=== PATIENT | female | born 1935 | race Caucasian/White ===

== ENCOUNTER → 2021-11-19 09:40 | Outpatient (BNVA) | payer MEDICARE, OTHER, SELFPAY | PROVIDERS: Family Provider Family Medicine; PCP Family Medicine; Visit Provider Internal Medicine Cardiovascular Disease | DX: Z79.01 Long term (current) use of anticoagulants (principal) ==

== ENCOUNTER → 2021-11-23 16:23 | Outpatient (BNVA) | payer MEDICARE, OTHER, SELFPAY | PROVIDERS: Family Provider Family Medicine; PCP Family Medicine; Visit Provider Internal Medicine Cardiovascular Disease | DX: Z79.01 Long term (current) use of anticoagulants (principal) ==

== ENCOUNTER → 2021-12-01 15:00 | Outpatient (BNVA) | payer MEDICARE, OTHER, SELFPAY | PROVIDERS: Family Provider Family Medicine; PCP Family Medicine; Visit Provider Internal Medicine Cardiovascular Disease | DX: Z79.01 Long term (current) use of anticoagulants (principal) ==

== ENCOUNTER → 2021-12-07 09:25 | Outpatient (BNVA) | payer MEDICARE, OTHER, SELFPAY | PROVIDERS: Family Provider Family Medicine; PCP Family Medicine; Visit Provider Internal Medicine Cardiovascular Disease | DX: I48.19 Other persistent atrial fibrillation (principal); Z79.01 Long term (current) use of anticoagulants ==

== ENCOUNTER → 2021-12-17 08:31 | Outpatient (BNVA) | payer MEDICARE, OTHER, SELFPAY | PROVIDERS: Family Provider Family Medicine; PCP Family Medicine; Visit Provider Internal Medicine Cardiovascular Disease | DX: Z79.01 Long term (current) use of anticoagulants (principal) ==

== ENCOUNTER → 2021-12-24 10:51 | Outpatient (BNVA) | payer MEDICARE, OTHER, SELFPAY | PROVIDERS: Family Provider Family Medicine; PCP Family Medicine; Visit Provider Internal Medicine Cardiovascular Disease | DX: Z79.01 Long term (current) use of anticoagulants (principal) ==

== ENCOUNTER → 2021-12-27 16:04 | Outpatient (BNVA) | payer MEDICARE, OTHER, SELFPAY | PROVIDERS: Family Provider Family Medicine; PCP Family Medicine; Visit Provider Internal Medicine Cardiovascular Disease | DX: Z79.01 Long term (current) use of anticoagulants (principal) ==

== ENCOUNTER → 2022-01-05 09:57 | Outpatient (BNVA) | payer MEDICARE, OTHER, SELFPAY | PROVIDERS: Family Provider Family Medicine; PCP Family Medicine; Visit Provider Internal Medicine Cardiovascular Disease | DX: Z79.01 Long term (current) use of anticoagulants (principal) ==

== ENCOUNTER → 2022-01-14 09:38 | Outpatient (BNVA) | payer MEDICARE, OTHER, SELFPAY | PROVIDERS: Family Provider Family Medicine; PCP Family Medicine; Visit Provider Internal Medicine Cardiovascular Disease | DX: Z79.01 Long term (current) use of anticoagulants (principal) ==

== ENCOUNTER → 2022-01-21 10:59 | Outpatient (BNVA) | payer MEDICARE, OTHER, SELFPAY | PROVIDERS: Family Provider Family Medicine; PCP Family Medicine; Visit Provider Internal Medicine Cardiovascular Disease | DX: Z79.01 Long term (current) use of anticoagulants (principal) ==

== ENCOUNTER → 2022-01-27 08:20 | Outpatient (BNVA) | payer MEDICARE, OTHER, SELFPAY | PROVIDERS: Family Provider Family Medicine; PCP Family Medicine; Visit Provider Internal Medicine Cardiovascular Disease | DX: Z79.01 Long term (current) use of anticoagulants (principal) ==

== ENCOUNTER → 2022-02-03 08:20 | Outpatient (BNVA) | payer MEDICARE, OTHER, SELFPAY | PROVIDERS: Family Provider Family Medicine; PCP Family Medicine; Visit Provider Internal Medicine Cardiovascular Disease | DX: Z79.01 Long term (current) use of anticoagulants (principal) ==

== ENCOUNTER → 2022-02-11 09:54 | Outpatient (BNVA) | payer MEDICARE, OTHER, SELFPAY | PROVIDERS: Family Provider Family Medicine; PCP Family Medicine; Visit Provider Internal Medicine Cardiovascular Disease | DX: Z79.01 Long term (current) use of anticoagulants (principal) ==

== ENCOUNTER → 2022-02-16 09:17 | Outpatient (BNVA) | payer MEDICARE, OTHER, SELFPAY | PROVIDERS: Family Provider Family Medicine; PCP Family Medicine; Visit Provider Internal Medicine Cardiovascular Disease | DX: Z79.01 Long term (current) use of anticoagulants (principal) ==

== ENCOUNTER → 2022-02-25 09:07 | Outpatient (BNVA) | payer MEDICARE, OTHER, SELFPAY | PROVIDERS: Family Provider Family Medicine; PCP Family Medicine; Visit Provider Internal Medicine Cardiovascular Disease | DX: Z79.01 Long term (current) use of anticoagulants (principal) ==

== ENCOUNTER → 2022-03-02 17:11 | Outpatient (BNVA) | payer MEDICARE, OTHER, SELFPAY | PROVIDERS: Family Provider Family Medicine; PCP Family Medicine; Visit Provider Internal Medicine Cardiovascular Disease | DX: Z79.01 Long term (current) use of anticoagulants (principal) ==

== ENCOUNTER → 2022-03-10 12:34 | Outpatient (BNVA) | payer MEDICARE, OTHER, SELFPAY | PROVIDERS: Family Provider Family Medicine; PCP Family Medicine; Visit Provider Internal Medicine Cardiovascular Disease | DX: Z79.01 Long term (current) use of anticoagulants (principal) ==

== ENCOUNTER → 2022-03-18 10:34 | Outpatient (BNVA) | payer MEDICARE, OTHER, SELFPAY | PROVIDERS: Family Provider Family Medicine; PCP Family Medicine; Visit Provider Internal Medicine Cardiovascular Disease | DX: Z79.01 Long term (current) use of anticoagulants (principal) ==

== ENCOUNTER → 2022-03-25 13:29 | Outpatient (BNVA) | payer MEDICARE, OTHER, SELFPAY | PROVIDERS: Family Provider Family Medicine; PCP Family Medicine; Visit Provider Internal Medicine Cardiovascular Disease | DX: Z79.01 Long term (current) use of anticoagulants (principal) ==

== ENCOUNTER → 2022-03-30 09:52 | Outpatient (BNVA) | payer MEDICARE, OTHER, SELFPAY | PROVIDERS: Family Provider Family Medicine; PCP Family Medicine; Visit Provider Internal Medicine Cardiovascular Disease | DX: Z79.01 Long term (current) use of anticoagulants (principal) ==

== ENCOUNTER → 2022-04-05 10:45 | Outpatient (BNVA) | payer MEDICARE, OTHER, SELFPAY | PROVIDERS: Family Provider Family Medicine; PCP Family Medicine; Visit Provider Internal Medicine Cardiovascular Disease | DX: Z79.01 Long term (current) use of anticoagulants (principal) ==

== ENCOUNTER → 2022-09-23 11:15 | Outpatient (BNVA) | payer MEDICARE, OTHER, SELFPAY | PROVIDERS: Family Provider Family Medicine; PCP Family Medicine; Visit Provider Internal Medicine Cardiovascular Disease | DX: I48.19 Other persistent atrial fibrillation (principal); I11.0 Hypertensive heart disease with heart failure; I50.32 Chronic diastolic (congestive) heart failure; E78.5 Hyperlipidemia, unspecified | CPT/HCPCS: 93005; 99214; Q3014 ==

== ENCOUNTER 2022-12-22 17:44 | Emergency (ER) | payer MEDICARE, OTHER, SELFPAY ==
[2022-12-22 18:06] VITALS: BP 154/86; PULSE 86; RESP 16; TEMP 36.8; O2SAT 94
--- NOTE | 2022-12-22 18:57 | ED_ITS ---
Documented by User: LELIA Flanagan 12/23/22 02:01 HPI - Back Pain/Injury General: Chief Complaint: Back Pain/Injury Stated Complaint: fall Time Seen by Provider: 12/22/22 18:16 History of Present Illness: Patient reports that she has right-sided low back pain. She reports that she has been recovering from a terrible virus that she had for 3 weeks. She states that she was still feeling weak and rundown so she went to her primary care on Monday. She states that as she was leaving she tripped over the mat and the door and fell. She reports that she hurt her right leg and her right hand. She states that she thinks her leg and hand are okay; however, today she started having stabbing pain in her right low back. She denies hitting her head or having loss of consciousness. She is on blood thinners and states that she has significant bruising to her right leg. She denies any urinary symptoms. Associated symptoms: Deny abdominal pain, chills, dysuria, fever(s), nausea, urinary urgency or vomiting Review of Systems Const: Denies: fever(s) or chills Card: Denies: chest pain, palpitations or irregular heart rhythm Resp: Denies: dyspnea, productive cough or non-productive cough GI: Denies: abdominal pain, nausea or vomiting : Denies: flank pain, difficulty voiding, dysuria, urinary frequency, urinary urgency or urinary hesitancy Musc: Reports: back pain Skin/Breast: Reports: other (Bruising to the right leg and right hand. Dupuytren's contracture right jordan) Neuro: Denies: headache(s), numbness in extremities, weakness in extremities or behavioral changes PFSH ED PFSH: Medical History Atrial fibrillation Diastolic heart failure GERD (gastroesophageal reflux disease) HTN (hypertension) Hyperlipidemia Surgical History S/P cataract extraction S/P cholecystectomy S/P knee surgery S/P subtotal thyroidectomy Social History Alcohol intake: never Physical Exam Const: COMMON NORMALS: no acute distress, patient oriented x3 and alert HENMT: OTHER: Bruising noted under her left eye which patient states is from her eyes being previously swollen shut from the virus that she had. She states that is not from the fall Neck/C-Spine: COMMON NORMALS: no JVD Resp: COMMON NORMALS: normal respiratory effort and No use of accessory muscles Cardio: COMMON NORMALS: no JVD, regular rate, regular rhythm, S1 normal heart sound present and S2 normal heart sound present RATE: regular rate RHYTHM: regular rhythm HEART SOUNDS: S1 normal heart sound present and S2 normal heart sound present Back/Pelvis: OTHER: There is tenderness to palpation right lumbar musculature. No lumbar vertebral point tenderness appreciated. Palpation of the lumbar musculature reproduces pain complaint. Extremity: OTHER: Significant bruising appreciated to the right knee and anterior thigh. Patient is able to bear weight on the leg but her back hurts. Bruising also appreciated to the dorsal and palmar surface of the right hand with Dupuytren contracture noted. Neuro: COMMON NORMALS: patient oriented x3 SENSORIUM/ORIENTATION: Yes alert Course Vital Signs: Vital signs: Vital Signs Temperature 98.3 F 12/22/22 18:06 Pulse Rate 79 12/22/22 21:17 Respiratory Rate 15 12/22/22 21:26 Blood Pressure 166/93 12/22/22 21:17 Pulse Oximetry 95 12/22/22 21:17 Oxygen Delivery Me thod Room Air 12/22/22 21:17 MDM - Back Pain/Injury Medical Decision Making Patient is in for back pain after a fall 4 days ago. Patient has significant b ruising to the right leg but she is bearing weight on the leg and the knee. She states that the complaint she has today is just the back. She declines x-rays of the hand or the leg. She states even if there were a fracture in the hand there is nothing she could do about it with the contracture. X-ray of lumbar spine and right hip do not show any acute osseous deformities. Patient's physical exam is consistent with muscle spasming/strain. Patient has had a bad reaction to a muscle relaxant medication in the past which she states caused her heart to stop. She has numerous medication allergies. She is on blood thinning medications. She has tramadol for home use. Encourage patient to continue using tramadol as needed for pain. Recommend warm moist compresses to the area and gentle stretches. Continue follow-up with primary care provider. Return to the ER for new or worsening symptoms Labs Radiology Impressions Hip/Pelvis X-Ray 12/22/22 18:57 IMPRESSION: No acute findings. Lumbar Spine X-Ray 12/22/22 18:57 IMPRESSION: 1. No acute findings. 2. Multilevel degenerative changes. Discharge Plan Discharge Patient Disposition: Home Clinical Impression: Strain of lumbar region Condition: Stable Prescriptions: No Action tramadol 50 mg tablet 50 mg PO DAILY PRN zolpidem 10 mg tablet 10 mg PO .HS omeprazole 20 mg capsule,delayed release(DR/EC) 20 mg PO BID aspirin 325 mg tablet 325 mg PO DAILY PRN acetaminophen 325 mg tablet 325 mg PO QID PRN mirtazapine 7.5 mg tablet 7.5 mg PO DAILY PRN lorazepam 0.5 mg tablet 0.5 mg PO DAILY PRN lovastatin 20 mg tablet 20 mg PO DAILY Qty: 90 3RF sotalol 80 mg tablet 120 mg PO BID Qty: 270 3RF warfarin 4 mg tablet 4 mg PO DAILY Protocol: Dose Management Condition: Monday Dose/Route: 7 mg Instruction: 1 x 1 mg tablet, 1 x 6 mg tablet Condition: Monday Dose/Route: 7 mg Instruction: 1 x 1 mg tablet, 1 x 6 mg tablet Condition: Monday Dose/Route: 6 mg Instruction: 1 x 6 mg tablet Condition: Monday Dose/Route: 6 mg Instruction: 1 x 6 mg tablet Condition: Dose/Route: 6 mg Instruction: 1 x 6 mg tablet Condition: Monday Dose/Route: 7 mg Instruction: 1 x 1 mg tablet, 1 x 6 mg tablet Condition: Monday Dose/Route: 6 mg Instruction: 1 x 6 mg tablet Protocol Text: Adjustment Start Date: 12/15/22 INR Value: 1.8 INR Date: 12/12/22 Recheck Date: 12/22/22 warfarin 5 mg tablet 5 mg PO DAILY Qty: 30 6RF Protocol: Dose Management Condition: Monday Dose/Route: 7 mg Instruction: 1 x 1 mg tablet, 1 x 6 mg tablet Condition: Monday Dose/Route: 7 mg Instruction: 1 x 1 mg tablet, 1 x 6 mg tablet Condition: Monday Dose/Route: 6 mg Instruction: 1 x 6 mg tablet Condition: Monday Dose/Route: 6 mg Instruction: 1 x 6 mg tablet Condition: Dose/Route: 6 mg Instruction: 1 x 6 mg tablet Condition: Monday Dose/Route: 7 mg Instruction: 1 x 1 mg tablet, 1 x 6 mg tablet Condition: Monday Dose/Route: 6 mg Instruction: 1 x 6 mg tablet Protocol Text: Adjustment Start Date: 12/15/22 INR Value: 1.8 INR Date: 12/12/22 Recheck Date: 12/22/22 warfarin 6 mg tablet 6 mg PO DAILY Qty: 30 6RF Protocol: Dose Management Condition: Monday Dose/Route: 7 mg Instruction: 1 x 1 mg tablet, 1 x 6 mg tablet Condition: Monday Dose/Route: 7 mg Instruction: 1 x 1 mg tablet, 1 x 6 mg tablet Condition: Monday Dose/Route: 6 mg Instruction: 1 x 6 mg tablet Condition: Monday Dose/Route: 6 mg Instruction: 1 x 6 mg tablet Condition: Dose/Route: 6 mg Instruction: 1 x 6 mg tablet Condition: Monday Dose/Route: 7 mg Instruction: 1 x 1 mg tablet, 1 x 6 mg tablet Condition: Monday Dose/Route: 6 mg Instruction: 1 x 6 mg tablet Protocol Text: Adjustment Start Date: 12/15/22 INR Value: 1.8 INR Date: 12/12/22 Recheck Date: 12/22/22 warfarin 1 mg tablet See Rx Instructions .ROUTE .COMPLEX Qty: 90 0RF Protocol: Dose Management Condition: Monday Dose/Route: 7 mg Instruction: 1 x 1 mg tablet, 1 x 6 mg tablet Condition: Monday Dose/Route: 7 mg Instruction: 1 x 1 mg tablet, 1 x 6 mg tablet Condition: Monday Dose/Route: 6 mg Instruction: 1 x 6 mg tablet Condition: Monday Dose/Route: 6 mg Instruction: 1 x 6 mg tablet Condition: Dose/Route: 6 mg Instruction: 1 x 6 mg tablet Condition: Monday Dose/Route: 7 mg Instruction: 1 x 1 mg tablet, 1 x 6 mg tablet Condition: Monday Dose/Route: 6 mg Instruction: 1 x 6 mg tablet Protocol Text: Adjustment Start Date: 12/15/22 INR Value: 1.8 INR Date: 12/12/22 Recheck Date: 12/22/22 Dose Instruction: TAKE 1 TABLET EVERY DAY DIRECTED BASED ON INR RESULTS Rx Instructions: TAKE 1 TABLET EVERY DAY DIRECTED BASED ON INR RESULTS valsartan 160 mg tablet 160 mg PO BID Qty: 180 3RF diltiazem HCl 360 mg capsule,extended release 24hr 360 mg PO DAILY Qty: 90 3RF Discharge Orders: Discharge ED (Routine); Ordered 12/22/22 Ordered By: Nyla Mcdonald Referrals: Liliana Ko DO [Primary Care Provider] - Discharge Diet: Usual diet Discharge Activity: Increase activity as tolerated Patient Instructions: Low Back Strain (ED) Activity Restrictions/Additional Instructions: Use tramadol you have at home as needed for pain. I recommend gentle stretching, gentle massage, warm moist compresses to low back. Follow-up with primary care as needed. 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 [employer] Documented by User: Lucho Cardoso DO 12/23/22 07:52 HPI - Back Pain/Injury General: Chief Complaint: Back Pain/Injury Stated Complaint: fall Time Seen by Provider: 12/22/22 18:16 [facility] ED PFSH: Medical History Atrial fibrillation Diastolic heart failure GERD (gastroesophageal reflux disease) HTN (hypertension) Hyperlipidemia Surgical History S/P cataract extraction S/P cholecystectomy S/P knee surgery S/P subtotal thyroidectomy Social History Alcohol intake: never Course Vital Signs: Vital signs: Vital Signs Temperature 98.3 F 12/22/22 18:06 Pulse Rate 79 12/22/22 21:17 Respiratory Rate 15 12/22/22 21:26 Blood Pressure 166/93 12/22/22 21:17 Pulse Oximetry 95 12/22/22 21:17 Oxygen Delivery Me thod Room Air 12/22/22 21:17 MDM - Back Pain/Injury Medical Decision Making Patient is in for back pain after a fall 4 days ago. Patient has significant bruising to the right leg but she is bearing weight on the leg and the knee. She states that the complaint she has today is just the back. She declines x- rays of the hand or the leg. She states even if there were a fracture in the hand there is nothing she could do about it with the contracture. X-ray of lumbar spine and right hip do not show any acute osseous deformities. Patient's physical exam is consistent with muscle spasming/strain. Patient has had a bad reaction to a muscle relaxant medication in the past which she states caused her heart to stop. She has numerous medication allergies. She is on blood thinning medications. She has tramadol for home use. Encourage patient to continue using tramadol as needed for pain. Recommend warm moist compresses to the area and gentle stretches. Continue follow-up with primary care provider. Return to the ER for new or worsening symptoms Chart reviewed and patient discussed with midlevel. Agree with assessment and plan. Labs Radiology Impressions Hip/Pelvis X-Ray 12/22/22 18:57 IMPRESSION: No acute findings. Lumbar Spine X-Ray 12/22/22 18:57 IMPRESSION: 1. No acute findings. 2. Multilevel degenerative changes. Discharge Plan Discharge Patient Disposition: Home Clinical Impression: Strain of lumbar region Condition: Stable Prescriptions: No Action tramadol 50 mg tablet 50 mg PO DAILY PRN zolpidem 10 mg tablet 10 mg PO .HS omeprazole 20 mg capsule,delayed release(DR/EC) 20 mg PO BID aspirin 325 mg tablet 325 mg PO DAILY PRN acetaminophen 325 mg tablet 325 mg PO QID PRN mirtazapine 7.5 mg tablet 7.5 mg PO DAILY PRN lorazepam 0.5 mg tablet 0.5 mg PO DAILY PRN lovastatin 20 mg tablet 20 mg PO DAILY Qty: 90 3RF sotalol 80 mg tablet 120 mg PO BID Qty: 270 3RF warfarin 4 mg tablet 4 mg PO DAILY Protocol: Dose Management Condition: Monday Dose/Route: 7 mg Instruction: 1 x 1 mg tablet, 1 x 6 mg tablet Condition: Monday Dose/Route: 7 mg Instruction: 1 x 1 mg tablet, 1 x 6 mg tablet Condition: Monday Dose/Route: 6 mg Instruction: 1 x 6 mg tablet Condition: Monday Dose/Route: 6 mg Instruction: 1 x 6 mg tablet Condition: Dose/Route: 6 mg Instruction: 1 x 6 mg tablet Condition: Monday Dose/Route: 7 mg Instruction: 1 x 1 mg tablet, 1 x 6 mg tablet Condition: Monday Dose/Route: 6 mg Instruction: 1 x 6 mg tablet Protocol Text: Adjustment Start Date: 12/15/22 INR Value: 1.8 INR Date: 12/12/22 Recheck Date: 12/22/22 warfarin 5 mg tablet 5 mg PO DAILY Qty: 30 6RF Protocol: Dose Management Condition: Monday Dose/Route: 7 mg Instruction: 1 x 1 mg tablet, 1 x 6 mg tablet Condition: Monday Dose/Route: 7 mg Instruction: 1 x 1 mg tablet, 1 x 6 mg tablet Condition: Monday Dose/Route: 6 mg Instruction: 1 x 6 mg tablet Condition: Monday Dose/Route: 6 mg Instruction: 1 x 6 mg tablet Condition: Dose/Route: 6 mg Instruction: 1 x 6 mg tablet Condition: Monday Dose/Route: 7 mg Instruction: 1 x 1 mg tablet, 1 x 6 mg tablet Condition: Monday Dose/Route: 6 mg Instruction: 1 x 6 mg tablet Protocol Text: Adjustment Start Date: 12/15/22 INR Value: 1.8 INR Date: 12/12/22 Recheck Date: 12/22/22 warfarin 6 mg tablet 6 mg PO DAILY Qty: 30 6RF Protocol: Dose Management Condition: Monday Dose/Route: 7 mg Instruction: 1 x 1 mg tablet, 1 x 6 mg tablet Condition: Monday Dose/Route: 7 mg Instruction: 1 x 1 mg tablet, 1 x 6 mg tablet Condition: Monday Dose/Route: 6 mg Instruction: 1 x 6 mg tablet Condition: Monday Dose/Route: 6 mg Instruction: 1 x 6 mg tablet Condition: Dose/Route: 6 mg Instruction: 1 x 6 mg tablet Condition: Monday Dose/Route: 7 mg Instruction: 1 x 1 mg tablet, 1 x 6 mg tablet Condition: Monday Dose/Route: 6 mg Instruction: 1 x 6 mg tablet Protocol Text: Adjustment Start Date: 12/15/22 INR Value: 1.8 INR Date: 12/12/22 Recheck Date: 12/22/22 warfarin 1 mg tablet See Rx Instructions .ROUTE .COMPLEX Qty: 90 0RF Protocol: Dose Management Condition: Monday Dose/Route: 7 mg Instruction: 1 x 1 mg tablet, 1 x 6 mg tablet Condition: Monday Dose/Route: 7 mg Instruction: 1 x 1 mg tablet, 1 x 6 mg tablet Condition: Monday Dose/Route: 6 mg Instruction: 1 x 6 mg tablet Condition: Monday Dose/Route: 6 mg Instruction: 1 x 6 mg tablet Condition: Dose/Route: 6 mg Instruction: 1 x 6 mg tablet Condition: Monday Dose/Route: 7 mg Instruction: 1 x 1 mg tablet, 1 x 6 mg tablet Condition: Monday Dose/Route: 6 mg Instruction: 1 x 6 mg tablet Protocol Text: Adjustment Start Date: 12/15/22 INR Value: 1.8 INR Date: 12/12/22 Recheck Date: 12/22/22 Dose Instruction: TAKE 1 TABLET EVERY DAY DIRECTED BASED ON INR RESULTS Rx Instructions: TAKE 1 TABLET EVERY DAY DIRECTED BASED ON INR RESULTS valsartan 160 mg tablet 160 mg PO BID Qty: 180 3RF diltiazem HCl 360 mg capsule,extended release 24hr 360 mg PO DAILY Qty: 90 3RF Discharge Orders: Discharge ED (Routine); Ordered 12/22/22 Ordered By: Nyla Mcdonald Referrals: Liliana Ko DO [Primary Care Provider] - Discharge Diet: Usual diet Discharge Activity: Increase activity as tolerated Patient Instructions: Low Back Strain (ED) Activity Restrictions/Additional Instructions: Use tramadol you have at home as needed for pain. I recommend gentle stretching, gentle massage, warm moist compresses to low back. Follow-up with primary care as needed. 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
--- NOTE | 2022-12-22 18:57 | XRR_ITS ---
PROCEDURE INFORMATION: Exam: XR Right Hip Exam date and time: 12/22/2022 7:10 PM Age: 87 years old Clinical indication: Injury or trauma; Fall; Additional info: Fall with hip pain TECHNIQUE: Imaging protocol: Radiologic exam of the right hip. Views: 1 view hip with pelvis when performed. COMPARISON: CR (PELVIS, ) 12/22/2022 7:07 PM FINDINGS: Bones/joints: Unremarkable. No acute fracture. Soft tissues: Unremarkable. XR/XR hip RT 2-3V wo/w pel* [id number] IMPRESSION: No acute findings.
--- NOTE | 2022-12-22 18:57 | XRR_ITS ---
PROCEDURE INFORMATION: Exam: XR Lumbosacral Spine Exam date and time: 12/22/2022 7:07 PM Age: 87 years old Clinical indication: Injury or trauma; Fall; Blunt trauma (contusions or hematomas); Patient HX: PT fell 12/19/22. C/O pain low back and RT hip pain. Also RT knee; Additional info: Fall with low back pain TECHNIQUE: Imaging protocol: Radiologic exam of the lumbosacral spine. Views: 2 or 3 views. COMPARISON: No relevant prior studies available. FINDINGS: Bones/joints: Leftward lumbar curvature. The vertebral body stature is maintained. No fracture. Disc space narrowing at L1-L2 and L4-L5. The facets are intact with degenerative changes, greatest at L4-L5. Mild retrograde subluxation of L1 on L2. Mild anterior subluxation of L5 on S1. Soft tissues: Calcified granulomas in the spleen. Calcified uterine fibroid. XR/XR lumbar spine 2-3V* [id number] IMPRESSION: 1. No acute findings. 2. Multilevel degenerative changes.
[2022-12-22 19:17] VITALS: RESP 16
[2022-12-22] MEDS: ondansetron 4 MG Tablet PO (19:17)
[2022-12-22] MEDS: morphine 4 mg/mL SDV 1 mL IM ×2 (19:17→21:26)
[2022-12-22 21:17] VITALS: BP 166/93; PULSE 79; RESP 15; O2SAT 95
[2022-12-22 21:26] VITALS: RESP 15
== END 2022-12-22 21:22 | disposition home or self-care (01) ==
PROVIDERS: Emergency Provider Nurse Practitioner Family; PCP Family Medicine
DX: S39.012A Strain of muscle, fascia and tendon of lower back, initial encounter (principal); Z79.01 Long term (current) use of anticoagulants; Z79.82 Long term (current) use of aspirin; I11.0 Hypertensive heart disease with heart failure; I50.9 Heart failure, unspecified; E78.5 Hyperlipidemia, unspecified; W18.09XA Striking against other object with subsequent fall, initial encounter; Y92.531 Health care provider office as the place of occurrence of the external cause
CPT/HCPCS: 72100; 73502; 96372; 99284; J2270; Q0162

== ENCOUNTER 2023-04-26 10:35 | Emergency (ER) | payer MEDICARE, OTHER, SELFPAY ==
[2023-04-26 10:43] VITALS: BP 177/124; PULSE 93; RESP 16; O2SAT 96; BMI 33.3
[2023-04-26 10:46] VITALS: PULSE 62; RESP 18; TEMP 36.6
--- NOTE | 2023-04-26 11:30 | W.ED.BACK ---
HPI - Back Pain/Injury General: Chief Complaint: Back Pain/Injury Stated Complaint: abd pain Time Seen by Provider: 04/26/23 10:54 History of Present Illness: Presents to the ER with complaints of low back pain on the right side. Patient also states she has numbness from her right back radiating down the backside of her leg all the way to the her toes and then wraps around to the big toe. Patient fell approximately 4 months ago was seen in this ER for x-rays a few days later and then a few weeks later was seen at [facility] had more x-rays done all x-rays been negative. Patient has failed outpatient steroids, anti-inflammatories, and tramadol for pain, patient also noticed some bruising to her right lower back area but she does not remember falling recently. Patient has had no new injury that she knows of. Review of Systems General: Reports: 10 or more systems reviewed and unremarkable except in HPI and below [facility] ED PFSH: Medical History Atrial fibrillation Diastolic heart failure GERD (gastroesophageal reflux disease) HTN (hypertension) Hyperlipidemia Surgical History S/P cataract extraction S/P cholecystectomy S/P knee surgery S/P subtotal thyroidectomy Social History Alcohol intake: never Substance/Drug Use: never Physical Exam Const: COMMON NORMALS: no acute distress, average body habitus, patient oriented x3, no limitations, healthy appearing, alert and well nourished HENMT: COMMON NORMALS: normocephalic, atraumatic, hearing grossly normal bilaterally, external ears normal, Normal external nose present and moist oral mucous membranes HEAD & SCALP: normocephalic and atraumatic NOSE: Normal external nose present EXTERNAL EAR: Yes external ears normal Neck/C-Spine: COMMON NORMALS: full ROM, no lymphadenopathy, no meningeal signs, no JVD and Thyroid normal THYROID: Thyroid normal Chest: COMMONS NORMALS: normal inspection of the chest and normal palpation of entire chest wall Resp: COMMON NORMALS: normal respiratory effort, No retractions, No use of accessory muscles and clear to auscultation bilaterally AUSCULTATION: clear to auscultation bilaterally Cardio: COMMON NORMALS: no JVD, regular rate, regular rhythm, S1 normal heart sound present, S2 normal heart sound present, No gallops present (Cardio), No clicks present (Cardio) and No murmurs present (Cardio) RATE: regular rate RHYTHM: regular rhythm HEART SOUNDS: S1 normal heart sound present and S2 normal heart sound present GI: COMMON NORMALS: Normal to inspection, nondistended, normoactive bowel sounds present, Soft to palpation, non-tender, No hepatosplenomegaly present and no masses PALPATION: Yes Soft to palpation and Yes No hepatosplenomegaly present Back/Pelvis: LUMBAR SPINE/LOWER BACK: Yes paraspinal muscle tenderness and Yes paraspinal muscle spasm Neuro: COMMON NORMALS: patient oriented x3 SENSORIUM/ORIENTATION: Yes alert MENINGEAL SIGNS: Yes no meningeal signs Course Vital Signs: Vital signs: Vital Signs Temperature 97.9 F 04/26/23 10:46 Pulse Rate 62 04/26/23 10:46 Respiratory Rate 18 04/26/23 10:46 Blood Pressure 177/124 04/26/23 10:43 Pulse Oximetry 96 04/26/23 10:43 MDM - Back Pain/Injury Medical Decision Making Patient fall over 4 months ago and has multiple x-rays done as well as multiple outpatient trials of medicines. Patient has not had an MRI. We will refer patient back to her PCP for an MRI for lumbar back pain with right L5 radiculopathy. We will place patient on a small short course of Stevenson for pain. Differential Diagnosis Likely lumbar radiculopathy and sciatica; Unlikely strain of lumbar region, renal colic, pyelonephritis, thoracic back pain, AAA or discitis Medical Records I reviewed the patient's medical records. Labs I reviewed the patient's lab results. Discharge Plan Discharge Patient Disposition: Home Clinical Impression: Lumbar radiculopathy Condition: Stable Prescriptions: New hydrocodone-acetaminophen 5-325 mg tablet 1 tab PO Q8H PRN (Reason: pain) Qty: 20 0RF No Action tramadol 50 mg tablet 50 mg PO DAILY PRN (Reason: Pain) zolpidem 10 mg tablet 10 mg PO .HS omeprazole 20 mg capsule,delayed release(DR/EC) 20 mg PO BID acetaminophen 325 mg tablet 325 mg PO QID PRN (Reason: Pain) mirtazapine 7.5 mg tablet 7.5 mg PO DAILY PRN (Reason: Sleep) lorazepam 0.5 mg tablet 0.5 mg PO DAILY PRN (Reason: Anxiety) lovastatin 20 mg tablet 20 mg PO DAILY Qty: 90 3RF sotalol 80 mg tablet 120 mg PO BID Qty: 270 3RF warfarin 1 mg tablet See Rx Instructions .ROUTE .COMPLEX Qty: 90 0RF Protocol: Dose Management Condition: Monday Dose/Route: 6 mg Instruction: 1 x 6 mg tablet Condition: Monday Dose/Route: 7 mg Instruction: 1 x 1 mg tablet, 1 x 6 mg tablet Condition: Monday Dose/Route: 7 mg Instruction: 1 x 1 mg tablet, 1 x 6 mg tablet Condition: Monday Dose/Route: 7 mg Instruction: 1 x 1 mg tablet, 1 x 6 mg tablet Condition: Dose/Route: 7 mg Instruction: 1 x 1 mg tablet, 1 x 6 mg tablet Condition: Monday Dose/Route: 7 mg Instruction: 1 x 1 mg tablet, 1 x 6 mg tablet Condition: Monday Dose/Route: 6 mg Instruction: 1 x 6 mg tablet Protocol Text: Adjustment Start Date: 04/20/23 INR Value: 2.9 INR Date: 04/17/23 Recheck Date: 04/27/23 Dose Instruction: TAKE 1 TABLET EVERY DAY DIRECTED BASED ON INR RESULTS Rx Instructions: TAKE 1 TABLET BY MOUTH WITH 6 MG TABLET ON MONDAY, MONDAY, MONDAY, MONDAY, MONDAY. valsartan 160 mg tablet 160 mg PO BID Qty: 180 3RF diltiazem HCl 360 mg capsule,extended release 24hr 360 mg PO DAILY Qty: 90 3RF warfarin 6 mg tablet See Rx Instructions .ROUTE .COMPLEX Protocol: Dose Management Condition: Monday Dose/Route: 6 mg Instruction: 1 x 6 mg tablet Condition: Monday Dose/Route: 7 mg Instruction: 1 x 1 mg tablet, 1 x 6 mg tablet Condition: Monday Dose/Route: 7 mg Instruction: 1 x 1 mg tablet, 1 x 6 mg tablet Condition: Monday Dose/Route: 7 mg Instruction: 1 x 1 mg tablet, 1 x 6 mg tablet Condition: Dose/Route: 7 mg Instruction: 1 x 1 mg tablet, 1 x 6 mg tablet Condition: Monday Dose/Route: 7 mg Instruction: 1 x 1 mg tablet, 1 x 6 mg tablet Condition: Monday Dose/Route: 6 mg Instruction: 1 x 6 mg tablet Protocol Text: Adjustment Start Date: 04/20/23 INR Value: 2.9 INR Date: 04/17/23 Recheck Date: 04/27/23 Rx Instructions: TAKE 1 TABLET BY MOUTH EVERY DAY Discharge Orders: Discharge ED (Routine); Ordered 04/26/23 Ordered By: Angel Ya Referrals: Liliana Ko DO [Primary Care Provider] - 7-10 days Patient Instructions: Lumbar Radiculopathy (ED), Lower Back Exercises (ED), Opioid Safety, Pain Management Activity Restrictions/Additional Instructions: Please take pain medicine as directed only as needed. Please follow-up with your primary care physician as you may benefit from further evaluation and treatment which has an MRI. 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
== END 2023-04-26 12:02 | disposition home or self-care (01) ==
PROVIDERS: Emergency Provider Emergency Medicine; PCP Family Medicine
DX: M54.16 Radiculopathy, lumbar region (principal)
CPT/HCPCS: 99283

== ENCOUNTER 2023-11-02 06:11 | Inpatient (IN) | payer MEDICARE, OTHER, SELFPAY ==
[2023-11-02] VITALS (12 sets, daily range): BP systolic 111–156; BP diastolic 62–96; PULSE 72–102; RESP 18–23; TEMP 36.6–37.1; O2SAT 89–96; BMI 32.1
--- NOTE | 2023-11-02 06:14 | XRR_ITS ---
PROCEDURE INFORMATION: Exam: XR Chest Exam date and time: 11/02/2023 6:33 AM Age: 88 years old Clinical indication: Shortness of breath; Additional info: Dyspnea/cough TECHNIQUE: Imaging protocol: Radiologic exam of the chest. Views: 1 view. COMPARISON: CR XR chest 1V [id number] 03/18/2019 6:43 PM FINDINGS: Lungs: Atelectasis or infiltrate at the left lung base. Mild interstitial prominence. Pleural spaces: Unremarkable. No pleural effusion. No pneumothorax. Heart/Mediastinum: See Vasculature finding. Vasculature: Mild cardiomegaly and uncoiling of the thoracic aorta accentuated by the AP positioning. Bones/joints: Unremarkable. XR/XR chest 1V portable [id number] IMPRESSION: Left lower lobe atelectasis or infiltrate.
--- NOTE | 2023-11-02 06:17 | ECG_ITS ---
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 Measurements Intervals [place] Rate: 93 P: 110 W[place]: 151 QRS: 78 QRSD: 93 T: 66 QT: 390 QTc: 487 Interpretive Statements SINUS RHYTHM WITH FREQUENT SUPRAVENTRICULAR PREMATURE COMPLEXES NONSPECIFIC ST & T-WAVE ABNORMALITY ABNORMAL RHYTHM ECG Compared to ECG 03/18/2019 18:24:32 T-wave abnormality now present Electronically Signed On 11-02-2023 10:53:29 MATERIAL HANDLER FLOORPERSON by Lennox Gillette M.D. [email or web address] general [email or web address] health [facility].BA Insight/store/NU/[id number]/[id number] f
--- NOTE | 2023-11-02 06:20 | W.ED.SOB ---
HPI - SOB/Dyspnea General: Chief Complaint: Chest Pain Stated Complaint: sob, chest pain, weakness Time Seen by Provider: 11/02/23 06:13 Source: patient Mode of arrival: ambulatory History of Present Illness: HPI Narrative: 88-year-old female presents emergency room complaining of cough fever chest discomfort shortness of breath that began last night. She been taking cephalexin last couple days from previous prescription she stopped then and then restarted it. Cough has been minimally productive. She is not normally on oxygen but does use CPAP. No radiation of chest pain. MD elicited complaint: shortness of breath and cough Pertinent past history: congestive heart failure and other (Atrial fibrillation) Onset (ago): hour(s) Timing: constant and progressively worsening Exacerbating factors: nothing Relieving factors: nothing Associated symptoms: Reports chest pain; Deny abdominal pain, chest congestion, cough, diaphoresis, dizziness, extremity pain, fever(s), hemoptysis, lightheadedness, myalgias, nausea, orthopnea, palpitations, paresthesias, polydipsia, polyuria, rash, sense of impending doom, syncope or vomiting Treatment prior to arrival: other (Acetaminophen) Related Data: Home oxygen amount: none Review of Systems Const: Denies: fever(s), chills or diaphoresis Card: Reports: chest pain and irregular heart rhythm; Denies: palpitations, edema, swelling of feet/ankles, lightheadedness, syncope or orthopnea Resp: Reports: dyspnea and non-productive cough; Denies: hemoptysis or chest congestion GI: Denies: abdominal pain, nausea or vomiting : Denies: dysuria, urinary frequency or urinary urgency Musc: Denies: neck pain, back pain or extremity pain Skin/Breast: Denies: rash Neuro: Denies: dizziness Endo: Denies: polyuria or polydipsia PFSH ED PFSH: Medical History GERD (gastroesophageal reflux disease) Hyperlipidemia HTN (hypertension) Diastolic heart failure Atrial fibrillation Surgical History S/P subtotal thyroidectomy S/P cataract extraction S/P cholecystectomy S/P knee surgery Social History Alcohol intake: never Substance/Drug Use: never Physical Exam Const: COMMON NORMALS: no acute distress GENERAL APPEARANCE: cooperative and comfortable ORIENTATION/CONSCIOUSNESS: Yes awake, Yes oriented to person, Yes oriented to place and Yes oriented to time HENMT: COMMON NORMALS: normocephalic, atraumatic and hearing grossly normal bilaterally HEAD & SCALP: normocephalic and atraumatic Resp: COMMON NORMALS: normal respiratory effort, No retractions, No use of accessory muscles and clear to auscultation bilaterally AUSCULTATION: clear to auscultation bilaterally Cardio: COMMON NORMALS: regular rate, regular rhythm and No murmurs present (Cardio) RATE: regular rate RHYTHM: regular rhythm GI: COMMON NORMALS: Soft to palpation and No hepatosplenomegaly present AUSCULTATION: Yes normoactive bowel sounds PALPATION: Yes Soft to palpation, No Tenderness to palpation present (GI), No Guarding due to palpation present (GI) and Yes No hepatosplenomegaly present Extremity: COMMON NORMALS: normal to inspection, capillary refill normal, no clubbing, cyanosis or edema, no calf tenderness and no pedal edema Neuro: SENSORIUM/ORIENTATION: Yes oriented to person, Yes oriented to place and Yes oriented to time Skin: COMMON NORMALS: no rashes or lesions noted GENERAL SKIN EXAM: no rashes or lesions noted Course Vital Signs: Vital signs: Vital Signs Temperature 98.7 F 11/02/23 06:15 Pulse Rate 85 11/02/23 07:16 Respiratory Rate 23 H 11/02/23 07:16 Blood Pressure 143/95 11/02/23 07:16 Pulse Oximetry 95 11/02/23 07:16 Oxygen Delivery Me thod Nasal Cannula 11/02/23 06:33 Oxygen Flow Rate 1.5 11/02/23 06:33 MDM - SOB/Dyspnea Medical Decision Making Left lower lobe pneumonia on chest x-ray respiratory panel pending patient does have leukocytosis. 5-10 red blood cells in the urine without symptoms she still is having some chest discomfort this is new associated with the onset of the symptoms her initial troponin is 16 her EKG shows atrial fibrillation with no ST changes. Rate is well-controlled. Second Trope pending. Blood cultures started patient cough has been nonproductive we will try to get a sputum culture if at all able. Started on ceftriaxone and Zithromax Lab Data 11/02/23 06:20 11/02/23 06:20 Labs/Radiology: Radiology Impressions Chest X-Ray 11/02/23 06:14 IMPRESSION: Left lower lobe atelectasis or infiltrate. Laboratory Results WBC 14.67 10^3/uL (3.29-11.43) H 11/02/23 06:20 RBC 4.14 10^6/uL (3.85-5.65) 11/02/23 06:20 Hgb 11.00 g/dL (11.27-16.99) L 11/02/23 06:20 Hct 33.9 % (36-47) L 11/02/23 06:20 MCV 81.9 fl (85-98) L 11/02/23 06:20 MCH 26.6 pg (27-33) L 11/02/23 06:20 MCHC 32.4 g/dL (30-55) 11/02/23 06:20 RDW 16.9 % (12.1-15.1) H 11/02/23 06:20 Plt Count 227 10^3/cmm (157-399) 11/02/23 06:20 MPV 9.3 fL (7.4-10.4) 11/02/23 06:20 Neut % (Auto) 78.1 % 11/02/23 06:20 Lymph % (Auto) 14.7 % 11/02/23 06:20 [place] % (Auto) 6.3 % 11/02/23 06:20 Eos % (Auto) 0.1 % 11/02/23 06:20 Baso % (Auto) 0.2 % 11/02/23 06:20 Neut # (Auto) 11.46 10^3/uL (1.8-7.7) H 11/02/23 06:20 Lymph # (Auto) 2.2 10^3/uL (0.8-4.8) 11/02/23 06:20 [place] # (Auto) 0.9 10^3/uL (0.2-0.9) 11/02/23 06:20 Eos # (Auto) 0.0 10^3/uL (0.0-0.8) 11/02/23 06:20 Baso # (Auto) 0.0 10^3/uL (0.0-0.1) 11/02/23 06:20 Nucleated RBC % (auto) 0 % 11/02/23 06:20 Nucleated RBCs # 0.0 /100WBC 11/02/23 06:20 PT 19.50 SECONDS (12.1-14.9) H 11/02/23 06:20 INR 1.59 (0.8-1.2) H 11/02/23 06:20 Sodium 136 mmol/L (136-145) 11/02/23 06:20 Potassium 3.1 mmol/L (3.5-5.1) L 11/02/23 06:20 Chloride 98 mmol/L (98-107) 11/02/23 06:20 Carbon Dioxide 24 mmol/L (22-29) 11/02/23 06:20 Anion Gap 17.1 (5-19) 11/02/23 06:20 BUN 8 mg/dL (8-23) 11/02/23 06:20 Creatinine 0.7 mg/dL (0.5-0.9) 11/02/23 06:20 GFR Calculation Not Reportable 11/02/23 06:20 Glucose 124 mg/dL (65-115) H 11/02/23 06:20 Calculated Osmolality 282 mOsm/kg (285-295) L 11/02/23 06:20 Lactic Acid 0.9 mmol/L (0.5-2.2) 11/02/23 06:20 Calcium 7.6 mg/dL (8.5-10.5) L 11/02/23 06:20 Total Bilirubin 1.2 mg/dL (0.15-1.2) 11/02/23 06:20 AST 21 U/L (0-32) 11/02/23 06:20 ALT 16 U/L (0-33) 11/02/23 06:20 Alkaline Phosphatase 164 U/L (35-105) H 11/02/23 06:20 Troponin T Baseline 16 ng/L (0-10) H 11/02/23 06:20 Troponin T 120 Minute 14.54 ng/L (0-10) H 11/02/23 08:07 Delta Troponin T -1.46 ABS# (0-10) L 11/02/23 08:07 NT-Pro-B Natriuret Pep 1064 pg/mL (0-450) H 11/02/23 06:20 Total Protein 6.8 g/dL (6.6-8.7) 11/02/23 06:20 Albumin 3.7 g/dL (3.5-5.2) 11/02/23 06:20 Globulin 3.1 g/dL (1.3-4.6) 11/02/23 06:20 Procalcitonin 0.08 ng/mL (0-0.5) 11/02/23 06:20 Urine Color Yellow (Yellow) 11/02/23 06:28 Urine Appearance Clear (CLEAR) 11/02/23 06:28 Urine pH 7 (5-7) 11/02/23 06:28 Ur Specific [place] 1.005 (1.005-1.030) 11/02/23 06:28 Urine Protein Neg (Negative) 11/02/23 06:28 Urine Glucose (UA) Norm (Normal) 11/02/23 06:28 Urine Ketones 1+ (Negative) H 11/02/23 06:28 Urine Blood 2+ (Negative) H 11/02/23 06:28 Urine Nitrate Negative (Negative) 11/02/23 06:28 Urine Bilirubin Neg (Negative) 11/02/23 06:28 Urine Urobilinogen Neg mg/dL (Negative) 11/02/23 06:28 Ur Leukocyte Esterase Negative (Negative) 11/02/23 06:28 Urine RBC 5-10 /hpf (0-2) H 11/02/23 06:28 Urine WBC Rare /hpf (0-5) 11/02/23 06:28 Ur Squamous Epith Cells 0-4 /hpf (0-5) H 11/02/23 06:28 Amorphous Sediment Trace /hpf 11/02/23 06:28 Urine Bacteria Trace /hpf (NONE) 11/02/23 06:28 Urine Mucus Trace /hpf 11/02/23 06:28 Adenovirus (PCR) Not detected (NOT DETECT) 11/02/23 06:28 C. pneumoniae DNA (PCR) Not detected (NOT DETECT) 11/02/23 06:28 Coronavirus 229E (PCR) Not detected (NOT DETECT) 11/02/23 06:28 Human Metapneumovir PCR Not detected (NOT DETECT) 11/02/23 06:28 Influenza A (H1) PCR Not detected (NOT DETECT) 11/02/23 06:28 Influ A (H1/09) PCR Not detected (NOT DETECT) 11/02/23 06:28 Influenza A (H3) PCR Not detected (NOT DETECT) 11/02/23 06:28 Influenza Type A (PCR) Not detected (NOT DETECT) 11/02/23 06:28 Influenza Type B (PCR) Not detected (NOT DETECT) 11/02/23 06:28 M. pneumoniae (PCR) Not detected (NOT DETECT) 11/02/23 06:28 Parainfluenza 1 (PCR) Not detected (NOT DETECT) 11/02/23 06:28 Parainfluenza 2 (PCR) Not detected (NOT DETECT) 11/02/23 06:28 Parainfluenza 3 (PCR) Not detected (NOT DETECT) 11/02/23 06:28 Parainfluenza 4 (PCR) Not detected (NOT DETECT) 11/02/23 06:28 RSV Type A (PCR) Not detected (NOT DETECT) 11/02/23 06:28 RSV Type B (PCR) Not detected (NOT DETECT) 11/02/23 06:28 Entero/Rhino (PCR) Not detected (NOT DETECT) 11/02/23 06:28 SARS-CoV-2 (PCR) Not detected (NOT DETECT) 11/02/23 06:28 All radiology interpretation(s) finalized by discharge Discharge Plan Discharge Patient Disposition: Admitted As Inpatient Clinical Impression: Pneumonia Atrial fibrillation Qualifiers: Atrial fibrillation type: persistent (not longstanding) Qualified Code(s): I48.19 - Other persistent atrial fibrillation Diastolic heart failure Qualifiers: Heart failure chronicity: chronic Qualified Code(s): I50.32 - Chronic diastolic (congestive) heart failure HTN (hypertension) Qualifiers: Hypertension type: essential hypertension Qualified Code(s): I10 - Essential (primary) hypertension Coding Level of Care Code ED Manager User Experience for Zuhair Nelson
[2023-11-02 06:26] LABS: Basophils % 0.2 %; Eosinophils % 0.1 %; Hematocrit 33.9 % (36-47); Lymphocytes # 2.2 10^3/uL (0.8-4.8); Lymphocytes % 14.7 %; Mean Corpuscular HGB Conc 32.4 g/dL (30-55); Mean Corpuscular Hemoglobin 26.6 pg (27-33); Mean Corpuscular Volume 81.9 fl (85-98); Mean Platelet Volume 9.3 fL (7.4-10.4); Monocytes # 0.9 10^3/uL (0.2-0.9); Monocytes % 6.3 %; Neutrophils # 11.46 10^3/uL (1.8-7.7); Neutrophils % 78.1 %; Nucleated Red Blood Cells % 0 %; Platelet Count 227 10^3/cmm (157-399); Red Blood Count 4.14 10^6/uL (3.85-5.65); Red Cell Distribution Width 16.9 % (12.1-15.1); White Blood Count 14.67 10^3/uL (3.29-11.43)
--- NOTE | 2023-11-02 06:38 | PC.NURSE ---
At time of triage, patient was saturating in high 80s on room air. Patient was then placed on 1.5L NC and O2 saturations michelle to mid 90s. Even, unlabored respirations noted.
[2023-11-02 06:41] LABS: INR 1.59 (0.8-1.2)
[2023-11-02 06:45] LABS: Alanine Aminotransferase 16 U/L (0-33); Albumin Level 3.7 g/dL (3.5-5.2); Alkaline Phosphatase 164 U/L (35-105); Anion Gap 17.1 (5-19); Aspartate Amino Transferase 21 U/L (0-32); Blood Urea Nitrogen 8 mg/dL (8-23); Calcium 7.6 mg/dL (8.5-10.5); Carbon Dioxide 24 mmol/L (22-29); Chloride 98 mmol/L (98-107); Creatinine Clr Calc Pharmacy 55.1575; Globulin 3.1 g/dL (1.3-4.6); Glucose 124 mg/dL (65-115); Osmolality Calculated 282 mOsm/kg (285-295); Potassium 3.1 mmol/L (3.5-5.1); Sodium 136 mmol/L (136-145); Total Bilirubin 1.2 mg/dL (0.15-1.2); Total Protein 6.8 g/dL (6.6-8.7)
[2023-11-02 06:46] LABS: Troponin(5th) Baseline 16 ng/L (0-10)
[2023-11-02 07:00] LABS: NT Pro B Type Natriuretic Pept 1064 pg/mL (0-450); Procalcitonin 0.08 ng/mL (0-0.5)
[2023-11-02 07:13] LABS: Add Urine Microscopic? YES; Bilirubin Urine Neg (Negative); Blood Urine 2+ (Negative); Glucose Urine UA Norm (Normal); Ketones Urine 1+ (Negative); Leukocyte Esterase Urine Negative (Negative); Nitrate Urine Negative (Negative); Protein Urine Neg (Negative); Specific Gravity, Urine 1.005 (1.005-1.030); Urine Appearance Clear (CLEAR); Urine Color Yellow (Yellow); Urobilinogen Urine Neg (Negative); pH Urine 7 (5-7)
[2023-11-02 07:14] LABS: Add Urine Culture? No; Amorphous Sediment Urine TRACE /hpf; Bacteria Urine TRACE /hpf; Mucus Urine TRACE /hpf; Squamous Epithelial Cell Urine 0-4 /hpf (0-5); WBC Urine RARE /hpf (0-5)
--- NOTE | 2023-11-02 07:24 | PC.NURSE ---
Medication Delay: Rochephin and Zithromax ordered @5075, delayed d/t blood cultures not being collected yet
[2023-11-02 07:47] LABS: Lactic Sepsis W/Reflex 0.9 mmol/L (0.5-2.2)
--- NOTE | 2023-11-02 07:47 | PC.PHAR ---
Addendum entered by Ritika Vaughn 11/02/23 08:30: VERIFIED WITH [facility] MAIL ORDER- MAILED VALSARTAN 160MG. 06/01/23 90DS. MED IS OUT OF REFILLS AND A NEW RX IS NEEDED. PT STATES SHE STILL TAKES THIS MEDICATION. SHOULD HAVE BEEN OUT Original Note: calling [facility] at 8 am to verify Valsartan 160 mg. 11/02/23
[2023-11-02] MEDS: cefTRIAXone 1,000 MG in sodium chloride 0.9% (plus) 50 ML 100 MG IV (08:12)
--- NOTE | 2023-11-02 08:14 | ECG_ITS ---
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 Measurements Intervals [place] Rate: 91 P: 0 NM: 0 QRS: 79 QRSD: 86 T: 67 QT: 397 QTc: 489 Interpretive Statements Multifocal atrial rhythm NONSPECIFIC ST & T-WAVE ABNORMALITY ABNORMAL RHYTHM ECG Compared to ECG 11/02/2023 06:17:20 Sinus rhythm no longer present T-wave abnormality still present Electronically Signed On 11-02-2023 20:13:22 METER SUPERVISOR by Lennox Gillette M.D. [email or web address] Incmerit health [email or web address] medical specialty hospital - canton.EnerMotion/store/OM/[id number]
--- NOTE | 2023-11-02 08:14 | PC.NURSE ---
Medication Delay: Zithromax delayed d/t starting Rocephin @0815.
[2023-11-02 08:29] LABS: Adenovirus Not Detected (NOT DETECT); Chlamydia Pneumoniae Not Detected (NOT DETECT); Coronavirus 229E,HKU1,NL63,OC4 Not Detected (NOT DETECT); Human Metapneumovirus Not Detected (NOT DETECT); Human Rhinovirus/Enterovirus Not Detected (NOT DETECT); Influenza A Not Detected (NOT DETECT); Influenza A H1 Not Detected (NOT DETECT); Influenza A H1-2009 Not Detected (NOT DETECT); Influenza A H3 Not Detected (NOT DETECT); Influenza B Not Detected (NOT DETECT); Mycoplasma Pneumoniae Not Detected (NOT DETECT); Parainfluenza Virus Type 1 Not Detected (NOT DETECT); Parainfluenza Virus Type 2 Not Detected (NOT DETECT); Parainfluenza Virus Type 3 Not Detected (NOT DETECT); Parainfluenza Virus Type 4 Not Detected (NOT DETECT); Respiratory Syncytial Virus A Not Detected (NOT DETECT); Respiratory Syncytial Virus B Not Detected (NOT DETECT); SARS-COV-2 Not Detected (NOT DETECT)
[2023-11-02 08:41] LABS: Troponin 5 2HR 14.54 ng/L (0-10)
[2023-11-02 08:46] LABS: Troponin 5 2HR Delta -1.46 ABS# (0-10)
[2023-11-02] MEDS: azithromycin 500 MG in sodium chloride 0.9% 250 ML 250 MG IV (08:49)
--- NOTE | 2023-11-02 08:50 | PC.NURSE ---
Medication Delay: Potassium Chloride ordered @0835 delayed d/t not being verified yet.
[2023-11-02] MEDS: potassium chloride ER 20 mEq Tablet 40 MEQ PO ×2 (08:57→14:32)
[2023-11-02 09:20] LABS: Magnesium 1.6 mg/dL (1.7-2.3); Thyroid Stimulating Hormone 0.88 uIU/mL (0.27-4.20)
--- NOTE | 2023-11-02 10:00 | P.HP_ITS ---
Providers/Chief Complaint 2 Admitting Physician: Shankar Milner MD Primary Care Provider: Liliana Ko DO Chief Complaint: sob, chest pain, weakness History of Present Illness Jessie Kumar is a 88 year old female presenting to the emergency department with shortness of breath. She states her shortness of breath has been going on for the last 2 days. She has some chest discomfort in the center of her chest as well, sharp to tight. She states it seemed worse when she was coughing. Her cough is nonproductive. She has had some nausea but no vomiting or diarrhea. No blood in stools. She believes she had a fever last night. She denies any ill contacts. Review of Systems 2 General: Reports: 10 or more systems reviewed and unremarkable except in HPI and below Card: Reports: chest pain and dyspnea on exertion; Denies: palpitations Resp: Reports: dyspnea and non-productive cough GI: Reports: nausea; Denies: abdominal pain, vomiting, hematochezia or melena Medications/Allergies Home Medications Medication Instructions Recorded Confirmed Last Taken Type tramadol 50 mg tablet 50 mg PO DAILY PRN Pain 02/19/20 11/02/23 Unknown History lorazepam 0.5 mg tablet 0.5 mg PO DAILY PRN Anxiety 03/05/21 11/02/23 Unknown History lovastatin 20 mg tablet 20 mg PO DAILY #90 tabs 09/21/21 11/02/23 11/01/23 Rx warfarin 1 mg tablet See Rx Instructions .Route 07/26/22 11/02/23 04/26/23 Rx .COMPLEX #90 tabs valsartan 160 mg tablet 160 mg PO BID #180 tabs 08/17/22 11/02/23 11/01/23 Rx acetaminophen 325 mg tablet 325 mg PO QID PRN Pain 09/23/22 11/02/23 Unknown History warfarin 6 mg tablet 6 mg PO DAILY 04/26/23 11/02/23 11/01/23 History omeprazole 20 mg capsule,delayed 20 mg PO BID #60 caps 09/13/23 11/02/23 11/01/23 Rx release cephalexin 500 mg capsule 500 mg PO BID 11/02/23 11/02/23 11/01/23 History diltiazem HCl 360 mg 360 mg PO QPM 11/02/23 11/02/23 11/01/23 History capsule,extended release 24 hr fluticasone propionate 50 1 spray intranasal DAILY 11/02/23 11/02/23 11/01/23 History mcg/actuation nasal spray,suspension lidocaine-prilocaine 2.5 %-2.5 % See Rx Instructions .Route .COMPLEX 11/02/23 11/02/23 Unknown History topical cream sotalol 120 mg tablet 120 mg PO BID 11/02/23 11/02/23 11/01/23 History Allergies Allergy/AdvReac Type Severity Reaction Status Date / Time amlodipine Allergy Unknown Verified 11/02/23 06:20 diazepam [From Valium] Allergy Unknown Verified 11/02/23 06:20 lisinopril Allergy Unknown Verified 11/02/23 06:20 olmesartan [From Benicar] Allergy Unknown Verified 11/02/23 06:20 penicillamine Allergy Unknown Verified 11/02/23 06:20 Penicillins Allergy Unknown Verified 11/02/23 06:20 Sulfa (Sulfonamide Allergy Unknown Verified 11/02/23 06:20 Antibiotics) PFSH Acute 2 PFSH: Medical History GERD (gastroesophageal reflux disease) Hyperlipidemia HTN (hypertension) Diastolic heart failure Atrial fibrillation Surgical History S/P subtotal thyroidectomy S/P cataract extraction S/P cholecystectomy S/P knee surgery Family History Other CAD (coronary artery disease) Social History (Updated 11/02/23 @ 10:02 by Shankar Milner MD) Smoking and tobacco/nicotine status: never used tobacco/nicotine Alcohol intake: never Substance/Drug Use: never Vitals/I&O/Wt Last Vital Signs Temp 98.7 F 11/02/23 06:15 Pulse 102 H 11/02/23 09:22 Resp 23 H 11/02/23 07:16 BP 152/92 11/02/23 09:22 Pulse Ox 95 11/02/23 09:22 O2 Del Method Nasal Cannula 11/02/23 06:33 O2 Flow Rate 1.5 11/02/23 06:33 11/01/23 11/02/23 11/02/23 22:59 06:59 14:59 Intake Total 50 / 50 Balance 50 / 50 Weight last 48 hrs Weight 87.543 kg Physical Exam 2 Narrative: General exam is a white female, on 1-1/2 L of oxygen, in no distress HEENT: Atraumatic normocephalic. Oropharynx clear Neck is supple no lymphadenopathy thyromegaly Cardiovascular irregular, irregular with rate approximately 100. 2/6 systolic murmur heard. Lungs few crackles, left lower lobe Abdomen is soft nontender positive bowel sounds Extremities trace edema. No cyanosis clubbing Skin no rash Neuro no focal deficits Data 11/02/23 06:20 11/02/23 06:20 Other Labs: INR is 1.59 Lactic acid 0.9 Magnesium 1.6 Calcium 7.6, albumin 3.7 Troponin 16 and repeat 14 BNP 1064 TSH 0.88 Procalcitonin 0.08 Urinalysis 5-10 reds, rare whites Respiratory panel negative Chest x-ray by my read left lower lobe infiltrate consistent with pneumonia EKG demonstrates atrial fibrillation, rate of 90, normal axis, nonspecific ST-T wave changes by my read Micro: Microbiology 11/02/23 08:10 Blood Culture - Preliminary Blood SPECIMEN COLLECTED 11/02/23 08:07 Blood Culture - Preliminary Blood SPECIMEN COLLECTED A&P Assessment and plan (1) Pneumonia: Patient presents with acute community-acquired pneumonia Sputum culture blood culture Rocephin and azithromycin Wean oxygen as tolerated Pulmonary toilet CBC, CMP tomorrow (2) Hypoxia: See above, currently requiring oxygen (3) Anemia: Patient with anemia She is microcytic Check iron, TIBC, ferritin Stool Hemoccult Continue home PPI CBC tomorrow (4) Hypokalemia: Supplement Recheck tomorrow (5) Hypomagnesemia: Supplement, recheck tomorrow (6) CHF (congestive heart failure): Lasix 40 mg IV x 1 Recheck electrolytes tomorrow No need for echocardiogram at this point Consistent with mild exacerbation of acute diastolic heart failure (7) Atrial fibrillation: Patient with history of atrial fibrillation Pharmacy consult for Coumadin management Continue diltiazem, sotalol Telemetry Qualifiers: Atrial fibrillation type: persistent (not longstanding) Qualified Code(s): I48.19 - Other persistent atrial fibrillation Plan Other medical problems as outlined in past medical history Full code Coumadin will suffice for DVT prophylaxis Attestations 2 Medical Necessity Statement*: Will require greater than 2 midnight stay for evaluation and treatment of pneumonia, with IV antibiotics in this patient who is hypoxic Diagnoses Pneumonia J18.9 Hypoxia R09.02 Anemia D64.9 Hypokalemia E87.6 Hypomagnesemia E83.42 CHF (congestive heart failure) I50.9 Persistent atrial fibrillation I48.19 Atrial fibrillation type: persistent (not longstanding) Time Spent (min) 54
[2023-11-02] MEDS: magnesium sulfate premix 2 GM/50 ML PIGGYBACK IV (10:40)
--- NOTE | 2023-11-02 10:42 | PC.NURSE ---
Medication Delay: Lasix ordered @1011 delayed d/t not being verified by pharmacy.
[2023-11-02 10:45] LABS: Ferritin 44 ng/mL (15-150); Iron 34 ug/dL (37-145); Total Iron Binding Capacity 377 mcg/dl; Unsaturated Iron Binding 343 ug/dL (112-347)
[2023-11-02] MEDS: FUROsemide 40 mg Tablet PO (11:16)
--- NOTE | 2023-11-02 12:14 | ECG_ITS ---
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 Measurements Intervals [place] Rate: 85 P: 0 DC: 0 QRS: 78 QRSD: 91 T: 62 QT: 393 QTc: 468 Interpretive Statements Multifocal atrial rhythm NONSPECIFIC ST & T-WAVE ABNORMALITY ABNORMAL RHYTHM ECG Compared to ECG 11/02/2023 08:14:27 No significant changes Electronically Signed On 11-02-2023 20:18:15 GARLAND MACHINE OPERATOR by Lennox Gillette M.D. [email or web address] [id number]
[2023-11-02] MEDS: warfarin 3 mg Tablet 6 MG PO (14:45)
[2023-11-02] MEDS: warfarin 1 mg Tablet PO (14:45)
[2023-11-02] MEDS: losartan 50 mg Tablet PO (17:11)
[2023-11-02] MEDS: dilTIAZem ER (24HR) 180 mg Capsule 360 MG PO (17:11)
[2023-11-02] MEDS: pantoprazole DR 40 mg Tablet PO (17:11)
[2023-11-02] MEDS: sotalol 80 mg Tablet 120 MG PO (17:11)
[2023-11-02] MEDS: atorvastatin 40 mg Tablet 20 MG PO (20:55)
[2023-11-02] MEDS: trazodone 50 mg Tablet PO (20:55)
[2023-11-03] VITALS (8 sets, daily range): BP systolic 124–161; BP diastolic 68–93; PULSE 80–96; RESP 16–19; TEMP 36.6–37.1; O2SAT 90–97
[2023-11-03] MEDS: acetaminophen 325 mg Tablet 650 MG PO (01:18)
[2023-11-03 05:27] LABS: Basophils % 0.2 %; Eosinophils # 0.2 10^3/uL (0.0-0.8); Eosinophils % 1.2 %; Hematocrit 34.5 % (36-47); Lymphocytes # 2.4 10^3/uL (0.8-4.8); Lymphocytes % 20.2 %; Mean Corpuscular HGB Conc 32.8 g/dL (30-55); Mean Corpuscular Hemoglobin 26.8 pg (27-33); Mean Corpuscular Volume 81.9 fl (85-98); Mean Platelet Volume 9.7 fL (7.4-10.4); Monocytes # 0.9 10^3/uL (0.2-0.9); Monocytes % 7.3 %; Neutrophils # 8.52 10^3/uL (1.8-7.7); Neutrophils % 70.8 %; Nucleated Red Blood Cells % 0 %; Platelet Count 234 10^3/cmm (157-399); Red Blood Count 4.21 10^6/uL (3.85-5.65); Red Cell Distribution Width 17.2 % (12.1-15.1); White Blood Count 12.05 10^3/uL (3.29-11.43)
[2023-11-03 05:40] LABS: INR 1.47 (0.8-1.2)
[2023-11-03 05:52] LABS: Alanine Aminotransferase 14 U/L (0-33); Albumin Level 3.4 g/dL (3.5-5.2); Alkaline Phosphatase 146 U/L (35-105); Anion Gap 14.3 (5-19); Aspartate Amino Transferase 14 U/L (0-32); Blood Urea Nitrogen 9 mg/dL (8-23); Calcium 7.6 mg/dL (8.5-10.5); Carbon Dioxide 26 mmol/L (22-29); Chloride 102 mmol/L (98-107); Creatinine Clr Calc Pharmacy 55.0998; Globulin 3.1 g/dL (1.3-4.6); Glucose 99 mg/dL (65-115); Magnesium 1.8 mg/dL (1.7-2.3); Osmolality Calculated 287 mOsm/kg (285-295); Potassium 3.3 mmol/L (3.5-5.1); Sodium 139 mmol/L (136-145); Total Bilirubin 0.7 mg/dL (0.15-1.2); Total Protein 6.5 g/dL (6.6-8.7)
[2023-11-03] MEDS: ferrous sulfate EC 325 mg Tablet PO (08:41)
[2023-11-03] MEDS: sotalol 80 mg Tablet 120 MG PO (08:41)
[2023-11-03] MEDS: losartan 50 mg Tablet PO (08:41)
[2023-11-03] MEDS: pantoprazole DR 40 mg Tablet PO (08:41)
[2023-11-03] MEDS: potassium chloride ER 20 mEq Tablet 40 MEQ PO (08:41)
[2023-11-03] MEDS: cefTRIAXone 1,000 MG in sodium chloride 0.9% (plus) 50 ML 100 MG IV (08:44)
[2023-11-03] MEDS: azithromycin 500 MG in sodium chloride 0.9% 250 ML 250 MG IV (10:00)
--- NOTE | 2023-11-03 11:47 | PM.DCS ---
Discharge Providers Date of Admission: 11/02/23 08:16 Date of Discharge: November 03, 2023 Attending Provider at Admission: Shankar Milner MD Attending Provider at Discharge: Shankar Milner MD Primary Care Provider: Liliana Ko DO Diagnoses at Discharge Discharge Diagnosis (1) Pneumonia: Status: Acute (2) Hypoxia: Status: Acute (3) Anemia: Status: Acute (4) Hypokalemia: Status: Acute (5) Hypomagnesemia: Status: Acute (6) CHF (congestive heart failure): Status: Acute (7) Atrial fibrillation: Status: Acute Qualifiers: Atrial fibrillation type: persistent (not longstanding) Qualified Code(s): I48.19 - Other persistent atrial fibrillation Reason for Visit Reason for Visit: sob, chest pain, weakness Hospital Course Hospital Course Jessie is an 88-year-old white female who presented to the emergency department with complaints of shortness of breath, subjective, nonproductive cough, some chest discomfort with coughing. She was found to have an elevated white blood cell count, and a left-sided infiltrate on x-ray. She was started on Rocephin and azithromycin. Her BNP was slightly elevated, and she had a slight amount of lower extremity edema she reported is chronic. She received a dose of IV Lasix. The following day her white blood cell count was decreased. She did not have any fever. She was able to wean off oxygen and did not qualify for oxygen with ambulation. She had no chest discomfort. It was thought she could discharge home to finish her oral course of antibiotics and follow-up closely with her primary care provider. She is to continue her Coumadin which she is on chronically, and have continued INR testing per her primary care provider. Her INR was slightly subtherapeutic while in the hospital. However, as she is on antibiotics this may increase and should be followed closely on her follow-up with an INR. I also initiated small dose of Lasix 20 mg daily and a small dose of potassium 10 mg once a day on discharge. I think she had slight fluid overload. Troponins did not show significant delta. She was given opportunity ask questions, and agreed with the plan. She initially was admitted as a regular admission, but improved quicker than expected and was able to be discharged after only 1 midnight. Physical Exam Narrative: General exam no distress Neck is supple Cardiovascular irregular, irregular Lungs relatively clear. Occasional wheeze clearing with coughing Abdomen is soft Extremities no cyanosis clubbing edema Discharge Data Studies Completed and Pending Completed Studies During Hospitalization Category Date Time Status XR chest 1V portable [id number] Stat Exams 11/02/23 06:14 Completed Pending at discharge Category Date Time Status Blood Culture Stat Lab 11/02/23 08:10 Results Fecal Occult Blood [Immunochemical Fecal OCB] Routine Lab 11/02/23 10:08 Uncollected Prothrombin Time INR AM LABS Lab 11/04/23 04:00 Ordered Prothrombin Time INR AM LABS Lab 11/05/23 04:00 Ordered Sputum Culture and Gram Stain Stat Lab 11/02/23 07:22 Uncollected Radiology Impressions Chest X-Ray 11/02/23 06:14 IMPRESSION: Left lower lobe atelectasis or infiltrate. Laboratory Results WBC 12.05 10^3/uL (3.29-11.43) H 11/03/23 05:07 RBC 4.21 10^6/uL (3.85-5.65) 11/03/23 05:07 Hgb 11.30 g/dL (11.27-16.99) 11/03/23 05:07 Hct 34.5 % (36-47) L 11/03/23 05:07 MCV 81.9 fl (85-98) L 11/03/23 05:07 MCH 26.8 pg (27-33) L 11/03/23 05:07 MCHC 32.8 g/dL (30-55) 11/03/23 05:07 RDW 17.2 % (12.1-15.1) H 11/03/23 05:07 Plt Count 234 10^3/cmm (157-399) 11/03/23 05:07 MPV 9.7 fL (7.4-10.4) 11/03/23 05:07 Neut % (Auto) 70.8 % 11/03/23 05:07 Lymph % (Auto) 20.2 % 11/03/23 05:07 [place] % (Auto) 7.3 % 11/03/23 05:07 Eos % (Auto) 1.2 % 11/03/23 05:07 Baso % (Auto) 0.2 % 11/03/23 05:07 Neut # (Auto) 8.52 10^3/uL (1.8-7.7) H 11/03/23 05:07 Lymph # (Auto) 2.4 10^3/uL (0.8-4.8) 11/03/23 05:07 [place] # (Auto) 0.9 10^3/uL (0.2-0.9) 11/03/23 05:07 Eos # (Auto) 0.2 10^3/uL (0.0-0.8) 11/03/23 05:07 Baso # (Auto) 0.0 10^3/uL (0.0-0.1) 11/03/23 05:07 Nucleated RBC % (auto) 0 % 11/03/23 05:07 Nucleated RBCs # 0.0 /100WBC 11/03/23 05:07 PT 18.40 SECONDS (12.1-14.9) H 11/03/23 05:07 INR 1.47 (0.8-1.2) H 11/03/23 05:07 Sodium 139 mmol/L (136-145) 11/03/23 05:07 Potassium 3.3 mmol/L (3.5-5.1) L 11/03/23 05:07 Chloride 102 mmol/L (98-107) 11/03/23 05:07 Carbon Dioxide 26 mmol/L (22-29) 11/03/23 05:07 Anion Gap 14.3 (5-19) 11/03/23 05:07 BUN 9 mg/dL (8-23) 11/03/23 05:07 Creatinine 0.7 mg/dL (0.5-0.9) 11/03/23 05:07 GFR Calculation Not Reportable 11/03/23 05:07 Glucose 99 mg/dL (65-115) 11/03/23 05:07 Calculated Osmolality 287 mOsm/kg (285-295) 11/03/23 05:07 Lactic Acid 0.9 mmol/L (0.5-2.2) 11/02/23 06:20 Calcium 7.6 mg/dL (8.5-10.5) L 11/03/23 05:07 Magnesium 1.8 mg/dL (1.7-2.3) 11/03/23 05:07 Iron 34 ug/dL (37-145) L 11/02/23 06:20 TIBC 377 mcg/dl 11/02/23 06:20 % Saturation 9.0 % (20-50) L 11/02/23 06:20 Unsat Iron Binding 343 ug/dL (112-347) 11/02/23 06:20 Ferritin 44 ng/mL (15-150) 11/02/23 06:20 Total Bilirubin 0.7 mg/dL (0.15-1.2) 11/03/23 05:07 AST 14 U/L (0-32) 11/03/23 05:07 ALT 14 U/L (0-33) 11/03/23 05:07 Alkaline Phosphatase 146 U/L (35-105) H 11/03/23 05:07 Troponin T Baseline 16 ng/L (0-10) H 11/02/23 06:20 Troponin T 120 Minute 14.54 ng/L (0-10) H 11/02/23 08:07 Delta Troponin T -1.46 ABS# (0-10) L 11/02/23 08:07 Troponin T Hi Sens 6Hr 16.10 ng/L (0-10) H 11/02/23 12:25 Troponin T Hi Sens 6Hr Delta 0.10 ng/L (0-12) 11/02/23 12:25 NT-Pro-B Natriuret Pep 1064 pg/mL (0-450) H 11/02/23 06:20 Total Protein 6.5 g/dL (6.6-8.7) L 11/03/23 05:07 Albumin 3.4 g/dL (3.5-5.2) L 11/03/23 05:07 Globulin 3.1 g/dL (1.3-4.6) 11/03/23 05:07 Procalcitonin 0.08 ng/mL (0-0.5) 11/02/23 06:20 TSH 0.88 uIU/mL (0.27-4.20) 11/02/23 06:20 Urine Color Yellow (Yellow) 11/02/23 06:28 Urine Appearance Clear (CLEAR) 11/02/23 06:28 Urine pH 7 (5-7) 11/02/23 06:28 Ur Specific [place] 1.005 (1.005-1.030) 11/02/23 06:28 Urine Protein Neg (Negative) 11/02/23 06:28 Urine Glucose (UA) Norm (Normal) 11/02/23 06:28 Urine Ketones 1+ (Negative) H 11/02/23 06:28 Urine Blood 2+ (Negative) H 11/02/23 06:28 Urine Nitrate Negative (Negative) 11/02/23 06:28 Urine Bilirubin Neg (Negative) 11/02/23 06: Urine Urobilinogen Neg mg/dL (Negative) 11/02/23 06: Ur Leukocyte Esterase Negative (Negative) 11/02/23 06:28 Urine RBC 5-10 /hpf (0-2) H 11/02/23 06:28 Urine WBC Rare /hpf (0-5) 11/02/23 06:28 Ur Squamous Epith Cells 0-4 /hpf (0-5) H 11/02/23 06:28 Amorphous Sediment Trace /hpf 11/02/23 06:28 Urine Bacteria Trace /hpf (NONE) 11/02/23 06: Urine Mucus Trace /hpf 11/02/23 06:28 Adenovirus (PCR) Not detected (NOT DETECT) 11/02/23 06:28 C. pneumoniae DNA (PCR) Not detected (NOT DETECT) 11/02/23 06:28 Coronavirus 229E (PCR) Not detected (NOT DETECT) 11/02/23 06:28 Human Metapneumovir PCR Not detected (NOT DETECT) 11/02/23 06:28 Influenza A (H1) PCR Not detected (NOT DETECT) 11/02/23 06:28 Influ A (H1/09) PCR Not detected (NOT DETECT) 11/02/23 06:28 Influenza A (H3) PCR Not detected (NOT DETECT) 11/02/23 06:28 Influenza Type A (PCR) Not detected (NOT DETECT) 11/02/23 06:28 Influenza Type B (PCR) Not detected (NOT DETECT) 11/02/23 06:28 M. pneumoniae (PCR) Not detected (NOT DETECT) 11/02/23 06:28 Parainfluenza 1 (PCR) Not detected (NOT DETECT) 11/02/23 06:28 Parainfluenza 2 (PCR) Not detected (NOT DETECT) 11/02/23 06:28 Parainfluenza 3 (PCR) Not detected (NOT DETECT) 11/02/23 06:28 Parainfluenza 4 (PCR) Not detected (NOT DETECT) 11/02/23 06:28 RSV Type A (PCR) Not detected (NOT DETECT) 11/02/23 06:28 RSV Type B (PCR) Not detected (NOT DETECT) 11/02/23 06:28 Entero/Rhino (PCR) Not detected (NOT DETECT) 11/02/23 06:28 SARS-CoV-2 (PCR) Not detected (NOT DETECT) 11/02/23 06:28 Vitals Last Vital Signs Temp 98.7 F 11/03/23 11:10 Pulse 80 11/03/23 11:33 Resp 16 11/03/23 11:33 BP 161/93 11/03/23 11:10 Pulse Ox 97 11/03/23 11:39 O2 Del Method Room Air 11/03/23 11:33 O2 Flow Rate 1 11/03/23 07:11 Discharge Plan Discharge Patient Disposition: Home Condition: Stable Prescriptions: New azithromycin [Zithromax] 500 mg tablet 500 mg PO DAILY 1 Days Qty: 1 0RF cefdinir 300 mg capsule 300 mg PO BID 8 Days Qty: 16 0RF furosemide [Lasix] 20 mg tablet 20 mg PO DAILY Qty: 30 0RF potassium chloride 10 mEq tablet extended release 10 meq PO DAILY Qty: 30 0RF Continued tramadol 50 mg tablet 50 mg PO DAILY PRN (Reason: Pain) acetaminophen 325 mg tablet 325 mg PO QID PRN (Reason: Pain) lorazepam 0.5 mg tablet 0.5 mg PO DAILY PRN (Reason: Anxiety) lovastatin 20 mg tablet 20 mg PO DAILY Qty: 90 3RF warfarin 1 mg tablet See Rx Instructions .ROUTE .COMPLEX Qty: 90 0RF Protocol: Dose Management Condition: Monday Dose/Route: 6 mg Instruction: 1 x 6 mg tablet Condition: Monday Dose/Route: 6 mg Instruction: 1 x 6 mg tablet Condition: Monday Dose/Route: 6 mg Instruction: 1 x 6 mg tablet Condition: Monday Dose/Route: 6 mg Instruction: 1 x 6 mg tablet Condition: Dose/Route: 6 mg Instruction: 1 x 6 mg tablet Condition: Monday Dose/Route: 6 mg Instruction: 1 x 6 mg tablet Condition: Monday Dose/Route: 6 mg Instruction: 1 x 6 mg tablet Protocol Text: Adjustment Start Date: Monday10/16/23 INR Value: 2.0 INR Date: 10/16/23 Recheck Date: 10/23/23 Dose Instruction: TAKE 1 TABLET EVERY DAY DIRECTED BASED ON INR RESULTS Rx Instructions: TAKE 1 TABLET BY MOUTH WITH 6 MG TABLET ON MONDAY, MONDAY, MONDAY, MONDAY, MONDAY. valsartan 160 mg tablet 160 mg PO BID Qty: 180 3RF omeprazole 20 mg capsule,delayed release(DR/EC) 20 mg PO BID Qty: 60 0RF warfarin 6 mg tablet 6 mg PO DAILY Protocol: Dose Management Condition: Monday Dose/Route: 6 mg Instruction: 1 x 6 mg tablet Condition: Monday Dose/Route: 6 mg Instruction: 1 x 6 mg tablet Condition: Monday Dose/Route: 6 mg Instruction: 1 x 6 mg tablet Condition: Monday Dose/Route: 6 mg Instruction: 1 x 6 mg tablet Condition: Dose/Route: 6 mg Instruction: 1 x 6 mg tablet Condition: Monday Dose/Route: 6 mg Instruction: 1 x 6 mg tablet Condition: Monday Dose/Route: 6 mg Instruction: 1 x 6 mg tablet Protocol Text: Adjustment Start Date: Monday10/16/23 INR Value: 2.0 INR Date: 10/16/23 Recheck Date: 10/23/23 sotalol 120 mg tablet 120 mg PO BID lidocaine-prilocaine 2.5-2.5 % cream See Rx Instructions .ROUTE .COMPLEX Rx Instructions: apply TO affected AREA THREE TIMES DAILY NEEDED fluticasone propionate 50 mcg/actuation spray,suspension 1 spray INTRANASAL DAILY diltiazem HCl 360 mg capsule,extended release 24hr 360 mg PO QPM Discontinued cephalexin 500 mg capsule 500 mg PO BID Discharge Orders: Discharge Order (Routine); Ordered 11/03/23 Ordered By: Shankar Milner Referrals: Liliana Ko DO [Primary Care Provider] - 11/08/23 2:00 pm (BMP on follow-up, INR on follow-up) Discharge Diet: Cardiac Discharge Activity: Increase activity as tolerated Patient Instructions: Opioid Safety, Pain Management Activity Restrictions/Additional Instructions: Take all medicine as prescribed Return for any concerns Follow-up with your primary care provider 3 to 5 days, BMP on follow-up, INR and follow-up Discharge Attestations Time Spent in Discharge Care*: greater than 30 min Quality Metrics Clinical Quality Measures [ No reported AMI, CVA or VTE this stay] Coding Level of Care Code 32883 Total time (in minutes) for Discharge: 35 Diagnoses Pneumonia J18.9 Hypoxia R09.02 Anemia D64.9 Hypokalemia E87.6 Hypomagnesemia E83.42 CHF (congestive heart failure) I50.9 Persistent atrial fibrillation I48.19 Atrial fibrillation type: persistent (not longstanding)
--- NOTE | 2023-11-03 13:13 | PC.NURSE ---
patient verbalized understanding of discharge instructions, home medications, and follow up appointments. patient refused to take one time order of lasix prior to discharge. patient stated that she will take a dose when she gets home.
== END 2023-11-03 13:13 | disposition home or self-care (01) | DRG 193 ==
LOC: ER 08:22 → MEDSURG 11:23
PROVIDERS: Admitting Provider Internal Medicine; Emergency Provider Family Medicine; PCP Family Medicine; Visit Provider Internal Medicine
DX: J18.9 Pneumonia, unspecified organism (principal); I50.33 Acute on chronic diastolic (congestive) heart failure; I48.19 Other persistent atrial fibrillation; R79.1 Abnormal coagulation profile; K21.9 Gastro-esophageal reflux disease without esophagitis; E78.5 Hyperlipidemia, unspecified; I11.0 Hypertensive heart disease with heart failure; R09.02 Hypoxemia; D50.9 Iron deficiency anemia, unspecified; E87.6 Hypokalemia; E83.42 Hypomagnesemia
CPT/HCPCS: 36415; 71045; 80053; 81001; 82728; 83540; 83550; 83605; 83735; 83880; 84145; 84443; 84484; 85025; 85610; 87040; 87486; 87581; 87633; 93005; 94760; 96365; 96367; 99285; J0456; J0696; J3475; J7050

== ENCOUNTER 2023-12-10 13:41 | Observation (INO) | payer MEDICARE, OTHER, SELFPAY ==
[2023-12-10] VITALS (15 sets, daily range): BP systolic 104–166; BP diastolic 64–91; PULSE 69–101; RESP 14–29; TEMP 36.6–37.1; O2SAT 92–100; BMI 30.4; BMI 34.3
--- NOTE | 2023-12-10 13:59 | XRR_ITS ---
PROCEDURE INFORMATION: Exam: XR Right Ankle Exam date and time: 12/10/2023 2:03 PM Age: 88 years old Clinical indication: Injury or trauma; Fall; Blunt trauma; Ankle; Right; Additional info: RT ankle pain post fall; Obvious deformity TECHNIQUE: Imaging protocol: Radiologic exam of the right ankle. Views: 1 or 2 views. COMPARISON: No relevant prior studies available. FINDINGS: Bones/joints: Trimalleolar ankle fracture with dislocation of the tibiotalar joint. Soft tissues: Soft tissue swelling around the ankle. XR/XR ankle RT 2V [id number] IMPRESSION: Trimalleolar ankle fracture with dislocation of the tibiotalar joint.
--- NOTE | 2023-12-10 14:00 | W.ED.LOWEXIN ---
Documented by User: [email or web address] Canseco 12/10/23 15:08 HPI - Extremity Injury (Lower) General: Chief Complaint: Extremity Injury, Lower Stated Complaint: RIGHT ANKLE PAIN S/P FALL Time Seen by Provider: 12/10/23 13:55 History of Present Illness: 88-year-old female comes in today for complaints of injury that occurred this afternoon. Patient reports that she was walking out to the garage and was stepping down 1 step and missed stepped causing her to injure her right ankle. Patient reports decreased sensation to that extremity due to a chronic back problem. Patient has obvious deformity and bruising to the right ankle area. Patient has a history of hypertension, atrial fibs, long-term anticoagulation with warfarin. Patient denies nicotine use. Patient reports no drug or alcohol use. Review of Systems General: Reports: 10 or more systems reviewed and unremarkable except in HPI and below Musc: Reports: extremity pain and extremity swelling [facility] ED PFSH: Medical History GERD (gastroesophageal reflux disease) Hyperlipidemia HTN (hypertension) Diastolic heart failure Atrial fibrillation Surgical History S/P subtotal thyroidectomy S/P cataract extraction S/P cholecystectomy S/P knee surgery Family History Other CAD (coronary artery disease) Social History (Updated 11/02/23 @ 10:02 by Shankar Milner MD) Smoking and tobacco/nicotine status: never used tobacco/nicotine Alcohol intake: never Substance/Drug Use: never Physical Exam Const: COMMON NORMALS: alert HENMT: COMMON NORMALS: normocephalic HEAD & SCALP: normocephalic Neck/C-Spine: COMMON NORMALS: full ROM Chest: COMMONS NORMALS: normal palpation of entire chest wall Resp: COMMON NORMALS: normal respiratory effort Cardio: COMMON NORMALS: S1 normal heart sound present HEART SOUNDS: S1 normal heart sound present GI: COMMON NORMALS: non-tender Back/Pelvis: COMMON NORMALS: thoracic and lumbar spine normal to inspection Extremity: RIGHT LOWER EXTREMITY: Yes foot & digits (Significant bruising and deformity with lateral angulation) Neuro: SENSORIUM/ORIENTATION: Yes alert Skin: COMMON NORMALS: turgor normal GENERAL SKIN EXAM: turgor normal TRAUMA: abrasion (Abrasion medial right ankle) Course Vital Signs: Vital signs: Vital Signs Temperature 98.7 F 12/10/23 13:53 Pulse Rate 72 12/10/23 15:02 Respiratory Rate 14 12/10/23 15:02 Blood Pressure 104/82 12/10/23 15:02 Pulse Oximetry 93 12/10/23 13:53 Oxygen Delivery Me thod Nasal Cannula 12/10/23 15:02 MDM - Extremity Injury (Lower) Medical Decision Making 88-year-old female comes in today for evaluation of injury to the right ankle. Patient appears nontoxic. Patient appears in no acute distress. Patient has significant swelling and bruising to the right ankle with a superficial abrasion to the medial aspect and lateral angulation. Differential diagnosis includes dislocation, fracture, sprain. 1420, reviewed patient with Dr. Alexis x-ray notes fracture dislocation of the ankle. He agreed to plan for conscious sedation. We will reach out to Dr. Montemayor for further consultation and recommendation of treatment. 1430, Dr. Montemayor was consulted and agreed to plan for reduction and admission to hospital for further evaluation and treatment. Requested consult order and CT scan. 1505, reduction of the ankle was completed by Dr. Alexis. Reviewed patient with Dr. Cleary for hospitalist admission. Patient tolerated procedure well. Patient is agreeable to treatment and admission plan. Lab Data 12/10/23 14:25 12/10/23 14:25 Laboratory Results WBC 8.99 10^3/uL (3.29-11.43) 12/10/23 14:25 RBC 3.93 10^6/uL (3.85-5.65) 12/10/23 14:25 Hgb 10.50 g/dL (11.27-16.99) L 12/10/23 14:25 Hct 33.1 % (36-47) L 12/10/23 14:25 MCV 84.2 fl (85-98) L 12/10/23 14:25 MCH 26.7 pg (27-33) L 12/10/23 14:25 MCHC 31.7 g/dL (30-55) 12/10/23 14:25 RDW 16.8 % (12.1-15.1) H 12/10/23 14:25 Plt Count 253 10^3/cmm (157-399) 12/10/23 14:25 MPV 9.5 fL (7.4-10.4) 12/10/23 14:25 Neut % (Auto) 77.2 % 12/10/23 14:25 Lymph % (Auto) 14.8 % 12/10/23 14:25 [place] % (Auto) 6.0 % 12/10/23 14:25 Eos % (Auto) 1.4 % 12/10/23 14:25 Baso % (Auto) 0.3 % 12/10/23 14:25 Neut # (Auto) 6.93 10^3/uL (1.8-7.7) 12/10/23 14:25 Lymph # (Auto) 1.3 10^3/uL (0.8-4.8) 12/10/23 14:25 [place] # (Auto) 0.5 10^3/uL (0.2-0.9) 12/10/23 14:25 Eos # (Auto) 0.1 10^3/uL (0.0-0.8) 12/10/23 14:25 Baso # (Auto) 0.0 10^3/uL (0.0-0.1) 12/10/23 14:25 Nucleated RBC % (auto) 0 % 12/10/23 14: Nucleated RBCs # 0.0 /100WBC 12/10/23 14:25 PT 31.00 SECONDS (12.1-14.9) H 12/10/23 14:25 INR 2.85 (0.8-1.2) H 12/10/23 14:25 Sodium 137 mmol/L (136-145) 12/10/23 14:25 Potassium 4.3 mmol/L (3.5-5.1) 12/10/23 14:25 Chloride 102 mmol/L (98-107) 12/10/23 14:25 Carbon Dioxide 26 mmol/L (22-29) 12/10/23 14:25 Anion Gap 13.3 (5-19) 12/10/23 14:25 BUN 11 mg/dL (8-23) 12/10/23 14:25 Creatinine 0.8 mg/dL (0.5-0.9) 12/10/23 14:25 GFR Calculation Not Reportable 12/10/23 14:25 Glucose 101 mg/dL (65-115) 12/10/23 14:25 Calculated Osmolality 284 mOsm/kg (285-295) L 12/10/23 14:25 Calcium 7.9 mg/dL (8.5-10.5) L 12/10/23 14:25 Total Bilirubin 0.3 mg/dL (0.15-1.2) 12/10/23 14:25 AST 14 U/L (0-32) 12/10/23 14:25 ALT 11 U/L (0-33) 12/10/23 14:25 Alkaline Phosphatase 137 U/L (35-105) H 12/10/23 14:25 Total Protein 6.6 g/dL (6.6-8.7) 12/10/23 14:25 Albumin 3.4 g/dL (3.5-5.2) L 12/10/23 14:25 Globulin 3.2 g/dL (1.3-4.6) 12/10/23 14:25 XR interpretation done by ED provider, pending radiology final review EKG Data EKG 1: EKG interpretation date: 12/10/23 EKG interpretation time: 14:36 Prior EKG tracings: not available for review Interpretation: EKG shows a sinus rhythm with a regular rate at [address] elevation is noted. No prior exam was available for comparison. Mild artifact was noted on the EKG. Computer generated interpretation: Sinus rhythm with occasional supraventricular premature complexes, borderline EKG, unconfirmed report. Discharge Plan Discharge Patient Disposition: Admitted As Inpatient Clinical Impression: Fracture of ankle Qualifiers: Encounter type: initial encounter Fracture type: closed Laterality: right Qualified Code(s): S82.891A - Other fracture of right lower leg, initial encounter for closed fracture Atrial fibrillation Qualifiers: Atrial fibrillation type: persistent (not longstanding) Qualified Code(s): I48.19 - Other persistent atrial fibrillation CHF (congestive heart failure) Qualifiers: Heart failure type: combined systolic and diastolic Heart failure chronicity: chronic Qualified Code(s): I50.42 - Chronic combined systolic (congestive) and diastolic (congestive) heart failure Condition: Stable Coding Level of Care Code ED Cold Roll Inspector for Chg Fwd Documented by User: Carol Alexis MD 12/10/23 14:59 HPI - Extremity Injury (Lower) General: Chief Complaint: Extremity Injury, Lower Stated Complaint: RIGHT ANKLE PAIN S/P FALL Time Seen by Provider: 12/10/23 13:55 PFSH ED PFSH: Medical History GERD (gastroesophageal reflux disease) Hyperlipidemia HTN (hypertension) Diastolic heart failure Atrial fibrillation Surgical History S/P subtotal thyroidectomy S/P cataract extraction S/P cholecystectomy S/P knee surgery Family History Other CAD (coronary artery disease) Social History (Updated 11/02/23 @ 10:02 by Shankar Milner MD) Smoking and tobacco/nicotine status: never used tobacco/nicotine Alcohol intake: never Substance/Drug Use: never Procedures Orthopedic Fracture Reduction Fracture #1: Time Out Performed: Yes Side: right Fracture Reduction Location: tibia and fibula Analgesia: procedural sedation Technique: direct manipulation Post Reduction X-rays Demonstrate: anatomical reduction Post-reduction neuro exam: intact Post-reduction vascular exam: intact Splint Applied: Yes Patient Tolerated Procedure: well Procedural Sedation Indication: fracture/dislocation reduction ASA Class: II Time of Last PO Intake: 08:00 Preparation: screen tacker applied and pulse oximeter IV Propofol dose (mg): 60 Course Vital Signs: Vital signs: Vital Signs Temperature 98.7 F 12/10/23 13:53 Pulse Rate 72 12/10/23 15:02 Respiratory Rate 14 12/10/23 15:02 Blood Pressure 104/82 12/10/23 15:02 Pulse Oximetry 93 12/10/23 13:53 Oxygen Delivery Me thod Nasal Cannula 12/10/23 15:02 MDM - Extremity Injury (Lower) Lab Data 12/10/23 14:25 12/10/23 14:25 Laboratory Results WBC 8.99 10^3/uL (3.29-11.43) 12/10/23 14: RBC 3.93 10^6/uL (3.85-5.65) 12/10/23 14:25 Hgb 10.50 g/dL (11.27-16.99) L 12/10/23 14:25 Hct 33.1 % (36-47) L 12/10/23 14:25 MCV 84.2 fl (85-98) L 12/10/23 14:25 MCH 26.7 pg (27-33) L 12/10/23 14:25 MCHC 31.7 g/dL (30-55) 12/10/23 14:25 RDW 16.8 % (12.1-15.1) H 12/10/23 14: Plt Count 253 10^3/cmm (157-399) 12/10/23 14:25 MPV 9.5 fL (7.4-10.4) 12/10/23 14:25 Neut % (Auto) 77.2 % 12/10/23 14:25 Lymph % (Auto) 14.8 % 12/10/23 14:25 [place] % (Auto) 6.0 % 12/10/23 14:25 Eos % (Auto) 1.4 % 12/10/23 14:25 Baso % (Auto) 0.3 % 12/10/23 14:25 Neut # (Auto) 6.93 10^3/uL (1.8-7.7) 12/10/23 14:25 Lymph # (Auto) 1.3 10^3/uL (0.8-4.8) 12/10/23 14:25 [place] # (Auto) 0.5 10^3/uL (0.2-0.9) 12/10/23 14:25 Eos # (Auto) 0.1 10^3/uL (0.0-0.8) 12/10/23 14:25 Baso # (Auto) 0.0 10^3/uL (0.0-0.1) 12/10/23 14: Nucleated RBC % (auto) 0 % 12/10/23 14: Nucleated RBCs # 0.0 /100WBC 12/10/23 14:25 PT 31.00 SECONDS (12.1-14.9) H 12/10/23 14:25 INR 2.85 (0.8-1.2) H 12/10/23 14:25 Sodium 137 mmol/L (136-145) 12/10/23 14:25 Potassium 4.3 mmol/L (3.5-5.1) 12/10/23 14:25 Chloride 102 mmol/L (98-107) 12/10/23 14:25 Carbon Dioxide 26 mmol/L (22-29) 12/10/23 14:25 Anion Gap 13.3 (5-19) 12/10/23 14:25 BUN 11 mg/dL (8-23) 12/10/23 14:25 Creatinine 0.8 mg/dL (0.5-0.9) 12/10/23 14:25 GFR Calculation Not Reportable 12/10/23 14:25 Glucose 101 mg/dL (65-115) 12/10/23 14:25 Calculated Osmolality 284 mOsm/kg (285-295) L 12/10/23 14:25 Calcium 7.9 mg/dL (8.5-10.5) L 12/10/23 14:25 Total Bilirubin 0.3 mg/dL (0.15-1.2) 12/10/23 14:25 AST 14 U/L (0-32) 12/10/23 14:25 ALT 11 U/L (0-33) 12/10/23 14:25 Alkaline Phosphatase 137 U/L (35-105) H 12/10/23 14:25 Total Protein 6.6 g/dL (6.6-8.7) 12/10/23 14:25 Albumin 3.4 g/dL (3.5-5.2) L 12/10/23 14:25 Globulin 3.2 g/dL (1.3-4.6) 12/10/23 14:25 Discharge Plan Discharge Patient Disposition: Admitted As Inpatient Clinical Impression: Fracture of ankle Qualifiers: Encounter type: initial encounter Fracture type: closed Laterality: right Qualified Code(s): S82.891A - Other fracture of right lower leg, initial encounter for closed fracture Atrial fibrillation Qualifiers: Atrial fibrillation type: persistent (not longstanding) Qualified Code(s): I48.19 - Other persistent atrial fibrillation CHF (congestive heart failure) Qualifiers: Heart failure type: combined systolic and diastolic Heart failure chronicity: chronic Qualified Code(s): I50.42 - Chronic combined systolic (congestive) and diastolic (congestive) heart failure Condition: Stable Coding Level of Care Code ED Cold Roll Inspector for Zuhair Nelson
--- NOTE | 2023-12-10 14:04 | XRR_ITS ---
PROCEDURE INFORMATION: Exam: XR Chest Exam date and time: 12/10/2023 2:32 PM Age: 88 years old Clinical indication: Patient HX: Cough; Pre op clearance; Recent pneumonia diagnosis TECHNIQUE: Imaging protocol: Radiologic exam of the chest. Views: 1 view. COMPARISON: CR XR chest 1V portable [id number] 11/02/2023 6:33 AM FINDINGS: Lungs: Patulous opacity at the left lung apex. Curvilinear opacity in the left lung base. Pleural spaces: Unremarkable. No pleural effusion. No pneumothorax. Heart/Mediastinum: Unremarkable. No cardiomegaly. Bones/joints: Unremarkable. XR/XR chest 1V portable [id number] IMPRESSION: Opacities in the left lung apex and left lung base, could relate to history of pneumonia.
--- NOTE | 2023-12-10 14:11 | ECG_ITS ---
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 Measurements Intervals [place] Rate: 77 P: 89 DE: 166 QRS: 74 QRSD: 89 T: 58 QT: 388 QTc: 441 Interpretive Statements SINUS RHYTHM WITH OCCASIONAL SUPRAVENTRICULAR PREMATURE COMPLEXES Compared to ECG 11/02/2023 14:04:14 T-wave abnormality no longer present Electronically Signed On 12-10-2023 18:53:22 CDT by Lennox Gillette M.D. [id number]
--- NOTE | 2023-12-10 14:30 | XRR_ITS ---
PROCEDURE INFORMATION: Exam: XR Right Ankle Exam date and time: 12/10/2023 2:35 PM Age: 88 years old Clinical indication: Injury or trauma; Fall; Blunt trauma; Ankle; Right; Additional info: Post reduction TECHNIQUE: Imaging protocol: Radiologic exam of the right ankle. Views: 1 or 2 views. COMPARISON: CR XR ankle RT 2V [id number] 12/10/2023 2:03 PM FINDINGS: Bones/joints: Reduction of the tibiotalar dislocation. Trimalleolar ankle fracture again noted. Soft tissues: Soft tissue swelling around the ankle. XR/XR ankle RT 2V [id number] IMPRESSION: Successful reduction of the tibiotalar dislocation with a trimalleolar ankle fracture.
[2023-12-10 14:31] LABS: Basophils % 0.3 %; Eosinophils # 0.1 10^3/uL (0.0-0.8); Eosinophils % 1.4 %; Hematocrit 33.1 % (36-47); Lymphocytes # 1.3 10^3/uL (0.8-4.8); Lymphocytes % 14.8 %; Mean Corpuscular HGB Conc 31.7 g/dL (30-55); Mean Corpuscular Hemoglobin 26.7 pg (27-33); Mean Corpuscular Volume 84.2 fl (85-98); Mean Platelet Volume 9.5 fL (7.4-10.4); Monocytes # 0.5 10^3/uL (0.2-0.9); Neutrophils # 6.93 10^3/uL (1.8-7.7); Neutrophils % 77.2 %; Nucleated Red Blood Cells % 0 %; Platelet Count 253 10^3/cmm (157-399); Red Blood Count 3.93 10^6/uL (3.85-5.65); Red Cell Distribution Width 16.8 % (12.1-15.1); White Blood Count 8.99 10^3/uL (3.29-11.43)
--- NOTE | 2023-12-10 14:35 | CTR_ITS ---
PROCEDURE INFORMATION: Exam: CT Right Lower Extremity Without Contrast, Ankle Exam date and time: 12/10/2023 3:07 PM Age: 88 years old Clinical indication: Injury or trauma; Fall; Blunt trauma; Ankle; Right; Additional info: Fracture TECHNIQUE: Imaging protocol: CT of the right lower extremity without contrast was performed. Exam focused on the ankle. Radiation optimization: All CT scans at this facility use at least one of these dose optimization techniques: automated exposure control; mA and/or kV adjustment per patient size (includes targeted exams where dose is matched to clinical indication); or iterative reconstruction. COMPARISON: CR (LOW EXM, ) 12/10/2023 2:35 PM RADIATION DOSE METRICS: Total DLP (mGy-cm): 161.74 FINDINGS: Bones/joints: Trimalleolar ankle fracture. Soft tissues: Subcutaneous edema noted around the ankle and anterior lower jensen. CT/CT ankle RT wo con* [id number] IMPRESSION: Trimalleolar ankle fracture.
[2023-12-10 14:43] LABS: INR 2.85 (0.8-1.2)
[2023-12-10 14:50] LABS: Alanine Aminotransferase 11 U/L (0-33); Albumin Level 3.4 g/dL (3.5-5.2); Alkaline Phosphatase 137 U/L (35-105); Anion Gap 13.3 (5-19); Aspartate Amino Transferase 14 U/L (0-32); Blood Urea Nitrogen 11 mg/dL (8-23); Calcium 7.9 mg/dL (8.5-10.5); Carbon Dioxide 26 mmol/L (22-29); Chloride 102 mmol/L (98-107); Creatinine Clr Calc Pharmacy 53.7116; Globulin 3.2 g/dL (1.3-4.6); Glucose 101 mg/dL (65-115); Osmolality Calculated 284 mOsm/kg (285-295); Potassium 4.3 mmol/L (3.5-5.1); Sodium 137 mmol/L (136-145); Total Bilirubin 0.3 mg/dL (0.15-1.2); Total Protein 6.6 g/dL (6.6-8.7)
[2023-12-10] MEDS: propofol 10 mg/mL SDV 20 mL 100 MG IVP (14:56)
--- NOTE | 2023-12-10 15:00 | CTR_ITS ---
PROCEDURE INFORMATION: Exam: CT Head Without Contrast Exam date and time: 12/10/2023 3:11 PM Age: 88 years old Clinical indication: Injury or trauma; Fall; Blunt trauma (contusions or hematomas) TECHNIQUE: Imaging protocol: Computed tomography of the head without contrast. Radiation optimization: All CT scans at this facility use at least one of these dose optimization techniques: automated exposure control; mA and/or kV adjustment per patient size (includes targeted exams where dose is matched to clinical indication); or iterative reconstruction. COMPARISON: No relevant prior studies available. RADIATION DOSE METRICS: Total DLP (mGy-cm): 1120.38 FINDINGS: Brain: No hemorrhage. No edema. Moderate diffuse cerebral atrophy and mild sequela of chronic small vessel ischemic disease. No mass effect. Cerebral ventricles: No ventriculomegaly. Paranasal sinuses: Visualized sinuses are unremarkable. No fluid levels. Mastoid air cells: Bilateral mastoid effusions. Bones/joints: Unremarkable. No acute fracture. Soft tissues: Unremarkable. CT/CT head wo con* [id number] IMPRESSION: 1. No acute intracranial abnormality. 2. Bilateral mastoid effusions.
--- NOTE | 2023-12-10 15:00 | XRR_ITS ---
PROCEDURE INFORMATION: Exam: XR Left Tibia and Fibula Exam date and time: 12/10/2023 3:08 PM Age: 88 years old Clinical indication: Injury or trauma; Fall; Blunt trauma; Lower leg; Left TECHNIQUE: Imaging protocol: Radiologic exam of the left tibia and fibula. Views: 2 views. COMPARISON: No relevant prior studies available. FINDINGS: Bones/joints: Normal. Soft tissues: Normal. XR/XR tibia fibula LT 2V [id number] IMPRESSION: No acute findings.
--- NOTE | 2023-12-10 15:00 | XRR_ITS ---
PROCEDURE INFORMATION: Exam: XR Pelvis Exam date and time: 12/10/2023 3:08 PM Age: 88 years old Clinical indication: Injury or trauma; Fall; Blunt trauma (contusions or hematomas); Bilateral; Pelvic region TECHNIQUE: Imaging protocol: Radiologic exam of the pelvis. Views: 1 or 2 view. COMPARISON: CR XR hip RT 2-3V wo/w pel* [id number] 12/22/2022 7:10 PM FINDINGS: Bones/joints: Unremarkable. No acute fracture. Soft tissues: Unremarkable. XR/XR pelvis 1-2V* [id number] IMPRESSION: No acute findings.
--- NOTE | 2023-12-10 15:38 | W.ED.EXTPRO ---
HPI - Extremity Problem General: Chief complaint: Extremity Injury, Lower Stated complaint: RIGHT ANKLE PAIN S/P FALL Time Seen by Provider: 12/10/23 13:55 PFSH ED PFSH: Medical History GERD (gastroesophageal reflux disease) Hyperlipidemia HTN (hypertension) Diastolic heart failure Atrial fibrillation Surgical History S/P subtotal thyroidectomy S/P cataract extraction S/P cholecystectomy S/P knee surgery Family History Other CAD (coronary artery disease) Social History (Updated 11/02/23 @ 10:02 by Shankar Milner MD) Smoking and tobacco/nicotine status: never used tobacco/nicotine Alcohol intake: never Substance/Drug Use: never Course Vital Signs: Vital signs: Vital Signs Temperature 98.7 F 12/10/23 13:53 Pulse Rate 79 12/10/23 15:33 Respiratory Rate 29 H 12/10/23 15:33 Blood Pressure 149/81 12/10/23 15:33 Pulse Oximetry 99 12/10/23 15:33 Oxygen Delivery Me thod Nasal Cannula 12/10/23 15:02 MDM - Extremity (Nontraumatic) Lab Data 12/10/23 14:25 12/10/23 14:25 Radiology Impressions Chest X-Ray 12/10/23 14:04 IMPRESSION: Opacities in the left lung apex and left lung base, could relate to history of pneumonia. Ankle X-Ray 12/10/23 14:30 IMPRESSION: Successful reduction of the tibiotalar dislocation with a trimalleolar ankle fracture. Ankle CT 12/10/23 14:35 IMPRESSION: Trimalleolar ankle fracture. Head CT 12/10/23 15:00 IMPRESSION: 1. No acute intracranial abnormality. 2. Bilateral mastoid effusions. Pelvis X-Ray 12/10/23 15:00 IMPRESSION: No acute findings. Tibia/Fibula X-Ray 12/10/23 15:00 IMPRESSION: No acute findings. Laboratory Results WBC 8.99 10^3/uL (3.29-11.43) 12/10/23 14:25 RBC 3.93 10^6/uL (3.85-5.65) 12/10/23 14:25 Hgb 10.50 g/dL (11.27-16.99) L 12/10/23 14:25 Hct 33.1 % (36-47) L 12/10/23 14:25 MCV 84.2 fl (85-98) L 12/10/23 14:25 MCH 26.7 pg (27-33) L 12/10/23 14:25 MCHC 31.7 g/dL (30-55) 12/10/23 14:25 RDW 16.8 % (12.1-15.1) H 12/10/23 14:25 Plt Count 253 10^3/cmm (157-399) 12/10/23 14:25 MPV 9.5 fL (7.4-10.4) 12/10/23 14:25 Neut % (Auto) 77.2 % 12/10/23 14:25 Lymph % (Auto) 14.8 % 12/10/23 14:25 [place] % (Auto) 6.0 % 12/10/23 14:25 Eos % (Auto) 1.4 % 12/10/23 14:25 Baso % (Auto) 0.3 % 12/10/23 14:25 Neut # (Auto) 6.93 10^3/uL (1.8-7.7) 12/10/23 14:25 Lymph # (Auto) 1.3 10^3/uL (0.8-4.8) 12/10/23 14:25 [place] # (Auto) 0.5 10^3/uL (0.2-0.9) 12/10/23 14:25 Eos # (Auto) 0.1 10^3/uL (0.0-0.8) 12/10/23 14:25 Baso # (Auto) 0.0 10^3/uL (0.0-0.1) 12/10/23 14: Nucleated RBC % (auto) 0 % 12/10/23 14: Nucleated RBCs # 0.0 /100WBC 12/10/23 14:25 PT 31.00 SECONDS (12.1-14.9) H 12/10/23 14:25 INR 2.85 (0.8-1.2) H 12/10/23 14:25 Sodium 137 mmol/L (136-145) 12/10/23 14:25 Potassium 4.3 mmol/L (3.5-5.1) 12/10/23 14:25 Chloride 102 mmol/L (98-107) 12/10/23 14:25 Carbon Dioxide 26 mmol/L (22-29) 12/10/23 14:25 Anion Gap 13.3 (5-19) 12/10/23 14:25 BUN 11 mg/dL (8-23) 12/10/23 14:25 Creatinine 0.8 mg/dL (0.5-0.9) 12/10/23 14:25 GFR Calculation Not Reportable 12/10/23 14:25 Glucose 101 mg/dL (65-115) 12/10/23 14:25 Calculated Osmolality 284 mOsm/kg (285-295) L 12/10/23 14:25 Calcium 7.9 mg/dL (8.5-10.5) L 12/10/23 14:25 Total Bilirubin 0.3 mg/dL (0.15-1.2) 12/10/23 14:25 AST 14 U/L (0-32) 12/10/23 14:25 ALT 11 U/L (0-33) 12/10/23 14:25 Alkaline Phosphatase 137 U/L (35-105) H 12/10/23 14:25 Total Protein 6.6 g/dL (6.6-8.7) 12/10/23 14:25 Albumin 3.4 g/dL (3.5-5.2) L 12/10/23 14:25 Globulin 3.2 g/dL (1.3-4.6) 12/10/23 14:25 Discharge Plan Discharge Patient Disposition: Admitted As Inpatient Clinical Impression: Fracture of ankle Qualifiers: Encounter type: initial encounter Fracture type: closed Laterality: right Qualified Code(s): S82.891A - Other fracture of right lower leg, initial encounter for closed fracture Atrial fibrillation Qualifiers: Atrial fibrillation type: persistent (not longstanding) Qualified Code(s): I48.19 - Other persistent atrial fibrillation CHF (congestive heart failure) Qualifiers: Heart failure type: combined systolic and diastolic Heart failure chronicity: chronic Qualified Code(s): I50.42 - Chronic combined systolic (congestive) and diastolic (congestive) heart failure Condition: Stable Coding Level of Care Code ED 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
--- NOTE | 2023-12-10 15:39 | P.CONIM_ITS ---
Providers/Reason For Consult 2 Consulting Physician/Specialty*: Yessica Araya.P.Mary/podiatry Reason for Consult*: Right trimalleolar ankle fracture Primary Care Provider: Liliana Ko DO History of Present Illness History of Present Illness Jessie Kumar is a 88 year old female with history of A-fib, CHF on warfarin anticoagulation therapy (INR 2.85) who sustained a right ankle injury this morning (12/10/2023). Patient states that she stepped up onto a single step using her right foot and she twisted her ankle heard a pop and fell down. The patient states that this happened late this morning and that after the injury she had to crawl 100 feet through her house to a phone that she used to call for help. In discussion with the patient she states that she has decreased sensation to the right lower extremity and foot secondary to chronic lower back issues. Upon presentation to the emergency department patient was worked up and found to have trimalleolar ankle fracture dislocation of the right ankle. Patient underwent successful closed reduction and splinting in the emergency department. Since patient lives at home, plan was for hospital admission for pain control and appropriate discharge planning as well as surgical planning. Podiatry was consulted to evaluate and provide further recommendations of treatment. 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 Niece lives in [place] according to patient. Patient also has 2 granddaughters that are nurses that work in [place]. Patient states that she has adequate help and family support. She is adamant that she does not want to be discharged to a nursing facility; she wishes to be discharged home when the time comes. I discussed with the patient that the extent of the injury to the right lower extremity will necessitate 8 to 10 weeks of nonweightbearing. Review of Systems 2 General: Reports: 10 or more systems reviewed and unremarkable except in HPI and below Const: Denies: fever(s), chills or fatigue Eyes: Denies: change in vision ENMT: Denies: sinus pain Card: Denies: chest pain, palpitations or lightheadedness Resp: Denies: dyspnea GI: Denies: abdominal pain, nausea or vomiting Musc: Reports: extremity pain, extremity swelling and limited range of motion; Denies: neck pain or back pain Skin/Breast: Reports: skin swelling Neuro: Denies: numbness in extremities Medications/Allergies Home Medications Medication Instructions Recorded Confirmed Last Taken Type tramadol 50 mg tablet 50 mg PO DAILY PRN Pain 02/19/20 11/02/23 Unknown History lorazepam 0.5 mg tablet 0.5 mg PO DAILY PRN Anxiety 03/05/21 11/02/23 Unknown History lovastatin 20 mg tablet 20 mg PO DAILY #90 tabs 09/21/21 11/02/23 11/01/23 Rx warfarin 1 mg tablet See Rx Instructions .Route 07/26/22 12/05/23 04/26/23 Rx .COMPLEX #90 tabs valsartan 160 mg tablet 160 mg PO BID #180 tabs 08/17/22 11/02/23 11/01/23 Rx acetaminophen 325 mg tablet 325 mg PO QID PRN Pain 09/23/22 11/02/23 Unknown History warfarin 6 mg tablet 6 mg PO DAILY 04/26/23 12/05/23 11/01/23 History omeprazole 20 mg capsule,delayed 20 mg PO BID #60 caps 09/13/23 11/02/23 11/01/23 Rx release diltiazem HCl 360 mg 360 mg PO QPM 11/02/23 11/02/23 11/01/23 History capsule,extended release 24 hr fluticasone propionate 50 1 spray intranasal DAILY 11/02/23 11/02/23 11/01/23 History mcg/actuation nasal spray,suspension lidocaine-prilocaine 2.5 %-2.5 % See Rx Instructions .Route .COMPLEX 11/02/23 11/02/23 Unknown History topical cream sotalol 120 mg tablet 120 mg PO BID 11/02/23 11/02/23 11/01/23 History furosemide 20 mg tablet (Lasix) 20 mg PO DAILY #30 tabs 11/03/23 Unknown Rx potassium chloride 10 mEq 10 meq PO DAILY #30 tabs 11/03/23 Unknown Rx tablet,extended release Allergies Allergy/AdvReac Type Severity Reaction Status Date / Time amlodipine Allergy Unknown Verified 12/10/23 14:00 diazepam [From Valium] Allergy Unknown Verified 12/10/23 14:00 lisinopril Allergy Unknown Verified 12/10/23 14:00 olmesartan [From Benicar] Allergy Unknown Verified 12/10/23 14:00 penicillamine Allergy Unknown Verified 12/10/23 14:00 Penicillins Allergy Unknown Verified 12/10/23 14:00 Sulfa (Sulfonamide Allergy Unknown Verified 12/10/23 14:00 Antibiotics) PFSH Acute 2 PFSH: Medical History GERD (gastroesophageal reflux disease) Hyperlipidemia HTN (hypertension) Diastolic heart failure Atrial fibrillation Surgical History S/P subtotal thyroidectomy S/P cataract extraction S/P cholecystectomy S/P knee surgery Family History Other CAD (coronary artery disease) Social History (Updated 11/02/23 @ 10:02 by Shankar Milner MD) Smoking and tobacco/nicotine status: never used tobacco/nicotine Alcohol intake: never Substance/Drug Use: never Vitals/I&O/Wt Last Vital Signs Temp 98.7 F 12/10/23 13:53 Pulse 79 12/10/23 15:33 Resp 29 H 12/10/23 15:33 BP 149/81 12/10/23 15:33 Pulse Ox 99 12/10/23 15:33 O2 Del Method Nasal Cannula 12/10/23 15:02 Weight last 48 hrs Weight 183 lb Physical Exam 2 Narrative: BELOW IS A FOCUSED LOWER EXTREMITY EXAM GENERAL: A&O x 3 VASCULAR: DP/PT pulses diminished. CFT intact to distal digits bilaterally, brisk and less than 3 seconds. DERMATOLOGICAL: Skin turgor and temperature is within normal limits. No interdigital maceration noted. MUSCULOSKELETAL: Full musculoskeletal exam deferred secondary to posttraumatic state and postreduction splint placement to right lower extremity. Left lower extremity shows tenderness with palpation of the fibula at the level of the mortise. No pain to palpation of left ankle deltoid ligament or with lateral ankle ligaments of the left ankle. NEUROLOGICAL: Neurological sensation to the affected foot and ankle is present through L4-S1 dermatomes with no hyper/hypoesthesias, negative Tinel or Valleix's sign IMAGING: Three-view x-rays of the right ankle taken on presentation to the emergency department showed fracture dislocation of right ankle with appearance of tenting of medial skin. Postreduction films show anatomic reduction. CT scan of right lower extremity postreduction shows trimalleolar ankle fracture of right ankle Data 12/10/23 14:25 12/10/23 14:25 A&P Assessment and plan (1) Trimalleolar fracture of right ankle: (2) CHF (congestive heart failure): Qualifiers: Heart failure chronicity: chronic Heart failure type: combined systolic and diastolic Qualified Code(s): I50.42 - Chronic combined systolic (congestive) and diastolic (congestive) heart failure (3) Atrial fibrillation: Qualifiers: Atrial fibrillation type: persistent (not longstanding) Qualified Code(s): I48.19 - Other persistent atrial fibrillation (4) Warfarin anticoagulation: Plan -Right trimalleolar ankle fracture -Labs and vitals reviewed -VSS -INR 2.85 -Diet: Okay for diet from podiatry standpoint -No plan for surgical intervention during this admission due to patient's INR and early onset swelling and bruising. My concern is that surgical intervention should be delayed until soft tissues have normalized to prevent further complications with wound healing. Patient will likely undergo open reduction internal fixation right trimalleolar ankle fracture in the next 2 to 3 weeks in the outpatient setting. -Pain Mgmt: Per primary team -Weight bearing: Nonweightbearing to right lower extremity. Recommend physical therapy consult for discharge recommendations -Dressings: Leave splint to right lower extremity clean, dry, intact -Discharge plan: I discussed with the patient regarding discharge to nursing facility versus home given the fact the patient lives at home alone. Patient was adamant that she does not want to go to any nursing facility. She states that she has family support and her niece that lives in [facility] and has stayed at her house in the past. Patient states that she also has 2 granddaughters that are nurses in [place] that have come and stayed with her before when she needs help. I discussed with her that it is imperative that she has proper support prior to discharge as lack of support could lead to more severe complications. Upon discharge, patient will be nonweightbearing to the right lower extremity. Patient will likely need to use wheelchair for ambulation and to maintain nonweightbearing status. Recommend physical therapy consult and appreciate physical therapy recommendations. As patient is anticoagulated with warfarin she will also need bridging prior to surgery. Warfarin is currently being managed by patient's primary care provider Dr. Liliana Ko. Patient will need referral to primary care provider upon discharge to aid with bridging of warfarin in the perioperative period. Patient will also need to follow-up with me within 1 week of discharge from the hospital -I will discuss plan of care with hospitalist -I will round on patient tomorrow morning Coding Level of Care Code Acute Code for Chg Fwd Diagnoses Trimalleolar fracture of right ankle S82.851A CHF (congestive heart failure) I50.42 Heart failure chronicity: chronic Heart failure type: combined systolic and diastolic Persistent atrial fibrillation I48.19 Atrial fibrillation type: persistent (not longstanding) Warfarin anticoagulation Z79.01
--- NOTE | 2023-12-10 17:13 | P.HP_ITS ---
Providers/Chief Complaint 2 Primary Care Provider: Liliana Ko DO Chief Complaint: RIGHT ANKLE PAIN S/P FALL History of Present Illness Jessie Kumar is a 88 year old female recently treated for pneumonia and CHF, currently on 2 L of oxygen, with history of ARTHUR on CPAP nightly, HTN, HLD, GERD, A-fib on anticoagulation with warfarin, had her ankle roll under when navigating a step, resulting in dislocation and trimalleolar fracture. She had to crawl close to 200 feet to call for help as she does not usually carry her cell phone with her. She has a history of reduced sensation in the right lower extremity, history of degenerative spine disease. She underwent reduction and splinting in the ER. Consideration was given to operative versus nonoperative further management on assessment by podiatry. She otherwise has been at baseline state of health, although as mentioned recently recovering after pneumonia denies other new symptoms and was treated for CHF. Denies exertional limitation by shortness of breath or chest pain. Did have to stop Lasix a while back after having a reaction with some hematuria. She is anticoagulated for atrial fibrillation. Denies any history of DVT or PE, no history of artificial heart valves. Does have history of ablation. She normally ambulates with a rollator. Review of Systems 2 Const: Denies: fever(s), chills, body aches or malaise Card: Denies: chest pain, edema, pre-syncope or dyspnea on exertion Resp: Denies: dyspnea, productive cough, change in phlegm color or hemoptysis GI: Denies: abdominal pain, nausea, vomiting, diarrhea, constipation, hematochezia or melena : Denies: flank pain, urinary frequency or hematuria Musc: Reports: joint pain and joint swelling Skin/Breast: Denies: rash or new lesions Neuro: Denies: headache(s) Endo: Denies: polyuria or polydipsia Medications/Allergies Home Medications Medication Instructions Recorded Confirmed Last Taken Type tramadol 50 mg tablet 50 mg PO DAILY PRN Pain 02/19/20 11/02/23 Unknown History lorazepam 0.5 mg tablet 0.5 mg PO DAILY PRN Anxiety 03/05/21 11/02/23 Unknown History lovastatin 20 mg tablet 20 mg PO DAILY #90 tabs 09/21/21 11/02/23 11/01/23 Rx warfarin 1 mg tablet See Rx Instructions .Route 11/15/22 03/26/24 08/16/23 Rx .COMPLEX #90 tabs valsartan 160 mg tablet 160 mg PO BID #180 tabs 08/17/22 11/02/23 11/01/23 Rx acetaminophen 325 mg tablet 325 mg PO QID PRN Pain 09/23/22 11/02/23 Unknown History warfarin 6 mg tablet 6 mg PO DAILY 04/26/23 12/05/23 11/01/23 History omeprazole 20 mg capsule,delayed 20 mg PO BID #60 caps 09/13/23 11/02/23 11/01/23 Rx release diltiazem HCl 360 mg 360 mg PO QPM 11/02/23 11/02/23 11/01/23 History capsule,extended release 24 hr fluticasone propionate 50 1 spray intranasal DAILY 11/02/23 11/02/23 11/01/23 History mcg/actuation nasal spray,suspension lidocaine-prilocaine 2.5 %-2.5 % See Rx Instructions .Route .COMPLEX 11/02/23 11/02/23 Unknown History topical cream sotalol 120 mg tablet 120 mg PO BID 11/02/23 11/02/23 11/01/23 History furosemide 20 mg tablet (Lasix) 20 mg PO DAILY #30 tabs 11/03/23 Unknown Rx potassium chloride 10 mEq 10 meq PO DAILY #30 tabs 11/03/23 Unknown Rx tablet,extended release Allergies Allergy/AdvReac Type Severity Reaction Status Date / Time amlodipine Allergy Unknown Verified 12/10/23 14:00 diazepam [From Valium] Allergy Unknown Verified 12/10/23 14:00 lisinopril Allergy Unknown Verified 12/10/23 14:00 olmesartan [From Benicar] Allergy Unknown Verified 12/10/23 14:00 penicillamine Allergy Unknown Verified 12/10/23 14:00 Penicillins Allergy Unknown Verified 12/10/23 14:00 Sulfa (Sulfonamide Allergy Unknown Verified 12/10/23 14:00 Antibiotics) PFSH Acute 2 PFSH: Medical History (Updated 12/10/23 @ 17:28 by Vernon Cleary MD) GERD (gastroesophageal reflux disease) Hyperlipidemia HTN (hypertension) Diastolic heart failure Atrial fibrillation Surgical History (Updated 12/10/23 @ 17:27 by Vernon Cleary MD) History of cardiac radiofrequency ablation (RFA) S/P subtotal thyroidectomy S/P cataract extraction S/P cholecystectomy S/P knee surgery Family History Other CAD (coronary artery disease) Social History Smoking and tobacco/nicotine status: never used tobacco/nicotine Alcohol intake: never Substance/Drug Use: never Vitals/I&O/Wt Last Vital Signs Temp 98.7 F 12/10/23 13:53 Pulse 79 12/10/23 15:33 Resp 29 H 12/10/23 15:33 BP 149/81 12/10/23 15:33 Pulse Ox 99 12/10/23 15:33 O2 Del Method Nasal Cannula 12/10/23 15:02 Weight last 48 hrs Weight 83.007 kg Physical Exam 2 Narrative: Reclined in bed. Awake and alert. Responsive. Slightly hard of hearing. Const: COMMON NORMALS: patient oriented x3 and alert GENERAL APPEARANCE: c ooperative ORIENTATION/CONSCIOUSNESS: Yes awake HENMT: COMMON NORMALS: oropharynx normal Neck/C-Spine: COMMON NORMALS: no JVD Resp: COMMON NORMALS: normal respiratory effort and clear to auscultation bilaterally AUSCULTATION: clear to auscultation bilaterally Cardio: COMMON NORMALS: no JVD, regular rhythm, S1 normal heart sound present, S2 normal heart sound present and No murmurs present (Cardio) RHYTHM: regular rhythm HEART SOUNDS: S1 normal heart sound present and S2 normal heart sound present GI: COMMON NORMALS: Normal to inspection, nondistended, normoactive bowel sounds present, Soft to palpation and non-tender PALPATION: Yes Soft to palpation Extremity: COMMON NORMALS: no joint enlargement and no pedal edema N ARRATIVE EXTREMITY EXAM: Splinted RLE Neuro: COMMON NORMALS: patient oriented x3 and moves all extremities S ENSORIUM/ORIENTATION: Yes alert Skin: COMMON NORMALS: no rashes or lesions noted GENERAL SKIN EXAM: no rashes or lesions noted Data 12/10/23 14:25 12/10/23 14:25 A&P Assessment and plan (1) Trimalleolar fracture of right ankle: After rolling her ankle navigating a step at home. Underwent closed reduction and splinting in ER. Reviewed vitals, CBC, INR, CMP, right ankle x-ray, chest x-ray, ankle CT, head CT, pelvis CT, left tib-fib x-ray, ER note, discussed with ER provider, podiatry note. No plans for operative treatment at current time due to several complications including swelling, therapeutic INR, she is to continue nonoperative management, follow-up with podiatry in office in 1 week for further consideration of ORIF in 2 to 3 weeks. Continue warfarin for anticoagulation current time due to elevated risk of DVT. Would not bridge warfarin prior to surgical procedure for atrial fibrillation only and discontinue warfarin at a time. Follow-up with PCP. In the meantime pain management, [place] as needed for moderate pain, IV morphine as needed for severe breakthrough. Nonweightbearing right lower extremity. PT assessment. She is insistent that she would not discharge to nursing facility. Lives alone. Case management consultation to assist with discharge planning given new nonweightbearing status of right lower extremity, living by herself and advanced age. She states she has multiple family members who would be able to help care for her, stay with her, which she likely may need. May require additional assistive devices. Normally used to walk with a rollator. She states her house is wheelchair accessible. Additionally as she lives alone discussed with her consideration of life alert button as she does not currently carry her cell phone with her and had to crawl close to 200 feet to call for help. (2) Warfarin anticoagulation: Reviewed INR, 2.85. Appreciated. Nonoperative management podiatry. Continue warfarin. Would not bridge prior to surgical procedure for atrial fibrillation. (3) Atrial fibrillation: Continue sotalol, diltiazem, warfarin. Qualifiers: Atrial fibrillation type: persistent (not longstanding) Qualified Code(s): I48.19 - Other persistent atrial fibrillation (4) Fall: Fall at home after rolling her ankle navigating a step. Normally walks with a rollator. Maintain fall precautions. PT assessment. Does report some hematuria after being started on Lasix, will check a UA. Otherwise recovering after pneumonia recently, does have infiltrates still present on chest x-ray likely delayed, otherwise afebrile, without leukocytosis, no respiratory symptoms. (5) Hematuria: Reports some hematuria after being started on oral Lasix. She has since stopped the medication due to associating it with the hematuria. Assess UA. INR reviewed, is not supratherapeutic. Monitor for any recurrence of hematuria. (6) Lives alone: PT assessment. She is insistent that she would not discharge to nursing facility. Lives alone. Case management consultation to assist with discharge planning given new nonweightbearing status of right lower extremity, living by herself and advanced age. She states she has multiple family members who would be able to help care for her, stay with her, which she likely may need. May require additional assistive devices. Normally used to walk with a rollator. She states her house is wheelchair accessible. Additionally as she lives alone discussed with her consideration of life alert button as she does not currently carry her cell phone with her and had to crawl close to 200 feet to call for help. Plan Recent treatment for pneumonia: Reports was started on oxygen after the hospitalization, 2 L, although in ER saturating 100%, decreased oxygen flow. May be able to wean off entirely. Continue to monitor, wean off during hospitalization. Reassess home O2 study prior to discharge. ARTHUR: Wears CPAP nightly. Ordered. Has been running oxygen into it. CHF: Recently treated for pneumonia and CHF. Stopped Lasix after experiencing hematuria which she thought was related to the Lasix. Continue ARB. HTN: Blood pressure elevated, but also with acute fracture, resume antihypertensives once medications are confirmed. Cardiac diet. HLD: Continue statin. GERD: Continue PPI Requesting home medications to be confirmed, please review and resume once available. Attestations 2 Medical Necessity Statement*: Place in observation for additional assessment management after trimalleolar right ankle fracture, pain control, PT assessment, discharge planning and arrangements due to living alone, advanced age, and new nonweightbearing RLE status. Diagnoses Trimalleolar fracture of right ankle S82.851A Warfarin anticoagulation Z79.01 Persistent atrial fibrillation I48.19 Atrial fibrillation type: persistent (not longstanding) Fall W19.XXXA Hematuria R31.9 Lives alone Z60.2
[2023-12-10] MEDS: morphine 4 mg/mL SDV 1 mL IVP (18:38)
[2023-12-10] MEDS: HYDROcodone-acetaminophen 5-325 mg Tablet 1 TAB PO (19:46)
[2023-12-10] MEDS: acetaminophen 325 mg Tablet 650 MG PO (21:50)
[2023-12-10] MEDS: LORazepam 0.5 mg Tablet PO (21:50)
[2023-12-10 21:51] LABS: Add Urine Microscopic? YES; Bacteria Urine 2+ /hpf; Bilirubin Urine 1+ (Negative); Blood Urine Trace (Negative); Glucose Urine UA Norm (Normal); Ketones Urine Negative (Negative); Leukocyte Esterase Urine 2+ (Negative); Mucus Urine TRACE /hpf; Nitrate Urine Negative (Negative); Protein Urine Neg (Negative); RBC Urine 0-4 /hpf (0-2); Specific Gravity, Urine 1.015 (1.005-1.030); Squamous Epithelial Cell Urine 15-25 /hpf (0-5); Urine Appearance Hazy (CLEAR); Urine Color Yellow (Yellow); Urobilinogen Urine Neg (Negative); WBC Urine 15-25 /hpf (0-5); pH Urine 7 (5-7)
[2023-12-10] MEDS: HYDROmorphone 1 mg/mL INJ 1 mL 0.5 MG IVP (23:35)
[2023-12-11] VITALS (8 sets, daily range): BP systolic 111–120; BP diastolic 73–74; PULSE 67–79; RESP 18–20; TEMP 36.1–36.7; O2SAT 93–97
[2023-12-11] MEDS: HYDROcodone-acetaminophen 5-325 mg Tablet 1 TAB PO (00:55)
[2023-12-11 02:56] LABS: Basophils % 0.4 %; Eosinophils # 0.1 10^3/uL (0.0-0.8); Eosinophils % 1.3 %; Hematocrit 31.4 % (36-47); Lymphocytes # 2.6 10^3/uL (0.8-4.8); Lymphocytes % 24.7 %; Mean Corpuscular HGB Conc 31.8 g/dL (30-55); Mean Corpuscular Hemoglobin 26.6 pg (27-33); Mean Corpuscular Volume 83.5 fl (85-98); Monocytes # 0.7 10^3/uL (0.2-0.9); Monocytes % 6.4 %; Neutrophils # 7.16 10^3/uL (1.8-7.7); Neutrophils % 66.9 %; Nucleated Red Blood Cells % 0 %; Platelet Count 273 10^3/cmm (157-399); Red Blood Count 3.76 10^6/uL (3.85-5.65); Red Cell Distribution Width 16.6 % (12.1-15.1)
[2023-12-11 03:16] LABS: Anion Gap 12.4 (5-19); Blood Urea Nitrogen 14 mg/dL (8-23); Calcium 7.7 mg/dL (8.5-10.5); Carbon Dioxide 29 mmol/L (22-29); Chloride 101 mmol/L (98-107); Creatinine Clr Calc Pharmacy 45.6759; Glucose 119 mg/dL (65-115); Osmolality Calculated 288 mOsm/kg (285-295); Potassium 4.4 mmol/L (3.5-5.1); Sodium 138 mmol/L (136-145)
[2023-12-11] MEDS: HYDROmorphone 1 mg/mL INJ 1 mL 0.5 MG IVP (03:31)
--- NOTE | 2023-12-11 07:46 | P.PN_ITS ---
Subjective 2 Subjective: Patient was seen at bedside this morning. States that pain is not well- controlled. She states that the morphine does not help her at all she also states that the Dilaudid makes her sick. She is also insistent at bedside this morning that she does not want to go to a penitentiary and she wants to get out of the hospital soon as possible. Vitals/I&O/Wt Last Vital Signs Temp 98.1 F 12/11/23 04:20 Pulse 67 12/11/23 04:20 Resp 18 12/11/23 04:20 BP 120/73 12/11/23 04:20 Pulse Ox 94 12/11/23 04:20 O2 Del Method Nasal Cannula 12/11/23 04:20 12/10/23 12/11/23 12/11/23 22:59 06:59 14:59 Intake Total 240 / 240 120 / 360 Balance 240 / 240 120 / 360 Weight last 48 hrs Weight 204 lb 11.2 oz Weight 206 lb 6.4 oz Weight 183 lb Physical Exam 2 Narrative: BELOW IS A FOCUSED LOWER EXTREMITY EXAM GENERAL: A&O x 3 VASCULAR: DP/PT pulses diminished. CFT intact to distal digits bilaterally, brisk and less than 3 seconds. DERMATOLOGICAL: Skin turgor and temperature is within normal limits. No interdigital maceration noted. MUSCULOSKELETAL: Full musculoskeletal exam deferred secondary to posttraumatic state and postreduction splint placement to right lower extremity. Left lower extremity shows tenderness with palpation of the fibula at the level of the mortise. No pain to palpation of left ankle deltoid ligament or with lateral ankle ligaments of the left ankle. NEUROLOGICAL: Neurological sensation to the affected foot and ankle is present through L4-S1 dermatomes with no hyper/hypoesthesias, negative Tinel or Valleix's sign IMAGING: Three-view x-rays of the right ankle taken on presentation to the emergency department showed fracture dislocation of right ankle with appearance of tenting of medial skin. Postreduction films show anatomic reduction. CT scan of right lower extremity postreduction shows trimalleolar ankle fracture of right ankle Data 12/11/23 02:37 12/11/23 02:37 A&P Assessment and plan (1) Trimalleolar fracture of right ankle: (2) CHF (congestive heart failure): Qualifiers: Heart failure chronicity: chronic Heart failure type: combined systolic and diastolic Qualified Code(s): I50.42 - Chronic combined systolic (congestive) and diastolic (congestive) heart failure (3) Atrial fibrillation: Qualifiers: Atrial fibrillation type: persistent (not longstanding) Qualified Code(s): I48.19 - Other persistent atrial fibrillation (4) Warfarin anticoagulation: Plan -Right trimalleolar ankle fracture -Labs and vitals reviewed -VSS -INR 2.85 -Diet: Okay for diet from podiatry standpoint -No plan for surgical intervention during this admission due to patient's INR and early onset swelling and bruising. My concern is that surgical intervention should be delayed until soft tissues have normalized to prevent further complications with wound healing. Patient will likely undergo open reduction internal fixation right trimalleolar ankle fracture in the next 2 to 3 weeks in the outpatient setting. -Pain Mgmt: Discontinued [place] 5?325, started Percocet 5?325. I discussed with the patient that pain management is a isis at this point for discharge. We cannot discharge patient home without a regimen that is easily managed in the outpatient setting for pain control -Weight bearing: Nonweightbearing to right lower extremity. Recommend physical therapy consult for discharge recommendations -Dressings: Leave splint to right lower extremity clean, dry, intact -Discharge plan: I discussed with the patient regarding discharge to nursing facility versus home given the fact the patient lives at home alone. Patient was adamant that she does not want to go to any nursing facility. She states that she has family support and her niece that lives in [place] can and has stayed at her house in the past. Patient states that she also has 2 granddaughters that are nurses in [place] that have come and stayed with her before when she needs help. I discussed with her that it is imperative that she has proper support prior to discharge as lack of support could lead to more severe complications. Upon discharge, patient will be nonweightbearing to the right lower extremity. Patient will likely need to use wheelchair for ambulation and to maintain nonweightbearing status. Recommend physical therapy consult and appreciate physical therapy recommendations. As patient is anticoagulated with warfarin she will also need bridging prior to surgery. Warfarin is currently being managed by patient's primary care provider Dr. Liliana Ko. Patient will need referral to primary care provider upon discharge to aid with bridging of warfarin in the perioperative period. Patient will also need to follow-up with me within 1 week of discharge from the hospital -Change from [place] 5?325 to Percocet 5?325 Attestations 2 Medical Necessity Statement*: Status post right trimalleolar ankle fracture dislocation and reduction. Pain is not well-controlled. Coding Level of Care Code Acute Code for [facility] Diagnoses Trimalleolar fracture of right ankle S82.851A CHF (congestive heart failure) I50.42 Heart failure chronicity: chronic Heart failure type: combined systolic and diastolic Persistent atrial fibrillation I48.19 Atrial fibrillation type: persistent (not longstanding) Warfarin anticoagulation Z79.01
[2023-12-11] MEDS: oxyCODONE-APAP 5-325 mg Tablet 1 TAB PO (07:52)
--- NOTE | 2023-12-11 08:53 | PC.PHAR ---
PT STATES SHE TAKES CARE OF HER OWN MEDICATIONS-PT BROUGHT IN MEDICATION BOTTLES-PT BROUGHT IN MED BOTTLES FOR KEFLEX 500MG BID X7 DAYS DATED 10/09/23 PT STATES NOT TAKEN FOR 2 WEEKS-HYDRALAZINE TID RX BOTTLE DATED 10/22/2020-SPIRONOLACTONE 50MG DAILY DATED 01/29/2018 AND ONE IN 2017-AND MIRTAZAPINE 15MG DAILY DATED 04/29/23 90D/S PT STATES NOT TAKING ANY OF THOSE-PT STATES SHE HASNT TAKEN HER LASIX 20MG DAILY FOR 2 WEEKS RX BOTTLE DATED 11/03/23 30D/S-PT STATES SHE TAKES VALSARTAN 160MG BID RX BOTTLES DATED 06/01/23 90D/S AND 03/23/22 90D/S-PT STATES SHE TAKES HER OWN INR AND STATES SHE IS TAKING WARFARIN TAKE 7MG PO ONCE A DAY TWO DAYS A WEEK (MONDAY AND MONDAY) AND TAKE 6MG PO ONCE A DAY ALL OTHER DAYS(MONDAY,MONDAY,MONDAY,MONDAY AND MONDAY)-NOTES ARE MADE IN THE PHARMACY COMMENTS
[2023-12-11] MEDS: losartan 50 mg Tablet PO (08:58)
[2023-12-11] MEDS: atorvastatin 40 mg Tablet 20 MG PO (08:59)
[2023-12-11] MEDS: sotalol 80 mg Tablet 120 MG PO (08:59)
[2023-12-11] MEDS: pantoprazole DR 40 mg Tablet PO (08:59)
--- NOTE | 2023-12-11 09:40 | PC.CHAP ---
Pastoral Care Encounter/Spiritual Assessment Type of Contact [] Declined morning nanny visit [] Patient/Family/Request visit [] Outpatient visit [] Follow-up visit [] Physician referral [] Code/Alert [x] Routine visit [] Staff referral [] Actively dying [] Patient sleeping [] Family support [] [] Out of room [] Palliative care [] [] Receiving care in room [] Pre-surgical visit [] Trauma [] Long length of stay [] ICU visit [] Other: Relational/Emotional Strength [] Patient feels connected with others/family/visitors/staff [] Distress [] Loneliness/isolation [] Abandonment Spirituality of Patient [x] Person of [place] [] Attends Church of their [place] [x] Believes in Prayer [] Reads Bible or Shinto materials [] There are Spiritual issues to be addressed Director Of Public [employer] Interventions [x] Prayer [x] Active listening [] Non-anxious presence [] Spiritual/emotional support [] Crisis/trauma care [] Spiritual counseling [] Bereavement support [] Provided bereavement packet [x] Provided Bible/devotional materials [] Provided toy/stuffed animal, coloring book to patient or family member [] Provided Communion [] Anointing/[place] [] Salvation [x] Completed spiritual assessment [] Other: Impact on Illness or Injury [] Angry [] Fearful [] Anxious [] Often cries [] Exhaustion [] Unable to work [] Unable to attend jainism [] Unable to walk/stand [] Unable to read [] Unable to drive [] Unable to eat/drink [] Unable to sleep [] Unable to be with family [] Patient intubated [] Other: Summary Time spent with patient 10min
--- NOTE | 2023-12-11 11:20 | P.DS_ITS ---
Discharge Providers Date of Admission: 12/10/23 14:56 Date of Discharge: December 11, 2023 Attending Provider at Admission: Vernon Cleary Attending Provider at Discharge: Fausto Kinney MD Consults: Podiatry: Dr. Montemayor Primary Care Provider: Liliana Ko DO Diagnoses at Discharge Discharge Diagnosis (1) Trimalleolar fracture of right ankle: Status: Acute (2) CHF (congestive heart failure): Status: Acute Qualifiers: Heart failure chronicity: chronic Heart failure type: combined systolic and diastolic Qualified Code(s): I50.42 - Chronic combined systolic (congestive) and diastolic (congestive) heart failure (3) Atrial fibrillation: Status: Acute Qualifiers: Atrial fibrillation type: persistent (not longstanding) Qualified Code(s): I48.19 - Other persistent atrial fibrillation (4) Warfarin anticoagulation: Status: Acute Reason for Visit Reason for Visit: RIGHT ANKLE PAIN S/P FALL Brief History: History as per HPI: Jessie Kumar is a 88 year old female recently treated for pneumonia and CHF, currently on 2 L of oxygen, with history of ARTHUR on CPAP nightly, HTN, HLD, GERD, A-fib on anticoagulation with warfarin, had her ankle roll under when navigating a step, resulting in dislocation and trimalleolar fracture. She had to crawl close to 200 feet to call for help as she does not usually carry her cell phone with her. She has a history of reduced sensation in the right lower extremity, history of degenerative spine disease. She underwent reduction and splinting in the ER. Consideration was given to operative versus nonoperative further management on assessment by podiatry. She otherwise has been at baseline state of health, although as mentioned recently recovering after pneumonia denies other new symptoms and was treated for CHF. Denies exertional limitation by shortness of breath or chest pain. Did have to stop Lasix a while back after having a reaction with some hematuria. She is anticoagulated for atrial fibrillation. Denies any history of DVT or PE, no history of artificial heart valves. Does have history of ablation. She normally ambulates with a rollator. Hospital Course Hospital Course Patient was admitted for further evaluation and management of right ankle fracture. Podiatry was consulted. She was advised for conservative treatment with possible ORIF in 2 to 3 weeks. Patient was seen by physical therapy during hospitalization. Hospitalization was complicated by excessive pain requiring multiple IV pain medications. Discussion about pain management was discussed in detail with the patient and she verbalized understanding. For now she is to take alternatively tramadol 50 to 100 mg every 6 hourly as needed along with oxycodone 5 mg every 6 hours as needed. She has been continued on her home dose of warfarin. Safe discharge plan were discussed in detail with the patient and she was advised to discharge to SNF as she lives by herself but she declined. Eventually she was agreeable for discharge home with caregivers. She has been discharged in hemodynamically stable condition back home with caregivers with advised to follow-up with podiatry within next few weeks for further evaluation and management. Physical Exam Narrative: Reclined in bed. Awake and alert. Responsive. Slightly hard of hearing. Const: COMMON NORMALS: patient oriented x3 and alert GENERAL APPEARANCE: cooperative ORIENTATION/CONSCIOUSNESS: Yes awake HENMT: COMMON NORMALS: oropharynx normal Neck/C-Spine: COMMON NORMALS: no JVD Resp: COMMON NORMALS: normal respiratory effort and clear to auscultation bilaterally AUSCULTATION: clear to auscultation bilaterally Cardio: COMMON NORMALS: no JVD, regular rhythm, S1 normal heart sound present, S2 normal heart sound present and No murmurs present (Cardio) RHYTHM: regular rhythm HEART SOUNDS: S1 normal heart sound present and S2 normal heart sound present GI: COMMON NORMALS: Normal to inspection, nondistended, normoactive bowel sounds present, Soft to palpation and non-tender PALPATION: Yes Soft to palpation Extremity: COMMON NORMALS: no joint enlargement and no pedal edema NARRATIVE EXTREMITY EXAM: Splinted RLE Neuro: COMMON NORMALS: patient oriented x3 and moves all extremities SENSORIUM/ORIENTATION: Yes alert Skin: COMMON NORMALS: no rashes or lesions noted GENERAL SKIN EXAM: no rashes or lesions noted Discharge Data Studies Completed and Pending Completed Studies During Hospitalization Category Date Time Status CT ankle RT wo con* [id number] Stat Cat Scan 12/10/23 14:[address] head wo con* [id number] Stat Cat Scan 12/10/23 15:00 Completed XR ankle RT 2V [id number] Stat Exams 12/10/23 13:59 Completed XR ankle RT 2V [id number] Stat Exams 12/10/23 14:30 Completed XR chest 1V portable [id number] Stat Exams 12/10/23 14:04 Completed XR pelvis 1-2V* [id number] Stat Exams 12/10/23 15:00 Completed XR tibia fibula LT 2V [id number] Stat Exams 12/10/23 15:00 Completed Pending at discharge Category Date Time Status Complete Blood Count w/Auto AM LABS Lab 12/12/23 04:00 Ordered Complete Blood Count w/Auto AM LABS Lab 12/13/23 04:00 Ordered Comprehensive Metabolic Panel AM LABS Lab 12/12/23 04:00 Ordered Prothrombin Time INR AM LABS Lab 12/12/23 04:00 Ordered Prothrombin Time INR AM LABS Lab 12/13/23 04:00 Ordered Radiology Impressions Chest X-Ray 12/10/23 14:04 IMPRESSION: Opacities in the left lung apex and left lung base, could relate to history of pneumonia. Ankle X-Ray 12/10/23 14:30 IMPRESSION: Successful reduction of the tibiotalar dislocation with a trimalleolar ankle fracture. Ankle CT 12/10/23 14:35 IMPRESSION: Trimalleolar ankle fracture. Head CT 12/10/23 15:00 IMPRESSION: 1. No acute intracranial abnormality. 2. Bilateral mastoid effusions. Pelvis X-Ray 12/10/23 15:00 IMPRESSION: No acute findings. Tibia/Fibula X-Ray 12/10/23 15:00 IMPRESSION: No acute findings. Laboratory Results WBC 10.70 10^3/uL (3.29-11.43) 12/11/23 02:37 RBC 3.76 10^6/uL (3.85-5.65) L 12/11/23 02:37 Hgb 10.00 g/dL (11.27-16.99) L 12/11/23 02:37 Hct 31.4 % (36-47) L 12/11/23 02:37 MCV 83.5 fl (85-98) L 12/11/23 02:37 MCH 26.6 pg (27-33) L 12/11/23 02:37 MCHC 31.8 g/dL (30-55) 12/11/23 02:37 RDW 16.6 % (12.1-15.1) H 12/11/23 02:37 Plt Count 273 10^3/cmm (157-399) 12/11/23 02:37 MPV 10.0 fL (7.4-10.4) 12/11/23 02:37 Neut % (Auto) 66.9 % 12/11/23 02:37 Lymph % (Auto) 24.7 % 12/11/23 02:37 [place] % (Auto) 6.4 % 12/11/23 02:37 Eos % (Auto) 1.3 % 12/11/23 02:37 Baso % (Auto) 0.4 % 12/11/23 02:37 Neut # (Auto) 7.16 10^3/uL (1.8-7.7) 12/11/23 02:37 Lymph # (Auto) 2.6 10^3/uL (0.8-4.8) 12/11/23 02:37 [place] # (Auto) 0.7 10^3/uL (0.2-0.9) 12/11/23 02:37 Eos # (Auto) 0.1 10^3/uL (0.0-0.8) 12/11/23 02:37 Baso # (Auto) 0.0 10^3/uL (0.0-0.1) 12/11/23 02:37 Nucleated RBC % (auto) 0 % 12/11/23 02:37 Nucleated RBCs # 0.0 /100WBC 12/11/23 02:37 PT 27.10 SECONDS (12.1-14.9) H 12/11/23 02:37 INR 2.40 (0.8-1.2) H 12/11/23 02:37 Sodium 138 mmol/L (136-145) 12/11/23 02:37 Potassium 4.4 mmol/L (3.5-5.1) 12/11/23 02:37 Chloride 101 mmol/L (98-107) 12/11/23 02:37 Carbon Dioxide 29 mmol/L (22-29) 12/11/23 02:37 Anion Gap 12.4 (5-19) 12/11/23 02:37 BUN 14 mg/dL (8-23) 12/11/23 02:37 Creatinine 1.0 mg/dL (0.5-0.9) H 12/11/23 02:37 GFR Calculation Not Reportable 12/11/23 02:37 Glucose 119 mg/dL (65-115) H 12/11/23 02:37 Calculated Osmolality 288 mOsm/kg (285-295) 12/11/23 02:37 Calcium 7.7 mg/dL (8.5-10.5) L 12/11/23 02:37 Total Bilirubin 0.3 mg/dL (0.15-1.2) 12/10/23 14:25 AST 14 U/L (0-32) 12/10/23 14:25 ALT 11 U/L (0-33) 12/10/23 14:25 Alkaline Phosphatase 137 U/L (35-105) H 12/10/23 14:25 Total Protein 6.6 g/dL (6.6-8.7) 12/10/23 14:25 Albumin 3.4 g/dL (3.5-5.2) L 12/10/23 14:25 Globulin 3.2 g/dL (1.3-4.6) 12/10/23 14:25 Urine Color Yellow (Yellow) 12/10/23 21:25 Urine Appearance Hazy (CLEAR) A 12/10/23 21:25 Urine pH 7 (5-7) 12/10/23 21:25 Ur Specific [place] 1.015 (1.005-1.030) 12/10/23 21:25 Urine Protein Neg (Negative) 12/10/23 21:25 Urine Glucose (UA) Norm (Normal) 12/10/23 21: Urine Ketones Negative (Negative) 12/10/23 21:25 Urine Blood Trace (Negative) H 12/10/23 21:25 Urine Nitrate Negative (Negative) 12/10/23 21:25 Urine Bilirubin 1+ (Negative) H 12/10/23 21:25 Urine Urobilinogen Neg mg/dL (Negative) 12/10/23 21:25 Ur Leukocyte Esterase 2+ (Negative) H 12/10/23 21:25 Urine RBC 0-4 /hpf (0-2) H 12/10/23 21:25 Urine WBC 15-25 /hpf (0-5) H 12/10/23 21:25 Ur Squamous Epith Cells 15-25 /hpf (0-5) H 12/10/23 21:25 Amorphous Sediment Not Reportable 12/10/23 21:25 Urine Bacteria 2+ /hpf (NONE) H 12/10/23 21:25 Urine Mucus Trace /hpf 12/10/23 21:25 Vitals Last Vital Signs Temp 97.0 F L 12/11/23 09:00 Pulse 79 12/11/23 09:00 Resp 18 12/11/23 09:00 BP 111/73 12/11/23 09:00 Pulse Ox 97 12/11/23 09:00 O2 Del Method Nasal Cannula 12/11/23 09:00 Discharge Plan Discharge Patient Disposition: Home Condition: Stable Prescriptions: New oxycodone-acetaminophen 5-325 mg Tablet 1 tab PO Q6H PRN (Reason: Moderate Pain) Qty: 15 0RF Continued tramadol 50 mg tablet 50 - 100 mg PO Q6H PRN (Reason: Pain) lorazepam 0.5 mg tablet 0.5 mg PO TID PRN (Reason: Anxiety) lovastatin 20 mg tablet 20 mg PO DAILY Qty: 90 3RF valsartan 160 mg tablet 160 mg PO BID Qty: 180 3RF omeprazole 20 mg capsule,delayed release(DR/EC) 20 mg PO BID Qty: 60 0RF sotalol 120 mg tablet 120 mg PO BID lidocaine-prilocaine 2.5-2.5 % cream See Rx Instructions .ROUTE .COMPLEX Rx Instructions: apply TO affected AREA THREE TIMES DAILY NEEDED fluticasone propionate 50 mcg/actuation spray,suspension 2 spray INTRANASAL DAILY diltiazem HCl 360 mg capsule,extended release 24hr 360 mg PO QPM acetaminophen 500 mg Tablet 500 - 1,000 mg PO Q6H PRN (Reason: Pain) warfarin 1 mg Tablet See Rx Instructions .ROUTE .COMPLEX Rx Instructions: TAKE 7MG PO ONCE A DAY TWO DAYS A WEEK (MONDAY AND MONDAY) AND TAKE 6MG PO ONCE A DAY ALL OTHER DAYS(MONDAY,MONDAY,MONDAY,MONDAY AND MONDAY) zolpidem 10 mg tablet 10 mg PO BEDTIME PRN (Reason: Sleep) Changed Lasix 20 mg tablet 20 mg PO DAILY PRN (Reason: Swelling) Qty: 30 0RF Discontinued potassium chloride 10 mEq tablet extended release 10 meq PO DAILY Qty: 30 0RF Discharge Orders: Discharge Order (Routine); Ordered 12/11/23 Ordered By: Fausto Kinney Other Ambulatory Orders: DME: Wheelchair (Order) Location: None Selected Ordered By: Vernon Cleary Referrals: Ger Montemayor DPM [Physician] - 04/04/24 8:45 am ( ) Liliana Ko DO [Primary Care Provider] - 12/12/23 10:00 am Discharge Diet: Cardiac Discharge Activity: Increase activity as tolerated, Limit activity as instructed and Use walker/crutches as instructed Patient Instructions: Oxycodone/Acetaminophen (By mouth) (Percocet, Roxicet), Heart Failure (GEN), Ankle Fracture (GEN), CHF Stoplight, Opioid Safety Activity Restrictions/Additional Instructions: Continue warfarin as before. Target INR is between 2-3. Warfarin should be stopped 3 days prior to the OR. Discharge Attestations Time Spent in Discharge Care*: greater than 30 min Specific Discharge Activities: educating patient, educating and/or supporting family/caregiver, discussing with pcp/other providers, discussing with case man agers/social workers/dc planners, documenting/other paperwork and evaluating patient/reviewing data Status at Discharge: Cognitive status at discharge: cognitively intact , Behavioral status at discharge: cooperative , Functional status at discharge: uses cane/walker , Overall status at discharge: patient is not back to baseline Quality Metrics Clinical Quality Measures [ No reported AMI, CVA or VTE this stay] Coding Level of Care Code 53852 Total time (in minutes) for Discharge: 60 Diagnoses Trimalleolar fracture of right ankle S82.851A CHF (congestive heart failure) I50.42 Heart failure chronicity: chronic Heart failure type: combined systolic and diastolic Persistent atrial fibrillation I48.19 Atrial fibrillation type: persistent (not longstanding) Warfarin anticoagulation Z79.01
== END 2023-12-11 15:50 | disposition home or self-care (01) ==
LOC: ER 16:20 → MEDSURG 18:29
PROVIDERS: Emergency Medicine; Admitting Provider Internal Medicine; Emergency Provider Nurse Practitioner Family; PCP Family Medicine; Visit Provider Student in an Organized Health Care Education/Training Program
DX: S82.851A Displaced trimalleolar fracture of right lower leg, initial encounter for closed fracture (principal); X50.1XXA Overexertion from prolonged static or awkward postures, initial encounter; I11.0 Hypertensive heart disease with heart failure; I50.42 Chronic combined systolic (congestive) and diastolic (congestive) heart failure; I48.19 Other persistent atrial fibrillation; Z79.01 Long term (current) use of anticoagulants; Z99.81 Dependence on supplemental oxygen; G47.33 Obstructive sleep apnea (adult) (pediatric); E78.5 Hyperlipidemia, unspecified; K21.9 Gastro-esophageal reflux disease without esophagitis; I48.91 Unspecified atrial fibrillation; R31.9 Hematuria, unspecified; Z60.2 Problems related to living alone
CPT/HCPCS: 27818; 36415; 70450; 71045; 72170; 73590; 73600; 73700; 80048; 80053; 81001; 85025; 85610; 93005; 96374; 96375; 97161; 97530; 99285; G0378; J1170; J2270; J2704

== ENCOUNTER 2023-12-15 12:45 | Inpatient (IN) | payer MEDICARE, OTHER, SELFPAY ==
[2023-12-15] VITALS (21 sets, daily range): BP systolic 119–168; BP diastolic 80–104; PULSE 72–96; RESP 8–24; TEMP 36.3–37.3; O2SAT 90–100; BMI 33.7
--- NOTE | 2023-12-15 | XR_ITS ---
WS: [id number] C-ARM RADIOGRAPHS RIGHT TIB-FIB; 8 IMAGES HISTORY: Fixation. COMPARISON: 12/10/2023 Intraoperative imaging during external fixation across a comminuted fracture involving the RIGHT ankl e with displacement. IMPRESSION: Intraoperative imaging during external fixation placement of a fracture displaced RIGHT ankle.
--- NOTE | 2023-12-15 13:02 | P.HP_ITS ---
Providers/Chief Complaint 2 Admitting Physician: Fausto Kinney MD Primary Care Provider: Liliana Ko DO Chief Complaint: Right Tib Fracture History of Present Illness Jessie Kumar is a 88 year old female with history of ARTHUR on CPAP, hypertension, hyperlipidemia, A-fib on anticoagulation with Coumadin who was recently discharged on 12/10 when she was admitted for right ankle fracture. During that hospitalization she underwent closed reduction. She was advised SNF placement at that time for proper healing but patient had declined. Today she is being direct admitted from podiatry clinic as she was found to have open wound and exposure of underlying bone. Patient states she has been fairly active and has been bearing weight on the foot as well. She underwent closed reduction, irrigation and debridement and application of external fixation today with podiatry. She was seen postoperatively with her heart rate of 80 bpm, blood pressure 168 over 100 mmHg with patient still groggy postoperatively saturating 94% on 2 L Review of Systems 2 General: Reports: 10 or more systems reviewed and unremarkable except in HPI and below Const: Denies: fever(s), chills, body aches, change in appetite, change in weight, malaise, night sweats, diaphoresis, change in sleep pattern, daytime sleepiness or snoring Eyes: Denies: change in vision, blurry vision, photophobia, eye discomfort or eye discharge ENMT: Denies: throat pain, enlarged tonsils, hoarseness, mouth pain, oral sores, dry mouth, tinnitus, nasal congestion or post nasal drip Card: Denies: chest pain, palpitations, irregular heart rhythm, edema, swelling of feet/ankles, lightheadedness, syncope, pre-syncope, dyspnea on exertion, orthopnea, leg pain with exertion or acrocyanosis Resp: Denies: dyspnea, productive cough, non-productive cough, wheezing, stridor, pain on inspiration, change in phlegm color, hemoptysis or chest congestion GI: Denies: abdominal pain, nausea, vomiting, hematemesis, coffee ground emesis, dysphagia, heartburn, diarrhea, constipation, bloating, GI cramping, change in bowel habits, pain on defecation, hematochezia or melena : Denies: flank pain, dysuria, urinary frequency, urinary urgency, urinary hesitancy, nocturia or hematuria Musc: Denies: neck pain, back pain, extremity pain, joint pain, joint swelling, joint redness, joint stiffness or limited range of motion Neuro: Denies: headache(s), numbness in extremities, weakness in extremities, sensory changes, lack of coordination, difficulty walking, frequent falls, dizziness, vertigo, confusion, Slurred speech present, difficulty communicating thoughts or seizure-like activity Psych: Denies: anxiety, depression, mood swings, panic attacks, hopelessness or irritability Endo: Denies: polyuria, polydipsia, tired all the time, cold intolerance, excessive sweating, flushing or heat intolerance Stan/Lymph: Denies: easy bruising or easy bleeding All/Imm: Denies: tongue swelling, facial swelling or acute wheezing Medications/Allergies Home Medications Medication Instructions Recorded Confirmed Last Taken Type tramadol 50 mg tablet 50 - 100 mg PO Q6H PRN Pain 02/19/20 12/15/23 12/15/23 History lorazepam 0.5 mg tablet 0.5 mg PO TID PRN Anxiety 03/05/21 12/15/23 12/15/23 History lovastatin 20 mg tablet 20 mg PO DAILY #90 tabs 09/21/21 12/15/23 12/15/23 Rx valsartan 160 mg tablet 160 mg PO BID #180 tabs 08/17/22 12/15/23 12/15/23 Rx omeprazole 20 mg capsule,delayed 20 mg PO BID #60 caps 09/13/23 12/15/23 12/15/23 Rx release diltiazem HCl 360 mg 360 mg PO QPM 11/02/23 12/15/23 12/15/23 History capsule,extended release 24 hr fluticasone propionate 50 2 spray intranasal DAILY 11/02/23 12/15/23 12/14/23 History mcg/actuation nasal spray,suspension lidocaine-prilocaine 2.5 %-2.5 % See Rx Instructions .Route .COMPLEX 11/02/23 12/15/23 Unknown History topical cream sotalol 120 mg tablet 120 mg PO BID 11/02/23 12/15/23 12/15/23 History acetaminophen 500 mg tablet 500 - 1,000 mg PO Q6H PRN Pain 12/11/23 12/15/23 12/14/23 History warfarin 1 mg tablet See Rx Instructions .Route .COMPLEX 12/11/23 12/15/23 12/14/23 History zolpidem 10 mg tablet 10 mg PO BEDTIME PRN Sleep 12/11/23 12/15/23 12/14/23 History Allergies Allergy/AdvReac Type Severity Reaction Status Date / Time amlodipine Allergy Unknown Verified 12/15/23 11:40 diazepam [From Valium] Allergy Unknown Verified 12/15/23 11:40 furosemide [From Lasix] Allergy ADR-Dizzine Verified 12/15/23 13:19 ss lisinopril Allergy Unknown Verified 12/15/23 11:40 olmesartan [From Benicar] Allergy Unknown Verified 12/15/23 11:40 penicillamine Allergy Unknown Verified 12/15/23 11:40 Penicillins Allergy Unknown Verified 12/15/23 11:40 ranitidine [From Zantac] Allergy ALGY-Rash Verified 12/15/23 13:19 Sulfa (Sulfonamide Allergy Unknown Verified 12/15/23 11:40 Antibiotics) PFSH Acute 2 PFSH: Medical History CHF (congestive heart failure) GERD (gastroesophageal reflux disease) Hyperlipidemia HTN (hypertension) Diastolic heart failure Atrial fibrillation Surgical History History of cardiac radiofrequency ablation (RFA) S/P subtotal thyroidectomy S/P cataract extraction S/P cholecystectomy S/P knee surgery Family History Other CAD (coronary artery disease) Social History Smoking and tobacco/nicotine status: never used tobacco/nicotine Alcohol intake: never Substance/Drug Use: never Physical Exam 2 Narrative: General: No acute distress, AO x3 HEENT: PERRLA, pupils bilaterally equal and reactive Chest: Normal vesicular breath sounds, no added sounds, equal good air entry bilaterally CVS: S1-S2 regular, no murmurs, no tachycardia, no gallops, no rubs Abdomen: Soft, nontender, no organomegaly, bowel sounds present Neuro: No focal deficits, no facial deformity, AO x3, power 5/5 in all limbs Extremity: Foot surgically bandaged and external fixator Data 12/16/23 04:38 12/16/23 04:38 A&P Assessment and plan (1) Type I or II open trimalleolar fracture of right ankle: Post close reduction, irrigation debridement and application of external fixator on 12/14. Monitor hemoglobin. Anticoagulation, weightbearing, physical therapy as per podiatry team. As patient had an open wound with exposure of bone for now will cover empirically with IV vancomycin and Zosyn. Follow-up or cultures, check blood cultures. Check procalcitonin, MRSA swab.Check CBC, CMP, procalcitonin. Will decide about extent of IV antibiotics depending on the culture results. Percocet for pain as needed 5 mg every 6 hours, morphine 1 mg IV every 4 hours as needed for breakthrough pain. Continue with oral tramadol at home dose as needed. (2) HTN (hypertension): Goal blood pressure less than 140/90 mmHg. Patient takes Cardizem, sotalol, valsartan at home. As patient is perioperative we will hold off on valsartan. Continue with Cardizem at home dose. Qualifiers: Hypertension type: essential hypertension Qualified Code(s): I10 - Essential (primary) hypertension (3) Diastolic heart failure: Euvolemic currently Continue to monitor for fluid overload. Qualifiers: Heart failure chronicity: chronic Qualified Code(s): I50.32 - Chronic diastolic (congestive) heart failure (4) Atrial fibrillation: Currently rate controlled. Continue with home dose of sotalol and Cardizem. Takes warfarin as anticoagulation. Check INR. Will restart anticoagulation once okay with podiatry team. Qualifiers: Atrial fibrillation type: persistent (not longstanding) Qualified Code(s): I48.19 - Other persistent atrial fibrillation (5) Hyperlipidemia: Plan Full code N.p.o., restart diet once okay with podiatry team. Foot pumps for DVT prophylaxis, restart warfarin when okay with podiatry team Protonix OPD prophylaxis Discharge planning: Patient currently lives at home alone. Given the extent of the injury and the recurrent dislocation and instability of the fracture pattern as well as the need for secondary procedure recommendation to discharge to nursing facility. Patient is agreeable. Case management has been alerted. Attestations 2 Medical Necessity Statement*: Admission for more than 2 midnights for management of open trimalleolar right ankle fracture as patient requires external fixator while safe discharge planning. Diagnoses Type I or II open trimalleolar fracture of right ankle S82.851B Essential hypertension I10 Hypertension type: essential hypertension Chronic diastolic heart failure I50.32 Heart failure chronicity: chronic Persistent atrial fibrillation I48.19 Atrial fibrillation type: persistent (not longstanding) Hyperlipidemia E78.5
--- NOTE | 2023-12-15 13:32 | P.HPUD_ITS ---
Surgery/Procedure H&P Update DATE OF PROCEDURE: December 15, 2023 DATE H&P PERFORMED: 12/15/23 H&P UPDATE INFORMATION: I have reviewed H&P completed within last 30 days, I have examined patient prior to procedure, No changes to prior documentation and H&P is in [facility] – [place], [place] EMR on date indicated PLANNED PROCEDURE: Operation Date: 12/15/23 14:00 Proposed Procedures p Closed Reduction Tibia(Right) - Ger Montemayor DPM s External Fixator Lower Extremity(Right) - SAMY Brown Incision And Drainage(Right) - Ger Montemayor DPM
[2023-12-15] MEDS: sodium chloride 0.9% 1,000 ML 50 ML IV ×2 (13:33→22:14)
[2023-12-15] MEDS: vancomycin 1,000 MG in sodium chloride 0.9% 250 ML 250 MG IV (13:43)
[2023-12-15] MEDS: BUPivacaine 0.5% INJ 30 mL INJECTION (14:20)
--- NOTE | 2023-12-15 14:33 | ANES.PREANE2 ---
Pre-Anesthetic Assessment Height/Weight: Height 1.65 m Weight 92.079 kg Operation Date: 12/15/23 14:00 Proposed Procedures p Closed Reduction Tibia(Right) - Ger Montemayor DPM s External Fixator Lower Extremity(Right) - Ger Montemayor DPM s Incision And Drainage(Right) - Ger Montemayor DPM Last intake: Intake Last Liquid Date 12/15/23 Last Liquid Time 05:00 Last Solid Date 12/15/23 Last Solid Time 05:00 Social No alcohol and No tobacco Exam alert, oriented x 3, clear to auscultation bilaterally and regular rate & rhythm (Regular with frequent irregular beats; no M/G/R's) Airway Submandibular: Other (limited TMD) Cervical ROM: Other (limited) Mallampati: Class III Pulmonary None reported CV/HEM Atrial Fibrillation, Arrythmia, Congestive Heart Failure and Hypertension GI Gastroesophageal Reflux Disease Anesthetic Plan ASA status: 3E Anesthesia: General Medications/Allergies Home Medications Medication Instructions Recorded Confirmed Last Taken Type tramadol 50 mg tablet 50 - 100 mg PO Q6H PRN Pain 02/19/20 12/15/23 12/15/23 History lorazepam 0.5 mg tablet 0.5 mg PO TID PRN Anxiety 03/05/21 12/15/23 12/15/23 History lovastatin 20 mg tablet 20 mg PO DAILY #90 tabs 09/21/21 12/15/23 12/15/23 Rx valsartan 160 mg tablet 160 mg PO BID #180 tabs 08/17/22 12/15/23 12/15/23 Rx omeprazole 20 mg capsule,delayed 20 mg PO BID #60 caps 09/13/23 12/15/23 12/15/23 Rx release diltiazem HCl 360 mg 360 mg PO QPM 11/02/23 12/15/23 12/15/23 History capsule,extended release 24 hr fluticasone propionate 50 2 spray intranasal DAILY 11/02/23 12/15/23 12/14/23 History mcg/actuation nasal spray,suspension lidocaine-prilocaine 2.5 %-2.5 % See Rx Instructions .Route .COMPLEX 11/02/23 12/15/23 Unknown History topical cream sotalol 120 mg tablet 120 mg PO BID 11/02/23 12/15/23 12/15/23 History acetaminophen 500 mg tablet 500 - 1,000 mg PO Q6H PRN Pain 12/11/23 12/15/23 12/14/23 History warfarin 1 mg tablet See Rx Instructions .Route .COMPLEX 12/11/23 12/15/23 12/14/23 History zolpidem 10 mg tablet 10 mg PO BEDTIME PRN Sleep 12/11/23 12/15/23 12/14/23 History Allergies Allergy/AdvReac Type Severity Reaction Status Date / Time amlodipine Allergy Unknown Verified 12/15/23 11:40 diazepam [From Valium] Allergy Unknown Verified 12/15/23 11:40 furosemide [From Lasix] Allergy ADR-Dizzine Verified 12/15/23 13:19 ss lisinopril Allergy Unknown Verified 12/15/23 11:40 olmesartan [From Benicar] Allergy Unknown Verified 12/15/23 11:40 penicillamine Allergy Unknown Verified 12/15/23 11:40 Penicillins Allergy Unknown Verified 12/15/23 11:40 ranitidine [From Zantac] Allergy ALGY-Rash Verified 12/15/23 13:19 Sulfa (Sulfonamide Allergy Unknown Verified 12/15/23 11:40 Antibiotics) Current Medications Generic Name Dose Route Start Last Admin Trade Name Freq PRN Reason Stop Dose Admin Sodium Chloride 1,000 mls @ 50 mls/hr 12/15/23 13:00 12/15/23 13:33 Sodium Chloride 0.9% IV 50 mls/hr .Q20H ANIBAL Administration Vancomycin HCl 1,000 mg/ 250 mls @ 250 mls/hr 12/15/23 13:35 12/15/23 13:43 Sodium Chloride IV 12/15/23 14:34 250 mls/hr ONCE ONE Administration Protocol ON LICENSE OF [facility] Anesthesia Medical History CHF (congestive heart failure) GERD (gastroesophageal reflux disease) Hyperlipidemia HTN (hypertension) Diastolic heart failure Atrial fibrillation Surgical History History of cardiac radiofrequency ablation (RFA) S/P subtotal thyroidectomy S/P cataract extraction S/P cholecystectomy S/P knee surgery Family History Other CAD (coronary artery disease) Social History Smoking and tobacco/nicotine status: never used tobacco/nicotine Alcohol intake: never Substance/Drug Use: never Data Anesthesia Cardiac Studies: No Data to Display
--- NOTE | 2023-12-15 15:17 | W.PM.BPON ---
Date of procedure: 12/15/2023 Surgeon name: Jenae ArayaPAfshin Senior Quality Manager(s) name(s): Maria Luisa Bhatti Procedure(s) performed: Irrigation and debridement right leg wound open fracture, right distal tibial fracture with application external fixator Description of findings: Comminuted medial malleolus, medial leg wound right leg trimalleolar ankle fracture Estimated blood loss: 5 cc Tourniquet time: 49 minutes Specimen(s) removed: Cultures aerobic and anaerobic of right medial leg wound Post-operative diagnosis: Right trimalleolar ankle fracture open fracture
--- NOTE | 2023-12-15 15:25 | SUR.PHASEI ---
Patient has external fixator to right lower extremity. toes to right foot warm and pink. dressing dry, slight pink drainage at hardware site to outside of ankle. patient resting but wakes. no pain at this time per faces. simple mask in place with o2 at 99%. oral airway has been removed.
--- NOTE | 2023-12-15 15:27 | PM.OP ---
Operative Report Date of procedure: December 15, 2023 Pre-op diagnosis: Right trimalleolar ankle fracture open Post-op diagnosis: Same Post-op findings: Unstable right trimalleolar ankle fracture with comminution at medial malleolus fracture site. Talus reduced within the plafond anatomically Procedure done: 1. Debridement skin and subcutaneous tissue deep fascia at site of open fracture right leg CPT 48902 2. Closed reduction right trimalleolar ankle fracture CPT 13495 3. Application of multiplanar external fixator to right ankle CPT 77241 Implants: External fixator Specimens removed/disposition: Cultures aerobic and anaerobic taken of medial right leg wound Surgeon: Ger Montemayor DPM Network Intelligence Analyst: Maria Luisa Bhatti Estimated blood loss: 5 cc 49 minutes Complications: None Findings: See above Procedure: Patient is a 88-year-old female that has a history of right trimalleolar ankle fracture. This was previously reduced and splinted in the emergency department. Patient was discharged from the hospital and was seen in clinic today with obvious deformity and recurrence of displacement. The wound was noted to be open with bone exposed in clinic today. Patient was admitted to the hospital for close reduction and external fixation with wound irrigation and debridement. A lengthy discussion regarding the procedure, including risks and complications has been had with the patient and is noted in the recent clinic note. Written and verbal consent have been obtained. All patient questions have been answered to the patient?s satisfaction. No written or verbal guarantees have been given or implied. The patient has been NPO since midnight. The history has been reviewed and the history and physical is current. The signed consent was confirmed and placed in the patient chart. Patient imaging has been reviewed and is consistent with the diagnosis. Under mild sedation, the patient was brought into the operating room and placed on the table in the supine position. IV antibiotics were given by the anesthesia team as preoperative surgical prophylaxis. General sedation was then performed by the anesthesiateam. A pneumatic tourniquet was then placed about the right thigh. The operative extremity was then prepped and draped in the usual fashion. The extremity was then elevated and exsanguinated before the tourniquet was inflated to 325 mmHg. After inflation, the following procedure was then performed. Attention was directed to the right ankle where under fluoroscopy it was reduced into the anatomic position. The fracture pattern was noted to be severely unstable. It would not maintain reduction. There was also noted to be significant posttraumatic edema circumferentially about the ankle with ecchymoses to the medial malleolar region. There is an open wound to the medial aspect of the right leg measuring 3.0 cm with exposure of underlying tibia. Given these findings it was determined that external fixation was the patient's best option given the soft tissue envelope. Next, 2 tibial half pins were driven into the anterior medial tibia from anterior to posterior. Next, a transfixation pin was driven in the perpendicular plane to the tibial half pins from lateral to medial through the calcaneus. This was visualized on calcaneal axial view. Next, a lab technologist was attached to the tibial half pins. Under direct visualization of C-arm fluoroscopy the right ankle fracture was manually reduced to a more satisfactory anatomical alignment. There was noted to be comminution about the medial malleolus fracture site. With the ankle reduced to a satisfactory position, the lab technologist was then fixated to a carbon fiber bar measuring 400 mm that was then fixated to the transaxial pin of the calcaneus. This was performed on both the medial and lateral aspect of the right lower extremity in standard delta frame fashion. Good positioning and alignment of the fracture fragments was visualized on C-arm imaging as well as clinically. Attention was then directed to the dorsomedial aspect of the first metatarsal. A half pin was then driven into the dorsal medial aspect of the first metatarsal to provide stable triplanar fixation about the right ankle. This was done to prevent further coronal plane movement of the fracture sites. The half pin of the first metatarsal was then fixated to the delta frame via carbon fiber bar measuring 250 mm. Good positioning of the pins and multiplanar fixator was visualized on C-arm imaging. Next, the frame was tightened down appropriately and was noted to be a solid fixation. Attention was then directed to the wound to the medial aspect of the right tibia. Hemostat was used to examine the underlying wound which was noted to be down to the level of bone. Cultures both aerobic and anaerobic were taken at this point. Hemostat was used to open up the wound and the site was irrigated copiously with 2 L of sterile saline via cystoscopy tubing. After irrigation of the site attention was directed to closure. A retention type suture using 3-0 Prolene was used centrally over the wound to approximate the edges. The tourniquet was let down at this point and good hyperemic response was noted to all digits of the right foot. Hemostasis was noted to be achieved. The pin sites were dressed with Xeroform, 4 x 4 gauze, Kerlix before the leg was wrapped in 4 inch Landon bandage. The patient tolerated the procedure and anesthesia well and without complication. The patient was transported from the operating room to the recovery room with vital signs stable and vascular status intact to all digits of the right foot. The patient was instructed to remain non-weightbearing to the operative extremity, to keep surgical dressing clean, dry and intact. The patient will be transferred back to the floor once anesthesia criteria is met. I will continue to round on and follow the patient in the inpatient setting and provide recommendations to stabilize the patient for discharge.
[2023-12-15] MEDS: fentaNYL 50 mcg/mL INJ 2mL IVP ×2 (15:36→15:49)
--- NOTE | 2023-12-15 15:42 | PM.CONSULT ---
Providers/Reason For Consult Consulting Physician/Specialty*: Yessica Araya.P.M./podiatry Reason for Consult*: Open right trimalleolar ankle fracture Attending Physician: Fausto Kinney MD Primary Care Provider: Liliana Ko DO History of Present Illness History of Present Illness Patient is an 88-year-old female with history of right trimalleolar ankle fracture. Date of injury 12/10/2023. Patient was seen in the emergency department the day of injury where she underwent closed reduction. Reduction was noted to be anatomic and stable. She was admitted overnight for pain control and discharged the following day. She presented to clinic today for evaluation of soft tissue envelope and preparation for surgery. Patient admitted to being active since her discharge from the hospital and she has bore weight on the affected extremity. She was found to have displaced right trimalleolar ankle fracture with now open wound and exposure of underlying tibia. The extent of the injury warranted admission to the hospital for IV antibiotic therapy, surgical irrigation and debridement, closed reduction and application of external fixator for stabilization. Patient underwent closed reduction, irrigation and debridement and application of external fixator today 12/15/23. Review of Systems General: Reports: 10 or more systems reviewed and unremarkable except in HPI and below Const: Denies: fever(s), chills or fatigue Eyes: Denies: change in vision ENMT: Denies: sinus pain Card: Denies: chest pain, palpitations or lightheadedness Resp: Denies: dyspnea GI: Denies: abdominal pain, nausea or vomiting Musc: Reports: extremity pain, extremity swelling and limited range of motion; Denies: neck pain or back pain Skin/Breast: Reports: skin swelling Neuro: Denies: numbness in extremities Medications/Allergies Home Medications Medication Instructions Recorded Confirmed Last Taken Type tramadol 50 mg tablet 50 - 100 mg PO Q6H PRN Pain 02/19/20 12/15/23 12/15/23 History lorazepam 0.5 mg tablet 0.5 mg PO TID PRN Anxiety 03/05/21 12/15/23 12/15/23 History lovastatin 20 mg tablet 20 mg PO DAILY #90 tabs 09/21/21 12/15/23 12/15/23 Rx valsartan 160 mg tablet 160 mg PO BID #180 tabs 08/17/22 12/15/2312/14/24 Rx omeprazole 20 mg capsule,delayed 20 mg PO BID #60 caps 09/13/23 12/15/23 12/15/23 Rx release diltiazem HCl 360 mg 360 mg PO QPM 11/02/23 12/15/23 12/15/23 History capsule,extended release 24 hr fluticasone propionate 50 2 spray intranasal DAILY 11/02/23 12/15/23 12/14/23 History mcg/actuation nasal spray,suspension lidocaine-prilocaine 2.5 %-2.5 % See Rx Instructions .Route .COMPLEX 11/02/23 12/15/23 Unknown History topical cream sotalol 120 mg tablet 120 mg PO BID 11/02/23 12/15/23 12/15/23 History acetaminophen 500 mg tablet 500 - 1,000 mg PO Q6H PRN Pain 12/11/23 12/15/23 12/14/23 History warfarin 1 mg tablet See Rx Instructions .Route .COMPLEX 12/11/23 12/15/23 12/14/23 History zolpidem 10 mg tablet 10 mg PO BEDTIME PRN Sleep 12/11/23 12/15/23 12/14/23 History Allergies Allergy/AdvReac Type Severity Reaction Status Date / Time amlodipine Allergy Unknown Verified 12/15/23 11:40 diazepam [From Valium] Allergy Unknown Verified 12/15/23 11:40 furosemide [From Lasix] Allergy ADR-Dizzine Verified 12/15/23 13:19 ss lisinopril Allergy Unknown Verified 12/15/23 11:40 olmesartan [From Benicar] Allergy Unknown Verified 12/15/23 11:40 penicillamine Allergy Unknown Verified 12/15/23 11:40 Penicillins Allergy Unknown Verified 12/15/23 11:40 ranitidine [From Zantac] Allergy ALGY-Rash Verified 12/15/23 13:19 Sulfa (Sulfonamide Allergy Unknown Verified 12/15/23 11:40 Antibiotics) Current Medications Generic Name Dose Route Start Last Admin Trade Name Freq PRN Reason Stop Dose Admin Sodium Chloride 1,000 mls @ 50 mls/hr 12/15/23 13:00 12/15/23 13:33 Sodium Chloride 0.9% IV 50 mls/hr .Q20H ANIBAL Administration PFSH Acute PFSH: Medical History CHF (congestive heart failure) GERD (gastroesophageal reflux disease) Hyperlipidemia HTN (hypertension) Diastolic heart failure Atrial fibrillation Surgical History History of cardiac radiofrequency ablation (RFA) S/P subtotal thyroidectomy S/P cataract extraction S/P cholecystectomy S/P knee surgery Family History Other CAD (coronary artery disease) Social History Smoking and tobacco/nicotine status: never used tobacco/nicotine Alcohol intake: never Substance/Drug Use: never Vitals/I&O/Wt Last Vital Signs Temp 97.4 F L 12/15/23 15:14 Pulse 77 12/15/23 15:24 Resp 15 12/15/23 15:24 BP 143/94 12/15/23 15:24 Pulse Ox 98 12/15/23 15:24 O2 Del Method Simple Mask 12/15/23 15:24 O2 Flow Rate 10 12/15/23 15:24 12/15/23 12/15/23 12/15/23 06:59 14:59 22:59 Intake Total 650 / 650 Output Total Balance 640 / 640 Weight last 48 hrs Weight 203 lb Physical Exam Narrative: BELOW IS A FOCUSED LOWER EXTREMITY EXAM GENERAL: A&O x 3 VASCULAR: DP/PT pulses palpable 2/4 with CFT intact, <3seconds to distal digits. Moderate edema to right ankle consistent with posttraumatic state DERMATOLOGICAL: Skin turgor and temperature is within normal limits. No interdigital maceration noted. Full-thickness ulceration to medial aspect of right tibia with tibial fracture tenting skin MUSCULOSKELETAL: Deformity of lower right leg with distal tibia and valgus at the level of fracture. Tibial fracture is tenting the skin medially with open wound. NEUROLOGICAL: Neurological sensation to the affected foot and ankle is present through L4-S1 dermatomes with no hyper/hypoesthesias, negative Tinel or Valleix's sign A&P Assessment and plan (1) Type I or II open trimalleolar fracture of right ankle: (2) Warfarin anticoagulation: Plan -Open right trimalleolar ankle fracture -Labs and vitals reviewed VSS -Cultures right ankle wound cultures pending -Abx vancomycin -Diet: Okay for diet from podiatry standpoint. -Status post irrigation and debridement, closed reduction of right trimalleolar ankle fracture and application of external fixator multiplanar -Pain Mgmt: Per primary team. Recent hospitalization patient responded well to Percocet 5?3 25 -Weight bearing: Strict nonweightbearing to right foot -Dressings: Leave surgical dressing clean, dry, intact. Reinforce if needed using 4 x 4 gauze. -Continue current Abx therapy until ID and Sensitivity results -Trend labs -Discharge plan: Patient currently lives at home alone. Given the extent of the injury and the recurrent dislocation and instability of the fracture pattern as well as the need for secondary procedure recommendation to discharge to nursing facility. Timing of discharge to be determined. Cultures of wound pending. Patient will need physical therapy evaluation for nonweightbearing status. Appreciate recommendations of physical therapy. -Podiatry will continue to round on patient daily and provide recommendations Coding Level of Care Code Acute Code for [facility] Fwd Diagnoses Type I or II open trimalleolar fracture of right ankle S82.851B Warfarin anticoagulation Z79.01
--- NOTE | 2023-12-15 15:46 | ANES.PREANE2 ---
Pre-Anesthetic Assessment Height/Weight: Height 1.65 m Weight 92.079 kg Temp Pulse Resp BP Pulse Ox O2 Del Method O2 Flow Rate 97.4 F L 77 15 143/94 98 Simple Mask 10 12/15/23 15:14 12/15/23 15:24 12/15/23 15:24 12/15/23 15:24 12/15/23 15:24 12/15/23 15:24 12/15/23 15:24 Operation Date: 12/15/23 14:00 Proposed Procedures p Closed Reduction Tibia(Right) - Ger Montemayor DPM s External Fixator Lower Extremity(Right) - Ger Montemayor DPM s Incision And Drainage(Right) - Ger Montemayor DPM Last intake: Intake Last Liquid Date 12/15/23 Last Liquid Time 05:00 Last Solid Date 12/15/23 Last Solid Time 05:00 Social No alcohol and No tobacco Exam alert, oriented x 3, clear to auscultation bilaterally and regular rate & rhythm (Regular with frequent irregular beats; no M/G/R's) Airway Submandibular: Other (limited TMD) Cervical ROM: Other (limited) Mallampati: Class III Pulmonary None reported CV/HEM Atrial Fibrillation, Arrythmia, Congestive Heart Failure and Hypertension GI Gastroesophageal Reflux Disease Anesthetic Plan ASA status: 3E Anesthesia: General Medications/Allergies Home Medications Medication Instructions Recorded Confirmed Last Taken Type tramadol 50 mg tablet 50 - 100 mg PO Q6H PRN Pain 02/19/20 12/15/23 12/15/23 History lorazepam 0.5 mg tablet 0.5 mg PO TID PRN Anxiety 03/05/21 12/15/23 12/15/23 History lovastatin 20 mg tablet 20 mg PO DAILY #90 tabs 09/21/21 12/15/23 12/15/23 Rx valsartan 160 mg tablet 160 mg PO BID #180 tabs 08/17/22 12/15/23 12/15/23 Rx omeprazole 20 mg capsule,delayed 20 mg PO BID #60 caps 09/13/23 12/15/23 12/15/23 Rx release diltiazem HCl 360 mg 360 mg PO QPM 11/02/23 12/15/23 12/15/23 History capsule,extended release 24 hr fluticasone propionate 50 2 spray intranasal DAILY 11/02/23 12/15/2312/13/24 History mcg/actuation nasal spray,suspension lidocaine-prilocaine 2.5 %-2.5 % See Rx Instructions .Route .COMPLEX 11/02/23 12/15/23 Unknown History topical cream sotalol 120 mg tablet 120 mg PO BID 11/02/23 12/15/23 12/15/23 History acetaminophen 500 mg tablet 500 - 1,000 mg PO Q6H PRN Pain 12/11/23 12/15/23 12/14/23 History warfarin 1 mg tablet See Rx Instructions .Route .COMPLEX 12/11/23 12/15/23 12/14/23 History zolpidem 10 mg tablet 10 mg PO BEDTIME PRN Sleep 12/11/23 12/15/23 12/14/23 History Allergies Allergy/AdvReac Type Severity Reaction Status Date / Time amlodipine Allergy Unknown Verified 12/15/23 11:40 diazepam [From Valium] Allergy Unknown Verified 12/15/23 11:40 furosemide [From Lasix] Allergy ADR-Dizzine Verified 12/15/23 13:19 ss lisinopril Allergy Unknown Verified 12/15/23 11:40 olmesartan [From Benicar] Allergy Unknown Verified 12/15/23 11:40 penicillamine Allergy Unknown Verified 12/15/23 11:40 Penicillins Allergy Unknown Verified 12/15/23 11:40 ranitidine [From Zantac] Allergy ALGY-Rash Verified 12/15/23 13:19 Sulfa (Sulfonamide Allergy Unknown Verified 12/15/23 11:40 Antibiotics) Current Medications Generic Name Dose Route Start Last Admin Trade Name Freq PRN Reason Stop Dose Admin Fentanyl 50 mcg 12/15/23 14:42 12/15/23 15:36 Fentanyl 50 Mcg/Ml Inj 2ml IVP 12/16/23 14:42 50 mcg Q5M PRN Administration Pain level 6-10 PACU Phase I Sodium Chloride 1,000 mls @ 50 mls/hr 12/15/23 13:00 12/15/23 13:33 Sodium Chloride 0.9% IV 50 mls/hr .Q20H ANIBAL Administration PFSH Anesthesia Medical History CHF (congestive heart failure) GERD (gastroesophageal reflux disease) Hyperlipidemia HTN (hypertension) Diastolic heart failure Atrial fibrillation Surgical History History of cardiac radiofrequency ablation (RFA) S/P subtotal thyroidectomy S/P cataract extraction S/P cholecystectomy S/P knee surgery Family History Other CAD (coronary artery disease) Social History Smoking and tobacco/nicotine status: never used tobacco/nicotine Alcohol intake: never Substance/Drug Use: never Data Anesthesia Cardiac Studies: No Data to Display
--- NOTE | 2023-12-15 15:46 | ANE.PACU2 ---
Inpatient post-anesthesia follow up: Vital signs: Temperature 97.4 F Pulse Rate 77 Respiratory Rate 15 Blood Pressure 143/94 Pulse Oximetry 98 Oxygen Delivery Me thod Simple Mask Oxygen Flow Rate 10 Fraction of Inspir ed Oxygen Hydration adequate: Yes Nausea and vomiting: No Pain level: 4 Mental status: Baseline
[2023-12-15] MEDS: HYDROmorphone 1 mg/mL INJ 1 mL 0.25 MG IVP (16:03)
[2023-12-15] MEDS: labetalol 5 mg/mL SDV 20mL IVP (16:14)
[2023-12-15] MEDS: famotidine 20 mg/2 mL INJ IVP (16:20)
--- NOTE | 2023-12-15 17:25 | SUR.PHASEI ---
1650: Patient was transferred to [facility]. Report was called to Nilda OLMOS. Nurse at bedside on transfer to floor bed. Patient awake. VSS. Patient on NC @2L for transport. External fix present and dressing clean and dry. Malone in place and draining. toes to right foot warm and pink. Patient tolerated transport well. Family notified of arrival back to floor room.
[2023-12-15] MEDS: dilTIAZem ER (24HR) 180 mg Capsule 360 MG PO (17:54)
[2023-12-15] MEDS: sotalol 80 mg Tablet 120 MG PO (17:54)
[2023-12-15] MEDS: oxyCODONE-APAP 5-325 mg Tablet 1 TAB PO (17:54)
[2023-12-15] MEDS: morphine 4 mg/mL SDV 1 mL 2 MG IVP (19:26)
[2023-12-15 20:56] LABS: Basophils % 0.1 %; Hematocrit 31.3 % (36-47); Lymphocytes # 0.9 10^3/uL (0.8-4.8); Lymphocytes % 9.8 %; Mean Corpuscular HGB Conc 31.3 g/dL (30-55); Mean Corpuscular Hemoglobin 26.3 pg (27-33); Mean Corpuscular Volume 83.9 fl (85-98); Mean Platelet Volume 9.8 fL (7.4-10.4); Monocytes # 0.2 10^3/uL (0.2-0.9); Monocytes % 1.6 %; Neutrophils # 8.05 10^3/uL (1.8-7.7); Neutrophils % 88.3 %; Nucleated Red Blood Cells % 0 %; Platelet Count 300 10^3/cmm (157-399); Red Blood Count 3.73 10^6/uL (3.85-5.65); Red Cell Distribution Width 17.1 % (12.1-15.1); White Blood Count 9.12 10^3/uL (3.29-11.43)
[2023-12-15] MEDS: zolpidem 5 mg Tablet 10 MG PO (21:03)
[2023-12-15 21:07] LABS: INR 1.94 (0.8-1.2)
[2023-12-15 21:17] LABS: Alanine Aminotransferase 12 U/L (0-33); Albumin Level 3.2 g/dL (3.5-5.2); Alkaline Phosphatase 148 U/L (35-105); Anion Gap 12.8 (5-19); Aspartate Amino Transferase 14 U/L (0-32); Blood Urea Nitrogen 16 mg/dL (8-23); Calcium 7.7 mg/dL (8.5-10.5); Carbon Dioxide 25 mmol/L (22-29); Chloride 104 mmol/L (98-107); Creatinine Clr Calc Pharmacy 56.6033; Globulin 3.1 g/dL (1.3-4.6); Glucose 261 mg/dL (65-115); Osmolality Calculated 296 mOsm/kg (285-295); Potassium 3.8 mmol/L (3.5-5.1); Sodium 138 mmol/L (136-145); Total Bilirubin 0.5 mg/dL (0.15-1.2); Total Protein 6.3 g/dL (6.6-8.7)
[2023-12-15 21:31] LABS: Procalcitonin 0.06 ng/mL (0-0.5); Vitamin B12 187 pg/mL (232-1245)
[2023-12-15] MEDS: TRAMadol 50 mg Tablet PO (23:19)
[2023-12-16] VITALS (10 sets, daily range): BP systolic 111–148; BP diastolic 68–80; PULSE 61–84; RESP 16–18; TEMP 36–37.2; O2SAT 94–99
[2023-12-16] LABS: Add Urine Microscopic? YES; Bacteria Urine 2+ /hpf; Bilirubin Urine 1+ (Negative); Blood Urine 3+ (Negative); Glucose Urine UA 1+ (Normal); Ketones Urine 1+ (Negative); Leukocyte Esterase Urine 2+ (Negative); Mucus Urine 2+ /hpf; Nitrate Urine Negative (Negative); Protein Urine 1+ (Negative); RBC Urine 15-25 /hpf (0-2); Specific Gravity, Urine 1.025 (1.005-1.030); Urine Appearance Cloudy (CLEAR); Urine Color Yellow (Yellow); Urobilinogen Urine 4 mg/dL (Negative); WBC Urine 55-80 /hpf (0-5); pH Urine 5 (5-7)
[2023-12-16 00:01] LABS: Add Urine Culture? Yes
[2023-12-16 05:24] LABS: Basophils % 0.1 %; Hematocrit 28.5 % (36-47); Lymphocytes # 1.2 10^3/uL (0.8-4.8); Mean Corpuscular HGB Conc 31.6 g/dL (30-55); Mean Corpuscular Hemoglobin 26.5 pg (27-33); Mean Corpuscular Volume 83.8 fl (85-98); Mean Platelet Volume 9.9 fL (7.4-10.4); Monocytes # 0.5 10^3/uL (0.2-0.9); Monocytes % 4.5 %; Neutrophils # 8.58 10^3/uL (1.8-7.7); Nucleated Red Blood Cells % 0 %; Platelet Count 290 10^3/cmm (157-399); Red Cell Distribution Width 17.2 % (12.1-15.1); White Blood Count 10.33 10^3/uL (3.29-11.43)
[2023-12-16 05:36] LABS: Alanine Aminotransferase 11 U/L (0-33); Alkaline Phosphatase 133 U/L (35-105); Anion Gap 12.1 (5-19); Aspartate Amino Transferase 14 U/L (0-32); Blood Urea Nitrogen 21 mg/dL (8-23); Calcium 7.9 mg/dL (8.5-10.5); Carbon Dioxide 26 mmol/L (22-29); Chloride 105 mmol/L (98-107); Glucose 160 mg/dL (65-115); Magnesium 1.7 mg/dL (1.7-2.3); Osmolality Calculated 294 mOsm/kg (285-295); Phosphorus 2.4 mg/dL (2.5-4.5); Potassium 4.1 mmol/L (3.5-5.1); Sodium 139 mmol/L (136-145); Total Bilirubin 0.5 mg/dL (0.15-1.2)
[2023-12-16 05:37] LABS: Estmated Average Glucose 114; Hemoglobin A1C 5.6 % (4.0-6.0)
[2023-12-16 05:38] LABS: Chol HDL Ratio 2.46 mg/dL (0.0-4.40); Cholesterol 101 mg/dL (0-200); HDL Cholesterol 41 mg/dL (60-100); LDL Cholesterol Calculated 50 mg/dL (50-129); LDL HDL Ratio 1.22 RATIO (0.00-3.22); Triglycerides 49 mg/dL (0-150)
[2023-12-16 05:53] LABS: Folate Level 3.7 ng/mL (4.8-37.3)
[2023-12-16] MEDS: TRAMadol 50 mg Tablet PO ×2 (06:20→17:01)
[2023-12-16] MEDS: sotalol 80 mg Tablet 120 MG PO ×2 (08:22→17:02)
[2023-12-16] MEDS: atorvastatin 40 mg Tablet 20 MG PO (08:22)
--- NOTE | 2023-12-16 09:40 | P.PN_ITS ---
Subjective 2 Subjective: Patient is day 1 status post closed reduction, irrigation and debridement and application of external fixator to right lower extremity for open right trimalleolar ankle fracture. Patient was seen resting in chair at bedside this morning. Resting comfortably. Pain is well-controlled. Vitals/I&O/Wt Last Vital Signs Temp 96.8 F L 12/16/23 07:57 Pulse 75 12/16/23 09:04 Resp 17 12/16/23 07:57 BP 138/79 12/16/23 07:57 Pulse Ox 98 12/16/23 09:04 O2 Del Method Nasal Cannula 12/16/23 09:04 O2 Flow Rate 2 12/16/23 09:04 12/15/23 12/16/23 12/16/23 22:59 06:59 14:59 Intake Total 1989 360 / 2350 240 / 240 Output Total 500 / 510 Balance 1979 -140 / 1840 240 / 240 Weight last 48 hrs Weight 215 lb 12.8 oz Weight 203 lb Weight 203 lb Physical Exam 2 Narrative: BELOW IS A FOCUSED LOWER EXTREMITY EXAM GENERAL: A&O x 3 VASCULAR: DP/PT pulses palpable 2/4 with CFT intact, <3seconds to distal digits DERMATOLOGICAL: Surgical dressing clean, dry, intact with no strikethrough noted. MUSCULOSKELETAL: Deferred secondary to postsurgical state. External fixator applied to right lower extremity NEUROLOGICAL: Neurological sensation to the affected foot and ankle is present through L4-S1 dermatomes with no hyper/hypoesthesias, negative Tinel or Valleix's sign Urinary Catheter Management: Malone: Cath Placed During This Visit: yes Reason for Continuing Indwelling Catheter: Other Urinary Catheter Date of Insertion: 12/15/23 Urinary Catheter Time of Insertion: 15:46 Data 12/16/23 04:38 12/16/23 04:38 Micro: Microbiology 12/15/23 22:06 Blood Culture - Preliminary Blood SPECIMEN COLLECTED 12/15/23 20:45 Blood Culture - Preliminary Blood SPECIMEN COLLECTED 12/15/23 14:53 Gram Stain - Final Ankle - Wound A&P Assessment and plan (1) Type I or II open trimalleolar fracture of right ankle: (2) Warfarin anticoagulation: Plan -Open right trimalleolar ankle fracture -Labs and vitals reviewed VSS -Cultures right ankle wound cultures pending -Abx vancomycin -Diet: Okay for diet from podiatry standpoint. -Status post irrigation and debridement, closed reduction of right trimalleolar ankle fracture and application of external fixator multiplanar. I discussed with the patient at bedside this morning that this is going to have to be a staged procedure. We will be monitoring the wound healing to the right medial leg. Upon healing the wound we will plan for definitive fixation of the ankle fracture which will include tibiotalar calcaneal nail. I discussed the patient that she will need extensive rehabilitation after definitive fixation. Patient verbalized understanding to this. -Pain Mgmt: Per primary team. Recent hospitalization patient responded well to Percocet 5?3 25 -Weight bearing: Strict nonweightbearing to right foot -Dressings: Leave surgical dressing clean, dry, intact. Reinforce if needed using 4 x 4 gauze. -Continue current Abx therapy until ID and Sensitivity results -Trend labs -Discharge plan: Patient currently lives at home alone. Given the extent of the injury and the recurrent dislocation and instability of the fracture pattern as well as the need for secondary procedure recommendation to discharge to nursing facility. Timing of discharge to be determined. Cultures of wound pending. Patient will need physical therapy evaluation for nonweightbearing status. Appreciate recommendations of physical therapy. -Podiatry will continue to round on patient daily and provide recommendations Attestations 2 Medical Necessity Statement*: Status post closed reduction, irrigation and debridement and application of multiplanar external fixator. Cultures taken from open wound. Awaiting for cultures to result Coding Level of Care Code Acute Code for [facility] Diagnoses Type I or II open trimalleolar fracture of right ankle S82.851B Warfarin anticoagulation Z79.01
[2023-12-16] MEDS: pantoprazole 40 mg SDV IVP (13:16)
[2023-12-16] MEDS: vancomycin 1,500 MG/300 ML PIGGYBACK 200 MG IV (14:28)
[2023-12-16] MEDS: lactulose oral liq 20 gm/30 mL UDC 10 GM PO (14:36)
--- NOTE | 2023-12-16 16:03 | P.PN_ITS ---
Subjective 2 Subjective: No acute events overnight. Has remained hemodynamically stable and afebrile. Worked with physical therapy today. Lying comfortably in bed on examination. Vitals/I&O/Wt Last Vital Signs Temp 98.9 F 12/16/23 15:23 Pulse 82 12/16/23 15:23 Resp 16 12/16/23 15:23 BP 148/80 12/16/23 15:23 Pulse Ox 98 12/16/23 15:23 O2 Del Method Nasal Cannula 12/16/23 15:23 O2 Flow Rate 2 12/16/23 09:04 12/16/23 12/16/23 12/16/23 06:59 14:59 22:59 Intake Total 360 / 2350 480 / 480 Output Total 500 / 510 Balance -140 / 1840 480 / 480 Weight last 48 hrs Weight 97.885 kg Weight 92.079 kg Weight 92.079 kg Physical Exam 2 Narrative: General: No acute distress, AO x3 HEENT: PERRLA, pupils bilaterally equal and reactive Chest: Normal vesicular breath sounds, no added sounds, equal good air entry bilaterally CVS: S1-S2 regular, no murmurs, no tachycardia, no gallops, no rubs Abdomen: Soft, nontender, no organomegaly, bowel sounds present Neuro: No focal deficits, no facial deformity, AO x3, power 5/5 in all limbs Extremity: Foot surgically bandaged and external fixator Urinary Catheter Management: Malone: Cath Placed During This Visit: yes Reason for Continuing Indwelling Catheter: Other Urinary Catheter Date of Insertion: 12/15/23 Urinary Catheter Time of Insertion: 15:46 Data 12/16/23 04:38 12/16/23 04:38 Micro: Microbiology 12/15/23 14:53 Gram Stain - Final Ankle - Wound Anaerobic Culture - Preliminary Wound Culture - Preliminary 12/15/23 22:06 Blood Culture - Preliminary Blood SPECIMEN COLLECTED 12/15/23 20:45 Blood Culture - Preliminary Blood SPECIMEN COLLECTED A&P Assessment and plan (1) Type I or II open trimalleolar fracture of right ankle: Post close reduction, irrigation debridement and application of external fixator on 12/14. Monitor hemoglobin. Anticoagulation, weightbearing, physical therapy as per podiatry team. As patient had an open wound with exposure of bone for now will cover empirically with IV vancomycin and Zosyn. Follow-up OR cultures, blood cultures. Pro-Jensen negative. MRSA swab not collected yet. Further treatment plan of surgical correction once the open wound heals and confirmation of no infection with OR cultures. Percocet for pain as needed 5 mg every 6 hours, morphine 1 mg IV every 4 hours as needed for breakthrough pain. Continue with oral tramadol at home dose as needed. (2) HTN (hypertension): Goal blood pressure less than 140/90 mmHg. Patient takes Cardizem, sotalol, valsartan at home. Continue with home dose of sotalol and Cardizem. Hold off on ARB for now. Will restart as per blood pressures. Qualifiers: Hypertension type: essential hypertension Qualified Code(s): I10 - Essential (primary) hypertension (3) Diastolic heart failure: Euvolemic currently Continue to monitor for fluid overload. Qualifiers: Heart failure chronicity: chronic Qualified Code(s): I50.32 - Chronic diastolic (congestive) heart failure (4) Atrial fibrillation: Currently rate controlled. Continue with home dose of sotalol and Cardizem. Takes warfarin as anticoagulation. Check INR. Will restart anticoagulation once okay with podiatry team. Qualifiers: Atrial fibrillation type: persistent (not longstanding) Qualified Code(s): I48.19 - Other persistent atrial fibrillation (5) Hyperlipidemia: Plan Full code Carb consistent diet. Foot pumps for DVT prophylaxis, restart warfarin when okay with podiatry team Protonix OPD prophylaxis Patient is taking orally well. Hold off on IV fluids. Discharge planning: Patient currently lives at home alone. Given the extent of the injury and the recurrent dislocation and instability of the fracture pattern as well as the need for secondary procedure recommendation to discharge to nursing facility. Patient is agreeable. Case management has been alerted. Attestations 2 Medical Necessity Statement*: Require further hospitalization for management of open right ankle fracture requiring external fixator in a patient who failed close reduction while infection is ruled out and safe discharge planning is sought Diagnoses Type I or II open trimalleolar fracture of right ankle S82.851B Essential hypertension I10 Hypertension type: essential hypertension Chronic diastolic heart failure I50.32 Heart failure chronicity: chronic Persistent atrial fibrillation I48.19 Atrial fibrillation type: persistent (not longstanding) Hyperlipidemia E78.5
[2023-12-16] MEDS: dilTIAZem ER (24HR) 180 mg Capsule 360 MG PO (17:02)
[2023-12-16] MEDS: oxyCODONE-APAP 5-325 mg Tablet 1 TAB PO (20:21)
[2023-12-16] MEDS: sodium chloride 0.9% 1,000 ML 50 ML IV (20:25)
[2023-12-16 20:39] LABS: Glucose Point of Care 133 mg/dL (70-110)
[2023-12-16] MEDS: LORazepam 0.5 mg Tablet PO (21:42)
[2023-12-16] MEDS: zolpidem 5 mg Tablet 10 MG PO (21:42)
[2023-12-16] MEDS: acetaminophen 325 mg Tablet 650 MG PO (22:35)
[2023-12-17] VITALS (17 sets, daily range): BP systolic 126–144; BP diastolic 72–82; PULSE 67–82; RESP 16–18; TEMP 36.4–37.2; O2SAT 94–99; BMI 35.1
[2023-12-17] MEDS: morphine 4 mg/mL SDV 1 mL 2 MG IVP ×2 (01:26→08:55)
[2023-12-17] MEDS: oxyCODONE-APAP 5-325 mg Tablet 1 TAB PO ×4 (03:15→23:30)
[2023-12-17] MEDS: TRAMadol 50 mg Tablet PO ×2 (05:46→14:40)
[2023-12-17 06:40] LABS: Glucose Point of Care 109 mg/dL (70-110)
[2023-12-17] MEDS: sotalol 80 mg Tablet 120 MG PO ×2 (08:54→17:27)
[2023-12-17] MEDS: atorvastatin 40 mg Tablet 20 MG PO (08:55)
--- NOTE | 2023-12-17 10:27 | PM.PN ---
Subjective Subjective: Patient seen at resting in chair at bedside this morning. States that her pain has worsened in the past day, it was difficult to sleep last night. She is wondering if we can give her something stronger for pain. Patient also had confusion this morning in regards to second stage of procedure. Vitals/I&O/Wt Last Vital Signs Temp 97.6 F 12/17/23 07:19 Pulse 78 12/17/23 08:00 Resp 18 12/17/23 09:52 BP 143/82 12/17/23 07:19 Pulse Ox 99 12/17/23 08:00 O2 Del Method Nasal Cannula 12/17/23 08:00 O2 Flow Rate 2 12/17/23 08:00 12/16/23 12/17/23 12/17/23 22:59 06:59 14:59 Intake Total 1540 / 2020 Output Total 800 / 800 1000 / 1800 Balance 740 / 1220 -1000 / 220 Weight last 48 hrs Weight 215 lb 3.2 oz Weight 215 lb 12.8 oz Weight 203 lb Weight 203 lb Physical Exam Narrative: BELOW IS A FOCUSED LOWER EXTREMITY EXAM GENERAL: A&O x 3 VASCULAR: DP/PT pulses palpable 2/4 with CFT intact, <3seconds to distal digits DERMATOLOGICAL: Surgical dressing clean, dry, intact with no strikethrough noted. MUSCULOSKELETAL: Deferred secondary to postsurgical state. External fixator applied to right lower extremity NEUROLOGICAL: Neurological sensation to the affected foot and ankle is present through L4-S1 dermatomes with no hyper/hypoesthesias, negative Tinel or Valleix's sign Urinary Catheter Management: Malone: Cath Placed During This Visit: yes Reason for Continuing Indwelling Catheter: Required Immobilization for Trauma or Surgery or Anesthesia Urinary Catheter Date of Insertion: 12/15/23 Urinary Catheter Time of Insertion: 15:46 Data 12/16/23 04:38 12/16/23 04:38 Micro: Microbiology 12/15/23 23:20 Urine Culture - Preliminary Urine,Clean Catch 12/15/23 22:06 Blood Culture - Preliminary Blood NEGATIVE TO DATE 12/15/23 20:45 Blood Culture - Preliminary Blood NEGATIVE TO DATE 12/15/23 14:53 Gram Stain - Final Ankle - Wound Anaerobic Culture - Preliminary Wound Culture - Preliminary A&P Assessment and plan (1) Type I or II open trimalleolar fracture of right ankle: (2) Warfarin anticoagulation: Plan -Open right trimalleolar ankle fracture -Labs and vitals reviewed VSS -Cultures right ankle wound cultures pending -Abx vancomycin -Diet: Okay for diet from podiatry standpoint. -No further surgical intervention during this admission. Status post irrigation and debridement, closed reduction of right trimalleolar ankle fracture and application of external fixator multiplanar. I discussed with the patient at bedside this morning that this is going to have to be a staged procedure. We will be monitoring the wound healing to the right medial leg. Upon healing the wound we will plan for definitive fixation of the ankle fracture which will include tibiotalar calcaneal nail. Second stage of the surgery will likely take place in the next 2 to 3 weeks pending wound healing. I discussed the patient that she will need extensive rehabilitation after definitive fixation. Patient verbalized understanding to this. -Okay to resume patient anticoagulation therapy -Pain Mgmt: Per primary team. Recent hospitalization patient responded well to Percocet 5?3 25 -Weight bearing: Strict nonweightbearing to right foot -Dressings: Leave surgical dressing clean, dry, intact. Reinforce if needed using 4 x 4 gauze. -Continue current Abx therapy until ID and Sensitivity results -Trend labs -Discharge plan: Patient currently lives at home alone. Given the extent of the injury and the recurrent dislocation and instability of the fracture pattern as well as the need for secondary procedure recommendation to discharge to nursing facility. Timing of discharge to be determined. Cultures of wound pending. Patient will need physical therapy evaluation for nonweightbearing status. Appreciate recommendations of physical therapy. -Podiatry will continue to round on patient daily and provide recommendations Attestations Medical Necessity Statement*: Status post closed reduction, irrigation and debridement and application of multiplanar external fixator. Cultures taken from open wound. Awaiting for cultures to result Coding Level of Care Code Acute Code for [facility] Diagnoses Type I or II open trimalleolar fracture of right ankle S82.851B Warfarin anticoagulation Z79.01
[2023-12-17 10:54] LABS: INR 1.84 (0.8-1.2)
[2023-12-17] MEDS: pantoprazole 40 mg SDV IVP (12:53)
[2023-12-17] MEDS: cyanocobalamin 1,000 mcg/mL SDV 1000 MCG IM (12:54)
--- NOTE | 2023-12-17 13:02 | P.PN_ITS ---
Subjective 2 Subjective: No acute events overnight. Patient has remained hemodynamically stable and afebrile. Today morning seen sitting up in chair. States pain is worse today as compared to yesterday but did work with physical therapy. Otherwise she denies any nausea or vomiting. Denies any chest pain. Vitals/I&O/Wt Last Vital Signs Temp 97.8 F 12/17/23 11:33 Pulse 73 12/17/23 11:33 Resp 18 12/17/23 11:33 BP 130/80 12/17/23 11:33 Pulse Ox 97 12/17/23 11:33 O2 Del Method Nasal Cannula 12/17/23 11:33 O2 Flow Rate 2 12/17/23 08:00 12/16/23 12/17/23 12/17/23 22:59 06:59 14:59 Intake Total 1540 / 2020 1208.333 / 1208.333 Output Total 800 / 800 1000 / 1800 950 / 950 Balance 740 / 1220 -1000 / 220 258.333 / 258.333 Weight last 48 hrs Weight 97.613 kg Weight 97.885 kg Weight 92.079 kg Weight 92.079 kg Physical Exam 2 Narrative: General: No acute distress, AO x3 HEENT: PERRLA, pupils bilaterally equal and reactive Chest: Normal vesicular breath sounds, no added sounds, equal good air entry bilaterally CVS: S1-S2 regular, no murmurs, no tachycardia, no gallops, no rubs Abdomen: Soft, nontender, no organomegaly, bowel sounds present Neuro: No focal deficits, no facial deformity, AO x3, power 5/5 in all limbs Extremity: Foot surgically bandaged and external fixator Urinary Catheter Management: Malone: Cath Placed During This Visit: yes Reason for Continuing Indwelling Catheter: Required Immobilization for Trauma or Surgery or Anesthesia Urinary Catheter Date of Insertion: 12/15/23 Urinary Catheter Time of Insertion: 15:46 Data 12/16/23 04:38 12/16/23 04:38 Micro: Microbiology 12/15/23 14:53 Gram Stain - Final Ankle - Wound Anaerobic Culture - Preliminary Wound Culture - Preliminary 12/15/23 23:20 Urine Culture - Preliminary Urine,Clean Catch 12/15/23 22:06 Blood Culture - Preliminary Blood NEGATIVE TO DATE 12/15/23 20:45 Blood Culture - Preliminary Blood NEGATIVE TO DATE A&P Assessment and plan (1) Type I or II open trimalleolar fracture of right ankle: Post close reduction, irrigation debridement and application of external fixator on 12/14. Monitor hemoglobin. Continue with weightbearing status and physical therapy as per podiatry team. Discussed in detail with podiatry. No further surgical plans for now. Restart home dose of warfarin. Monitor INR daily. As patient had an open wound with exposure of bone for now will cover empirically with IV vancomycin and Zosyn. Follow-up OR cultures, blood cultures. Pro-Jensen negative. MRSA swab not collected yet. Further treatment plan of surgical correction once the open wound heals and confirmation of no infection with OR cultures. Percocet for pain as needed 5 mg every 6 hours, switch from morphine Dilaudid 0.5 every 6 hours as needed for better pain control for breakthrough. Continue with oral tramadol at home dose as needed. (2) HTN (hypertension): Goal blood pressure less than 140/90 mmHg. Patient takes Cardizem, sotalol, valsartan at home. Continue with home dose of sotalol and Cardizem. Hold off on ARB for now. Blood pressure so far stable. Qualifiers: Hypertension type: essential hypertension Qualified Code(s): I10 - Essential (primary) hypertension (3) Diastolic heart failure: Euvolemic currently Continue to monitor for fluid overload. Qualifiers: Heart failure chronicity: chronic Qualified Code(s): I50.32 - Chronic diastolic (congestive) heart failure (4) Atrial fibrillation: Currently rate controlled. Continue with home dose of sotalol and Cardizem. Takes warfarin as anticoagulation. Qualifiers: Atrial fibrillation type: persistent (not longstanding) Qualified Code(s): I48.19 - Other persistent atrial fibrillation (5) Hyperlipidemia: Plan Full code Carb consistent diet. Foot pumps for DVT prophylaxis, restart warfarin today. Check daily INR. Protonix for PUD prophylaxis Patient is taking orally well. Discharge planning: Patient currently lives at home alone. Given the extent of the injury and the recurrent dislocation and instability of the fracture pattern as well as the need for secondary procedure recommendation to discharge to nursing facility. Patient is agreeable. Case management has been alerted. Attestations 2 Medical Necessity Statement*: Requires further hospitalization for management of postoperative care for trimalleolar fracture with open wound requiring closed reduction with external fixator while safe discharge planning to SNF is sought and OR cultures are awaited Diagnoses Type I or II open trimalleolar fracture of right ankle S82.851B Essential hypertension I10 Hypertension type: essential hypertension Chronic diastolic heart failure I50.32 Heart failure chronicity: chronic Persistent atrial fibrillation I48.19 Atrial fibrillation type: persistent (not longstanding) Hyperlipidemia E78.5
[2023-12-17] MEDS: warfarin 6 mg Tablet PO (14:39)
[2023-12-17] MEDS: ondansetron 2 mg/ML SDV 2 mL 4 MG IVP (17:27)
[2023-12-17] MEDS: dilTIAZem ER (24HR) 180 mg Capsule 360 MG PO (17:27)
[2023-12-17] MEDS: zolpidem 5 mg Tablet 10 MG PO (21:43)
[2023-12-17] MEDS: HYDROmorphone 1 mg/mL INJ 1 mL 0.5 MG IVP (21:43)
[2023-12-18] VITALS (15 sets, daily range): BP systolic 129–145; BP diastolic 74–92; PULSE 66–83; RESP 16–20; TEMP 36.4–36.8; O2SAT 92–99
[2023-12-18] MEDS: TRAMadol 50 mg Tablet PO ×3 (00:04→18:45)
[2023-12-18] MEDS: vancomycin 1,500 MG/300 ML PIGGYBACK 200 MG IV (01:21)
[2023-12-18] MEDS: HYDROmorphone 1 mg/mL INJ 1 mL 0.5 MG IVP (03:06)
[2023-12-18] MEDS: oxyCODONE-APAP 5-325 mg Tablet 1 TAB PO ×3 (07:13→21:21)
[2023-12-18] MEDS: LORazepam 0.5 mg Tablet PO ×2 (07:14→21:28)
--- NOTE | 2023-12-18 07:58 | P.PN_ITS ---
Subjective 2 Subjective: Patient seen at bedside this morning. No overnight events. Pending placement. Vitals/I&O/Wt Last Vital Signs Temp 97.5 F L 12/18/23 07:12 Pulse 76 12/18/23 07:12 Resp 17 12/18/23 07:13 BP 138/92 12/18/23 07:12 Pulse Ox 99 12/18/23 07:12 O2 Del Method Nasal Cannula 12/18/23 07:12 O2 Flow Rate 2 12/17/23 20:00 12/17/23 12/18/23 12/18/23 22:59 06:59 14:59 Intake Total 340 / 1548.333 300 / 1848.333 Output Total 400 / 1350 200 / 1550 Balance -60 / 198.333 100 / 298.333 Weight last 48 hrs Weight 208 lb 14.4 oz Weight 211 lb 1.6 oz Weight 215 lb 3.2 oz Physical Exam 2 Narrative: BELOW IS A FOCUSED LOWER EXTREMITY EXAM GENERAL: A&O x 3 VASCULAR: DP/PT pulses palpable 2/4 with CFT intact, <3seconds to distal digits DERMATOLOGICAL: Surgical dressing clean, dry, intact with no strikethrough noted. Dressing change. No signs of infection MUSCULOSKELETAL: Deferred secondary to postsurgical state. External fixator applied to right lower extremity NEUROLOGICAL: Neurological sensation to the affected foot and ankle is present through L4-S1 dermatomes with no hyper/hypoesthesias, negative Tinel or Valleix's sign Urinary Catheter Management: Malone: Cath Placed During This Visit: yes Reason for Continuing Indwelling Catheter: Required Immobilization for Trauma or Surgery or Anesthesia Urinary Catheter Date of Insertion: 12/15/23 Urinary Catheter Time of Insertion: 15:46 Data 12/16/23 04:38 12/16/23 04:38 Micro: Microbiology 12/15/23 14:53 Gram Stain - Final Ankle - Wound Anaerobic Culture - Preliminary Wound Culture - Preliminary 12/15/23 23:20 Urine Culture - Preliminary Urine,Clean Catch A&P Assessment and plan (1) Type I or II open trimalleolar fracture of right ankle: (2) Warfarin anticoagulation: Plan -Open right trimalleolar ankle fracture -Labs and vitals reviewed VSS -Cultures right ankle wound cultures pending--NGTD -Abx vancomycin -Diet: Okay for diet from podiatry standpoint. -No further surgical intervention during this admission. Status post irrigation and debridement, closed reduction of right trimalleolar ankle fracture and application of external fixator multiplanar. I discussed with the patient at bedside this morning that this is going to have to be a staged procedure. We will be monitoring the wound healing to the right medial leg. Upon healing the wound we will plan for definitive fixation of the ankle fracture which will include tibiotalar calcaneal nail. Second stage of the surgery will likely take place in the next 2 to 3 weeks pending wound healing. I discussed the patient that she will need extensive rehabilitation after definitive fixation. Patient verbalized understanding to this. -Okay to resume patient anticoagulation therapy -Pain Mgmt: Per primary team. Recent hospitalization patient responded well to Percocet 5?3 25 -Weight bearing: Strict nonweightbearing to right foot -Dressings: Leave surgical dressing clean, dry, intact. Reinforce if needed using 4 x 4 gauze. Dressing was changed at bedside this morning. -Continue current Abx therapy until ID and Sensitivity results -Trend labs -Discharge plan: Patient currently lives at home alone. Given the extent of the injury and the recurrent dislocation and instability of the fracture pattern as well as the need for secondary procedure recommendation to discharge to nursing facility. Timing of discharge to be determined. Cultures of wound pending. Patient will need physical therapy evaluation for nonweightbearing status. Appreciate recommendations of physical therapy. Patient is okay to discharge to senior care facility from podiatry standpoint. Patient has to follow-up within 1 week of discharge with Dr[address] Montemayor in the outpatient setting -Podiatry will continue to round on patient daily and provide recommendations Attestations 2 Medical Necessity Statement*: Open fracture right distal tibia, cultures pending, strict nonweightbearing to right lower extremity necessitating PT evaluation, staged procedure definitive fixation in the next 2 to 3 weeks. Recommend SNF placement Coding Level of Care Code Acute Code for [facility] Diagnoses Type I or II open trimalleolar fracture of right ankle S82.851B Warfarin anticoagulation Z79.01
[2023-12-18] MEDS: sotalol 80 mg Tablet 120 MG PO ×2 (09:07→17:21)
[2023-12-18] MEDS: atorvastatin 40 mg Tablet 20 MG PO (09:07)
[2023-12-18] MEDS: cyanocobalamin 1,000 mcg/mL SDV 1000 MCG IM (09:07)
--- NOTE | 2023-12-18 10:19 | PC.CHAP ---
Pastoral Care Encounter/Spiritual Assessment Type of Contact [] Declined ui ux developer visit [] Patient/Family/Request visit [] Outpatient visit [] Follow-up visit [] Physician referral [] Code/Alert [X] Routine visit [] Staff referral [] Actively dying [] Patient sleeping [X] Family support [] [] Out of room [] Palliative care [] [] Receiving care in room [] Pre-surgical visit [] Trauma [] Long length of stay [] ICU visit [] Other: Relational/Emotional Strength [] Patient feels connected with others/family/visitors/staff [] Distress [] Loneliness/isolation [] Abandonment Spirituality of Patient [X] Person of [place] [] Attends Congregation of their [place] [X] Believes in Prayer [] Reads Bible or Adventist materials [] There are Spiritual issues to be addressed Rod Greaser Interventions [X] Prayer [X] Active listening [] Non-anxious presence [] Spiritual/emotional support [] Crisis/trauma care [] Spiritual counseling [] Bereavement support [] Provided bereavement packet [X] Provided Bible/devotional materials [] Provided toy/stuffed animal, coloring book to patient or family member [] Provided Communion [] Anointing/[place] [] Salvation [X] Completed spiritual assessment [] Other: Impact on Illness or Injury [] Angry [] Fearful [] Anxious [] Often cries [] Exhaustion [] Unable to work [] Unable to attend orthodoxy [] Unable to walk/stand [] Unable to read [] Unable to drive [] Unable to eat/drink [] Unable to sleep [] Unable to be with family [] Patient intubated [] Other: Summary Time spent with patient 10 MIN
[2023-12-18 12:27] LABS: Alanine Aminotransferase 18 U/L (0-33); Albumin Level 2.9 g/dL (3.5-5.2); Alkaline Phosphatase 131 U/L (35-105); Blood Urea Nitrogen 15 mg/dL (8-23); Calcium 7.9 mg/dL (8.5-10.5); Carbon Dioxide 23 mmol/L (22-29); Chloride 102 mmol/L (98-107); Creatinine Clr Calc Pharmacy 57.4563; Globulin 3.7 g/dL (1.3-4.6); Glucose 86 mg/dL (65-115); Osmolality Calculated 282 mOsm/kg (285-295); Sodium 136 mmol/L (136-145); Total Bilirubin 0.5 mg/dL (0.15-1.2); Total Protein 6.6 g/dL (6.6-8.7)
[2023-12-18] MEDS: pantoprazole 40 mg SDV IVP (12:38)
[2023-12-18 12:39] LABS: Basophils % 0.2 %; Eosinophils # 0.2 10^3/uL (0.0-0.8); Eosinophils % 1.6 %; Hematocrit 35.3 % (36-47); Lymphocytes % 27.7 %; Mean Corpuscular HGB Conc 30.6 g/dL (30-55); Mean Corpuscular Hemoglobin 26.2 pg (27-33); Mean Corpuscular Volume 85.7 fl (85-98); Mean Platelet Volume 9.5 fL (7.4-10.4); Monocytes % 8.8 %; Neutrophils % 61.2 %; Nucleated Red Blood Cells % 0 %; Platelet Count 339 10^3/cmm (157-399); Red Blood Count 4.12 10^6/uL (3.85-5.65); Red Cell Distribution Width 17.8 % (12.1-15.1); White Blood Count 10.78 10^3/uL (3.29-11.43)
[2023-12-18 12:41] LABS: Anion Gap 14.5 (5-19); Aspartate Amino Transferase 27 U/L (0-32); Potassium 3.5 mmol/L (3.5-5.1)
[2023-12-18 13:06] LABS: INR 1.56 (0.8-1.2)
--- NOTE | 2023-12-18 14:54 | PC.SOCIAL ---
Pg 2 IMM Explained to pt Pg 2 IMM. No questions voiced. Provided pt a copy. Initialed, dated, & timed a copy & placed in chart.
[2023-12-18] MEDS: warfarin 6 mg Tablet PO (15:02)
--- NOTE | 2023-12-18 15:03 | P.PN_ITS ---
Subjective 2 Subjective: No acute overnight events noted. She is feeling better today, no complaint of nausea vomiting severe pain or shortness of breath. Medications: Reviewed: Yes Vitals/I&O/Wt Last Vital Signs Temp 97.9 F 12/18/23 12:00 Pulse 75 12/18/23 12:00 Resp 18 12/18/23 15:02 BP 137/79 12/18/23 12:00 Pulse Ox 95 12/18/23 12:00 O2 Del Method Room Air 12/18/23 12:00 O2 Flow Rate 2 12/17/23 20:00 12/18/23 12/18/23 12/18/23 06:59 14:59 22:59 Intake Total 300 / 1848.333 360 / 360 Output Total 200 / 1550 700 / 700 Balance 100 / 298.333 -340 / -340 Weight last 48 hrs Weight 94.755 kg Weight 95.753 kg Weight 97.613 kg Physical Exam 2 Narrative: She is alert awake oriented x 3 Chest clear to auscultation bilaterally Cardiovascular normal heart sounds Abdomen NAD Extremity right lower extremity fixator present, compression bandage seen. Urinary Catheter Management: Malone: Cath Placed During This Visit: yes Reason for Continuing Indwelling Catheter: Required Immobilization for Trauma or Surgery or Anesthesia Urinary Catheter Date of Insertion: 12/15/23 Urinary Catheter Time of Insertion: 15:46 Data 12/18/23 12:30 12/18/23 11:22 Micro: Microbiology 12/15/23 14:53 Gram Stain - Final Ankle - Wound Anaerobic Culture - Preliminary Wound Culture - Final 12/15/23 23:20 Urine Culture - Final Urine,Clean Catch A&P Assessment and plan (1) Type I or II open trimalleolar fracture of right ankle: (2) HTN (hypertension): Qualifiers: Hypertension type: essential hypertension Qualified Code(s): I10 - Essential (primary) hypertension (3) Hyperlipidemia: Plan (1) Type I or II open trimalleolar fracture of right ankle: Post close reduction, irrigation debridement and application of external fixator on 12/14. Continue with weightbearing status and physical therapy as per podiatry team. Restart home dose of warfarin. Monitor INR daily. As patient had an open wound with exposure of bone for now will cover empirically with IV vancomycin and Zosyn. Will switch to p.o. Vantin 200 mg twice daily for 5 days on discharge. Further treatment plan of surgical correction once the open wound heals, patient cleared by podiatry to go to subacute nursing facility and follow-up in 1 week (2) HTN (hypertension): Patient takes Cardizem, sotalol, valsartan at home. Continue with home dose of sotalol and Cardizem. (3) Diastolic heart failure: (4) Atrial fibrillation: Currently rate controlled. Continue with home dose of sotalol and Cardizem. Takes warfarin as anticoagulation. (5) Hyperlipidemia: Plan Full code Carb consistent diet. Patient on p.o. warfarin, continue same for DVT prophylaxis Protonix for PUD prophylaxis Discharge planning: Patient to go to subacute nursing facility for rehab and follow-up with podiatry in 1 week for further surgical intervention if needed. Attestations 2 Medical Necessity Statement*: Patient is waiting for subacute nursing facility placement Time Spent in Patient Care: 30 minutes Coding Level of Care Code Acute Code for Chg Fwd Diagnoses Type I or II open trimalleolar fracture of right ankle S82.851B Essential hypertension I10 Hypertension type: essential hypertension Hyperlipidemia E78.5 Time Spent (min) 30
[2023-12-18 15:25] LABS: Methicillin-Resist S.aureu PCR NOT DETECTED (NOT DETECTED)
[2023-12-18] MEDS: dilTIAZem ER (24HR) 180 mg Capsule 360 MG PO (17:21)
[2023-12-18] MEDS: zolpidem 5 mg Tablet 10 MG PO (21:21)
[2023-12-19] VITALS (8 sets, daily range): BP systolic 131–165; BP diastolic 83–86; PULSE 75–86; RESP 16–19; TEMP 36.4–36.9; O2SAT 92–99
[2023-12-19] MEDS: TRAMadol 50 mg Tablet PO ×2 (00:29→08:05)
[2023-12-19] MEDS: oxyCODONE-APAP 5-325 mg Tablet 1 TAB PO ×2 (03:21→11:01)
[2023-12-19] MEDS: sotalol 80 mg Tablet 120 MG PO (09:14)
[2023-12-19] MEDS: atorvastatin 40 mg Tablet 20 MG PO (09:14)
[2023-12-19] MEDS: warfarin 2 mg Tablet 7 MG PO (09:16)
[2023-12-19] MEDS: cyanocobalamin 1,000 mcg/mL SDV 1000 MCG IM (09:17)
--- NOTE | 2023-12-19 10:37 | PM.DCS ---
Discharge Providers Date of Admission: 12/15/23 12:45 Date of Discharge: December 19, 2023 Attending Provider at Admission: Fausto Kinney MD Attending Provider at Discharge: Jenifer Lund MD Consults: podiatry consult Primary Care Provider: Liliana Ko DO Diagnoses at Discharge Discharge Diagnosis (1) Type I or II open trimalleolar fracture of right ankle: Status: Acute (2) HTN (hypertension): Status: Acute Qualifiers: Hypertension type: essential hypertension Qualified Code(s): I10 - Essential (primary) hypertension (3) Hyperlipidemia: Status: Acute Reason for Visit Reason for Visit: Right Tib Fracture Brief History: History as per HPI: Jessie Kumar is a 88 year old female recently treated for pneumonia and CHF, currently on 2 L of oxygen, with history of ARTHUR on CPAP nightly, HTN, HLD, GERD, A-fib on anticoagulation with warfarin, had her ankle roll under when navigating a step, resulting in dislocation and trimalleolar fracture. She had to crawl close to 200 feet to call for help as she does not usually carry her cell phone with her. She has a history of reduced sensation in the right lower extremity, history of degenerative spine disease. She underwent reduction and splinting in the ER. Consideration was given to operative versus nonoperative further management on assessment by podiatry. Denies exertional limitation by shortness of breath or chest pain. She is anticoagulated for atrial fibrillation. Denies any history of DVT or PE, no history of artificial heart valves. Does have history of ablation. She normally ambulates with a rollator. Hospital Course Hospital Course She is status post irrigation and debridement, closed reduction of right trimalleolar ankle fracture and application of external fixator multiplanar. Discussed with podiatry no need for further antibiotics on discharge .she will get a definitive fixation done 2 to 3 weeks later after the wound healing. She is supposed to follow-up with Dr. Montemayor in 2 weeks. Physical Exam Narrative: She is alert awake oriented x 3 Chest clear to auscultation bilaterally Cardiovascular normal heart sounds Abdomen NAD Extremity right lower extremity fixator present, compression bandage seen. Urinary Catheter Management: Malone: Cath Placed During This Visit: yes, but has since been removed by the nurse Reason for Continuing Indwelling Catheter: Acute Urinary Retention or Obstruction Urinary Catheter Date of Insertion: 12/19/23 Urinary Catheter Time of Insertion: 04:03 Date Urinary Catheter Removed: 12/18/23 Time Urinary Catheter Discontinued: 16:50 Discharge Data Studies Completed and Pending Completed Studies During Hospitalization Category Date Time Status XR tibia fibula RT 2V 17903 Routine Exams 12/15/23 00:00 Completed Pending at discharge Category Date Time Status Anaerobic Culture Routine Lab 12/15/23 14:53 Results Blood Culture Routine Lab 12/15/23 22:06 Results Prothrombin Time INR AM LABS Lab 12/19/23 10:05 Ordered Wound Culture and Gram Stain Routine Lab 12/15/23 14:53 Results Laboratory Results WBC 10.78 10^3/uL (3.29-11.43) 12/18/23 12:30 RBC 4.12 10^6/uL (3.85-5.65) 12/18/23 12:30 Hgb 10.80 g/dL (11.27-16.99) L 12/18/23 12:30 Hct 35.3 % (36-47) L 12/18/23 12:30 MCV 85.7 fl (85-98) 12/18/23 12:30 MCH 26.2 pg (27-33) L 12/18/23 12:30 MCHC 30.6 g/dL (30-55) 12/18/23 12:30 RDW 17.8 % (12.1-15.1) H 12/18/23 12:30 Plt Count 339 10^3/cmm (157-399) 12/18/23 12:30 MPV 9.5 fL (7.4-10.4) 12/18/23 12:30 Neut % (Auto) 61.2 % 12/18/23 12:30 Lymph % (Auto) 27.7 % 12/18/23 12:30 Clark % (Auto) 8.8 % 12/18/23 12:30 Eos % (Auto) 1.6 % 12/18/23 12:30 Baso % (Auto) 0.2 % 12/18/23 12:30 Neut # (Auto) 6.60 10^3/uL (1.8-7.7) 12/18/23 12:30 Lymph # (Auto) 3.0 10^3/uL (0.8-4.8) 12/18/23 12:30 Clark # (Auto) 1.0 10^3/uL (0.2-0.9) H 12/18/23 12:30 Eos # (Auto) 0.2 10^3/uL (0.0-0.8) 12/18/23 12:30 Baso # (Auto) 0.0 10^3/uL (0.0-0.1) 12/18/23 12:30 Nucleated RBC % (auto) 0 % 12/18/23 12:30 Nucleated RBCs # 0.0 /100WBC 12/18/23 12:30 PT 19.20 SECONDS (12.1-14.9) H 12/18/23 12:30 INR 1.56 (0.8-1.2) H 12/18/23 12:30 Sodium 136 mmol/L (136-145) 12/18/23 11:22 Potassium 3.5 mmol/L (3.5-5.1) 12/18/23 11:22 Chloride 102 mmol/L (98-107) 12/18/23 11:22 Carbon Dioxide 23 mmol/L (22-29) 12/18/23 11:22 Anion Gap 14.5 (5-19) 12/18/23 11:22 BUN 15 mg/dL (8-23) 12/18/23 11:22 Creatinine 0.6 mg/dL (0.5-0.9) 12/18/23 11:22 GFR Calculation Not Reportable 12/18/23 11:22 Glucose 86 mg/dL (65-115) 12/18/23 11:22 POC Glucose 109 mg/dL (70-110) 12/17/23 06:13 Estimat Average Glucose 114 12/16/23 04:38 Hemoglobin A1c 5.6 % (4.0-6.0) 12/16/23 04:38 Calculated Osmolality 282 mOsm/kg (285-295) L 12/18/23 11:22 Calcium 7.9 mg/dL (8.5-10.5) L 12/18/23 11:22 Phosphorus 2.4 mg/dL (2.5-4.5) L 12/16/23 04:38 Magnesium 1.7 mg/dL (1.7-2.3) 12/16/23 04:38 Total Bilirubin 0.5 mg/dL (0.15-1.2) 12/18/23 11:22 AST 27 U/L (0-32) 12/18/23 11:22 ALT 18 U/L (0-33) 12/18/23 11:22 Alkaline Phosphatase 131 U/L (35-105) H 12/18/23 11:22 Total Protein 6.6 g/dL (6.6-8.7) 12/18/23 11:22 Albumin 2.9 g/dL (3.5-5.2) L 12/18/23 11:22 Globulin 3.7 g/dL (1.3-4.6) 12/18/23 11:22 Triglycerides 49 mg/dL (0-150) 12/16/23 04:38 Cholesterol 101 mg/dL (0-200) 12/16/23 04:38 LDL Cholesterol, Calc 50 mg/dL (50-129) 12/16/23 04:38 HDL Cholesterol 41 mg/dL (60-100) L 12/16/23 04:38 LDL/HDL Ratio 1.22 RATIO (0.00-3.22) 12/16/23 04:38 Cholesterol/HDL Ratio 2.46 mg/dL (0.0-4.40) 12/16/23 04:38 Vitamin B12 187 pg/mL (232-1245) L 12/15/23 20:45 Folate 3.7 ng/mL (4.8-37.3) L 12/16/23 04:38 Procalcitonin 0.06 ng/mL (0-0.5) 12/15/23 20:45 Urine Color Yellow (Yellow) 12/15/23 23:20 Urine Appearance Cloudy (CLEAR) A 12/15/23 23:20 Urine pH 5 (5-7) 12/15/23 23:20 Ur Specific [place] 1.025 (1.005-1.030) 12/15/23 23:20 Urine Protein 1+ (Negative) H 12/15/23 23:20 Urine Glucose (UA) 1+ (Normal) H 12/15/23 23:20 Urine Ketones 1+ (Negative) H 12/15/23 23:20 Urine Blood 3+ (Negative) H 12/15/23 23:20 Urine Nitrate Negative (Negative) 12/15/23 23:20 Urine Bilirubin 1+ (Negative) H 12/15/23 23:20 Urine Urobilinogen 4 mg/dL (Negative) H 12/15/23 23:20 Ur Leukocyte Esterase 2+ (Negative) H 12/15/23 23:20 Urine RBC 15-25 /hpf (0-2) H 12/15/23 23:20 Urine WBC 55-80 /hpf (0-5) H 12/15/23 23:20 Ur Squamous Epith Cells 5-10 /hpf (0-5) H 12/15/23 23:20 Amorphous Sediment Not Reportable 12/15/23 23:20 Urine Bacteria 2+ /hpf (NONE) H 12/15/23 23:20 Urine Mucus 2+ /hpf 12/15/23 23:20 MRSA (PCR) Not detected (NOT DETECTED) 12/17/23 09:24 Vitals Last Vital Signs Temp 97.5 F L 12/19/23 07:46 Pulse 77 12/19/23 10:34 Resp 16 12/19/23 07:46 BP 159/86 12/19/23 07:46 Pulse Ox 99 12/19/23 10:34 O2 Del Method Nasal Cannula 12/19/23 10:34 O2 Flow Rate 2 12/19/23 10:34 Discharge Plan Discharge Patient Disposition: Xfer SNF Condition: Stable Prescriptions: New docusate sodium 100 mg Capsule 100 mg PO BEDTIME PRN (Reason: Acid Reflux) Qty: 30 0RF Continued tramadol 50 mg tablet 50 - 100 mg PO Q6H PRN (Reason: Pain) lorazepam 0.5 mg tablet 0.5 mg PO TID PRN (Reason: Anxiety) lovastatin 20 mg tablet 20 mg PO DAILY Qty: 90 3RF valsartan 160 mg tablet 160 mg PO BID Qty: 180 3RF omeprazole 20 mg capsule,delayed release(DR/EC) 20 mg PO BID Qty: 60 0RF sotalol 120 mg tablet 120 mg PO BID fluticasone propionate 50 mcg/actuation spray,suspension 2 spray INTRANASAL DAILY diltiazem HCl 360 mg capsule,extended release 24hr 360 mg PO QPM acetaminophen 500 mg Tablet 500 - 1,000 mg PO Q6H PRN (Reason: Pain) warfarin 1 mg Tablet See Rx Instructions .ROUTE .COMPLEX Rx Instructions: TAKE 7MG PO ONCE A DAY TWO DAYS A WEEK (MONDAY AND MONDAY) AND TAKE 6MG PO ONCE A DAY ALL OTHER DAYS(MONDAY,MONDAY,MONDAY,MONDAY AND MONDAY) zolpidem 10 mg tablet 10 mg PO BEDTIME PRN (Reason: Sleep) Discontinued lidocaine-prilocaine 2.5-2.5 % cream See Rx Instructions .ROUTE .COMPLEX Rx Instructions: apply TO affected AREA THREE TIMES DAILY NEEDED Discharge Orders: Discharge Order (Routine); Ordered 12/19/23 Ordered By: Jenifer Lund Referrals: [facility] [Outside] Ger Montemayor DPM [Physician] - (We have notified your physician's clinic of the need for a follow-up appointment to be scheduled. If you have not heard from them within the next 2 business days, please call them directly. ) Discharge Diet: Regular Discharge Activity: Resume usual activity Patient Instructions: Opioid Safety Discharge Attestations Time Spent in Discharge Care*: less than 30 min Status at Discharge: Cognitive status at discharge: cognitively intact, Behavioral status at discharge: cooperative, Overall status at discharge: patient is progressing back to baseline Quality Metrics Clinical Quality Measures [ No reported AMI, CVA or VTE this stay] Coding Level of Care Code Acute Code for Chg Fwd Diagnoses Type I or II open trimalleolar fracture of right ankle S82.851B Essential hypertension I10 Hypertension type: essential hypertension Hyperlipidemia E78.5 Time Spent (min) 30
[2023-12-19 11:19] LABS: SARS Covid-2 Antigen negative (Negative)
--- NOTE | 2023-12-19 11:57 | PC.NURSE ---
This nurse has attempted to call report on pt to [facility] x2. Facility has not picked up the phone. Will continue trying.
[2023-12-19 12:38] LABS: INR 1.54 (0.8-1.2)
[2023-12-19] MEDS: pantoprazole 40 mg SDV IVP (12:38)
--- NOTE | 2023-12-19 13:45 | PC.NURSE ---
This nurse gave report to Kalina at [facility] at 1340. [facility] will be coming to transport pt to their facility.
== END 2023-12-19 14:14 | disposition skilled nursing facility (03) | DRG 493 ==
PROVIDERS: Podiatrist Foot & Ankle Surgery; Admitting Provider Student in an Organized Health Care Education/Training Program; PCP Family Medicine; Visit Provider Internal Medicine
PROC: 0QSG35Z Reposition Right Tibia with External Fixation Device, Percutaneous Approach (ICD-10-PCS; principal; 2023-12-15 14:00)
PROC: 0QSG35Z Reposition Right Tibia with External Fixation Device, Percutaneous Approach (ICD-10-PCS; 2023-12-15 14:00)
PROC: 0QSG35Z Reposition Right Tibia with External Fixation Device, Percutaneous Approach (ICD-10-PCS; 2023-12-15 14:00)
DX: S82.851B Displaced trimalleolar fracture of right lower leg, initial encounter for open fracture type I or II (principal); I48.20 Chronic atrial fibrillation, unspecified; I50.32 Chronic diastolic (congestive) heart failure; W10.9XXA Fall (on) (from) unspecified stairs and steps, initial encounter; I11.0 Hypertensive heart disease with heart failure; E78.5 Hyperlipidemia, unspecified; Z79.01 Long term (current) use of anticoagulants; K21.9 Gastro-esophageal reflux disease without esophagitis
CPT/HCPCS: 36415; 36416; 51702; 73590; 76000; 80053; 80061; 81001; 81003; 82607; 82746; 82962; 83036; 83735; 84100; 84145; 85025; 85610; 87040; 87070; 87075; 87077; 87086; 87205; 87426; 87641; 94664; 96372; 97110; 97161; 97530; 99204; C1713; C9113; J1100; J1170; J2270; J2405; J2704; J3010; J3370; J3420; J3490; J7030; J7050

== ENCOUNTER → 2023-12-25 14:24 | Outpatient (BNVA) | payer MEDICARE, OTHER, SELFPAY | PROVIDERS: PCP Family Medicine; Visit Provider Podiatrist Foot & Ankle Surgery | DX: S82.851A Displaced trimalleolar fracture of right lower leg, initial encounter for closed fracture (principal); Z79.01 Long term (current) use of anticoagulants; I48.19 Other persistent atrial fibrillation; X58.XXXA Exposure to other specified factors, initial encounter | CPT/HCPCS: 99214 ==

== ENCOUNTER → 2024-01-03 06:27 | Day surgery (SDC) | payer MEDICARE, OTHER, SELFPAY ==
[2024-01-03 06:46] VITALS: BP 139/90; PULSE 112; RESP 20; TEMP 36.4; O2SAT 94; BMI 32.5
--- NOTE | 2024-01-03 07:47 | ANES.PREANE2 ---
Pre-Anesthetic Assessment Height/Weight: Height 1.65 m Weight 88.904 kg Temp Pulse Resp BP Pulse Ox O2 Del Method 97.5 F L 112 H 20 H 139/90 94 Room Air 01/03/24 06:46 01/03/24 06:46 01/03/24 06:46 01/03/24 06:46 01/03/24 06:46 01/03/24 06:48 Preop Diagnosis: Right trimalleolar ankle fracture Operation Date: 01/03/24 08:20 Proposed Procedures p Tibiotalar Fusion ankle tibiotalar calcaneal arthrodesis(Right) - Ger Montemayor DPM s Hardware Removal/Removal external fixator right ankle under anesthesia(Right) - SAMY Brown Tendon Lengthening Foot TendoAchilles Lengthening Ankle(Right) - Ger Montemayor DPM Familial anesthetic complications: none Was Beta Aftab taken within 24 hours: N/A Was Clonidine taken within 24 hours: N/A Last intake: Intake Last Liquid Date 01/02/24 Last Liquid Time 10:00 Last Solid Date 01/02/24 Last Solid Time 10:00 Social No alcohol and No tobacco Exam alert, oriented x 3, clear to auscultation bilaterally and regular rate & rhythm CV/HEM Atrial Fibrillation and Congestive Heart Failure Anesthetic Plan ASA status: 3 Anesthesia: General and Regional (specify below) Risk of > 500 ml blood loss (7ml/kg in children): No Medications/Allergies Home Medications Medication Instructions Recorded Confirmed Last Taken Type tramadol 50 mg tablet 50 - 100 mg PO Q6H PRN Pain 02/19/20 01/02/24 12/30/23 History lorazepam 0.5 mg tablet 0.5 mg PO TID PRN Anxiety 03/05/21 01/02/24 01/01/24 History lovastatin 20 mg tablet 20 mg PO DAILY #90 tabs 09/21/21 01/02/24 01/02/24 Rx valsartan 160 mg tablet 160 mg PO BID #180 tabs 08/17/22 01/02/24 01/02/24 Rx omeprazole 20 mg capsule,delayed 20 mg PO BID #60 caps 09/13/23 01/02/24 01/02/24 Rx release diltiazem HCl 360 mg 360 mg PO QPM 11/02/23 01/02/24 01/01/24 History capsule,extended release 24 hr fluticasone propionate 50 2 spray intranasal DAILY PRN 11/02/23 01/02/24 12/14/23 History mcg/actuation nasal allergies spray,suspension sotalol 120 mg tablet 120 mg PO BID 11/02/23 01/02/24 01/02/24 History acetaminophen 500 mg tablet 500 - 1,000 mg PO Q6H PRN Pain 12/11/23 01/02/24 12/14/23 History warfarin 1 mg tablet See Rx Instructions .Route .COMPLEX 12/11/23 01/02/24 12/28/23 History zolpidem 10 mg tablet 10 mg PO BEDTIME PRN Sleep 12/11/23 01/03/24 12/24/23 History hydrocodone 10 mg-acetaminophen 1 tab PO Q6H PRN pain #24 tabs 01/03/24 Unknown Rx 325 mg tablet oxycodone 5 mg capsule 5 mg PO Q4H PRN Pain (Scale Score 01/03/24 01/03/24 01/02/24 History 7-10) Allergies Allergy/AdvReac Type Severity Reaction Status Date / Time amlodipine Allergy Unknown Verified 12/25/23 14:29 diazepam [From Valium] Allergy Unknown Verified 12/25/23 14:29 furosemide [From Lasix] Allergy ADR-Dizzine Verified 12/25/23 14:29 ss lisinopril Allergy Unknown Verified 12/25/23 14:29 olmesartan [From Benicar] Allergy Unknown Verified 12/25/23 14:29 penicillamine Allergy Unknown Verified 12/25/23 14:29 Penicillins Allergy Unknown Verified 12/25/23 14:29 ranitidine [From Zantac] Allergy ALGY-Rash Verified 12/25/23 14:29 Sulfa (Sulfonamide Allergy Unknown Verified 12/25/23 14:29 Antibiotics) [facility] Anesthesia Medical History CHF (congestive heart failure) GERD (gastroesophageal reflux disease) Hyperlipidemia HTN (hypertension) Diastolic heart failure Atrial fibrillation Surgical History History of cardiac radiofrequency ablation (RFA) S/P subtotal thyroidectomy S/P cataract extraction S/P cholecystectomy S/P knee surgery Family History Other CAD (coronary artery disease) Social History Smoking and tobacco/nicotine status: never used tobacco/nicotine Alcohol intake: never Substance/Drug Use: never Data Anesthesia Cardiac Studies: No Data to Display
--- NOTE | 2024-01-03 07:48 | ANES.PROC ---
Anesthesia Procedures Procedure/Date: 01/03/24 Nerve Block ^: Nerve Block 1: Main Anesthesia: general anesthesia Time Out Performed: Yes Consent: requested by attending/covering physician, from patient, from other, risks and benefits reviewed and patient agrees to proceed Nerve block location: popliteal (R) Anesthesia monitors applied: pulse oximetry and oxygen Nerve block position: supine Anesthetic Used: ropivicaine 0.5% (30 ml) and with decadron ( 4 mg) Ultrasound used to: recognize landmarks Nerve Stimulator Used?: No Interscalene/Femoral BLK: 4 stimuplex 21 g needle used for position and inplane approach, visualize local anesthetic spread and no vascular puncture identified Injection: neg aspiration of heme Patient Tolerated Procedure: well Complications: none
[2024-01-03] MEDS: acetaminophen 1,000 MG/100 ML PIGGYBACK 400 MG IV (08:08)
[2024-01-03] MEDS: gabapentin 300 mg Capsule PO (08:08)
[2024-01-03] MEDS: sodium chloride 0.9% 1,000 ML 30 ML IV (08:08)
[2024-01-03] MEDS: fentaNYL 50 mcg/mL INJ 2mL IVP (08:40)
--- NOTE | 2024-01-03 08:49 | P.MISC_ITS ---
Miscellaneous Note Purpose of Documentation: Cancellation of today's surgery Note: Patient was seen in the preoperative holding area prior to her procedure today. She had complaints of severe abdominal pain that had been present over the course the past few days. Patient also states that she has had uncontrollable diarrhea. She states that her bladder is extremely painful from Malone catheter and feels that it could potentially be infected. Based on patient's symptoms I do not believe it prudent to proceed with surgery at this time. Conversation was had with patient and patient's family member at bedside. Patient was not happy to hear about the news but understood the severity of the situation. I advised patient to go to the emergency department for further workup and evaluation and for possible admission. We will reschedule patient for definit narciso fixation of right lower extremity once deemed medically stable.
--- NOTE | 2024-01-03 09:13 | SUR.PREOP ---
Patient complains of aching all over especially her lower abdomen, states its her bladder. Stated she had nausea, vomiting and diarrhea overnight and currently at this time. Dr Montemayor consulted Hospitalist and was agreed to send patient to ER for a workup and possible admit. Will cancel surgery today with hopes to do by end of week.
--- NOTE | 2024-01-03 14:24 | PM.MISC ---
Miscellaneous Note Note: After nerve block performed, I was informed by surgeon and OR staff that patient had actually been having diarrhea and was in a long term with flu outbreak. Patient was transferred to ER per surgeon.
== END | disposition home or self-care (01) ==
PROVIDERS: PCP Family Medicine; Visit Provider Podiatrist Foot & Ankle Surgery
PROC: (CPT 27870; principal; 2024-01-04 08:00)
PROC: (CPT 28261; 2024-01-04 08:00)
DX: S82.851A Displaced trimalleolar fracture of right lower leg, initial encounter for closed fracture (principal); X58.XXXA Exposure to other specified factors, initial encounter; Z53.8 Procedure and treatment not carried out for other reasons; R19.7 Diarrhea, unspecified
CPT/HCPCS: J0131; J1100; J2704; J2795; J3010; J7030

== ENCOUNTER 2024-01-03 08:51 | Emergency (ER) | payer MEDICARE, SELFPAY ==
[2024-01-03] VITALS (9 sets, daily range): BP systolic 88–146; BP diastolic 43–82; PULSE 87–93; RESP 13–19; TEMP 36.8; O2SAT 91–96; BMI 32.1
--- NOTE | 2024-01-03 09:02 | CT_ITS ---
WS: [id number] CT ABDOMEN AND PELVIS NONCONTRAST HISTORY: Abdominal pain TECHNIQUE: Imaging performed through the abdomen and pelvis. Coronal and sagittal reformats are submi tted. All CT scans at [facility] use at least one of these dose optimization techniques: auto mated exposure control; mA and/or kV adjustment per patient size (includes targeted exams where dose is matched to clinical indication); or iterative reconstruction. DLP: 787.93 mGy COMPARISON: 07/25/2015 Lower thorax: Mild dependent changes at the RIGHT lung base. Mild cardiomegaly. Small hiatal hernia. Liver: Normal size liver. No mass or bile duct dilatation. Gallbladder: Prior cholecystectomy. Common bile duct is mildly dilated as seen on the prior study. Pancreas: Normal size and attenuation. Normal pancreatic duct. No pancreatitis or mass. Spleen: Normal size with granulomata. Adrenal glands: Normal. No mass. Right kidney: Scattered areas of cortical thinning. No obstruction. Left kidney: Low-attenuation 9 mm nodule in the superior pole. Cannot be further described on this no ncontrast CT. There is no obstruction of the kidney. Aorta: Mild atherosclerosis abdominal aorta with no aneurysm. No free fluid, intraperitoneal air or significant lymphadenopathy. GI tract: Stomach is not distended. No small bowel obstruction. No colon obstruction. No appendicitis . Numerous diverticula in the descending and sigmoid colon. No acute diverticulitis. Abdominal wall: Ventral abdominal wall hernia contains omentum only. Hernia is in the RIGHT lateral a bdominal wall with an orifice of 4.1 cm. Pelvis: Malone catheter in the nondistended urinary bladder. Coarse calcifications in the uterus. No p elvic mass. Osseous structures: Increase in the lumbar lordosis. T12 50% compression fracture. Age-indeterminate fracture but new since 12/22/2022. IMPRESSION: 1. No acute abdominal or pelvic abnormalities. 2. Prior cholecystectomy. 3. Sigmoid diverticulosis without acute diverticulitis. 4. Large RIGHT lateral abdominal wall hernia containing omental fat only. 5. No free fluid or adenopathy. 6. Age-indeterminate 50% T12 compression fracture. New since 12/22/2022.
[2024-01-03 09:56] LABS: Blood Urine 3+ (Negative); Glucose Urine UA Norm (Normal); Ketones Urine 1+ (Negative); Nitrate Urine Negative (Negative); Protein Urine 1+ (Negative); Urine Appearance Cloudy (CLEAR); Urine Color Yellow (Yellow); pH Urine 6 (5-7)
[2024-01-03 09:57] LABS: Add Urine Microscopic? YES; Bilirubin Urine 1+ (Negative); Leukocyte Esterase Urine Negative (Negative); Urobilinogen Urine Norm (Negative)
[2024-01-03 10:00] LABS: Basophils % 0.1 %; Eosinophils % 0.1 %; Lymphocytes # 0.9 10^3/uL (0.8-4.8); Lymphocytes % 12.6 %; Mean Corpuscular HGB Conc 31.4 g/dL (30-55); Mean Corpuscular Hemoglobin 26.3 pg (27-33); Mean Corpuscular Volume 83.7 fl (85-98); Mean Platelet Volume 9.6 fL (7.4-10.4); Monocytes # 0.1 10^3/uL (0.2-0.9); Monocytes % 1.5 %; Neutrophils # 6.37 10^3/uL (1.8-7.7); Neutrophils % 85.3 %; Nucleated Red Blood Cells % 0 %; Platelet Count 269 10^3/cmm (157-399); White Blood Count 7.47 10^3/uL (3.29-11.43)
--- NOTE | 2024-01-03 10:03 | W.ED.GENADLT ---
HPI - General Adult General: Chief complaint: General Medical Stated complaint: hurting all over, Abd pain Time Seen by Provider: 01/03/24 09:01 Source: patient Mode of arrival: other (stretcher) History of Present Illness: 88-year-old female presents emergency room from same-day surgery. She was post have a podiatric surgery this morning and was acutely ill complaining of abdominal pain. Patient was hospitalized last month had a Malone placed for urinary retention when they removed it after she went to the jail she began to retain urine again and it was replaced. Is complaining of generalized pain and discomfort all over but particularly is concerned with the Mlaone causing pain. Associated symptoms: Reports nausea; Deny chest pain, dyspnea or rash Review of Systems Const: Denies: fever(s) or chills Card: Denies: chest pain Resp: Denies: dyspnea GI: Reports: abdominal pain and nausea : Reports: difficulty voiding; Denies: dysuria, urinary frequency or urinary urgency Musc: Denies: neck pain or back pain Skin/Breast: Denies: rash PFSH ED PFSH: Medical History CHF (congestive heart failure) GERD (gastroesophageal reflux disease) Hyperlipidemia HTN (hypertension) Diastolic heart failure Atrial fibrillation Surgical History History of cardiac radiofrequency ablation (RFA) S/P subtotal thyroidectomy S/P cataract extraction S/P cholecystectomy S/P knee surgery Family History Other CAD (coronary artery disease) Social History Smoking and tobacco/nicotine status: never used tobacco/nicotine Alcohol intake: never Substance/Drug Use: never Physical Exam Const: COMMON NORMALS: no acute distress GENERAL APPEARANCE: cooperative and comfortable ORIENTATION/CONSCIOUSNESS: Yes awake, Yes oriented to person, Yes oriented to place and Yes oriented to time HENMT: COMMON NORMALS: normocephalic, atraumatic and hearing grossly normal bilaterally HEAD & SCALP: normocephalic and atraumatic Resp: COMMON NORMALS: normal respiratory effort, No retractions, No use of accessory muscles and clear to auscultation bilaterally AUSCULTATION: clear to auscultation bilaterally Cardio: COMMON NORMALS: regular rate, regular rhythm and No murmurs present (Cardio) RATE: regular rate RHYTHM: regular rhythm GI: COMMON NORMALS: Soft to palpation and No hepatosplenomegaly present AUSCULTATION: Yes normoactive bowel sounds PALPATION: Yes Soft to palpation, No Tenderness to palpation present (GI), No Guarding due to palpation present (GI) and Yes No hepatosplenomegaly present Extremity: COMMON NORMALS: normal to inspection, capillary refill normal, no clubbing, cyanosis or edema, no calf tenderness and no pedal edema Neuro: SENSORIUM/ORIENTATION: Yes oriented to person, Yes oriented to place and Yes oriented to time Skin: COMMON NORMALS: no rashes or lesions noted GENERAL SKIN EXAM: no rashes or lesions noted Course Vital Signs: Vital signs: Vital Signs Temperature 98.2 F 01/03/24 08:52 Pulse Rate 93 01/03/24 16:22 Respiratory Rate 16 01/03/24 13:30 Blood Pressure 146/82 01/03/24 16:22 Pulse Oximetry 93 01/03/24 16:22 Oxygen Delivery Me thod Room Air 01/03/24 08:52 [facility] - General Adult Medical Decision Making Labs and imaging reviewed. Patient Having significant bladder spasms started on Pyridium. Malone left in place follow-up with urology. Medical Records I reviewed the patient's medical records. Lab Data I reviewed the patient's lab results. 01/03/24 09:50 01/03/24 09:50 Laboratory Results WBC 7.47 10^3/uL (3.29-11.43) 01/03/24 09:50 RBC 4.30 10^6/uL (3.85-5.65) 01/03/24 09:50 Hgb 11.30 g/dL (11.27-16.99) 01/03/24 09:50 Hct 36.0 % (36-47) 01/03/24 09:50 MCV 83.7 fl (85-98) L 01/03/24 09:50 MCH 26.3 pg (27-33) L 01/03/24 09:50 MCHC 31.4 g/dL (30-55) 01/03/24 09:50 RDW 18.0 % (12.1-15.1) H 01/03/24 09:50 Plt Count 269 10^3/cmm (157-399) 01/03/24 09:50 MPV 9.6 fL (7.4-10.4) 01/03/24 09:50 Neut % (Auto) 85.3 % 01/03/24 09:50 Lymph % (Auto) 12.6 % 01/03/24 09:50 [place] % (Auto) 1.5 % 01/03/24 09:50 Eos % (Auto) 0.1 % 01/03/24 09:50 Baso % (Auto) 0.1 % 01/03/24 09:50 Neut # (Auto) 6.37 10^3/uL (1.8-7.7) 01/03/24 09:50 Lymph # (Auto) 0.9 10^3/uL (0.8-4.8) 01/03/24 09:50 [place] # (Auto) 0.1 10^3/uL (0.2-0.9) L 01/03/24 09:50 Eos # (Auto) 0.0 10^3/uL (0.0-0.8) 01/03/24 09:50 Baso # (Auto) 0.0 10^3/uL (0.0-0.1) 01/03/24 09:50 Nucleated RBC % (auto) 0 % 01/03/24 09:50 Nucleated RBCs # 0.0 /100WBC 01/03/24 09:50 Sodium 138 mmol/L (136-145) 01/03/24 09:50 Potassium 3.6 mmol/L (3.5-5.1) 01/03/24 09:50 Chloride 103 mmol/L (98-107) 01/03/24 09:50 Carbon Dioxide 23 mmol/L (22-29) 01/03/24 09:50 Anion Gap 15.6 (5-19) 01/03/24 09:50 BUN 15 mg/dL (8-23) 01/03/24 09:50 Creatinine 0.8 mg/dL (0.5-0.9) 01/03/24 09:50 GFR Calculation Not Reportable 01/03/24 09:50 Glucose 130 mg/dL (65-115) H 01/03/24 09:50 Calculated Osmolality 289 mOsm/kg (285-295) 01/03/24 09:50 Lactic Acid 1.5 mmol/L (0.5-2.2) 01/03/24 09:50 Calcium 7.6 mg/dL (8.5-10.5) L 01/03/24 09:50 Total Bilirubin 0.7 mg/dL (0.15-1.2) 01/03/24 09:50 AST 29 U/L (0-32) 01/03/24 09:50 ALT 20 U/L (0-33) 01/03/24 09:50 Alkaline Phosphatase 163 U/L (35-105) H 01/03/24 09:50 Troponin T Baseline 10 ng/L (0-10) 01/03/24 09:50 Troponin T 120 Minute 8.15 ng/L (0-10) 01/03/24 12:28 Delta Troponin T -1.85 ABS# (0-10) L 01/03/24 12:28 Total Protein 6.6 g/dL (6.6-8.7) 01/03/24 09:50 Albumin 3.4 g/dL (3.5-5.2) L 01/03/24 09:50 Globulin 3.2 g/dL (1.3-4.6) 01/03/24 09:50 Lipase 24 U/L (13-60) 01/03/24 09:50 Urine Color Yellow (Yellow) 01/03/24 09:38 Urine Appearance Cloudy (CLEAR) A 01/03/24 09:38 Urine pH 6 (5-7) 01/03/24 09:38 Ur Specific [place] 1.020 (1.005-1.030) 01/03/24 09:38 Urine Protein 1+ (Negative) H 01/03/24 09:38 Urine Glucose (UA) Norm (Normal) 01/03/24 09:38 Urine Ketones 1+ (Negative) H 01/03/24 09:38 Urine Blood 3+ (Negative) H 01/03/24 09:38 Urine Nitrate Negative (Negative) 01/03/24 09:38 Urine Bilirubin 1+ (Negative) H 01/03/24 09:38 Urine Urobilinogen Norm mg/dL (Negative) 01/03/24 09:38 Ur Leukocyte Esterase Negative (Negative) 01/03/24 09:38 Urine RBC Too numerous to cnt /hpf (0-2) H 01/03/24 09:38 Urine WBC 5-10 /hpf (0-5) H 01/03/24 09:38 Ur Squamous Epith Cells 0-4 /hpf (0-5) H 01/03/24 09:38 Ur Transition Epith Cell 0-4 /hpf 01/03/24 09:38 Amorphous Sediment Not Reportable 01/03/24 09:38 Urine Bacteria Trace /hpf (NONE) 01/03/24 09:38 Urine Mucus Trace /hpf 01/03/24 09:38 All radiology interpretation(s) finalized by discharge Discharge Plan Discharge Patient Disposition: Home Clinical Impression: Hematuria Condition: Stable Prescriptions: New phenazopyridine [Pyridium] 200 mg tablet 200 mg PO Q8H Qty: 21 0RF No Action lorazepam 0.5 mg tablet 0.5 mg PO TID PRN (Reason: Anxiety) omeprazole 20 mg capsule,delayed release(DR/EC) 20 mg PO BID Qty: 60 0RF fluticasone propionate 50 mcg/actuation spray,suspension 2 spray INTRANASAL DAILY PRN (Reason: allergies) acetaminophen 325 mg Tablet 650 mg PO Q6H PRN (Reason: pain or elevated temp) warfarin 6 mg Tablet See Rx Instructions .ROUTE .COMPLEX Rx Instructions: TAKE 6 MG BY MOUTH DAILY ON MONDAY,MONDAY, MONDAY, MONDAY, AND MONDAY enoxaparin 80 mg/0.8 mL syringe 80 mg SUBCUT Q12H warfarin 1 mg Tablet See Rx Instructions .ROUTE .COMPLEX Rx Instructions: TAKE 7MG BY MOUTH ONCE A DAY TWO DAYS A WEEK (MONDAY AND MONDAY) AND TAKE 6MG PO ONCE A DAY ALL OTHER DAYS(MONDAY,MONDAY,MONDAY,MONDAY AND MONDAY) zolpidem 10 mg tablet 10 mg PO BEDTIME PRN (Reason: Sleep) hydrocodone-acetaminophen 10-325 mg tablet 1 tab PO Q6H PRN (Reason: pain) Qty: 28 0RF Rx Instructions: Take one tablet PO at 0000, 0600, 1200, 1800, every 6 hours senna 8.6 mg tablet 8.6 mg PO BID PRN (Reason: constipation) Qty: 20 0RF sotalol 80 mg Tablet 160 mg PO BID Qty: 120 0RF Cardizem CD 240 mg capsule,extended release 24hr 240 mg PO QAM Qty: 30 0RF Discharge Orders: Discharge ED (Routine); Ordered 01/03/24 Ordered By: Lucho Cardoso Referrals: Liliana Ko, DO [Primary Care Provider] - Discharge Diet: Usual diet Discharge Activity: Resume usual activity Patient Instructions: Opioid Safety, Pain Management Activity Restrictions/Additional Instructions: Thank you for choosing [facility] for your healthcare needs today. Please realize this is an emergency room and that we are providing you with a medical screening exam and this may not be complete and all inclusive of all the testing and or work up that you may need to determine your ailment or severity of your illness. It is very important that you follow up as instructed or that you return to the Emergency Department should you have concerns or if your condition changes or worsens in any way. You were seen today for abdominal pain. He did have some blood in your urine. Recommend you continue the catheter in place start Macrobid 1 twice daily in addition use Pyridium 1 3 times daily. Case management make arrangements for you to follow-up with urology for further evaluation. Catheter was left in place to prevent blood from blocking the bladder from emptying. Coding Level of Care Code ED Mechanical Assembly for Zuhair Nelson
--- NOTE | 2024-01-03 10:04 | ECG_ITS ---
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 Measurements Intervals [place] Rate: 82 P: 91 [place]: 159 QRS: 51 QRSD: 84 T: 47 QT: 405 QTc: 474 Interpretive Statements SINUS RHYTHM WITH SINUS ARRHYTHMIA NONSPECIFIC ST & T-WAVE ABNORMALITY Compared to ECG 12/10/2023 14:11:51 T-wave abnormality now present Electronically Signed On 01-03-2024 18:30:24 CDT by Lennox Gillette M.D. [id number]
[2024-01-03] MEDS: ondansetron 2 mg/ML SDV 2 mL 4 MG IVP (10:05)
[2024-01-03 10:10] LABS: RBC Urine TOO NUMEROUS TO CNT /hpf (0-2)
[2024-01-03 10:11] LABS: Add Urine Culture? Yes; Bacteria Urine TRACE /hpf; Mucus Urine TRACE /hpf; Squamous Epithelial Cell Urine 0-4 /hpf (0-5); Transitional Epi Cells Urine 0-4 /hpf
[2024-01-03 10:17] LABS: Alanine Aminotransferase 20 U/L (0-33); Albumin Level 3.4 g/dL (3.5-5.2); Alkaline Phosphatase 163 U/L (35-105); Anion Gap 15.6 (5-19); Aspartate Amino Transferase 29 U/L (0-32); Blood Urea Nitrogen 15 mg/dL (8-23); Calcium 7.6 mg/dL (8.5-10.5); Carbon Dioxide 23 mmol/L (22-29); Chloride 103 mmol/L (98-107); Creatinine Clr Calc Pharmacy 55.1575; Globulin 3.2 g/dL (1.3-4.6); Glucose 130 mg/dL (65-115); Lipase 24 U/L (13-60); Osmolality Calculated 289 mOsm/kg (285-295); Potassium 3.6 mmol/L (3.5-5.1); Sodium 138 mmol/L (136-145); Total Bilirubin 0.7 mg/dL (0.15-1.2); Total Protein 6.6 g/dL (6.6-8.7)
[2024-01-03 10:19] LABS: Lactic Sepsis W/Reflex 1.5 mmol/L (0.5-2.2)
[2024-01-03 10:20] LABS: Troponin(5th) Baseline 10 ng/L (0-10)
[2024-01-03] MEDS: phenazopyridine 100 mg Tablet 200 MG PO (10:48)
--- NOTE | 2024-01-03 11:02 | ECG_ITS ---
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 Measurements Intervals [place] Rate: 87 P: 90 [place]: 160 QRS: 58 QRSD: 86 T: 32 QT: 357 QTc: 431 Interpretive Statements SINUS RHYTHM WITH OCCASIONAL SUPRAVENTRICULAR PREMATURE COMPLEXES NONSPECIFIC ST & T-WAVE ABNORMALITY Compared to ECG 01/03/2024 10:04:42 Sinus arrhythmia no longer present T-wave abnormality still present Electronically Signed On 01-03-2024 18:52:07 CDT by Lennox Gillette M.D. [id number]
[2024-01-03] MEDS: morphine 4 mg/mL SDV 1 mL IVP (12:09)
[2024-01-03 12:53] LABS: Troponin 5 2HR 8.15 ng/L (0-10)
[2024-01-03 12:55] LABS: Troponin 5 2HR Delta -1.85 ABS# (0-10)
--- NOTE | 2024-01-03 15:22 | ECG_ITS ---
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 Measurements Intervals [place] Rate: 95 P: 78 [place]: 149 QRS: 53 QRSD: 86 T: 0 QT: 337 QTc: 424 Interpretive Statements SINUS RHYTHM WITH OCCASIONAL SUPRAVENTRICULAR PREMATURE COMPLEXES NONSPECIFIC T-WAVE ABNORMALITY Compared to ECG 01/03/2024 11:10:21 No significant changes Electronically Signed On 01-03-2024 18:55:11 CDT by Lennox Gillette M.D. [id number]
== END 2024-01-03 16:23 | disposition home or self-care (01) ==
PROVIDERS: Emergency Provider Family Medicine; PCP Family Medicine
DX: R31.9 Hematuria, unspecified (principal); Z79.01 Long term (current) use of anticoagulants; I11.0 Hypertensive heart disease with heart failure; I50.9 Heart failure, unspecified; E78.5 Hyperlipidemia, unspecified
CPT/HCPCS: 36415; 51702; 74176; 80053; 81001; 83605; 83690; 84484; 85025; 87040; 87086; 93005; 96374; 96375; 99285; J2270; J2405

== ENCOUNTER 2024-01-10 09:22 | Inpatient (IN) | payer MEDICARE, OTHER, SELFPAY ==
--- NOTE | 2024-01-04 15:46 | PC.NURSE ---
Pt. continues to have diarrhea and flu many pts and staff have flue like like sx at [facility] where pt is residing per nurse. Dr. Montemayor informed and he is rescheduling pt's surgery at this time. [facility] nurse Ariadna DAVID notified.
--- NOTE | 2024-01-04 16:01 | PC.NURSE ---
update, Ariadna DAVID notified that per Dr. Montemayor pt is to remain off warfarin and last dose of lovanox to be given the morning before surgery.
[2024-01-10] VITALS (9 sets, daily range): BP systolic 105–165; BP diastolic 58–122; PULSE 91–148; RESP 15–37; TEMP 36.4–36.8; O2SAT 91–97; BMI 32.1; BMI 31.6
--- NOTE | 2024-01-10 06:19 | ANES.PREANE2 ---
Pre-Anesthetic Assessment Height/Weight: Height 1.65 m Weight 87.543 kg Temp Pulse Resp BP Pulse Ox O2 Del Method 97.6 F 139 H 18 142/122 95 Room Air 01/10/24 06:11 01/10/24 06:11 01/10/24 06:11 01/10/24 06:11 01/10/24 06:11 01/10/24 06:11 Preop Diagnosis: Right trimalleolar ankle fracture Operation Date: 01/10/24 07:00 Proposed Procedures p Ankle tibiotalar calcaneal arthrodesis(Right) - Ger Montemayor DPM s Hardware Removal external fixator right ankle under anesthesia(Right) - Ger Montemayor DPM s TendoAchilles Lengthening Ankle(Right) - Ger Montemayor DPM Was Beta Aftab taken within 24 hours: Yes Social No alcohol and No tobacco Airway Submandibular: within normal limits Cervical ROM: within normal limits Mallampati: Class II CV/HEM Atrial Fibrillation, Congestive Heart Failure and Hypertension GI Gastroesophageal Reflux Disease [facility] [place] [place] Osteoarthritis/DJD Anesthetic Plan ASA status: 3 Anesthesia: General Medications/Allergies Home Medications Medication Instructions Recorded Confirmed Last Taken Type tramadol 50 mg tablet 50 - 100 mg PO Q6H PRN Pain 02/19/20 01/09/24 01/09/24 History lorazepam 0.5 mg tablet 0.5 mg PO TID PRN Anxiety 03/05/21 01/09/24 01/09/24 History valsartan 160 mg tablet 160 mg PO BID #180 tabs 08/17/22 01/09/24 01/09/24 Rx omeprazole 20 mg capsule,delayed 20 mg PO BID #60 caps 09/13/23 01/09/24 01/09/24 Rx release fluticasone propionate 50 2 spray intranasal DAILY PRN 11/02/23 01/09/24 12/14/23 History mcg/actuation nasal allergies spray,suspension sotalol 120 mg tablet 120 mg PO BID 11/02/23 01/09/24 01/09/24 History warfarin 1 mg tablet See Rx Instructions .Route .COMPLEX 12/11/23 01/09/24 01/02/24 History zolpidem 10 mg tablet 10 mg PO BEDTIME PRN Sleep 12/11/23 01/09/24 12/24/23 History acetaminophen 325 mg tablet 650 mg PO Q6H PRN pain or elevated 01/03/24 01/09/24 12/24/23 History temp enoxaparin 80 mg/0.8 mL 80 mg SUBCUT Q12H 01/03/24 01/09/24 01/09/24 08:00 History subcutaneous syringe oxycodone 5 mg capsule 5 mg PO Q4H PRN Pain (Scale Score 01/03/24 01/09/24 01/02/24 History 7-10) phenazopyridine 200 mg tablet 200 mg PO Q8H #21 tabs 01/03/24 01/09/24 01/09/24 Rx (Pyridium) warfarin 6 mg tablet See Rx Instructions .Route .COMPLEX 01/03/24 01/09/24 01/01/24 History Allergies Allergy/AdvReac Type Severity Reaction Status Date / Time amlodipine Allergy Unknown Verified 12/25/23 14:29 diazepam [From Valium] Allergy Unknown Verified 12/25/23 14:29 furosemide [From Lasix] Allergy ADR-Dizzine Verified 12/25/23 14:29 ss lisinopril Allergy Unknown Verified 12/25/23 14:29 olmesartan [From Benicar] Allergy Unknown Verified 12/25/23 14:29 penicillamine Allergy Unknown Verified 12/25/23 14:29 Penicillins Allergy Unknown Verified 12/25/23 14:29 ranitidine [From Zantac] Allergy ALGY-Rash Verified 12/25/23 14:29 Sulfa (Sulfonamide Allergy Unknown Verified 12/25/23 14:29 Antibiotics) PFS Anesthesia Medical History CHF (congestive heart failure) GERD (gastroesophageal reflux disease) Hyperlipidemia HTN (hypertension) Diastolic heart failure Atrial fibrillation Surgical History History of cardiac radiofrequency ablation (RFA) S/P subtotal thyroidectomy S/P cataract extraction S/P cholecystectomy S/P knee surgery Family History Other CAD (coronary artery disease) Social History Smoking and tobacco/nicotine status: never used tobacco/nicotine Alcohol intake: never Substance/Drug Use: never Data Anesthesia Cardiac Studies: No Data to Display
[2024-01-10] MEDS: acetaminophen 1,000 MG/100 ML PIGGYBACK 400 MG IV (06:28)
[2024-01-10] MEDS: sodium chloride 0.9% 1,000 ML 30 ML IV (06:30)
[2024-01-10] MEDS: gabapentin 300 mg Capsule PO (06:30)
[2024-01-10] MEDS: vancomycin 1,000 MG in sodium chloride 0.9% 250 ML 250 MG IV (06:33)
--- NOTE | 2024-01-10 06:46 | ECG_ITS ---
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 Measurements Intervals [place] Rate: 114 P: 0 [place]: 0 QRS: 38 QRSD: 90 T: -22 QT: 340 QTc: 469 Interpretive Statements ATRIAL FIBRILLATION WITH RAPID VENTRICULAR RESPONSE NONSPECIFIC ST & T-WAVE ABNORMALITY Compared to ECG 01/03/2024 15:22:14 Sinus rhythm no longer present T-wave abnormality still present Electronically Signed On 01-10-2024 16:57:33 CDT by Moncho Almaguer M.D. [id number]
--- NOTE | 2024-01-10 06:48 | W.PM.OPSUD ---
Surgery/Procedure H&P Update DATE OF PROCEDURE: January 10, 2024 DATE H&P PERFORMED: 12/25/23 H&P UPDATE INFORMATION: I have reviewed H&P completed within last 30 days, I have examined patient prior to procedure, No changes to prior documentation and [place] [facility] [place] PREOP DIAGNOSIS: Right trimalleolar ankle fracture PLANNED PROCEDURE: Operation Date: 01/10/24 07:00 Proposed Procedures p Ankle tibiotalar calcaneal arthrodesis(Right) - Ger Montemayor DPM s Hardware Removal external fixator right ankle under anesthesia(Right) - Ger Montemayor DPM s TendoAchilles Lengthening Ankle(Right) - Ger Montemayor DPM
--- NOTE | 2024-01-10 09:28 | P.HP_ITS ---
Providers/Chief Complaint 2 Admitting Physician: Ger Montemayor DPM Primary Care Provider: Liliana Ko DO Chief Complaint: S82.225F M22.290 History of Present Illness Jessie Kumar is a 88 year old female with past medical history of for sleep apnea on CPAP, hypertension, hyperlipidemia, A-fib on anticoagulation with Coumadin most recently on full dose Lovenox who is under treatment for type I and II open trimalleolar fracture of the right ankle for which she received external fixator on 12/14 and was discharged to SNF on 12/18 with plan to have ORIF done as an outpatient. Patient presented from [place] for the procedure today but was found to be in A-fib with RVR hence procedure was canceled and hospitalist service was consulted for further management. As per review with the patient and nursing staff at the assisted patient has been having episodes of diarrhea for last 1 to 2 weeks. Multiple residents at the assisted have been suffering from a stomach flu. The course of 1 to 2 weeks patient has presented to the OR in the past as well but was complaining of abdominal pain hence the OR was canceled at that time as well. Nursing staff patient's blood pressures have been on the softer side for last few weeks and multiple of her antihypertensives have been withheld including valsartan and possibly Cardizem as well. He is been getting sotalol. Patient on examination when seen denies any nausea, vomiting, headache, belly discomfort, chest pain. Her blood pressure was found to be 115 systolic with heart rate running around 120s. Patient has also been complaining of on and off chest heaviness. She denies any difficulty breathing. Appetite has been poor. Review of Systems 2 General: Reports: 10 or more systems reviewed and unremarkable except in HPI and below Const: Denies: fever(s), chills, body aches, change in appetite, change in weight, malaise, night sweats, diaphoresis, change in sleep pattern, daytime sleepiness or snoring Eyes: Denies: change in vision, blurry vision, photophobia, eye discomfort or eye discharge ENMT: Denies: throat pain, enlarged tonsils, hoarseness, mouth pain, oral sores, dry mouth, tinnitus, nasal congestion or post nasal drip Card: Denies: chest pain, palpitations, irregular heart rhythm, edema, swelling of feet/ankles, lightheadedness, syncope, pre-syncope, dyspnea on exertion, orthopnea, leg pain with exertion or acrocyanosis Resp: Denies: dyspnea, productive cough, non-productive cough, wheezing, stridor, pain on inspiration, change in phlegm color, hemoptysis or chest congestion GI: Denies: abdominal pain, nausea, vomiting, hematemesis, coffee ground emesis, dysphagia, heartburn, diarrhea, constipation, bloating, GI cramping, change in bowel habits, pain on defecation, hematochezia or melena : Denies: flank pain, dysuria, urinary frequency, urinary urgency, urinary hesitancy, nocturia or hematuria Musc: Denies: neck pain, back pain, extremity pain, joint pain, joint swelling, joint redness, joint stiffness or limited range of motion Neuro: Denies: headache(s), numbness in extremities, weakness in extremities, sensory changes, lack of coordination, difficulty walking, frequent falls, dizziness, vertigo, confusion, Slurred speech present, difficulty communicating thoughts or seizure-like activity Psych: Denies: anxiety, depression, mood swings, panic attacks, hopelessness or irritability Endo: Denies: polyuria, polydipsia, tired all the time, cold intolerance, excessive sweating, flushing or heat intolerance Stan/Lymph: Denies: easy bruising or easy bleeding All/Imm: Denies: tongue swelling, facial swelling or acute wheezing Medications/Allergies Home Medications Medication Instructions Recorded Confirmed Last Taken Type tramadol 50 mg tablet 50 - 100 mg PO Q6H PRN Pain 02/19/20 01/09/24 01/09/24 History lorazepam 0.5 mg tablet 0.5 mg PO TID PRN Anxiety 03/05/21 01/09/24 01/10/24 History valsartan 160 mg tablet 160 mg PO BID #180 tabs 08/17/22 01/09/24 01/09/24 Rx omeprazole 20 mg capsule,delayed 20 mg PO BID #60 caps 09/13/23 01/09/24 01/09/24 Rx release fluticasone propionate 50 2 spray intranasal DAILY PRN 11/02/23 01/10/24 01/09/24 History mcg/actuation nasal allergies spray,suspension sotalol 120 mg tablet 120 mg PO BID 11/02/23 01/09/24 01/09/24 History warfarin 1 mg tablet See Rx Instructions .Route .COMPLEX 12/11/23 01/09/24 01/02/24 History zolpidem 10 mg tablet 10 mg PO BEDTIME PRN Sleep 12/11/23 01/09/24 12/24/23 History acetaminophen 325 mg tablet 650 mg PO Q6H PRN pain or elevated 01/03/24 01/10/24 12/24/23 History temp enoxaparin 80 mg/0.8 mL 80 mg SUBCUT Q12H 01/03/24 01/09/24 01/09/24 History subcutaneous syringe oxycodone 5 mg capsule 5 mg PO Q4H PRN Pain (Scale Score 01/03/24 01/10/24 01/10/24 History 7-10) phenazopyridine 200 mg tablet 200 mg PO Q8H #21 tabs 01/03/24 01/09/24 01/09/24 Rx (Pyridium) warfarin 6 mg tablet See Rx Instructions .Route .COMPLEX 01/03/24 01/09/24 01/01/24 History hydrocodone 10 mg-acetaminophen 1 tab PO Q6H PRN pain #28 tabs 01/10/24 Unknown Rx 325 mg tablet Allergies Allergy/AdvReac Type Severity Reaction Status Date / Time amlodipine Allergy Unknown Verified 12/25/23 14:29 diazepam [From Valium] Allergy Unknown Verified 12/25/23 14:29 furosemide [From Lasix] Allergy ADR-Dizzine Verified 12/25/23 14:29 ss lisinopril Allergy Unknown Verified 12/25/23 14:29 olmesartan [From Benicar] Allergy Unknown Verified 12/25/23 14:29 penicillamine Allergy Unknown Verified 12/25/23 14:29 Penicillins Allergy Unknown Verified 12/25/23 14:29 ranitidine [From Zantac] Allergy ALGY-Rash Verified 12/25/23 14:29 Sulfa (Sulfonamide Allergy Unknown Verified 12/25/23 14:29 Antibiotics) PFSH Acute 2 PFSH: Medical History CHF (congestive heart failure) GERD (gastroesophageal reflux disease) Hyperlipidemia HTN (hypertension) Diastolic heart failure Atrial fibrillation Surgical History History of cardiac radiofrequency ablation (RFA) S/P subtotal thyroidectomy S/P cataract extraction S/P cholecystectomy S/P knee surgery Family History Other CAD (coronary artery disease) Social History Smoking and tobacco/nicotine status: never used tobacco/nicotine Alcohol intake: never Substance/Drug Use: never Vitals/I&O/Wt Last Vital Signs Temp 97.9 F 01/10/24 08:36 Pulse 148 H 01/10/24 08:36 Resp 21 H 01/10/24 08:36 BP 122/94 01/10/24 08:36 Pulse Ox 93 01/10/24 08:36 O2 Del Method Room Air 01/10/24 08:36 01/09/24 01/10/24 01/10/24 22:59 06:59 14:59 Intake Total 100 / 100 150 / 150 Balance 100 / 100 150 / 150 Weight last 48 hrs Weight 87.543 kg Physical Exam 2 Narrative: General: No acute distress, AO x3, dehydrated HEENT: PERRLA, pupils bilaterally equal and reactive Chest: Normal vesicular breath sounds, no added sounds, equal good air entry bilaterally CVS: S1-S2 irregularly irregular, tachycardia, soft pansystolic murmur present at apex,No gallops, no rubs Abdomen: Soft, nontender, no organomegaly, bowel sounds present Neuro: No focal deficits, no facial deformity, AO x3, power 5/5 in all limbs Data 01/10/24 09:41 01/10/24 09:41 A&P Assessment and plan (1) Atrial fibrillation with RVR: It seems patient is supposed to be taking sotalol 120 mg twice daily along with Cardizem 360 mg daily as per previous discharge. Currently it seems she is only taking sotalol 120 mg twice daily at the assisted. Most likely Cardizem was stopped from low blood pressures. Currently blood pressure acceptable. Continue with sotalol. Start on Cardizem drip. Will wean down Cardizem drip keeping heart rate less than 100. Start on oral Cardizem 30 mg every 6 hours. Monitor blood pressures. If blood pressures are not tolerating will stop Cardizem and switch to either amiodarone versus digoxin. Otherwise we will plan to increase the dose of sotalol to 160 mg twice daily. Currently on Lovenox 1 mg/kg body weight every 12 hourly given perioperative status. Will continue. Check echocardiogram. Appreciate recent TSH. (2) Dehydration: Most likely in setting of poor oral intake and diarrhea. Patient is assisted resident and multiple residents have been having similar complaints. Fluid bolus with normal saline at 100 cc/h. Normal saline at 75 cc/h. Check CMP, respiratory viral panel. Watch for fluid overload. (3) Hypotension: Goal blood pressure less than 140/90 mmHg with mean over 65. Currently blood pressures at goal. Continue to monitor. If needed we will have to discontinue Cardizem with switch to amiodarone. (4) Diarrhea: As above. (5) HTN (hypertension): Qualifiers: Hypertension type: essential hypertension Qualified Code(s): I10 - Essential (primary) hypertension (6) Diastolic heart failure: Past history. Check echocardiogram. Currently euvolemic. On room air. Qualifiers: Heart failure chronicity: chronic Qualified Code(s): I50.32 - Chronic diastolic (congestive) heart failure (7) Trimalleolar fracture of right ankle: Follows up with Dr. Montemayor. Plan for ORIF once medically stable. Plan Full code Cardiac diet Protonix for PUD prophylaxis Continue with full dose Lovenox which will be sufficient for DVT prophylaxis Attestations 2 Medical Necessity Statement*: Admission for more than 2 midnights for management for A-fib with RVR in a patient who was primarily coming to the hospital for fixation of open trimalleolar fracture of right ankle Coding Level of Care Code 20945 Diagnoses Atrial fibrillation with RVR I48.91 Dehydration E86.0 Hypotension I95.9 Diarrhea R19.7 Essential hypertension I10 Hypertension type: essential hypertension Chronic diastolic heart failure I50.32 Heart failure chronicity: chronic Trimalleolar fracture of right ankle S82.851A
[2024-01-10] MEDS: pantoprazole DR 40 mg Tablet PO (09:45)
[2024-01-10] MEDS: dilTIAZem 100 MG in sodium chloride 0.9% (add-van) 100 ML IV ×2 (09:48→18:03)
[2024-01-10] MEDS: sodium chloride 0.9% 1,000 ML 75 ML IV ×2 (09:49→18:01)
[2024-01-10] MEDS: enoxaparin 80 mg/0.8 mL Syringe SUBCUT ×2 (09:51→21:42)
[2024-01-10] MEDS: sotalol 80 mg Tablet 120 MG PO (09:51)
[2024-01-10] MEDS: dilTIAZem 30 mg Tablet PO ×2 (09:51→21:42)
[2024-01-10 10:15] LABS: Basophils % 0.3 %; Eosinophils # 0.3 10^3/uL (0.0-0.8); Eosinophils % 4.5 %; Hematocrit 32.4 % (36-47); Lymphocytes # 2.4 10^3/uL (0.8-4.8); Mean Corpuscular HGB Conc 30.6 g/dL (30-55); Mean Corpuscular Hemoglobin 26.8 pg (27-33); Mean Corpuscular Volume 87.6 fl (85-98); Monocytes # 0.3 10^3/uL (0.2-0.9); Monocytes % 5.7 %; Neutrophils # 2.74 10^3/uL (1.8-7.7); Neutrophils % 47.2 %; Nucleated Red Blood Cells % 0 %; Platelet Count 236 10^3/cmm (157-399); Red Cell Distribution Width 18.6 % (12.1-15.1); White Blood Count 5.81 10^3/uL (3.29-11.43)
[2024-01-10] MEDS: LORazepam 0.5 mg Tablet PO (10:15)
[2024-01-10 10:33] LABS: Alanine Aminotransferase 12 U/L (0-33); Albumin Level 2.6 g/dL (3.5-5.2); Alkaline Phosphatase 100 U/L (35-105); Blood Urea Nitrogen 9 mg/dL (8-23); Calcium 7.2 mg/dL (8.5-10.5); Carbon Dioxide 24 mmol/L (22-29); Chloride 106 mmol/L (98-107); Creatinine Clr Calc Pharmacy 55.1575; Globulin 2.8 g/dL (1.3-4.6); Glucose 127 mg/dL (65-115); Osmolality Calculated 290 mOsm/kg (285-295); Sodium 140 mmol/L (136-145); Total Bilirubin 0.3 mg/dL (0.15-1.2); Total Protein 5.4 g/dL (6.6-8.7)
[2024-01-10 10:37] LABS: Anion Gap 13.6 (5-19); Potassium 3.6 mmol/L (3.5-5.1)
[2024-01-10 10:38] LABS: Aspartate Amino Transferase 19 U/L (0-32)
--- NOTE | 2024-01-10 10:54 | ECG_ITS ---
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 Measurements Intervals [place] Rate: 110 P: 0 VA: 0 QRS: 39 QRSD: 89 T: -7 QT: 356 QTc: 483 Interpretive Statements ATRIAL FIBRILLATION WITH RAPID VENTRICULAR RESPONSE WITH ABERRANT CONDUCTION OR VENTRICULAR PREMATURE COMPLEXES NONSPECIFIC ST & T-WAVE ABNORMALITY Compared to ECG 01/10/2024 07:00:08 Aberrant conduction of supraventricular beat(s) now present Ventricular premature complex(es) now present T-wave abnormality still present Electronically Signed On 01-10-2024 16:50:16 CDT by Moncho Almaguer M.D. [id number]
--- NOTE | 2024-01-10 10:56 | PC.NURSE ---
received from or at 0820 via stretcher.report received.pt is alert and awkake and oriented x 4.denies pain at present.afib on monitor wtih rate 110-140.bp stable.dr collier has ordered iv diltiazem,ivf's and her am meds.oriented to room environment.instructed to notify staff for any pain,sob,or for any concerns at all.pt verb understanding of instructions.
[2024-01-10 11:00] LABS: Slide Review Slide Review Perform
--- NOTE | 2024-01-10 11:01 | PC.NURSE ---
at 10;20
--- NOTE | 2024-01-10 11:03 | PC.NURSE ---
at 1020 pt c/o chest pressure in center of chest.no sob or diaphoresis noted.bp stable.pt states i get this every now and again..it comes and goes.my previous quill machine tender put me on omeprazole and that seemed to help .ekg obtained and dr curiel notified.he ordered a troponin series. pt has received a dose of po protonix recently.chest pressure abated after approx 10 min.
[2024-01-10 11:05] LABS: Troponin(5th) Baseline 10 ng/L (0-10)
--- NOTE | 2024-01-10 11:08 | PC.NURSE ---
cardizem po and sotolol given as ordered.at 11:00 bp 87/49 with hr 91.iv cardizem duy melo'd.
[2024-01-10] MEDS: sodium chloride 0.9% 500 ML 999 ML IV ×2 (12:00→15:27)
[2024-01-10 12:45] LABS: Troponin 5 2HR 12.79 ng/L (0-10); Troponin 5 2HR Delta 2.79 ABS# (0-10)
--- NOTE | 2024-01-10 12:54 | ECG_ITS ---
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 Measurements Intervals [place] Rate: 101 P: 0 WA: 0 QRS: 57 QRSD: 91 T: -8 QT: 358 QTc: 464 Interpretive Statements ATRIAL FIBRILLATION WITH RAPID VENTRICULAR RESPONSE NONSPECIFIC ST & T-WAVE ABNORMALITY Compared to ECG 01/10/2024 10:25:19 Aberrant conduction of supraventricular beat(s) no longer present Ventricular premature complex(es) no longer present T-wave abnormality still present Electronically Signed On 01-10-2024 16:56:55 CDT by Moncho Almaguer M.D. [email or web address].[email or web address]/store/[id number]
--- NOTE | 2024-01-10 14:19 | P.CONIM_ITS ---
Providers/Reason For Consult 2 Consulting Physician/Specialty*: Dr. Ger Montemayor, Yessica.P.M./podiatry Reason for Consult*: Right ankle trimalleolar ankle fracture Attending Physician: Ger Montemayor DPM Primary Care Provider: Liliana Ko DO History of Present Illness History of Present Illness Jessie Kumar is a 88 year old female with history of right trimalleolar ankle fracture. Date of injury 12/10/2023. Patient was walking out of her garage when she stepped down misstep causing her to injure her right ankle. Patient was splinted after postreduction and discharged home. Patient followed outpatient in podiatry clinic where she was noted to have an out open fracture due to ambulating on the affected extremity since discharge from the emergency department. Patient went to the operating room on 12/15/2023 for closed reduction and application of multiplanar external fixator. Patient was then discharged to [facility] where she has been residing since application of external fixator. Patient returned to the hospital on 01/03/2024 for removal of external fixator and definitive fixation. However, due to severe abdominal pain and hematuria the surgery was canceled due to concern for underlying infection. She was subsequently sent to the emergency department for further workup and evaluation. No infection was found. Patient was discharged back to [facility] at that time. Plan was to reschedule surgery for 01/05/2024. However, patient had become sick with flulike symptoms including GI upset and diarrhea at [facility]. Surgery was canceled due to these findings. Patient was rescheduled for surgery today 01/10/2024. However, in the preoperative area patient was found to have A-fib with RVR with uncontrolled rate above 130 bpm. Patient states that she has not been receiving her antiarrhythmic medication as she should have leading up to surgery. Because of these findings, surgery was canceled today. Recommendation was made for direct admission to the hospital to have A-fib with RVR managed medically. Once patient is medically stable we will proceed with definitive surgical fixation of the right lower extremity while patient is in the inpatient setting. Patient was seen at bedside resting comfortably on cardiac stepdown unit. She is anxious to get this leg fixed. However, she still endorses feelings of not feeling quite right. Review of Systems 2 General: Reports: 10 or more systems reviewed and unremarkable except in HPI and below Const: Denies: fever(s), chills or fatigue Eyes: Denies: change in vision ENMT: Denies: sinus pain Card: Denies: chest pain, palpitations or lightheadedness Resp: Denies: dyspnea GI: Denies: abdominal pain, nausea or vomiting Musc: Reports: extremity pain, extremity swelling and limited range of motion; Denies: neck pain or back pain Skin/Breast: Reports: skin swelling Neuro: Denies: numbness in extremities Medications/Allergies Home Medications Medication Instructions Recorded Confirmed Last Taken Type tramadol 50 mg tablet 50 - 100 mg PO Q6H PRN Pain 02/19/20 01/09/24 01/09/24 History lorazepam 0.5 mg tablet 0.5 mg PO TID PRN Anxiety 03/05/21 01/09/24 01/10/24 History valsartan 160 mg tablet 160 mg PO BID #180 tabs 08/17/22 01/09/24 01/09/24 Rx omeprazole 20 mg capsule,delayed 20 mg PO BID #60 caps 09/13/23 01/09/24 01/09/24 Rx release fluticasone propionate 50 2 spray intranasal DAILY PRN 11/02/23 01/10/24 01/09/24 History mcg/actuation nasal allergies spray,suspension sotalol 120 mg tablet 120 mg PO BID 11/02/23 01/09/24 01/09/24 History warfarin 1 mg tablet See Rx Instructions .Route .COMPLEX 12/11/23 01/09/24 01/02/24 History zolpidem 10 mg tablet 10 mg PO BEDTIME PRN Sleep 12/11/23 01/09/24 12/24/23 History acetaminophen 325 mg tablet 650 mg PO Q6H PRN pain or elevated 01/03/24 01/10/24 12/24/23 History temp enoxaparin 80 mg/0.8 mL 80 mg SUBCUT Q12H 01/03/24 01/09/24 01/09/24 History subcutaneous syringe oxycodone 5 mg capsule 5 mg PO Q4H PRN Pain (Scale Score 01/03/24 01/10/24 01/10/24 History 7-10) phenazopyridine 200 mg tablet 200 mg PO Q8H #21 tabs 0401/09/24 01/09/24 Rx (Pyridium) warfarin 6 mg tablet See Rx Instructions .Route .COMPLEX 01/03/24 01/09/24 01/01/24 History hydrocodone 10 mg-acetaminophen 1 tab PO Q6H PRN pain #28 tabs 01/10/24 Unknown Rx 325 mg tablet Allergies Allergy/AdvReac Type Severity Reaction Status Date / Time amlodipine Allergy Unknown Verified 12/25/23 14:29 diazepam [From Valium] Allergy Unknown Verified 12/25/23 14:29 furosemide [From Lasix] Allergy ADR-Dizzine Verified 12/25/23 14:29 ss lisinopril Allergy Unknown Verified 12/25/23 14:29 olmesartan [From Benicar] Allergy Unknown Verified 12/25/23 14:29 penicillamine Allergy Unknown Verified 12/25/23 14:29 Penicillins Allergy Unknown Verified 12/25/23 14:29 ranitidine [From Zantac] Allergy ALGY-Rash Verified 12/25/23 14:29 Sulfa (Sulfonamide Allergy Unknown Verified 12/25/23 14:29 Antibiotics) Current Medications Generic Name Dose Route Start Last Admin Trade Name Freq PRN Reason Stop Dose Admin Enoxaparin Sodium 80 mg 01/10/24 09:30 01/10/24 09:51 Enoxaparin 80 Mg/0.8 Ml Syringe SUBCUT 80 mg Q12H ANIBAL Administration Diltiazem HCl 100 mg/ Sodium 100 mls @ 0 mls/hr 01/10/24 09:30 01/10/24 11:02 Chloride IV Infused .Q0M ANIBAL Titration Protocol Per Protocol Sodium Chloride 1,000 mls @ 75 mls/hr 01/10/24 09:30 01/10/24 09:49 Sodium Chloride 0.9% IV 75 mls/hr .[id number] ANIBAL Administration Lorazepam 0.5 mg 01/10/24 09:26 01/10/24 10:15 Lorazepam 0.5 Mg Tablet PO 0.5 mg TID PRN Administration Anxiety Pantoprazole Sodium 40 mg 01/10/24 09:30 01/10/24 09:[address] 40 Mg Tablet PO 40 mg DAILY ANIBAL Administration Sotalol HCl 120 mg 01/10/24 09:50 01/10/24 09:51 Sotalol 80 Mg Tablet PO 120 mg BID ANIBAL Administration PFSH Acute 2 PFSH: Medical History CHF (congestive heart failure) GERD (gastroesophageal reflux disease) Hyperlipidemia HTN (hypertension) Diastolic heart failure Atrial fibrillation Surgical History History of cardiac radiofrequency ablation (RFA) S/P subtotal thyroidectomy S/P cataract extraction S/P cholecystectomy S/P knee surgery Family History Other CAD (coronary artery disease) Social History Smoking and tobacco/nicotine status: never used tobacco/nicotine Alcohol intake: never Substance/Drug Use: never Vitals/I&O/Wt Last Vital Signs Temp 97.9 F 01/10/24 12:00 Pulse 91 01/10/24 12:00 Resp 15 01/10/24 12:00 BP 105/58 01/10/24 12:00 Pulse Ox 93 01/10/24 12:00 O2 Del Method Room Air 01/10/24 09:54 01/09/24 01/10/24 01/10/24 22:59 06:59 14:59 Intake Total 100 / 100 990 / 990 Balance 100 / 100 990 / 990 Weight last 48 hrs Weight 190 lb 7 oz Weight 190 lb 7 oz Weight 193 lb Physical Exam 2 Narrative: BELOW IS A FOCUSED LOWER EXTREMITY EXAM GENERAL: A&O x 3 VASCULAR: DP/PT pulses palpable 2/4 with CFT intact, <3seconds to distal digits DERMATOLOGICAL: Surgical dressing clean, dry, intact with no strikethrough noted. MUSCULOSKELETAL: Deferred secondary to postsurgical state. External fixator applied to right lower extremity NEUROLOGICAL: Neurological sensation to the affected foot and ankle is present through L4-S1 dermatomes with no hyper/hypoesthesias, negative Tinel or Valleix's sign Data 01/10/24 09:41 01/10/24 09:41 A&P Assessment and plan (1) Type I or II open trimalleolar fracture of right ankle: (2) Warfarin anticoagulation: Plan -Right trimalleolar ankle fracture status post application external -Labs and vitals reviewed VSS -No signs of infection -Diet: Okay for diet from podiatry standpoint. -Plan for definitive surgical fixation of right lower extremity fracture this coming 01/12/2024 -Pain Mgmt: Per primary team. -Weight bearing: Strict nonweightbearing to right foot -Dressings: Leave surgical dressing clean, dry, intact. Reinforce if needed using 4 x 4 gauze. Dressing was changed at bedside this morning. -Discharge plan: To be determined -Podiatry will continue to round on patient daily and provide recommendations Coding Level of Care Code Acute Code for [facility] Fwd Diagnoses Type I or II open trimalleolar fracture of right ankle S82.851B Warfarin anticoagulation Z79.01
--- NOTE | 2024-01-10 14:31 | USCV_ITS ---
Jessie Kumar Age: 88 Gender: F : 1935 Exam Date: 01/10/2024 14:44 Ordering Phys: Fausto Kinney MD Technologist: Exam Location: [facility] [place] Indication: sob chest pain tach BP: 112 / 77 HR: 156 Rhythm: Sinus Technical Quality: Adequate MEASUREMENTS (Male / Female) Normal Values 2D ECHO LV Diastolic Diameter PLAX 3.8 cm 4.2 - 5.9 / 3.9 - 5.3 cm IVS Diastolic Thickness 1.1 cm 0.6 - 1.0 / 0.6 - 0.9 cm IVS Systolic Thickness 1.5 cm LVPW Diastolic Thickness 1.1 cm 0.6 - 1.0 / 0.6 - 0.9 cm LVPW Systolic Thickness 1.8 cm LVOT Diameter 2.3 cm LV Ejection Fraction 2D Teich 60.8 % LV Ejection Fraction MOD 2C 54.9 % LV Ejection Fraction 2C AL 57.4 % LA Diameter 4.0 cm RA Systolic Volume 4C AL 53.0 ml RA Systolic Volume 4C MOD 50.4 ml IVC Diameter 1.8 cm DOPPLER AV Peak Velocity 121.0 cm/s LVOT Peak Velocity 85.0 cm/s AV Area Cont Eq vti 4.6 cm squared AV Area Cont Eq pk 3.0 cm squared MV Peak Velocity 95.0 cm/s TV Peak Velocity 183.0 cm/s TR Peak Velocity 265.0 cm/s TR Peak Gradient 28.1 mmHg TV Peak E Velocity 79.0 cm/s Right Atrial Pressure 3.0 mmHg Pulmonary Artery Systolic Pressu 31.1 mmHg PV Peak Velocity 107.0 cm/s FINDINGS Left Ventricle Normal left ventricular size and systolic function, EF 61%.no regional wall motion abnormalities. Right Ventricle The right ventricle is normal in size and function. Right Atrium Mildly increased right atrial size. Left Atrium Moderately increased left atrial size. Mitral Valve Thickened mitral valve. Mild mitral annular calcification. Mild mitral valve regurgitation. Aortic Valve Thickened aortic valve. Tricuspid Valve Thickened tricuspid valve. Trace to mild tricuspid valve regurgitation. Pulmonic Valve Pulmonic valve not well visualized. Pericardium Normal pericardium without effusion. Aorta Normal ascending aorta dimension. IVC The inferior vena cava appears normal. CONCLUSIONS Normal left ventricular size and systolic function, EF 61%.no regional wall motion abnormalities. Moderately increased left atrial size. Mildly dilated right atrium Thickened mitral valve. Mild mitral annular calcification. Mild mitral valve regurgitation. Thickened aortic valve. Thickened tricuspid valve. Trace to mild tricuspid valve regurgitation. Estimated pulmonary artery peak systolic pressure 31 mm Hg There is no pericardial effusion. There are no intracardiac masses. Compared to study from 07/30/2016, there may not be a significant change. Dr Lennox Gillette MD [facility]IN [facility] (Electronically Signed) Final Date: 10 Jan 2024 20:12 S
[2024-01-10] MEDS: phenazopyridine 100 mg Tablet 200 MG PO ×2 (15:12→21:41)
[2024-01-10 15:38] LABS: Bilirubin Urine Not Tested (Negative); Blood Urine Not Tested (Negative); Glucose Urine UA Not Tested (Normal); Ketones Urine Not Tested (Negative); Nitrate Urine Not Tested (Negative); Protein Urine Not Tested (Negative); Specific Gravity, Urine 1.015 (1.005-1.030); Urine Appearance Hazy (CLEAR); Urine Color Orange (Yellow); Urobilinogen Urine Not Tested mg/dL (Negative); pH Urine 7 (5-7)
[2024-01-10 15:39] LABS: Add Urine Microscopic? YES; Leukocyte Esterase Urine Not Tested (Negative)
[2024-01-10 15:42] LABS: Add Urine Culture? Yes; Amorphous Sediment Urine 1+ /hpf; Bacteria Urine 1+ /hpf; Mucus Urine TRACE /hpf; Oval Fat Bodies Urine 1+ /hpf; RBC Urine 0-4 /hpf (0-2); Renal Epithelial Cells Urine 0-4 /hpf; Triple Phosphate Crystal Urine 15-25 /hpf; WBC Urine 25-40 /hpf (0-5)
[2024-01-10 15:50] LABS: Vitamin B12 245 pg/mL (232-1245)
[2024-01-10 16:25] LABS: Troponin 5 6HR 13.67 ng/L (0-10); Troponin 5 6HR Delta 3.67 ng/L (0-12)
--- NOTE | 2024-01-10 16:54 | ECG_ITS ---
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 Measurements Intervals [place] Rate: 111 P: 0 OH: 0 QRS: 58 QRSD: 85 T: -80 QT: 328 QTc: 446 Interpretive Statements ATRIAL FIBRILLATION WITH RAPID VENTRICULAR RESPONSE WITH ABERRANT CONDUCTION OR VENTRICULAR PREMATURE COMPLEXES NONSPECIFIC ST & T-WAVE ABNORMALITY Compared to ECG 01/10/2024 12:59:00 Ventricular premature complex(es) now present Aberrant conduction of supraventricular beat(s) now present T-wave abnormality still present Electronically Signed On 01-10-2024 16:52:40 CDT by Moncho Almaguer M.D. [id number]
[2024-01-10 17:39] LABS: Adenovirus Not Detected (NOT DETECT); Chlamydia Pneumoniae Not Detected (NOT DETECT); Coronavirus 229E,HKU1,NL63,OC4 Not Detected (NOT DETECT); Human Metapneumovirus Not Detected (NOT DETECT); Human Rhinovirus/Enterovirus Not Detected (NOT DETECT); Influenza A Not Detected (NOT DETECT); Influenza A H1 Not Detected (NOT DETECT); Influenza A H1-2009 Not Detected (NOT DETECT); Influenza A H3 Not Detected (NOT DETECT); Influenza B Not Detected (NOT DETECT); Mycoplasma Pneumoniae Not Detected (NOT DETECT); Parainfluenza Virus Type 1 Not Detected (NOT DETECT); Parainfluenza Virus Type 2 Not Detected (NOT DETECT); Parainfluenza Virus Type 3 Not Detected (NOT DETECT); Parainfluenza Virus Type 4 Not Detected (NOT DETECT); Respiratory Syncytial Virus A Not Detected (NOT DETECT); Respiratory Syncytial Virus B Not Detected (NOT DETECT); SARS-COV-2 Not Detected (NOT DETECT)
[2024-01-10] MEDS: oxyCODONE 5 mg IR Tab/Cap PO ×2 (17:56→22:12)
[2024-01-10] MEDS: sotalol 80 mg Tablet 160 MG PO (17:58)
[2024-01-10] MEDS: dilTIAZem 5 mg/mL SDV 5 mL IVP (17:58)
[2024-01-10] MEDS: ondansetron 2 mg/ML SDV 2 mL 4 MG IVP (18:30)
[2024-01-11] VITALS (15 sets, daily range): BP systolic 98–136; BP diastolic 56–109; PULSE 65–114; RESP 13–29; TEMP 36.5–37.1; O2SAT 89–94; BMI 31.6
[2024-01-11] MEDS: ALPRAZolam 0.5 mg Tablet 0.25 MG PO ×3 (00:12→20:37)
[2024-01-11] MEDS: dilTIAZem 30 mg Tablet PO ×3 (02:38→10:09)
[2024-01-11 04:08] LABS: Basophils % 0.6 %; Eosinophils # 0.2 10^3/uL (0.0-0.8); Eosinophils % 4.5 %; Hematocrit 34.4 % (36-47); Lymphocytes # 2.4 10^3/uL (0.8-4.8); Lymphocytes % 45.3 %; Mean Corpuscular HGB Conc 29.9 g/dL (30-55); Mean Corpuscular Hemoglobin 26.3 pg (27-33); Mean Corpuscular Volume 87.8 fl (85-98); Mean Platelet Volume 10.3 fL (7.4-10.4); Monocytes # 0.4 10^3/uL (0.2-0.9); Monocytes % 7.4 %; Neutrophils # 2.26 10^3/uL (1.8-7.7); Neutrophils % 41.8 %; Nucleated Red Blood Cells % 0 %; Platelet Count 237 10^3/cmm (157-399); Red Blood Count 3.92 10^6/uL (3.85-5.65); Red Cell Distribution Width 18.9 % (12.1-15.1); White Blood Count 5.39 10^3/uL (3.29-11.43)
[2024-01-11 04:33] LABS: Alanine Aminotransferase 12 U/L (0-33); Albumin Level 2.8 g/dL (3.5-5.2); Alkaline Phosphatase 105 U/L (35-105); Anion Gap 11.8 (5-19); Aspartate Amino Transferase 16 U/L (0-32); Blood Urea Nitrogen 11 mg/dL (8-23); Calcium 7.8 mg/dL (8.5-10.5); Carbon Dioxide 24 mmol/L (22-29); Chloride 105 mmol/L (98-107); Creatinine Clr Calc Pharmacy 54.7871; Globulin 2.9 g/dL (1.3-4.6); Glucose 97 mg/dL (65-115); Magnesium 1.7 mg/dL (1.7-2.3); Osmolality Calculated 283 mOsm/kg (285-295); Phosphorus 3.2 mg/dL (2.5-4.5); Potassium 3.8 mmol/L (3.5-5.1); Sodium 137 mmol/L (136-145); Total Bilirubin 0.3 mg/dL (0.15-1.2); Total Protein 5.7 g/dL (6.6-8.7)
[2024-01-11 04:36] LABS: Slide Review Slide Review Perform
[2024-01-11] MEDS: phenazopyridine 100 mg Tablet 200 MG PO ×3 (05:07→20:39)
[2024-01-11] MEDS: oxyCODONE 5 mg IR Tab/Cap PO ×3 (08:04→20:39)
[2024-01-11] MEDS: sotalol 80 mg Tablet 160 MG PO ×2 (08:05→18:06)
[2024-01-11] MEDS: pantoprazole DR 40 mg Tablet PO (08:05)
[2024-01-11] MEDS: enoxaparin 80 mg/0.8 mL Syringe SUBCUT ×2 (10:12→20:39)
--- NOTE | 2024-01-11 12:58 | P.PN_ITS ---
Subjective 2 Subjective: Patient seen at bedside this morning. Resting comfortably. Feeling better today as opposed to yesterday. Vitals/I&O/Wt Last Vital Signs Temp 97.7 F 01/11/24 12:00 Pulse 94 01/11/24 12:00 Resp 20 H 01/11/24 12:00 BP 115/95 01/11/24 12:00 Pulse Ox 92 01/11/24 12:00 O2 Del Method Room Air 01/11/24 12:00 01/10/24 01/11/24 01/11/24 22:59 06:59 14:59 Intake Total 1175 / 2165 63.333 / 2228.333 1135.708 / 1135.708 Output Total 700 / 700 Balance 1175 / 2165 -636.667 / 2229.214 5653.708 / 1135.708 Weight last 48 hrs Weight 190 lb 7 oz Weight 190 lb 7 oz Weight 190 lb 7 oz Weight 193 lb Physical Exam 2 Narrative: BELOW IS A FOCUSED LOWER EXTREMITY EXAM GENERAL: A&O x 3 VASCULAR: DP/PT pulses palpable 2/4 with CFT intact, <3seconds to distal digits DERMATOLOGICAL: Surgical dressing clean, dry, intact with no strikethrough noted. MUSCULOSKELETAL: Deferred secondary to postsurgical state. External fixator applied to right lower extremity NEUROLOGICAL: Neurological sensation to the affected foot and ankle is present through L4-S1 dermatomes with no hyper/hypoesthesias, negative Tinel or Valleix's sign Data 01/11/24 03:57 01/11/24 03:57 A&P Assessment and plan (1) Type I or II open trimalleolar fracture of right ankle: (2) Warfarin anticoagulation: Plan -Right trimalleolar ankle fracture status post application external -Labs and vitals reviewed VSS -No signs of infection -Diet: N.p.o. at midnight for procedure 01/12/2024 -Plan for definitive surgical fixation of right lower extremity fracture tomorrow 01/12/2024 at 1300 -Pain Mgmt: Per primary team. -Weight bearing: Strict nonweightbearing to right foot -Dressings: Leave surgical dressing clean, dry, intact. Reinforce if needed using 4 x 4 gauze. Dressing was changed at bedside this morning. -Discharge plan: To be determined -Podiatry will continue to round on patient daily and provide recommendations Attestations 2 Medical Necessity Statement*: Surgery tomorrow for definitive fixation of right ankle Coding Level of Care Code Acute Code for [facility] Diagnoses Type I or II open trimalleolar fracture of right ankle S82.851B Warfarin anticoagulation Z79.01
[2024-01-11] MEDS: sodium chloride 0.9% 1,000 ML 75 ML IV (12:59)
--- NOTE | 2024-01-11 14:21 | P.PN_ITS ---
Subjective 2 Subjective: No events overnight. Patient on examination laying comfortably in bed. States she is feeling a lot better. Thinks she is doing better. Heart rate overnight has been over 100 but today morning Cardizem drip was increased at 5 and heart rate has been below 80s. Blood pressures have been stable. Patient remains on room air saturating more than 92%. Vitals/I&O/Wt Last Vital Signs Temp 97.7 F 01/11/24 12:00 Pulse 94 01/11/24 12:00 Resp 20 H 01/11/24 12:00 BP 115/95 01/11/24 12:00 Pulse Ox 92 01/11/24 12:00 O2 Del Method Room Air 01/11/24 12:00 01/10/24 01/11/24 01/11/24 22:59 06:59 14:59 Intake Total 1175 / 2165 63.333 / 2228.333 1375.708 / 1375.708 Output Total 700 / 700 1100 / 1100 Balance 1175 / 2165 -636.667 / 1528.333 275.708 / 275.708 Weight last 48 hrs Weight 86.381 kg Weight 86.381 kg Weight 86.381 kg Weight 87.543 kg Physical Exam 2 Narrative: General: No acute distress, AO x3, dehydrated HEENT: PERRLA, pupils bilaterally equal and reactive Chest: Normal vesicular breath sounds, no added sounds, equal good air entry bilaterally CVS: S1-S2 irregularly irregular, tachycardia, soft pansystolic murmur present at apex,No gallops, no rubs Abdomen: Soft, nontender, no organomegaly, bowel sounds present Neuro: No focal deficits, no facial deformity, AO x3, power 5/5 in all limbs Data 01/11/24 03:57 01/11/24 03:57 A&P Assessment and plan (1) Atrial fibrillation with RVR: It seems patient is supposed to be taking sotalol 120 mg twice daily along with Cardizem 360 mg daily as per previous discharge. Currently it seems [facility] Most likely Cardizem was stopped from low blood pressures. Currently blood pressure acceptable. Continue with increased dose of sotalol at 160 mg twice daily. Continued on Cardizem drip. Increase Cardizem orally to 60 mg 4 times daily. Wean off Cardizem drip keeping heart rate below 100. Appreciate cardiac echocardiogram. (2) Dehydration: Improving. Required fluid boluses yesterday. Continue with normal saline at 75 cc/h. Watch for fluid overload. (3) Hypotension: Goal blood pressure less than 140/90 mmHg with mean over 65. Blood pressure is better now. Overall soft yesterday requiring fluid boluses. Continue with IV hydration as above. Hold off on antihypertensives other than Cardizem. (4) Diarrhea: No further episodes. (5) HTN (hypertension): Qualifiers: Hypertension type: essential hypertension Qualified Code(s): I10 - Essential (primary) hypertension (6) Diastolic heart failure: Past history. Check echocardiogram. Currently euvolemic. On room air. Qualifiers: Heart failure chronicity: chronic Qualified Code(s): I50.32 - Chronic diastolic (congestive) heart failure (7) Trimalleolar fracture of right ankle: Follows up with Dr. Montemayor. Plan for ORIF in a.m. tomorrow. N.p.o. after midnight. Plan Full code Cardiac diet Protonix for PUD prophylaxis Continue with full dose Lovenox which will be sufficient for DVT prophylaxis Attestations 2 Medical Necessity Statement*: Requires further hospitalization for management of A-fib with RVR, hypotension in setting of recent diarrhea leading to dehydration in a patient who was needs to undergo ORIF in setting of trimalleolar fracture of right ankle currently [facility] Diagnoses Atrial fibrillation with RVR I48.91 Dehydration E86.0 Hypotension I95.9 Diarrhea R19.7 Essential hypertension I10 Hypertension type: essential hypertension Chronic diastolic heart failure I50.32 Heart failure chronicity: chronic Trimalleolar fracture of right ankle S82.851B
[2024-01-11] MEDS: dilTIAZem 30 mg Tablet 60 MG PO ×3 (14:37→20:39)
[2024-01-11] MEDS: bisacodyl 10 mg Supp PR (17:53)
[2024-01-11] MEDS: lactulose oral liq 20 gm/30 mL UDC 10 GM PO (17:55)
[2024-01-12] VITALS (23 sets, daily range): BP systolic 78–131; BP diastolic 48–95; PULSE 57–102; RESP 13–73; TEMP 36.1–36.8; O2SAT 88–95
[2024-01-12] MEDS: oxyCODONE 5 mg IR Tab/Cap PO ×3 (00:40→09:02)
[2024-01-12] MEDS: sodium chloride 0.9% 1,000 ML 75 ML IV (00:43)
[2024-01-12] MEDS: acetaminophen 325 mg Tablet 650 MG PO ×2 (02:47→18:54)
[2024-01-12] MEDS: phenazopyridine 100 mg Tablet 200 MG PO ×2 (04:45→21:06)
[2024-01-12] MEDS: diphenhydrAMINE 25 mg Capsule PO (04:46)
[2024-01-12 04:51] LABS: Basophils % 0.6 %; Eosinophils # 0.2 10^3/uL (0.0-0.8); Eosinophils % 4.3 %; Hematocrit 30.2 % (36-47); Lymphocytes # 2.3 10^3/uL (0.8-4.8); Mean Corpuscular HGB Conc 30.1 g/dL (30-55); Mean Corpuscular Hemoglobin 26.2 pg (27-33); Mean Platelet Volume 10.4 fL (7.4-10.4); Monocytes # 0.4 10^3/uL (0.2-0.9); Monocytes % 8.2 %; Neutrophils # 1.92 10^3/uL (1.8-7.7); Neutrophils % 39.7 %; Nucleated Red Blood Cells % 0 %; Platelet Count 226 10^3/cmm (157-399); Red Blood Count 3.47 10^6/uL (3.85-5.65); Red Cell Distribution Width 18.9 % (12.1-15.1); White Blood Count 4.85 10^3/uL (3.29-11.43)
[2024-01-12 05:11] LABS: Alanine Aminotransferase 12 U/L (0-33); Albumin Level 2.8 g/dL (3.5-5.2); Alkaline Phosphatase 101 U/L (35-105); Anion Gap 11.1 (5-19); Aspartate Amino Transferase 16 U/L (0-32); Blood Urea Nitrogen 11 mg/dL (8-23); Calcium 7.5 mg/dL (8.5-10.5); Carbon Dioxide 26 mmol/L (22-29); Chloride 105 mmol/L (98-107); Creatinine Clr Calc Pharmacy 54.7871; Globulin 2.7 g/dL (1.3-4.6); Glucose 111 mg/dL (65-115); Osmolality Calculated 286 mOsm/kg (285-295); Potassium 4.1 mmol/L (3.5-5.1); Sodium 138 mmol/L (136-145); Total Bilirubin 0.2 mg/dL (0.15-1.2); Total Protein 5.5 g/dL (6.6-8.7)
[2024-01-12] MEDS: pantoprazole DR 40 mg Tablet PO (09:03)
[2024-01-12] MEDS: ALPRAZolam 0.5 mg Tablet 0.25 MG PO ×2 (09:03→21:26)
[2024-01-12] MEDS: dilTIAZem 30 mg Tablet 60 MG PO ×2 (09:04→21:06)
[2024-01-12] MEDS: sotalol 80 mg Tablet 160 MG PO ×2 (09:04→18:23)
--- NOTE | 2024-01-12 12:46 | PC.NURSE ---
off unit to surgery
--- NOTE | 2024-01-12 13:06 | P.HPUD_ITS ---
Surgery/Procedure H&P Update DATE OF PROCEDURE: January 12, 2024 DATE H&P PERFORMED: 01/10/24 H&P UPDATE INFORMATION: I have reviewed H&P completed within last 30 days, I have examined patient prior to procedure, No changes to prior documentation and H&P is in [facility] EMR on date indicated PREOP DIAGNOSIS: Right trimalleolar ankle fracture PLANNED PROCEDURE: Operation Date: 01/10/24 07:00 Proposed Procedures p Ankle tibiotalar calcaneal arthrodesis(Right) - Ger Montemayor DPM s Hardware Removal external fixator right ankle under anesthesia(Right) - Ger Montemayor DPM s TendoAchilles Lengthening Ankle(Right) - Ger Montemayor DPM Operation Date: 01/12/24 13:10 Proposed Procedures p Tibiotalar canceal arthrodesis(Right) - SAMY Brown Hardware Removal external fixator right ankle(Right) - SAMY Brown Tendon Lengthening Foot TendoAchilles Lengthening Ankle(Right) - Ger Montemayor DPM
--- NOTE | 2024-01-12 13:26 | PM.PN ---
Subjective Subjective: No events overnight. Plan for ORIF and removal of external fixator today. Heart rate has remained mostly stable. Continue to monitor O2 sats supplementation. Blood pressure stable. Cardizem drip stopped yesterday. Vitals/I&O/Wt Last Vital Signs Temp 97.0 F L 01/12/24 12:35 Pulse 74 01/12/24 12:35 Resp 16 01/12/24 12:35 BP 131/71 01/12/24 12:35 Pulse Ox 92 01/12/24 12:35 O2 Del Method Nasal Cannula 01/12/24 12:35 O2 Flow Rate 2 01/12/24 12:35 01/11/24 01/12/24 01/12/24 22:59 06:59 14:59 Intake Total 360 / 1735.708 880 / 2615.708 Output Total 550 / 1650 Balance 360 / 635.708 330 / 965.708 Weight last 48 hrs Weight 86.381 kg Physical Exam Narrative: General: No acute distress, AO x3, HEENT: PERRLA, pupils bilaterally equal and reactive Chest: Normal vesicular breath sounds, no added sounds, equal good air entry bilaterally CVS: S1-S2 irregularly irregular, tachycardia, soft pansystolic murmur present at apex,No gallops, no rubs Abdomen: Soft, nontender, no organomegaly, bowel sounds present Neuro: No focal deficits, no facial deformity, AO x3, power 5/5 in all limbs Data 01/12/24 04:15 01/12/24 04:15 Micro: Microbiology 01/10/24 14:45 Urine Culture - Preliminary Urine,Clean Catch Gram Negative Rods A&P Assessment and plan (1) Atrial fibrillation with RVR: It seems patient is supposed to be taking sotalol 120 mg twice daily along with Cardizem 360 mg daily as per previous discharge. Currently it seems she is only [facility]. Most likely Cardizem was stopped from low blood pressures. Currently blood pressure acceptable. Continue with increased dose of sotalol at 160 mg twice daily. Cardizem drip weaned off. Continue with oral Cardizem 60 mg twice daily. Target heart rate below 100. Appreciate cardiac echocardiogram. (2) Dehydration: Resolving. Patient has remained n.p.o. after midnight. Continue with normal saline at 75 cc/h. Watch for fluid overload. (3) Hypotension: Goal blood pressure less than 140/90 mmHg with mean over 65. Blood pressure is better now. Continue with IV hydration as above. Hold off on antihypertensives other than Cardizem. (4) Diarrhea: No further episodes. (5) HTN (hypertension): Qualifiers: Hypertension type: essential hypertension Qualified Code(s): I10 - Essential (primary) hypertension (6) Diastolic heart failure: Past history. Appreciate echocardiogram. Currently euvolemic. On room air. Qualifiers: Heart failure chronicity: chronic Qualified Code(s): I50.32 - Chronic diastolic (congestive) heart failure (7) Trimalleolar fracture of right ankle: Follows up with Dr. Montemayor. Plan for ORIF today. Perioperative antibiotics, anticoagulation, physical therapy, pain medications as per podiatry team. Patient would most likely need bridging from Lovenox to warfarin with target of INR of 2-3 going forward postoperatively with daily INR checks at shelter. Plan Full code Cardiac diet Protonix for PUD prophylaxis Continue with full dose Lovenox which will be sufficient for DVT prophylaxis Attestations Medical Necessity Statement*: Requires further hospitalization for further management of trimalleolar fracture of the ankle requiring permanent fixation, removal of external fixator, A-fib with RVR with labile blood pressures Diagnoses Atrial fibrillation with RVR I48.91 Dehydration E86.0 Hypotension I95.9 Diarrhea R19.7 Essential hypertension I10 Hypertension type: essential hypertension Chronic diastolic heart failure I50.32 Heart failure chronicity: chronic Trimalleolar fracture of right ankle S82.853M
--- NOTE | 2024-01-12 14:19 | PC.SOCIAL ---
Pg 2 IMM Explained to pt Pg 2 IMM. No questions voiced. Provided pt a copy. Initialed, dated, & timed a copy & placed in chart.
[2024-01-12] MEDS: clindamycin 900 MG/50 ML PREMIX 100 MG IV (14:35)
[2024-01-12] MEDS: BUPivacaine 0.5% INJ 30 mL INJECTION (15:26)
--- NOTE | 2024-01-12 16:18 | XR_ITS ---
WS: [id number] C-ARM RADIOGRAPHS RIGHT ANKLE; 4 IMAGES HISTORY: OR PICS COMPARISON: None available. Intraoperative imaging during tibiotalar fusion. There is a large anahi extending from the distal tibia to the calcaneus. Horizontal screws through the calcaneus. XR/XR ankle RT 2V 81564 IMPRESSION: Intraoperative imaging during tibiotalar joint fusion.
--- NOTE | 2024-01-12 16:38 | P.OP_ITS ---
Operative Report Date of procedure: January 12, 2024 Pre-op diagnosis: Right trimalleolar ankle fracture Post-op diagnosis: Same Post-op findings: Tibial talocalcaneal arthrodesis Procedure done: 1. Right ankle joint arthrodesis CPT 05052 2. Right subtalar joint arthrodesis CPT 75346 3. Removal external fixator right leg CPT 38095 Implants: TTC nail [employer] medical Surgeon: Ger Montemayor DPM Harness Worker: Andre Rodriguez Estimated blood loss: 15 cc 69 minutes Complications: None Findings: See above Procedure: Patient is a 88-year-old female that has a history of open trimalleolar ankle fracture. The patient has been an external fixator until today surgery. She returns the operating suite for removal of external fixator and definitive fixation. A lengthy discussion regarding the procedure, including risks and complications has been had with the patient and is noted in the recent clinic note. Written and verbal consent have been obtained. All patient questions have been answered to the patient?s satisfaction. No written or verbal guarantees have been given or implied. The patient has been NPO since midnight. The history has been reviewed and the history and physical is current. The signed consent was confirmed and placed in the patient chart. Patient imaging has been reviewed and is consistent with the diagnosis. Under mild sedation, the patient was brought into the operating room and placed on the table in the supine position. IV antibiotics were given by the anesthesia team as preoperative surgical prophylaxis. General sedation was then performed by the anesthesiateam. A pneumatic tourniquet was then placed about the right thigh. Attention was directed to the right leg where multiplanar external fixator was removed. The half pins of the tibia, calcaneal transfixing pin and first metatarsal pin were left intact. These were then prepped with Betadine before being removed sterilely. Next, the right lower extremity was prepped with Betadine paint scrub. Next, the leg was draped in the usual fashion. The tourniquet was then inflated to 325 mmHg. Under visualization via fluoroscopy the ankle was reduced to the appropriate position before being temporarily fixated with transfixation pins. Next, a #15 blade was used to make a transverse incision on the plantar aspect of the heel. Dissection was carried down to the level of the plantar cortex of the calcaneus using a hemostat. Next a guidewire for the reamer was drilled to the plantar aspect of the foot into the tibia through the talus and calcaneus. Good positioning of the wire was confirmed on AP and lateral views. Next the reamer was inserted over the wire to range to the calcaneus and talus and into the tibia. Next, a is inserted into the tibia and a step reamer was used to sequentially ream up to 15.5 mm until chatter was appreciated. Next a 12.5 x 180 mm nail was inserted into the canal from the calcaneus into the tibia. Good positioning of the nail was visua lized. The nail was then fixated in the calcaneus and proximal tibia before being dynamized to compress the ankle joint subtalar joint. The second calcaneal and tibial holes of the nail were then filled per the manufacture protocol. Good positioning of the screws and nail were visualized. Site was irrigated with copious amounts sterile saline before attention was directed to closure. All incisions were then closed with 3-0 nylon in combination of horizontal and simple interrupted fashion. Final C-arm images were obtained. Good positioning of the nail and screws was noted. The tourniquet was let down and good hyperemic response was noted to all digits of the right foot. The incision sites were dressed with Xeroform, 4 x 4 gauze, ABD pads before being placed in a well-padded below the knee posterior splint. The patient tolerated the procedure and anesthesia well and without complication. The patient was transported from the operating room to the recovery room with vital signs stable and vascular status intact to all digits of the right foot. The patient was given both written and verbal instructions to remain nonweightbearing to the operative extremity, to keep dressings/splint clean, dry and intact and to take pain medication as directed. The patient will follow-up in the outpatient setting at their scheduled appointment. The patient was discharged with my personal number and was instructed to call if any questions or issues should arise. They were discharged home once anesthesia criteria was met.
[2024-01-12] MEDS: HYDROmorphone 1 mg/mL INJ 1 mL 0.25 MG IVP (16:53)
[2024-01-12] MEDS: fentaNYL 50 mcg/mL INJ 2mL IVP (17:00)
[2024-01-12] MEDS: morphine 4 mg/mL SDV 1 mL 2 MG IVP (18:24)
[2024-01-12] MEDS: HYDROcodone-acetaminophen 10-325 mg Tablet 1 TAB PO (21:12)
[2024-01-12] MEDS: enoxaparin 80 mg/0.8 mL Syringe SUBCUT (21:14)
[2024-01-13] VITALS (15 sets, daily range): BP systolic 101–143; BP diastolic 60–84; PULSE 75–103; RESP 14–120; TEMP 36.3–36.9; O2SAT 89–97
[2024-01-13] MEDS: morphine 4 mg/mL SDV 1 mL 2 MG IVP ×2 (00:07→05:15)
[2024-01-13] MEDS: acetaminophen 325 mg Tablet 650 MG PO (00:32)
[2024-01-13] MEDS: LORazepam 2 mg/mL INJ 1 mL 1 MG IVP (01:29)
[2024-01-13] MEDS: HYDROcodone-acetaminophen 10-325 mg Tablet 1 TAB PO ×3 (04:34→20:49)
[2024-01-13] MEDS: sodium chloride 0.9% 1,000 ML 75 ML IV (04:35)
[2024-01-13] MEDS: phenazopyridine 100 mg Tablet 200 MG PO (05:15)
[2024-01-13 05:17] LABS: Albumin Level 2.7 g/dL (3.5-5.2); Alkaline Phosphatase 131 U/L (35-105); Blood Urea Nitrogen 8 mg/dL (8-23); Calcium 7.5 mg/dL (8.5-10.5); Carbon Dioxide 21 mmol/L (22-29); Chloride 105 mmol/L (98-107); Creatinine Clr Calc Pharmacy 33.6154; Globulin 3.1 g/dL (1.3-4.6); Glucose 96 mg/dL (65-115); Osmolality Calculated 278 mOsm/kg (285-295); Sodium 135 mmol/L (136-145); Total Bilirubin 0.3 mg/dL (0.15-1.2); Total Protein 5.8 g/dL (6.6-8.7)
[2024-01-13 05:19] LABS: Alanine Aminotransferase 17 U/L (0-33); Anion Gap 13.6 (5-19); Aspartate Amino Transferase 32 U/L (0-32); Potassium 4.6 mmol/L (3.5-5.1)
[2024-01-13] MEDS: ipratropium-albuterol 3 mL Neb INHALATION (05:31)
[2024-01-13] MEDS: pantoprazole DR 40 mg Tablet PO (08:56)
[2024-01-13] MEDS: TRAMadol 50 mg Tablet 100 MG PO (08:56)
[2024-01-13] MEDS: ALPRAZolam 0.5 mg Tablet 0.25 MG PO ×2 (08:56→15:15)
[2024-01-13] MEDS: FUROsemide 10 mg/mL SDV 4mL 40 MG IVP (08:56)
[2024-01-13] MEDS: sotalol 80 mg Tablet 160 MG PO ×2 (08:57→18:51)
[2024-01-13] MEDS: dilTIAZem 30 mg Tablet 60 MG PO ×2 (08:57→13:24)
--- NOTE | 2024-01-13 08:58 | P.PN_ITS ---
Subjective 2 Subjective: Patient seen at bedside this morning. States that her pain was severe overnight. She states that nothing has been helping with her pain at this point. However, she is in better spirits today than she was immediately postoperatively yesterday. She is also concerned about new onset wheezing and coughing that began around midnight last night. Vitals/I&O/Wt Last Vital Signs Temp 97.9 F 01/13/24 07:52 Pulse 85 01/13/24 07:52 Resp 16 01/13/24 07:52 BP 118/83 01/13/24 07:52 Pulse Ox 93 01/13/24 07:52 O2 Del Method Nasal Cannula 01/13/24 07:52 O2 Flow Rate 2 01/13/24 05:36 01/12/24 01/13/24 01/13/24 22:59 06:59 14:59 Intake Total 1410 / 1410 43.75 / 1453.75 240 / 240 Output Total 400 / 415 Balance 1395 / 1395 -356.25 / 1038.75 240 / 240 Weight last 48 hrs Weight 93 lb Physical Exam 2 Narrative: BELOW IS A FOCUSED LOWER EXTREMITY EXAM GENERAL: A&O x 3 VASCULAR: DP/PT pulses palpable 2/4 with CFT intact, <3seconds to distal digits DERMATOLOGICAL: Surgical dressing clean, dry, intact with no strikethrough noted. MUSCULOSKELETAL: Deferred secondary to postsurgical state. NEUROLOGICAL: Neurological sensation to the affected foot and ankle is present through L4-S1 dermatomes with no hyper/hypoesthesias, negative Tinel or Valleix's sign Data 01/12/24 04:15 01/13/24 04:48 Micro: Microbiology 01/10/24 14:45 Urine Culture - Preliminary Urine,Clean Catch Gram Negative Rods A&P Assessment and plan (1) Type I or II open trimalleolar fracture of right ankle: (2) Warfarin anticoagulation: Plan -Status post right tibial talocalcaneal arthrodesis with TTC nail -Labs and vitals reviewed VSS -No signs of infection -Diet: Okay for diet from podiatry standpoint -No further surgical intervention during this admission. At this point goal is to obtain pain control to the level that can easily managed in the outpatient setting. Okay to restart anticoagulant therapy as no further surgery indicated at this time. -Pain Mgmt: Per primary team. -Weight bearing: Strict nonweightbearing to right foot -Dressings: Leave surgical dressing clean, dry, intact. Reinforce if needed using 4 x 4 gauze. -Discharge plan: Patient will be discharged back to [facility] once deemed medically stable and pain is controlled to a point that can easily be managed in the outpatient setting. Strict nonweightbearing to right foot until follow-up in the outpatient setting with Dr. Montemayor. Patient has an appointment scheduled for 01/17/[address] Montemayor in the outpatient setting. -Podiatry will continue to round on patient daily and provide recommendations Attestations 2 Medical Necessity Statement*: Postoperative pain control Coding Level of Care Code Acute Code for [facility] Diagnoses Type I or II open trimalleolar fracture of right ankle S82.851B Warfarin anticoagulation Z79.01
[2024-01-13] MEDS: enoxaparin 80 mg/0.8 mL Syringe SUBCUT ×2 (10:34→20:49)
[2024-01-13 10:47] LABS: Basophils % 0.4 %; Eosinophils # 0.2 10^3/uL (0.0-0.8); Eosinophils % 2.8 %; Hematocrit 30.8 % (36-47); Lymphocytes # 1.5 10^3/uL (0.8-4.8); Lymphocytes % 26.8 %; Mean Corpuscular HGB Conc 29.5 g/dL (30-55); Mean Corpuscular Hemoglobin 26.7 pg (27-33); Mean Corpuscular Volume 90.3 fl (85-98); Mean Platelet Volume 10.4 fL (7.4-10.4); Monocytes # 0.5 10^3/uL (0.2-0.9); Monocytes % 9.6 %; Neutrophils # 3.25 10^3/uL (1.8-7.7); Nucleated Red Blood Cells % 0 %; Platelet Count 223 10^3/cmm (157-399); Red Blood Count 3.41 10^6/uL (3.85-5.65); Red Cell Distribution Width 18.8 % (12.1-15.1); White Blood Count 5.41 10^3/uL (3.29-11.43)
--- NOTE | 2024-01-13 14:56 | PC.NURSE ---
pt has been sleeping all afternoon post pain pill of norco.
[2024-01-13] MEDS: warfarin 3 mg Tablet 6 MG PO (15:12)
--- NOTE | 2024-01-13 15:53 | PM.PN ---
Subjective Subjective: Overnight patient continued to have significant pain at the OR site. Today morning states pain is slightly better on increased pain medications low after getting increased pain medication patient became drowsy with soft blood pressures. Heart rate has remained stable. Vitals/I&O/Wt Last Vital Signs Temp 97.9 F 01/13/24 07:52 Pulse 76 01/13/24 14:00 Resp 14 01/13/24 12:00 BP 101/60 01/13/24 12:00 Pulse Ox 89 L 01/13/24 12:23 O2 Del Method Nasal Cannula 01/13/24 12:23 O2 Flow Rate 2 01/13/24 05:36 01/13/24 01/13/24 01/13/24 06:59 14:59 22:59 Intake Total 43.75 / 1453.75 480 / 480 Output Total 400 / 415 2400 / 2400 Balance -356.25 / 1038.75 -1920 / -1920 Weight last 48 hrs Weight 42.184 kg Physical Exam Narrative: General: No acute distress, AO x3, drowsy HEENT: PERRLA, pupils bilaterally equal and reactive Chest: Normal vesicular breath sounds, no added sounds, equal good air entry bilaterally CVS: S1-S2 irregularly irregular, tachycardia, soft pansystolic murmur present at apex,No gallops, no rubs Abdomen: Soft, nontender, no organomegaly, bowel sounds present Neuro: No focal deficits, no facial deformity, AO x3, power 5/5 in all limbs Data 01/13/24 10:28 01/13/24 04:48 Micro: Microbiology 01/10/24 14:45 Urine Culture - Final Urine,Clean Catch Proteus mirabilis A&P Assessment and plan (1) Atrial fibrillation with RVR: It seems patient is supposed to be taking sotalol 120 mg twice daily along with Cardizem 360 mg daily as per previous discharge. Currently it seems she is only taking [facility]ol [facility]. Most likely Cardizem was stopped from low blood pressures. Currently blood pressure acceptable. Continue with increased dose of sotalol at 160 mg twice daily. Cardizem drip weaned off. Continue with oral Cardizem 60 mg twice daily. Target heart rate below 100. Appreciate cardiac echocardiogram. (2) Dehydration: Resolving. Patient has remained n.p.o. after midnight. Continue with normal saline at 75 cc/h. Watch for fluid overload. (3) Hypotension: Goal blood pressure less than 140/90 mmHg with mean over 65. Blood pressure is better now. Continue with IV hydration as above. Hold off on antihypertensives other than Cardizem. (4) Diarrhea: No further episodes. (5) HTN (hypertension): Qualifiers: Hypertension type: essential hypertension Qualified Code(s): I10 - Essential (primary) hypertension (6) Diastolic heart failure: Past history. Appreciate echocardiogram. Currently euvolemic. On room air. Qualifiers: Heart failure chronicity: chronic Qualified Code(s): I50.32 - Chronic diastolic (congestive) heart failure (7) Trimalleolar fracture of right ankle: Follows up with Dr. Montemayor. Plan for ORIF today. Perioperative antibiotics, anticoagulation, physical therapy, pain medications as per podiatry team. Patient would most likely need bridging from Lovenox to warfarin with target of INR of 2-3 going forward postoperatively with [facility] checks at [facility]. Plan Full code Cardiac diet Protonix for PUD prophylaxis Continue with full dose Lovenox which will be sufficient for DVT prophylaxis Plan for the day: Increased pain medications but will have to monitor for somnolence and soft blood pressures. For now continue with [place] 10 mg every 6 hours as needed, add tramadol 50 mg every 8 hours as needed. Physical therapy. Continue with full dose Lovenox 1 mg/kg body weight. Start on home dose of Coumadin for bridging. Check INR and repeat INR daily till target INR of 2-3 is reached. Discharge plan: Plan to discharge in next 24 hours this patient pain remained stable on Lovenox and oral Coumadin. Attestations Medical Necessity Statement*: Requires further hospitalization for pain management requiring high pain medications in a patient who is postoperative who was initially admitted for A-fib with RVR, hypotension while safe discharge planning is sought and bridging from Lovenox to Coumadin is achieved Diagnoses Atrial fibrillation with RVR I48.91 Dehydration E86.0 Hypotension I95.9 Diarrhea R19.7 Essential hypertension I10 Hypertension type: essential hypertension Chronic diastolic heart failure I50.32 Heart failure chronicity: chronic Trimalleolar fracture of right ankle S82.165Z
[2024-01-13] MEDS: TRAMadol 50 mg Tablet PO (18:52)
[2024-01-14] VITALS (8 sets, daily range): BP systolic 111–163; BP diastolic 64–101; PULSE 81–95; RESP 14–21; TEMP 36.3–36.9; O2SAT 84–97
[2024-01-14] MEDS: morphine 4 mg/mL SDV 1 mL 2 MG IVP (00:43)
[2024-01-14] MEDS: HYDROcodone-acetaminophen 10-325 mg Tablet 1 TAB PO ×3 (04:06→17:38)
[2024-01-14 04:48] LABS: INR 1.08 (0.8-1.2)
[2024-01-14 04:56] LABS: Alanine Aminotransferase 14 U/L (0-33); Albumin Level 2.9 g/dL (3.5-5.2); Alkaline Phosphatase 140 U/L (35-105); Aspartate Amino Transferase 16 U/L (0-32); Blood Urea Nitrogen 10 mg/dL (8-23); Calcium 6.9 mg/dL (8.5-10.5); Carbon Dioxide 30 mmol/L (22-29); Chloride 101 mmol/L (98-107); Creatinine Clr Calc Pharmacy 57.5867; Globulin 2.5 g/dL (1.3-4.6); Glucose 89 mg/dL (65-115); Osmolality Calculated 283 mOsm/kg (285-295); Sodium 137 mmol/L (136-145); Total Bilirubin 0.4 mg/dL (0.15-1.2); Total Protein 5.4 g/dL (6.6-8.7)
[2024-01-14] MEDS: TRAMadol 50 mg Tablet PO ×2 (06:38→19:35)
--- NOTE | 2024-01-14 09:32 | PM.PN ---
Subjective Subjective: Patient seen at bedside this morning. Resting comfortably. Patient states the pain is much improved in comparison to yesterday. She states that she feels that her mental clarity has returned to her as of last night. She does continue to express concerns over pain control in the outpatient setting. She states that she feels that if she stays here 1 more day that the pain will continue to improve to the point that she can manage outpatient. She denies any overnight events. Denies any constitutional symptoms. Vitals/I&O/Wt Last Vital Signs Temp 98.5 F 01/14/24 07:25 Pulse 89 01/14/24 07:25 Resp 17 01/14/24 07:25 BP 132/82 01/14/24 07:25 Pulse Ox 95 01/14/24 07:25 O2 Del Method Nasal Cannula 01/14/24 07:25 O2 Flow Rate 2 01/13/24 16:51 01/13/24 01/14/24 01/14/24 22:59 06:59 14:59 Intake Total 580 / 1060 960 / 2020 240 / 240 Output Total 400 / 2800 400 / 3200 Balance 180 / -1740 560 / -1180 240 / 240 Weight last 48 hrs Weight 209 lb 12.8 oz Weight 93 lb Physical Exam Narrative: BELOW IS A FOCUSED LOWER EXTREMITY EXAM GENERAL: A&O x 3 VASCULAR: DP/PT pulses palpable 2/4 with CFT intact, <3seconds to distal digits DERMATOLOGICAL: Surgical dressing clean, dry, intact with no strikethrough noted. MUSCULOSKELETAL: Deferred secondary to postsurgical state. NEUROLOGICAL: Neurological sensation to the affected foot and ankle is present through L4-S1 dermatomes with no hyper/hypoesthesias, negative Tinel or Valleix's sign Data 01/13/24 10:28 01/14/24 04:05 Micro: Microbiology 01/10/24 14:45 Urine Culture - Final Urine,Clean Catch Proteus mirabilis A&P Assessment and plan (1) Type I or II open trimalleolar fracture of right ankle: (2) Warfarin anticoagulation: Plan -Status post right tibial talocalcaneal arthrodesis with TTC nail -Labs and vitals reviewed VSS -No signs of infection -Diet: Okay for diet from podiatry standpoint -No further surgical intervention during this admission. Continue to focus on pain control. Currently taking [place] 10?325 and tramadol 50 mg as indicated by primary team. -Pain Mgmt: Per primary team. -Weight bearing: Strict nonweightbearing to right foot -Dressings: Leave surgical dressing clean, dry, intact. Reinforce if needed using 4 x 4 gauze. -Discharge plan: Patient will be discharged back to [facility] once deemed medically stable and pain is controlled to a point that can easily be managed in the outpatient setting. Strict nonweightbearing to right foot until follow-up in the outpatient setting with Dr. Montemayor. Patient has an appointment scheduled for 01/17/[address] Montemayor in the outpatient setting. -Patient is okay to discharge back to [facility] from podiatry standpoint -Podiatry will continue to round on patient daily and provide recommendations Attestations Medical Necessity Statement*: Status post right tibial talocalcaneal arthrodesis. Continued postoperative pain management. Coding Level of Care Code Acute Code for Chg Fwd Diagnoses Type I or II open trimalleolar fracture of right ankle S82.851B Warfarin anticoagulation Z79.01
[2024-01-14] MEDS: pantoprazole DR 40 mg Tablet PO (09:49)
[2024-01-14] MEDS: sotalol 80 mg Tablet 160 MG PO ×2 (09:49→17:38)
[2024-01-14] MEDS: enoxaparin 80 mg/0.8 mL Syringe SUBCUT ×2 (09:50→22:24)
--- NOTE | 2024-01-14 13:08 | P.PN_ITS ---
Subjective 2 Subjective: No events overnight. Denies any nausea vomiting, headache. States pain is slightly better but still complaining of pain in the arch of the foot going up to her hip. Requesting if she can stay for 1 more day for better pain control. Still requiring high pain medications. Became somnolent yesterday after getting higher dose of [place]. Heart rate is better controlled. Hemodynamically stable. Vitals/I&O/Wt Last Vital Signs Temp 97.4 F L 01/14/24 11:43 Pulse 95 01/14/24 11:43 Resp 21 H 01/14/24 11:43 BP 163/101 01/14/24 11:43 Pulse Ox 93 01/14/24 11:43 O2 Del Method Room Air 01/14/24 11:43 O2 Flow Rate 2 01/13/24 16:51 01/13/24 01/14/24 01/14/24 22:59 06:59 14:59 Intake Total 580 / 1060 960 / 2020 240 / 240 Output Total 400 / 2800 400 / 3200 600 / 600 Balance 180 / -1740 560 / -1180 -360 / -360 Weight last 48 hrs Weight 95.164 kg Weight 42.184 kg Physical Exam 2 Narrative: General: No acute distress, AO x3, drowsy HEENT: PERRLA, pupils bilaterally equal and reactive Chest: Normal vesicular breath sounds, no added sounds, equal good air entry bilaterally CVS: S1-S2 irregularly irregular, tachycardia, soft pansystolic murmur present at apex,No gallops, no rubs Abdomen: Soft, nontender, no organomegaly, bowel sounds present Neuro: No focal deficits, no facial deformity, AO x3, power 5/5 in all limbs Data 01/13/24 10:28 01/14/24 04:05 Micro: Microbiology 01/10/24 14:45 Urine Culture - Final Urine,Clean Catch Proteus mirabilis A&P Assessment and plan (1) Atrial fibrillation with RVR: It seems patient is supposed to be taking sotalol 120 mg twice daily along with Cardizem 360 mg daily as per previous discharge. Currently it seems she is only taking sotalol 120 mg twice daily at the longterm. Most likely Cardizem was stopped from low blood pressures. Currently blood pressure acceptable. Continue with increased dose of sotalol at 160 mg twice daily. Cardizem drip weaned off. Continue with oral Cardizem 60 mg twice daily. Target heart rate below 100. Appreciate cardiac echocardiogram. (2) Dehydration: Resolving. Patient has remained n.p.o. after midnight. Continue with normal saline at 75 cc/h. Watch for fluid overload. (3) Hypotension: Goal blood pressure less than 140/90 mmHg with mean over 65. Blood pressure is better now. Continue with IV hydration as above. Hold off on antihypertensives other than Cardizem. (4) Diarrhea: No further episodes. (5) HTN (hypertension): Qualifiers: Hypertension type: essential hypertension Qualified Code(s): I10 - Essential (primary) hypertension (6) Diastolic heart failure: Past history. Appreciate echocardiogram. Currently euvolemic. On room air. Qualifiers: Heart failure chronicity: chronic Qualified Code(s): I50.32 - Chronic diastolic (congestive) heart failure (7) Trimalleolar fracture of right ankle: Follows up with Dr. Montemayor. Plan for ORIF today. Perioperative antibiotics, anticoagulation, physical therapy, pain medications as per podiatry team. Patient would most likely need bridging from Lovenox to warfarin with target of INR of 2-3 going forward postoperatively with daily INR checks at longterm. Plan Full code Cardiac diet Protonix for PUD prophylaxis Continue with full dose Lovenox which will be sufficient for DVT prophylaxis Plan for the day: Change [place] to 5 mg every 6 hours as needed, tramadol to 50 mg every 8 hours as needed. Patient became somnolent yesterday after increased dose of [place] and tramadol together. Pain better today. Continue with full dose Lovenox and Coumadin. Check INR daily. Will need bridging from Lovenox to Coumadin. Continue with increased dose of sotalol. Continue to hold Cardizem 30 mg twice daily. Heart rates have been stable off Cardizem. Transfer to [facility] floor. Discharge plan: Plan to discharge in next 24 hours this patient pain remained stable on Lovenox and oral Coumadin. Attestations 2 Medical Necessity Statement*: Requires further hospitalization for further pain control in a patient who is postoperative for ORIF, removal of hardware from trimalleolar ankle fracture, A- fib with RVR Diagnoses Atrial fibrillation with RVR I48.91 Dehydration E86.0 Hypotension I95.9 Diarrhea R19.7 Essential hypertension I10 Hypertension type: essential hypertension Chronic diastolic heart failure I50.32 Heart failure chronicity: chronic Trimalleolar fracture of right ankle S82.944M
[2024-01-14] MEDS: warfarin 3 mg Tablet 6 MG PO (14:26)
[2024-01-14] MEDS: ALPRAZolam 0.5 mg Tablet 0.25 MG PO (19:35)
[2024-01-15] VITALS (14 sets, daily range): BP systolic 116–163; BP diastolic 63–93; PULSE 76–91; RESP 16–22; TEMP 36.5–37; O2SAT 90–98
[2024-01-15] MEDS: HYDROcodone-acetaminophen 10-325 mg Tablet 1 TAB PO ×4 (01:16→20:33)
[2024-01-15] MEDS: ALPRAZolam 0.5 mg Tablet 0.25 MG PO ×3 (03:34→20:32)
[2024-01-15 05:05] LABS: Basophils % 0.5 %; Eosinophils # 0.2 10^3/uL (0.0-0.8); Eosinophils % 2.7 %; Hematocrit 26.5 % (36-47); Lymphocytes # 1.8 10^3/uL (0.8-4.8); Lymphocytes % 29.3 %; Mean Corpuscular HGB Conc 30.6 g/dL (30-55); Mean Corpuscular Hemoglobin 26.3 pg (27-33); Mean Platelet Volume 10.8 fL (7.4-10.4); Monocytes # 0.6 10^3/uL (0.2-0.9); Monocytes % 9.5 %; Neutrophils # 3.57 10^3/uL (1.8-7.7); Neutrophils % 57.5 %; Nucleated Red Blood Cells % 0 %; Platelet Count 210 10^3/cmm (157-399); Red Blood Count 3.08 10^6/uL (3.85-5.65); Red Cell Distribution Width 18.8 % (12.1-15.1); White Blood Count 6.21 10^3/uL (3.29-11.43)
[2024-01-15 05:17] LABS: INR 1.06 (0.8-1.2)
[2024-01-15 05:28] LABS: Alanine Aminotransferase 10 U/L (0-33); Albumin Level 2.6 g/dL (3.5-5.2); Alkaline Phosphatase 123 U/L (35-105); Anion Gap 8.8 (5-19); Aspartate Amino Transferase 15 U/L (0-32); Blood Urea Nitrogen 8 mg/dL (8-23); Calcium 7.2 mg/dL (8.5-10.5); Carbon Dioxide 31 mmol/L (22-29); Chloride 101 mmol/L (98-107); Creatinine Clr Calc Pharmacy 58.3383; Glucose 98 mg/dL (65-115); Osmolality Calculated 282 mOsm/kg (285-295); Potassium 3.8 mmol/L (3.5-5.1); Sodium 137 mmol/L (136-145); Total Bilirubin 0.3 mg/dL (0.15-1.2); Total Protein 5.6 g/dL (6.6-8.7)
[2024-01-15] MEDS: pantoprazole DR 40 mg Tablet PO (07:46)
[2024-01-15] MEDS: enoxaparin 80 mg/0.8 mL Syringe SUBCUT ×2 (07:47→20:33)
[2024-01-15] MEDS: sotalol 80 mg Tablet 160 MG PO ×2 (07:47→17:51)
--- NOTE | 2024-01-15 08:02 | P.PN_ITS ---
Subjective 2 Subjective: Patient seen at bedside this morning. Patient was sitting up wheezing stating she is extremely short of breath and try not to panic. She states that this started early this morning. Patient also states that her pain is rated as an 8 out of 10. Vitals/I&O/Wt Last Vital Signs Temp 98.6 F 01/15/24 04:55 Pulse 87 01/15/24 05:18 Resp 18 01/15/24 04:55 BP 125/80 01/15/24 04:55 Pulse Ox 96 01/15/24 04:55 O2 Del Method Nasal Cannula 01/15/24 04:55 O2 Flow Rate 2 01/13/24 16:51 01/14/24 01/15/24 01/15/24 22:59 06:59 14:59 Intake Total 480 / 960 240 / 1200 Output Total 850 / 1450 Balance 480 / 360 -610 / -250 Weight last 48 hrs Weight 215 lb Weight 209 lb 12.8 oz Physical Exam 2 Narrative: BELOW IS A FOCUSED LOWER EXTREMITY EXAM GENERAL: A&O x 3 VASCULAR: DP/PT pulses palpable 2/4 with CFT intact, <3seconds to distal digits DERMATOLOGICAL: Surgical dressing clean, dry, intact with no strikethrough noted. MUSCULOSKELETAL: Deferred secondary to postsurgical state. NEUROLOGICAL: Neurological sensation to the affected foot and ankle is present through L4-S1 dermatomes with no hyper/hypoesthesias, negative Tinel or Valleix's sign Data 01/15/24 04:25 01/15/24 04:25 A&P Assessment and plan (1) Type I or II open trimalleolar fracture of right ankle: (2) Warfarin anticoagulation: Plan -Status post right tibial talocalcaneal arthrodesis with TTC nail -New onset shortness of breath. Discussed with nurse. Breathing treatment started. Hospitalist informed by nurse. -Labs and vitals reviewed VSS -No signs of infection -Diet: Okay for diet from podiatry standpoint -No further surgical intervention during this admission. Continue to focus on pain control. Currently taking [place] 10?325 and tramadol 50 mg as indicated by primary team. -Pain Mgmt: Per primary team. -Weight bearing: Strict nonweightbearing to right foot -Dressings: Leave surgical dressing clean, dry, intact. Reinforce if needed using 4 x 4 gauze. -Discharge plan: Patient will be discharged back to [facility] once deemed medically stable and pain is controlled to a point that can easily be managed in the outpatient setting. Strict nonweightbearing to right foot until follow-up in the outpatient setting with Dr. Montemayor. Patient has an appointment scheduled for 01/17/[address] Montemayor in the outpatient setting. -Patient is okay to discharge back to [facility] from podiatry standpoint once medically stable. -Podiatry will continue to round on patient daily and provide recommendations Attestations 2 Medical Necessity Statement*: See hospitalist note Coding Level of Care Code Acute Code for Chg Fwd Diagnoses Type I or II open trimalleolar fracture of right ankle S82.851B Warfarin anticoagulation Z79.01
[2024-01-15] MEDS: ipratropium-albuterol 3 mL Neb INHALATION ×3 (09:31→20:24)
[2024-01-15] MEDS: warfarin 3 mg Tablet 6 MG PO (14:10)
--- NOTE | 2024-01-15 15:31 | XRR_ITS ---
PROCEDURE INFORMATION: Exam: XR Chest Exam date and time: 01/15/2024 3:51 PM Age: 88 years old Clinical indication: Dyspnea TECHNIQUE: Imaging protocol: Radiologic exam of the chest. Views: 1 view. COMPARISON: CR (CHEST, ) 12/10/2023 2:32 PM FINDINGS: Lungs: Unremarkable. No consolidation. Pleural spaces: Unremarkable. No pleural effusion. No pneumothorax. Heart/Mediastinum: Unremarkable. No cardiomegaly. Bones/joints: Unremarkable. XR/XR chest 1V portable [id number] IMPRESSION: No acute findings.
--- NOTE | 2024-01-15 15:32 | P.PN_ITS ---
Subjective 2 Subjective: Was having trouble breathing this morning, having difficulty catching a deep breath. She normally uses oxygen at night, was started on nasal cannula here, she states she was experiencing some wheezing. Denies chest pain or pressure. No hemop She otherwise does report that her symptoms this morning did respond to breathing treatment.tysis. She also states that she should be in charge of the pain medication and was worried that it was going to be cut down as per discussion with prior provider. She states that she has still been having intermittent pain in her leg, also worries that she might not receive pain medication on time at nursing facility. Discussed with her risks of opioid medication including risks (depression, altered mental status, risk of constipation, risk of tolerance, addiction, etc. She verbalized understanding, states that she is only asking to continue to follow pain currently every 6 hours as needed intermittently with Tylenol. Additionally she takes Ativan as needed at home which she states she takes rarely for anxiety attacks, discussed with her also risks with benzodiazepine, and combination opiate plus benzodiazepine with risk of history depression, altered mental status. She lives alone. Additionally discussed with her risks especially she will be by herself and she will try to taper off the medications [facility] to avoid potential adverse effects at home. Discussed with her strict fall precautions at home, avoiding any clutter on the floor. Additionally discussed with her as she is by herself consideration of medic alert button, she had considered giving herself with her, but discussed with her in case of a fall may not be able to use her cell phone, and she concedes that a simple button would be easier to activate in case of a fall, and some of them do activate by themselves. She is going to consider given she understands the benefits and risks. Vitals/I&O/Wt Last Vital Signs Temp 97.7 F 01/15/24 07:57 Pulse 80 01/15/24 15:30 Resp 16 01/15/24 15:21 BP 150/80 01/15/24 11:46 Pulse Ox 96 01/15/24 15:21 O2 Del Method Nasal Cannula 01/15/24 15:21 O2 Flow Rate 2 01/15/24 15:21 01/15/24 01/15/24 01/15/24 06:59 14:59 22:59 Intake Total 240 / 1200 120 / 120 Output Total 850 / 1450 1250 / 1250 Balance -610 / -250 -1130 / -1130 Weight last 48 hrs Weight 97.522 kg Weight 95.164 kg Physical Exam 2 Narrative: Awake and alert. Conversant. Const: COMMON NORMALS: patient oriented x3 and alert GENERAL APPEARANCE: c ooperative ORIENTATION/CONSCIOUSNESS: Yes awake HENMT: COMMON NORMALS: oropharynx normal Neck/C-Spine: COMMON NORMALS: no JVD Resp: COMMON NORMALS: normal respiratory effort and clear to auscultation bilaterally AUSCULTATION: clear to auscultation bilaterally OTHER: No wheezing with speaking or breathing, but when preparing for a long examination starts to have some mild upper respiratory wheeze. Cardio: COMMON NORMALS: no JVD, regular rhythm, S1 normal heart sound present, S2 normal heart sound present and No murmurs present (Cardio) RHYTHM: regular rhythm HEART SOUNDS: S1 normal heart sound present and S2 normal heart sound present GI: COMMON NORMALS: Normal to inspection, nondistended, normoactive bowel sounds present, Soft to palpation and non-tender PALPATION: Yes Soft to palpation Extremity: COMMON NORMALS: no joint enlargement and no pedal edema N ARRATIVE EXTREMITY EXAM: RLE in postoperative dressing. Neuro: COMMON NORMALS: patient oriented x3 and moves all extremities S ENSORIUM/ORIENTATION: Yes alert Skin: COMMON NORMALS: no rashes or lesions noted GENERAL SKIN EXAM: no rashes or lesions noted Data 01/15/24 04:25 01/15/24 04:25 A&P Assessment and plan (1) Dyspnea: Dyspnea, wheezingthis morning, felt she could not breathe. Reviewed vitals, CBC, CMP, INR. Question of possible bronchitis, aspiration? No phlegm. Anticoagulated. Some intermittent upper resp wheeze, not with breathing or speaking, but when getting ready to listen. No perioral swelling. Obtain CXR. Discussed w RT. ST white. (2) Trimalleolar fracture of right ankle: She is still having pain and needing hydrocodone, states is not ready for decreasing the medication. Reviewed podiarty note. Follows up with Dr. Montemayor. S/p ORIF. Discussed with piano case and bench assembler. Perioperative antibiotics, anticoagulation, physical therapy, pain medications as per podiatry team. Patient would most likely need bridging from Lovenox to warfarin with target of INR of 2-3 going forward postoperatively with daily INR checks at [facility]. (3) Atrial fibrillation with RVR: Improved. Cont sotalol. Appreciate cardiac echocardiogram. (4) Dehydration: DC IVF. (5) Hypotension: Improved. (6) Diarrhea: No further episodes. (7) HTN (hypertension): Qualifiers: Hypertension type: essential hypertension Qualified Code(s): I10 - Essential (primary) hypertension (8) Diastolic heart failure: Past history. Appreciate echocardiogram. Currently euvolemic. On room air. Qualifiers: Heart failure chronicity: chronic Qualified Code(s): I50.32 - Chronic diastolic (congestive) heart failure Plan Full code Cardiac diet Protonix for PUD prophylaxis Continue with full dose Lovenox which will be sufficient for DVT prophylaxis Attestations 2 Medical Necessity Statement*: Requires further hospitalization for assessment of dyspnea, wheezing, further pain control in a patient who is postoperative for ORIF and High MDM includes amount and/or complexity of data reviewed/ordered [ previous or external records, resulted lab(s)/test(s), ordered lab(s)/test(s) and other healthcare professional discussion] as documented Diagnoses Dyspnea R06.00 Trimalleolar fracture of right ankle S82.851A Atrial fibrillation with RVR I48.91 Dehydration E86.0 Hypotension I95.9 Diarrhea R19.7 Essential hypertension I10 Hypertension type: essential hypertension Chronic diastolic heart failure I50.32 Heart failure chronicity: chronic
--- NOTE | 2024-01-15 15:39 | PC.SOCIAL ---
IMM Updated Updated pt on IMM. No questions voiced. Provided pt a copy. Initialed, dated, & timed copy in chart.
[2024-01-15] MEDS: acetaminophen 325 mg Tablet 650 MG PO (22:54)
[2024-01-15] MEDS: TRAMadol 50 mg Tablet PO (22:56)
[2024-01-16] VITALS (12 sets, daily range): BP systolic 147–161; BP diastolic 76–99; PULSE 77–94; RESP 16–18; TEMP 36.1–36.4; O2SAT 91–97
[2024-01-16] MEDS: HYDROcodone-acetaminophen 10-325 mg Tablet 1 TAB PO ×2 (03:55→13:06)
[2024-01-16] MEDS: ALPRAZolam 0.5 mg Tablet 0.25 MG PO ×2 (03:56→13:06)
[2024-01-16 06:11] LABS: Basophils % 0.6 %; Eosinophils # 0.2 10^3/uL (0.0-0.8); Eosinophils % 3.5 %; Hematocrit 28.2 % (36-47); Lymphocytes # 1.9 10^3/uL (0.8-4.8); Lymphocytes % 36.8 %; Mean Corpuscular HGB Conc 30.9 g/dL (30-55); Mean Corpuscular Hemoglobin 26.9 pg (27-33); Mean Platelet Volume 9.7 fL (7.4-10.4); Monocytes # 0.4 10^3/uL (0.2-0.9); Monocytes % 8.6 %; Neutrophils # 2.59 10^3/uL (1.8-7.7); Neutrophils % 50.3 %; Nucleated Red Blood Cells % 0 %; Platelet Count 216 10^3/cmm (157-399); Red Blood Count 3.24 10^6/uL (3.85-5.65); Red Cell Distribution Width 18.9 % (12.1-15.1); White Blood Count 5.14 10^3/uL (3.29-11.43)
[2024-01-16 06:23] LABS: INR 1.12 (0.8-1.2)
[2024-01-16 06:30] LABS: Alanine Aminotransferase 11 U/L (0-33); Albumin Level 2.7 g/dL (3.5-5.2); Alkaline Phosphatase 131 U/L (35-105); Anion Gap 12.7 (5-19); Aspartate Amino Transferase 18 U/L (0-32); Blood Urea Nitrogen 8 mg/dL (8-23); Calcium 8.1 mg/dL (8.5-10.5); Carbon Dioxide 30 mmol/L (22-29); Chloride 104 mmol/L (98-107); Creatinine Clr Calc Pharmacy 57.5251; Globulin 3.2 g/dL (1.3-4.6); Glucose 97 mg/dL (65-115); Osmolality Calculated 292 mOsm/kg (285-295); Potassium 4.7 mmol/L (3.5-5.1); Sodium 142 mmol/L (136-145); Total Bilirubin 0.3 mg/dL (0.15-1.2); Total Protein 5.9 g/dL (6.6-8.7)
--- NOTE | 2024-01-16 07:49 | P.PN_ITS ---
Subjective 2 Subjective: Patient seen at bedside this morning. Resting comfortably. Eating breakfast. Breathing is under control today. She states that her pain is still not completely under control at this point. She wants to be as comfortable as possible prior to leaving the hospital. Vitals/I&O/Wt Last Vital Signs Temp 97.6 F 01/16/24 04:00 Pulse 82 01/16/24 05:47 Resp 16 01/16/24 04:00 BP 151/96 01/16/24 04:00 Pulse Ox 94 01/16/24 04:00 O2 Del Method Nasal Cannula 01/15/24 23:46 O2 Flow Rate 2 01/15/24 20:05 01/15/24 01/16/24 01/16/24 22:59 06:59 14:59 Intake Total 240 / 360 500 / 860 Output Total 450 / 1700 1000 / 2700 Balance -210 / -1340 -500 / -1840 Weight last 48 hrs Weight 209 lb 6 oz Weight 215 lb Physical Exam 2 Narrative: BELOW IS A FOCUSED LOWER EXTREMITY EXAM GENERAL: A&O x 3 VASCULAR: DP/PT pulses palpable 2/4 with CFT intact, <3seconds to distal digits DERMATOLOGICAL: Surgical dressing clean, dry, intact with no strikethrough noted. MUSCULOSKELETAL: Deferred secondary to postsurgical state. NEUROLOGICAL: Neurological sensation to the affected foot and ankle is present through L4-S1 dermatomes with no hyper/hypoesthesias, negative Tinel or Valleix's sign Data 01/16/24 06:03 01/16/24 06:03 A&P Assessment and plan (1) Type I or II open trimalleolar fracture of right ankle: (2) Warfarin anticoagulation: Plan -Status post right tibial talocalcaneal arthrodesis with TTC nail -Shortness of breath improved -Severe pain persists -Labs and vitals reviewed VSS -No signs of infection -Diet: Okay for diet from podiatry standpoint -No further surgical intervention during this admission. Continue to focus on pain control. Currently taking [place] 10?325 and tramadol 50 mg as indicated by primary team. -Consult placed to anesthesia for popliteal block prior to discharge. Case was discussed with anesthesiologist. -Pain Mgmt: Per primary team. -Weight bearing: Strict nonweightbearing to right foot -Dressings: Leave surgical dressing clean, dry, intact. Reinforce if needed using 4 x 4 gauze. -Discharge plan: Patient will be discharged back to [facility] once deemed medically stable and pain is controlled to a point that can easily be managed in the outpatient setting. Strict nonweightbearing to right foot until follow-up in the outpatient setting with Dr. Montemayor. Patient has an appointment scheduled for 01/17/[address] Montemayor in the outpatient setting. -Patient is okay to discharge back to [facility] from podiatry standpoint once medically stable. -Podiatry will continue to round on patient daily and provide recommendations Attestations 2 Medical Necessity Statement*: See hospitalist note Coding Level of Care Code Acute Code for [facility] Fwd Diagnoses Type I or II open trimalleolar fracture of right ankle S82.851B Warfarin anticoagulation Z79.01
[2024-01-16] MEDS: ipratropium-albuterol 3 mL Neb INHALATION ×2 (08:26→13:50)
[2024-01-16] MEDS: TRAMadol 50 mg Tablet PO (09:12)
[2024-01-16] MEDS: enoxaparin 80 mg/0.8 mL Syringe SUBCUT (09:12)
[2024-01-16] MEDS: pantoprazole DR 40 mg Tablet PO (09:12)
[2024-01-16] MEDS: sotalol 80 mg Tablet 160 MG PO (09:12)
--- NOTE | 2024-01-16 10:53 | SUR.PREOP ---
1052-Patient transferred from [place] to [facility] for a popiteal block with Dr Soria
--- NOTE | 2024-01-16 11:01 | SUR.PREOP ---
1101-timeout for block was completed at bedside by dr retana, patient agreed to proceed.
--- NOTE | 2024-01-16 11:18 | SUR.PREOP ---
1115-block was completed at bedside, patient tolerated well.
--- NOTE | 2024-01-16 11:19 | P.ANESUD_ITS ---
Pre-Anesthetic Update Pre-Anesthetic Assessment: Date of Surgery/Procedure: 01/16/24 Preop Mary gnosis: Right trimalleolar ankle fracture Proposed Procedure: Operation Date: 01/10/24 07:00 Proposed Procedures p Ankle tibiotalar calcaneal arthrodesis(Right) - Ger Montemayor DPM s Hardware Removal external fixator right ankle under anesthesia(Right) - Ger Montemayor DPM s TendoAchilles Lengthening Ankle(Right) - Ger Montemayor DPM Operation Date: 01/12/24 13:10 Proposed Procedures p Tibiotalar canceal arthrodesis(Right) - Ger Montemayor DPM s Hardware Removal external fixator right ankle(Right) - Ger Montemayor DPM s Tendon Lengthening Foot TendoAchilles Lengthening Ankle(Right) - Ger Montemayor DPM Any changes to Pre-Anesthetic Assessment?: No Last Intake: Intake Last Liquid Date 01/11/24 Last Liquid Time 22:00 Last Solid Date 01/12/24 Last Solid Time 01:00 Labs Last 48hrs: Short CBC 01/15/24 01/16/24 Range/Units 04:25 06:03 WBC 6.21 5.14 (3.29-11.43) 10^ 3/uL Hgb 8.10 L 8.70 L (11.27-16.99) g/ dL Hct 26.5 L 28.2 L (36-47) % MCV 86.0 87.0 (85-98) fl Plt Count 210 216 (157-399) 10^3/c mm Neut % (Auto) 57.5 50.3 % Neut # (Auto) 3.57 2.59 (1.8-7.7) 10^3/u L BMP 01/15/24 01/16/24 04:25 06:03 Sodium 137 142 Potassium 3.8 4.7 Chloride 101 104 Carbon Dioxide 31 H 30 H BUN 8 8 Creatinine 0.7 0.7 Glucose 98 97 Calcium 7.2 L 8.1 L Liver Function 01/15/24 01/16/24 Range/Units 04:25 06:03 Total Bilirubin 0.3 0.3 (0.15-1.2) mg/dL AST 15 18 (0-32) U/L ALT 10 11 (0-33) U/L Alkaline Phosphata se 123 H 131 H (35-105) U/L Albumin 2.6 L 2.7 L (3.5-5.2) g/dL Coags 01/15/24 01/16/24 04:25 06:03 PT 14.10 14.80 INR 1.06 1.12 Vitals: Temperature 97.3 F L 01/16/24 10:54 Temperature Source Temporal Artery S can 01/16/24 10:54 Pulse Rate 79 01/16/24 11:18 Pulse Rhythm Regular 01/15/24 20:00 Pulse Strength 3+ Normal 01/15/24 20:00 Respiratory Rate 18 01/16/24 11:18 Respiratory Effort Spontaneous, Non- Labored 01/15/24 20:00 Respiratory Depth Normal 01/15/24 20:00 Respiratory Patter n Irregular 01/15/24 20:00 Blood Pressure 153/76 01/16/24 11:18 Blood Pressure Nahomy n 101 01/16/24 11:18 Blood Pressure Pos ition Semi Fowlers 01/16/24 11:18 Pulse Oximetry 93 01/16/24 11:18 Oxygen Delivery Me thod Nasal Cannula 01/16/24 11:18 Oxygen Flow Rate 1 01/16/24 11:18 Exam: Pre-Anes Outpt Exam: alert, oriented x 3, clear to auscultation bilaterally and regular rate & rhythm Other Pertinent Information: Other Pertinent Information: Popliteal nerve block for persistent pain Cardiac Studies: Echocardiogram 01/10/24
--- NOTE | 2024-01-16 11:19 | ANES.PROC ---
Anesthesia Procedures Procedure/Date: 01/16/24 Nerve Block ^: Nerve Block 1: Main Anesthesia: general anesthesia Time Out Performed: Yes Consent: requested by attending/covering physician, from patient, from other, risks and benefits reviewed and patient agrees to proceed Nerve block location: popliteal (R) Anesthesia monitors applied: pulse oximetry, EKG, BP cuff and oxygen Nerve block position: supine Anesthetic Used: ropivicaine 0.5% (30 ml) and with decadron (4 mg) Ultrasound used to: recognize landmarks Interscalene/Femoral BLK: 4 stimuplex 21 g needle used for position and inplane approach, visualize local anesthetic spread and no vascular puncture identified Injection: neg aspiration of heme Patient Tolerated Procedure: well Additional Comments: Difficult placement due to patient's abundant excess tissue, requiring 3 attempts, patient tolerated well
--- NOTE | 2024-01-16 11:55 | SUR.PREOP ---
1150-patient transferred to [place] on bed. VSS, block working well, no complaints.
--- NOTE | 2024-01-16 12:53 | P.DS_ITS ---
Discharge Providers Date of Admission: 01/10/24 09:22 Date of Discharge: January 16, 2024 Attending Provider at Admission: Ger Montemayor DPM Attending Provider at Discharge: Vernon Cleary Primary Care Provider: Liliana Ko DO Diagnoses at Discharge Discharge Diagnosis (1) Type I or II open trimalleolar fracture of right ankle: Status: Resolved (2) Warfarin anticoagulation: Status: Acute Reason for Visit Reason for Visit: S82.851A M21.962 Hospital Course Hospital Course 88-year-old lady with prior trimalleolar fracture of the right ankle with external fixator was admitted after finding of atrial fibrillation with RVR on coming to the hospital for joint arthrodesis, initially with hypotension, Cardizem was stopped, sotalol dose was increased. Received IV fluid. Blood pressure and heart rates improved. Underwent arthrodesis on 01/11. Pain control had to be optimized, and podiatry is also arranged for a nerve block for her today to assist with pain control and help her wean down on opioids. Continue to wean down opiates, avoid if possible. Combination with lorazepam. She takes lorazepam usually only 1 small for panic attack. We had an extensive discussion regarding risks with opioids, chest pain, and especially combination. Avoid increasing doses. Maintain fall precautions. She will benefit from further rehabilitation and is discharging back to [facility] and is okay to discharge as per discussion with podiatry. With increased risk of DVT she is continued on Coumadin although it is currently subtherapeutic so has been also bridged with Lovenox. Continue INR checks daily, target INR 2-3. Discontinue Lovenox once target achieved. Continue warfarin also for atrial fibrillation stroke risk reduction. As discussed with her, upon discharge home she would benefit from medic alert button as she lives alone in case she feels unwell or suffers a fall. She will consider this further but will likely be open to the idea. Follow-up regarding congestive heart failure, hypertension, other chronic problems. Physical Exam Narrative: Awake and alert. Conversant. Visited by family. Const: COMMON NORMALS: patient oriented x3 and alert GENERAL APPEARANCE: cooperative ORIENTATION/CONSCIOUSNESS: Yes awake HENMT: COMMON NORMALS: oropharynx normal Neck/C-Spine: COMMON NORMALS: no JVD Resp: COMMON NORMALS: normal respiratory effort and clear to auscultation bilaterally AUSCULTATION: clear to auscultation bilaterally OTHER: No wheezing with speaking or breathing, but when preparing for a long examination starts to have some mild upper respiratory wheeze. Cardio: COMMON NORMALS: no JVD, regular rhythm, S1 normal heart sound present, S2 normal heart sound present and No murmurs present (Cardio) RHYTHM: regular rhythm HEART SOUNDS: S1 normal heart sound present and S2 normal heart sound present GI: COMMON NORMALS: Normal to inspection, nondistended, normoactive bowel sounds present, Soft to palpation and non-tender PALPATION: Yes Soft to palpation Extremity: COMMON NORMALS: no joint enlargement and no pedal edema NARRATIVE EXTREMITY EXAM: RLE in postoperative dressing. Neuro: COMMON NORMALS: patient oriented x3 and moves all extremities SENSORIUM/ORIENTATION: Yes alert Skin: COMMON NORMALS: no rashes or lesions noted GENERAL SKIN EXAM: no rashes or lesions noted Discharge Data Studies Completed and Pending Completed Studies During Hospitalization Category Date Time Status CXRP [XR chest 1V portable [id number]] Routine Exams 01/15/24 15:31 Completed XR ankle RT 2V [id number] Routine Exams 01/12/24 16:18 Completed CV. echo complete* [id number] Routine Ultrasound 01/10/24 14:31 Completed Pending at discharge Category Date Time Status Complete Blood Count w/Auto AM LABS Lab 01/17/24 04:00 Ordered Complete Blood Count w/Auto AM LABS Lab 01/18/24 04:00 Ordered Comprehensive Metabolic Panel AM LABS Lab 01/17/24 04:00 Ordered Comprehensive Metabolic Panel AM LABS Lab 01/18/24 04:00 Ordered Prothrombin Time INR AM LABS Lab 01/17/24 04:00 Ordered SARS Covid-2 Antigen Stat Lab 01/16/24 08:51 Uncollected Radiology Impressions Ankle X-Ray 01/12/24 16:18 IMPRESSION: Intraoperative imaging during tibiotalar joint fusion. Chest X-Ray 01/15/24 15:31 IMPRESSION: No acute findings. Laboratory Results WBC 5.14 10^3/uL (3.29-11.43) 01/16/24 06:03 RBC 3.24 10^6/uL (3.85-5.65) L 01/16/24 06:03 Hgb 8.70 g/dL (11.27-16.99) L 01/16/24 06:03 Hct 28.2 % (36-47) L 01/16/24 06:03 MCV 87.0 fl (85-98) 01/16/24 06:03 MCH 26.9 pg (27-33) L 01/16/24 06:03 MCHC 30.9 g/dL (30-55) 01/16/24 06:03 RDW 18.9 % (12.1-15.1) H 01/16/24 06:03 Plt Count 216 10^3/cmm (157-399) 01/16/24 06:03 MPV 9.7 fL (7.4-10.4) 01/16/24 06:03 Neut % (Auto) 50.3 % 01/16/24 06:03 Lymph % (Auto) 36.8 % 01/16/24 06:03 [place] % (Auto) 8.6 % 01/16/24 06:03 Eos % (Auto) 3.5 % 01/16/24 06:03 Baso % (Auto) 0.6 % 01/16/24 06:03 Neut # (Auto) 2.59 10^3/uL (1.8-7.7) 01/16/24 06:03 Lymph # (Auto) 1.9 10^3/uL (0.8-4.8) 01/16/24 06:03 [place] # (Auto) 0.4 10^3/uL (0.2-0.9) 01/16/24 06:03 Eos # (Auto) 0.2 10^3/uL (0.0-0.8) 01/16/24 06:03 Baso # (Auto) 0.0 10^3/uL (0.0-0.1) 01/16/24 06:03 Nucleated RBC % (auto) 0 % 01/16/24 06:03 Nucleated RBCs # 0.0 /100WBC 01/16/24 06:03 PT 14.80 SECONDS (12.1-14.9) 01/16/24 06:03 INR 1.12 (0.8-1.2) 01/16/24 06:03 Sodium 142 mmol/L (136-145) 01/16/24 06:03 Potassium 4.7 mmol/L (3.5-5.1) 01/16/24 06:03 Chloride 104 mmol/L (98-107) 01/16/24 06:03 Carbon Dioxide 30 mmol/L (22-29) H 01/16/24 06:03 Anion Gap 12.7 (5-19) 01/16/24 06:03 BUN 8 mg/dL (8-23) 01/16/24 06:03 Creatinine 0.7 mg/dL (0.5-0.9) 01/16/24 06:03 GFR Calculation Not Reportable 01/16/24 06:03 Glucose 97 mg/dL (65-115) 01/16/24 06:03 Calculated Osmolality 292 mOsm/kg (285-295) 01/16/24 06:03 Calcium 8.1 mg/dL (8.5-10.5) L 01/16/24 06:03 Phosphorus 3.2 mg/dL (2.5-4.5) 01/11/24 03:57 Magnesium 1.7 mg/dL (1.7-2.3) 01/11/24 03:57 Total Bilirubin 0.3 mg/dL (0.15-1.2) 01/16/24 06:03 AST 18 U/L (0-32) 01/16/24 06:03 ALT 11 U/L (0-33) 01/16/24 06:03 Alkaline Phosphatase 131 U/L (35-105) H 01/16/24 06:03 Troponin T 5th Gen ng/L Cancelled 01/10/24 09:41 Troponin T Baseline 10 ng/L (0-10) 01/10/24 09:41 Troponin T 120 Minute 12.79 ng/L (0-10) H 01/10/24 12:11 Delta Troponin T 2.79 ABS# (0-10) 01/10/24 12:11 Troponin T Hi Sens 6Hr 13.67 ng/L (0-10) H 01/10/24 15:55 Troponin T Hi Sens 6Hr Delta 3.67 ng/L (0-12) 01/10/24 15:55 Total Protein 5.9 g/dL (6.6-8.7) L 01/16/24 06:03 Albumin 2.7 g/dL (3.5-5.2) L 01/16/24 06:03 Globulin 3.2 g/dL (1.3-4.6) 01/16/24 06:03 Vitamin B12 245 pg/mL (232-1245) 01/10/24 09:41 Urine Color [place] (Yellow) A 01/10/24 14:45 Urine Appearance Hazy (CLEAR) A 01/10/24 14:45 Urine pH 7 (5-7) 01/10/24 14:45 Ur Specific [place] 1.015 (1.005-1.030) 01/10/24 14:45 Urine Protein Not tested (Negative) 01/10/24 14:45 Urine Glucose (UA) Not tested (Normal) 01/10/24 14:45 Urine Ketones Not tested (Negative) H 01/10/24 14:45 Urine Blood Not tested (Negative) A 01/10/24 14:45 Urine Nitrate Not tested (Negative) A 01/10/24 14:45 Urine Bilirubin Not tested (Negative) 01/10/24 14:45 Urine Urobilinogen Not tested mg/dL (Negative) A 01/10/24 14:45 Ur Leukocyte Esterase Not tested (Negative) A 01/10/24 14:45 Urine RBC 0-4 /hpf (0-2) H 01/10/24 14:45 Urine WBC 25-40 /hpf (0-5) H 01/10/24 14:45 Ur Squamous Epith Cells None /hpf (0-5) 01/10/24 14:45 Ur Renal Epithelial Cell 0-4 /hpf 01/10/24 14:45 Triple Phos Crystals 15-25 /hpf H 01/10/24 14:45 Amorphous Sediment 1+ /hpf 01/10/24 14:45 Urine Bacteria 1+ /hpf (NONE) H 01/10/24 14:45 Urine Mucus Trace /hpf 01/10/24 14:45 Ur Oval Fat Bodies 1+ /hpf 01/10/24 14:45 Adenovirus (PCR) Not detected (NOT DETECT) 01/10/24 15:15 C. pneumoniae DNA (PCR) Not detected (NOT DETECT) 01/10/24 15:15 Coronavirus 229E (PCR) Not detected (NOT DETECT) 01/10/24 15:15 Human Metapneumovir PCR Not detected (NOT DETECT) 01/10/24 15:15 Influenza A (H1) PCR Not detected (NOT DETECT) 01/10/24 15:15 Influ A (H1/09) PCR Not detected (NOT DETECT) 01/10/24 15:15 Influenza A (H3) PCR Not detected (NOT DETECT) 01/10/24 15:15 Influenza Type A (PCR) Not detected (NOT DETECT) 01/10/24 15:15 Influenza Type B (PCR) Not detected (NOT DETECT) 01/10/24 15:15 M. pneumoniae (PCR) Not detected (NOT DETECT) 01/10/24 15:15 Parainfluenza 1 (PCR) Not detected (NOT DETECT) 01/10/24 15:15 Parainfluenza 2 (PCR) Not detected (NOT DETECT) 01/10/24 15:15 Parainfluenza 3 (PCR) Not detected (NOT DETECT) 01/10/24 15:15 Parainfluenza 4 (PCR) Not detected (NOT DETECT) 01/10/24 15:15 RSV Type A (PCR) Not detected (NOT DETECT) 01/10/24 15:15 RSV Type B (PCR) Not detected (NOT DETECT) 01/10/24 15:15 Entero/Rhino (PCR) Not detected (NOT DETECT) 01/10/24 15:15 SARS-CoV-2 (PCR) Not detected (NOT DETECT) 01/10/24 15:15 Vitals Last Vital Signs Temp 97.0 F L 01/16/24 11:46 Pulse 86 01/16/24 12:41 Resp 18 01/16/24 12:41 BP 161/80 01/16/24 12:41 Pulse Ox 91 01/16/24 12:41 O2 Del Method Nasal Cannula 01/16/24 12:41 O2 Flow Rate 1 01/16/24 11:46 Discharge Plan Discharge Patient Disposition: Xfer SNF Condition: Stable Prescriptions: New hydrocodone-acetaminophen 10-325 mg tablet 1 tab PO Q6H PRN (Reason: pain) Qty: 28 0RF Rx Instructions: Take one tablet PO at 0000, 0600, 1200, 1800, every 6 hours senna 8.6 mg tablet 8.6 mg PO BID PRN (Reason: constipation) Qty: 20 0RF sotalol 80 mg Tablet 160 mg PO BID Qty: 120 0RF Cardizem CD 240 mg capsule,extended release 24hr 240 mg PO QAM Qty: 30 0RF Continued lorazepam 0.5 mg tablet 0.5 mg PO TID PRN (Reason: Anxiety) omeprazole 20 mg capsule,delayed release(DR/EC) 20 mg PO BID Qty: 60 0RF fluticasone propionate 50 mcg/actuation spray,suspension 2 spray INTRANASAL DAILY PRN (Reason: allergies) acetaminophen 325 mg Tablet 650 mg PO Q6H PRN (Reason: pain or elevated temp) warfarin 6 mg Tablet See Rx Instructions .ROUTE .COMPLEX Rx Instructions: TAKE 6 MG BY MOUTH DAILY ON MONDAY,MONDAY, MONDAY, MONDAY, AND MONDAY enoxaparin 80 mg/0.8 mL syringe 80 mg SUBCUT Q12H phenazopyridine [Pyridium] 200 mg tablet 200 mg PO Q8H Qty: 21 0RF warfarin 1 mg Tablet See Rx Instructions .ROUTE .COMPLEX Rx Instructions: TAKE 7MG BY MOUTH ONCE A DAY TWO DAYS A WEEK (MONDAY AND MONDAY) AND TAKE 6MG PO ONCE A DAY ALL OTHER DAYS(MONDAY,MONDAY,MONDAY,MONDAY AND MONDAY) zolpidem 10 mg tablet 10 mg PO BEDTIME PRN (Reason: Sleep) Discontinued tramadol 50 mg tablet 50 - 100 mg PO Q6H PRN (Reason: Pain) valsartan 160 mg tablet 160 mg PO BID Qty: 180 3RF sotalol 120 mg tablet 120 mg PO BID oxycodone 5 mg Capsule 5 mg PO Q4H PRN (Reason: Pain (Scale Score 7-10)) Discharge Orders: Discharge Order (Routine); Ordered 01/16/24 Ordered By: Vernon Cleary Referrals: [facility] [Outside] Ger Montemayor DPM [Physician] - 01/17/24 2:15 pm Liliana Ko DO [Primary Care Provider] - 4-7 days Discharge Diet: Advance as tolerated and Cardiac Discharge Activity: Use walker/crutches as instructed, Wheelchair as instructed and As per PT/OT instructions Patient Instructions: Diltiazem (By mouth) (Cardizem, Cardizem CD, Cardizem LA, Cardizem SR), Hydrocodone/Acetaminophen (By mouth) (Vicodin, [place], Lortab), Lorazepam (By mouth), Sotalol (By mouth) (Betapace, Betapace AF, Sorine, Sotylize), Senna (By mouth) (Sen, Senna-lax), Heart Failure (DC), Opioid Safety (GEN), Arthrodesis (DC), Hardware Removal (DC), CHF Stoplight Activity Restrictions/Additional Instructions: Continue Lovenox on warfarin. Check INR daily. Lovenox and warfarin altogether for bridging. Once target INR is achieved discontinue Lovenox and continue warfarin. After that check INR levels weekly. Target INR levels are between 2-3. Please check blood pressure daily at home and maintain a blood pressure diary. Target blood pressures are between 100/80 mmHg to 140/90 mmHg. Continue taking sotalol at a higher dose of 160 mg twice daily and Cardizem at 240 mg oral daily. Do not take losartan for now. -Rest, ice, elevate operative extremity -Weight bearing status: non weight bearing to right lower extremity -Keep dressing clean, dry and intact. Do not remove your dressing! -If for any reason your dressing becomes wet or saturated, contact the clinic -Take pain medication as directed -Pain medication sent to preferred pharmacy the day of surgery -Contact Dr. Montemayor's clinic if any questions or concerns arise -Keep your scheduled follow up appointment. Exercise caution with pain medications especially if having to use medication for anxiety/panic (lorazepam), as these medications can affect her balance, can also affect her mental status, increased risk of falls, make you sleepy, in case of fluctuating kidney function could also cause suppressed breathing, cough with lethargy and coma. Opiates are also constipating as discussed. Please discontinue as soon as possible. Avoid taking opioids and lorazepam together. Avoid increasing doses. Follow-up with your primary doctor for reassessment. As per discussion also obtain medical alert button while you are living by herself to be able to call for help immediately in case of feeling unwell or a fall. Discharge Attestations Time Spent in Discharge Care*: greater than 30 min Status at Discharge: Cognitive status at discharge: cognitively intact , Behavioral status at discharge: cooperative , Quality Metrics Clinical Quality Measures [ No reported AMI, CVA or VTE this stay] Coding Level of Care Code 97748 Total time (in minutes) for Discharge: 50 Diagnoses Type I or II open trimalleolar fracture of right ankle S82.851B Warfarin anticoagulation Z79.01
[2024-01-16] MEDS: bisacodyl 5 mg Tablet 10 MG PO (13:05)
== END 2024-01-16 14:44 | disposition skilled nursing facility (03) | DRG 982 ==
LOC: CSU 14:40 → MEDSURG 01-14 17:53
PROVIDERS: Student in an Organized Health Care Education/Training Program; Admitting Provider Podiatrist Foot & Ankle Surgery; PCP Family Medicine; Visit Provider Internal Medicine
PROC: (CPT 27870; principal; 2024-01-10 07:00)
PROC: (CPT 28261; 2024-01-10 07:00)
PROC: 0QHG36Z Insertion of Intramedullary Internal Fixation Device into Right Tibia, Percutaneous Approach (ICD-10-PCS; CPT 28740; principal; 2024-01-12 13:00)
PROC: 0QHG36Z Insertion of Intramedullary Internal Fixation Device into Right Tibia, Percutaneous Approach (ICD-10-PCS; 2024-01-12 13:00)
PROC: 0QHG36Z Insertion of Intramedullary Internal Fixation Device into Right Tibia, Percutaneous Approach (ICD-10-PCS; CPT 28261; 2024-01-12 13:00)
DX: I48.91 Unspecified atrial fibrillation (principal); I50.32 Chronic diastolic (congestive) heart failure; S82.851B Displaced trimalleolar fracture of right lower leg, initial encounter for open fracture type I or II; W18.30XA Fall on same level, unspecified, initial encounter; I11.0 Hypertensive heart disease with heart failure; K21.9 Gastro-esophageal reflux disease without esophagitis; M19.90 Unspecified osteoarthritis, unspecified site; E89.0 Postprocedural hypothyroidism; G47.30 Sleep apnea, unspecified; E78.5 Hyperlipidemia, unspecified; E86.0 Dehydration; I95.9 Hypotension, unspecified; Z79.01 Long term (current) use of anticoagulants; Z11.52 Encounter for screening for COVID-19; Z99.81 Dependence on supplemental oxygen; Z99.89 Dependence on other enabling machines and devices
CPT/HCPCS: 36415; 71045; 73590; 73600; 76000; 80053; 81001; 81015; 82607; 83735; 84100; 84484; 85025; 85610; 87077; 87086; 87186; 87486; 87581; 87633; 92523; 92610; 93005; 93306; 94640; 94664; 96372; 96376; C1713; G0378; J0131; J0330; J1100; J1170; J1650; J1940; J2001; J2060; J2250; J2270; J2371; J2405; J2704; J2795; J3010; J3370; J3490; J7030; J7040; J7050

== ENCOUNTER 2024-01-24 06:00 | Outpatient (CLI) | payer MEDICARE, OTHER, SELFPAY | END 2024-01-24 06:01 | disposition home or self-care (01) | LOC: SPT 01-25 14:06 | PROVIDERS: PCP Family Medicine; Visit Provider Podiatrist Foot & Ankle Surgery | DX: Z46.89 Encounter for fitting and adjustment of other specified devices (principal) | CPT/HCPCS: L4361 ==

== ENCOUNTER → 2024-01-24 14:20 | Outpatient (BNVA) | payer MEDICARE, OTHER, SELFPAY | PROVIDERS: PCP Family Medicine; Visit Provider Podiatrist Foot & Ankle Surgery | DX: S82.851A Displaced trimalleolar fracture of right lower leg, initial encounter for closed fracture (principal); X58.XXXA Exposure to other specified factors, initial encounter; Z79.01 Long term (current) use of anticoagulants; I48.19 Other persistent atrial fibrillation | CPT/HCPCS: 73610; 99024 ==

== ENCOUNTER → 2024-02-07 14:24 | Outpatient (BNVA) | payer MEDICARE, OTHER, SELFPAY | PROVIDERS: PCP Family Medicine; Visit Provider Podiatrist Foot & Ankle Surgery | DX: S82.851D Displaced trimalleolar fracture of right lower leg, subsequent encounter for closed fracture with routine healing; X58.XXXD Exposure to other specified factors, subsequent encounter; Z79.01 Long term (current) use of anticoagulants; I48.19 Other persistent atrial fibrillation | CPT/HCPCS: 73610; 99024 ==

== ENCOUNTER → 2024-02-28 13:00 | Outpatient (BNVA) | payer MEDICARE, OTHER, SELFPAY | PROVIDERS: PCP Family Medicine; Visit Provider Podiatrist Foot & Ankle Surgery | DX: Z79.01 Long term (current) use of anticoagulants; I48.19 Other persistent atrial fibrillation; S82.851D Displaced trimalleolar fracture of right lower leg, subsequent encounter for closed fracture with routine healing; X58.XXXD Exposure to other specified factors, subsequent encounter; L97.411 Non-pressure chronic ulcer of right heel and midfoot limited to breakdown of skin | CPT/HCPCS: 99024 ==

== ENCOUNTER 2024-04-04 09:03 | Emergency (ER) | payer MEDICARE, OTHER, SELFPAY ==
[2024-04-04 09:12] VITALS: BP 130/98; PULSE 101; RESP 18; TEMP 36.8; O2SAT 94; BMI 32.9
--- NOTE | 2024-04-04 09:13 | ECG_ITS ---
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 Measurements Intervals [place] Rate: 90 P: 0 LA: 0 QRS: 57 QRSD: 82 T: 1 QT: 388 QTc: 476 Interpretive Statements ATRIAL FIBRILLATION NONSPECIFIC ST & T-WAVE ABNORMALITY ABNORMAL RHYTHM ECG INTERPRETATION BASED ON A DEFAULT AGE OF 40 YEARS Compared to ECG 01/10/2024 16:39:34 Aberrant conduction of supraventricular beat(s) no longer present Ventricular premature complex(es) no longer present T-wave abnormality still present Electronically Signed On 04-05-2024 0:53:00 CDT by Lennox Gillette M.D. [email or web address] medical [facility] [place].So Protect Me/store/[id number] f
--- NOTE | 2024-04-04 09:17 | XR_ITS ---
WS: [id number] XR chest 1V portable [id number] REASON FOR EXAM: dyspnea/cough FINDINGS: Moderate tortuosity and ectasia of the thoracic aorta. The heart is at the upper limits of normal in size. Calcified granulomas disease bilaterally. Central lobar emphysema and hyperexpansion of the left lung . 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 No acute/subacute pulmonary parenchymal or pleural abnormality. 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 XR/XR chest 1V portable [id number] IMPRESSION: No acute chest abnormality.
[2024-04-04 09:27] VITALS: BP 130/98; PULSE 85; O2SAT 95
--- NOTE | 2024-04-04 09:40 | W.ED.ARRPALP ---
HPI - Arrhythmia/Palpitations General: Chief Complaint: Arrhythmia/Palpitations Stated Complaint: weakness, sweating, afib, Time Seen by Provider: 04/04/24 09:15 History of Present Illness: 89-year-old female presents emergency room with shortness of breath and a fluttering sensation and weakness in her chest. She has previously had an ablation for atrial fibrillation she is currently on sotalol, diltiazem and warfarin. She was recently hospitalized and subsequently placed in a correction after an ankle injury she said during that time her diltiazem seems to have changed. She has been taking 240 mg daily but she said when she got home she had 125 mg, one 248 mg, and 360 mg tablets. To the best of her recollection she never been on the 360 show she has been taking the 240 mg tablets. She states that she takes her diltiazem at night and took that dose last night she took her sotalol this morning as she usually does. She has not missed any doses or had any other dose changes recently. She denies any chest pain or discomfort states she feels like she has a light fluttery feeling in her chest. She states this morning her heart rate was as high as 125 when it was checked on her blood pressure monitor. Review of Systems Const: Denies: fever(s) or chills Card: Reports: palpitations and irregular heart rhythm; Denies: chest pain, edema or swelling of feet/ankles Resp: Denies: dyspnea GI: Denies: abdominal pain : Denies: dysuria, urinary frequency or urinary urgency Musc: Denies: neck pain or back pain Skin/Breast: Denies: rash PFSH ED PFSH: Medical History CHF (congestive heart failure) GERD (gastroesophageal reflux disease) Hyperlipidemia HTN (hypertension) Diastolic heart failure Atrial fibrillation Surgical History History of cardiac radiofrequency ablation (RFA) S/P subtotal thyroidectomy S/P cataract extraction S/P cholecystectomy S/P knee surgery Family History Other CAD (coronary artery disease) Social History Smoking and tobacco/nicotine status: tobacco/nicotine user, details unknown Alcohol intake: never Substance/Drug Use: never Physical Exam Const: COMMON NORMALS: no acute distress GENERAL APPEARANCE: cooperative and comfortable ORIENTATION/CONSCIOUSNESS: Yes awake, Yes oriented to person, Yes oriented to place and Yes oriented to time HENMT: COMMON NORMALS: normocephalic, atraumatic and hearing grossly normal bilaterally HEAD & SCALP: normocephalic and atraumatic Resp: COMMON NORMALS: normal respiratory effort, No retractions, No use of accessory muscles and clear to auscultation bilaterally AUSCULTATION: clear to auscultation bilaterally Cardio: COMMON NORMALS: regular rate and No murmurs present (Cardio) RATE: regular rate RHYTHM: abnormal rhythm irregularly irregular GI: COMMON NORMALS: Soft to palpation and No hepatosplenomegaly present AUSCULTATION: Yes normoactive bowel sounds PALPATION: Yes Soft to palpation, No Tenderness to palpation present (GI), No Guarding due to palpation present (GI) and Yes No hepatosplenomegaly present Extremity: COMMON NORMALS: normal to inspection, capillary refill normal, no clubbing, cyanosis or edema, no calf tenderness and no pedal edema Neuro: SENSORIUM/ORIENTATION: Yes oriented to person, Yes oriented to place and Yes oriented to time Skin: COMMON NORMALS: no rashes or lesions noted GENERAL SKIN EXAM: no rashes or lesions noted Course Vital Signs: Vital signs: Vital Signs Temperature 98.2 F 04/04/24 09:12 Pulse Rate 100 04/04/24 11:07 Respiratory Rate 18 04/04/24 09:12 Blood Pressure 114/67 04/04/24 11:07 Pulse Oximetry 95 04/04/24 11:07 Oxygen Delivery Me thod Room Air 04/04/24 11:07 MDM - Arrhythmia/Palpitations Medical Decision Making Labs and imaging reviewed. Patient has not had any further symptoms will discharge home continue same medications for now. She is remains in atrial fibrillation but rate has been well-controlled we will set her up for a 72-hour Holter monitor and early follow-up with paper making machine operator return if she has further problems. Medical Records I reviewed the patient's medical records. Lab Data I reviewed the patient's lab results. 04/04/24 09:30 04/04/24 09:30 Radiology Impressions Chest X-Ray 04/04/24 09:17 IMPRESSION: No acute chest abnormality. Laboratory Results WBC 7.43 10^3/uL (3.29-11.43) 04/04/24 09:30 RBC 5.10 10^6/uL (3.85-5.65) 04/04/24 09:30 Hgb 12.20 g/dL (11.27-16.99) 04/04/24 09:30 Hct 40.1 % (36-47) 04/04/24 09:30 MCV 78.6 fl (85-98) L 04/04/24 09:30 MCH 23.9 pg (27-33) L 04/04/24 09:30 MCHC 30.4 g/dL (30-55) 04/04/24 09:30 RDW 19.3 % (12.1-15.1) H 04/04/24 09:30 Plt Count 261 10^3/cmm (157-399) 04/04/24 09:30 MPV 9.8 fL (7.4-10.4) 04/04/24 09:30 Neut % (Auto) 57.3 % 04/04/24 09:30 Lymph % (Auto) 34.7 % 04/04/24 09:30 [place] % (Auto) 5.5 % 04/04/24 09:30 Eos % (Auto) 1.7 % 04/04/24 09:30 Baso % (Auto) 0.5 % 04/04/24 09:30 Neut # (Auto) 4.25 10^3/uL (1.8-7.7) 04/04/24 09:30 Lymph # (Auto) 2.6 10^3/uL (0.8-4.8) 04/04/24 09:30 [place] # (Auto) 0.4 10^3/uL (0.2-0.9) 04/04/24 09:30 Eos # (Auto) 0.1 10^3/uL (0.0-0.8) 04/04/24 09:30 Baso # (Auto) 0.0 10^3/uL (0.0-0.1) 04/04/24 09:30 Nucleated RBC % (auto) 0 % 04/04/24 09:30 Nucleated RBCs # 0.0 /100WBC 04/04/24 09:30 PT 21.60 SECONDS (12.1-14.9) H 04/04/24 10:21 INR 1.81 (0.8-1.2) H 04/04/24 10:21 Sodium 137 mmol/L (136-145) 04/04/24 09:30 Potassium 3.3 mmol/L (3.5-5.1) L 04/04/24 09:30 Chloride 101 mmol/L (98-107) 04/04/24 09:30 Carbon Dioxide 24 mmol/L (22-29) 04/04/24 09:30 Anion Gap 15.3 (5-19) 04/04/24 09:30 BUN 14 mg/dL (8-23) 04/04/24 09:30 Creatinine 0.8 mg/dL (0.5-0.9) 04/04/24 09:30 GFR Calculation Not Reportable 04/04/24 09:30 Glucose 132 mg/dL (65-115) H 04/04/24 09:30 Calculated Osmolality 286 mOsm/kg (285-295) 04/04/24 09:30 Calcium 8.0 mg/dL (8.5-10.5) L 04/04/24 09:30 Total Bilirubin 0.4 mg/dL (0.15-1.2) 04/04/24 09:30 AST 22 U/L (0-32) 04/04/24 09:30 ALT 16 U/L (0-33) 04/04/24 09:30 Alkaline Phosphatase 145 U/L (35-105) H 04/04/24 09:30 Total Protein 7.1 g/dL (6.6-8.7) 04/04/24 09:30 Albumin 3.7 g/dL (3.5-5.2) 04/04/24 09:30 Globulin 3.4 g/dL (1.3-4.6) 04/04/24 09:30 All radiology interpretation(s) finalized by discharge Discharge Plan Discharge Patient Disposition: Home Clinical Impression: Atrial fibrillation Qualifiers: Atrial fibrillation type: persistent (not longstanding) Qualified Code(s): I48.19 - Other persistent atrial fibrillation Condition: Stable Prescriptions: No Action lorazepam 0.5 mg tablet 0.5 mg PO TID PRN (Reason: Anxiety) (DME) CAM Boot See Rx Instructions .Route .MEDSUPPLY Qty: 1 0RF Rx Instructions: As directed ciprofloxacin HCl [Cipro] 500 mg tablet 500 mg PO BID Qty: 14 0RF (DME) AFO brace right foot See Rx Instructions .Route .MEDSUPPLY Qty: 1 0RF Rx Instructions: As directed to the melly [facility] omeprazole 20 mg capsule,delayed release(DR/EC) 20 mg PO BID Qty: 60 0RF fluticasone propionate 50 mcg/actuation spray,suspension 2 spray INTRANASAL DAILY PRN (Reason: allergies) acetaminophen 325 mg Tablet 650 mg PO Q6H PRN (Reason: pain or elevated temp) warfarin 6 mg Tablet See Rx Instructions .ROUTE .COMPLEX Protocol: Dose Management Condition: Monday Dose/Route: 7 mg Instruction: 1 x 1 mg tablet, 1 x 6 mg tablet Condition: Monday Dose/Route: 7 mg Instruction: 1 x 1 mg tablet, 1 x 6 mg tablet Condition: Monday Dose/Route: 7 mg Instruction: 1 x 1 mg tablet, 1 x 6 mg tablet Condition: Monday Dose/Route: 7 mg Instruction: 1 x 1 mg tablet, 1 x 6 mg tablet Condition: Dose/Route: 7 mg Instruction: 1 x 1 mg tablet, 1 x 6 mg tablet Condition: Monday Dose/Route: 7 mg Instruction: 1 x 1 mg tablet, 1 x 6 mg tablet Condition: Monday Dose/Route: 7 mg Instruction: 1 x 1 mg tablet, 1 x 6 mg tablet Protocol Text: Adjustment Start Date: Monday04/02/24 INR Value: 1.8 INR Date: 04/01/24 Recheck Date: 04/09/24 Rx Instructions: TAKE 6 MG BY MOUTH DAILY ON MONDAY,MONDAY, MONDAY, MONDAY, AND MONDAY enoxaparin 80 mg/0.8 mL syringe 80 mg SUBCUT Q12H phenazopyridine [Pyridium] 200 mg tablet 200 mg PO Q8H Qty: 21 0RF warfarin 1 mg Tablet See Rx Instructions .ROUTE .COMPLEX Protocol: Dose Management Condition: Monday Dose/Route: 7 mg Instruction: 1 x 1 mg tablet, 1 x 6 mg tablet Condition: Monday Dose/Route: 7 mg Instruction: 1 x 1 mg tablet, 1 x 6 mg tablet Condition: Monday Dose/Route: 7 mg Instruction: 1 x 1 mg tablet, 1 x 6 mg tablet Condition: Monday Dose/Route: 7 mg Instruction: 1 x 1 mg tablet, 1 x 6 mg tablet Condition: Dose/Route: 7 mg Instruction: 1 x 1 mg tablet, 1 x 6 mg tablet Condition: Monday Dose/Route: 7 mg Instruction: 1 x 1 mg tablet, 1 x 6 mg tablet Condition: Monday Dose/Route: 7 mg Instruction: 1 x 1 mg tablet, 1 x 6 mg tablet Protocol Text: Adjustment Start Date: Monday04/02/24 INR Value: 1.8 INR Date: 04/01/24 Recheck Date: 04/09/24 Rx Instructions: TAKE 7MG BY MOUTH ONCE A DAY TWO DAYS A WEEK (MONDAY AND MONDAY) AND TAKE 6MG PO ONCE A DAY ALL OTHER DAYS(MONDAY,MONDAY,MONDAY,MONDAY AND MONDAY) zolpidem 10 mg tablet 10 mg PO BEDTIME PRN (Reason: Sleep) hydrocodone-acetaminophen 10-325 mg tablet 1 tab PO Q6H PRN (Reason: pain) Qty: 28 0RF Rx Instructions: Take one tablet PO at 0000, 0600, 1200, 1800, every 6 hours senna 8.6 mg tablet 8.6 mg PO BID PRN (Reason: constipation) Qty: 20 0RF sotalol 80 mg Tablet 160 mg PO BID Qty: 120 0RF Cardizem CD 240 mg capsule,extended release 24hr 240 mg PO QAM Qty: 30 0RF Discharge Orders: Discharge ED (Routine); Ordered 04/04/24 Ordered By: Lucho Cardoso Referrals: Liliana Ko DO [Primary Care Provider] - Discharge Diet: Usual diet Discharge Activity: Resume usual activity Patient Instructions: Opioid Safety, Pain Management Activity Restrictions/Additional Instructions: Thank you for choosing [facility] for your healthcare needs today. It is very important that you follow up as instructed or that you return to the Emergency Department should you have concerns or if your condition changes or worsens in any way. You were seen today with complaints of rapid heart rate. Your heart rate was normal while you were in the emergency room. Will discharge home set up for an outpatient Holter monitor to evaluate for any breakthrough episodes of rapid heart rate. Follow-up with your paper making machine operator. Return if you have further problems. Coding Level of Care Code ED Wood Web Weaving Machine Operator for Zuhair Nelson
[2024-04-04 09:46] LABS: Basophils % 0.5 %; Eosinophils # 0.1 10^3/uL (0.0-0.8); Eosinophils % 1.7 %; Hematocrit 40.1 % (36-47); Lymphocytes # 2.6 10^3/uL (0.8-4.8); Lymphocytes % 34.7 %; Mean Corpuscular HGB Conc 30.4 g/dL (30-55); Mean Corpuscular Hemoglobin 23.9 pg (27-33); Mean Corpuscular Volume 78.6 fl (85-98); Mean Platelet Volume 9.8 fL (7.4-10.4); Monocytes # 0.4 10^3/uL (0.2-0.9); Monocytes % 5.5 %; Neutrophils # 4.25 10^3/uL (1.8-7.7); Neutrophils % 57.3 %; Nucleated Red Blood Cells % 0 %; Platelet Count 261 10^3/cmm (157-399); Red Cell Distribution Width 19.3 % (12.1-15.1); White Blood Count 7.43 10^3/uL (3.29-11.43)
[2024-04-04 10:05] LABS: Alanine Aminotransferase 16 U/L (0-33); Albumin Level 3.7 g/dL (3.5-5.2); Alkaline Phosphatase 145 U/L (35-105); Anion Gap 15.3 (5-19); Aspartate Amino Transferase 22 U/L (0-32); Blood Urea Nitrogen 14 mg/dL (8-23); Carbon Dioxide 24 mmol/L (22-29); Chloride 101 mmol/L (98-107); Creatinine Clr Calc Pharmacy 54.8456; Globulin 3.4 g/dL (1.3-4.6); Glucose 132 mg/dL (65-115); Osmolality Calculated 286 mOsm/kg (285-295); Potassium 3.3 mmol/L (3.5-5.1); Sodium 137 mmol/L (136-145); Total Bilirubin 0.4 mg/dL (0.15-1.2); Total Protein 7.1 g/dL (6.6-8.7)
[2024-04-04 11:07] VITALS: BP 114/67; PULSE 100; O2SAT 95
[2024-04-04 11:08] LABS: INR 1.81 (0.8-1.2)
[2024-04-04 11:42] VITALS: BP 114/67; PULSE 100; RESP 18; TEMP 36.8; O2SAT 95
--- NOTE | 2024-04-08 07:13 | DCPLANNER ---
messaged cardiology for er f/u
== END 2024-04-04 11:47 | disposition home or self-care (01) ==
PROVIDERS: Emergency Provider Family Medicine; PCP Family Medicine
DX: I48.19 Other persistent atrial fibrillation (principal); Z79.01 Long term (current) use of anticoagulants; Z72.0 Tobacco use; I11.0 Hypertensive heart disease with heart failure; I50.30 Unspecified diastolic (congestive) heart failure; E78.5 Hyperlipidemia, unspecified
CPT/HCPCS: 36415; 71045; 80053; 85025; 85610; 93005; 99285

== ENCOUNTER → 2024-04-11 13:56 | Outpatient (BNVA) | payer MEDICARE, OTHER, SELFPAY | PROVIDERS: PCP Family Medicine; Referring Provider Family Medicine; Visit Provider Internal Medicine | DX: I48.19 Other persistent atrial fibrillation (principal); I48.91 Unspecified atrial fibrillation; I48.92 Unspecified atrial flutter; I49.1 Atrial premature depolarization; I49.3 Ventricular premature depolarization; I47.20 Ventricular tachycardia, unspecified; I47.10 Supraventricular tachycardia, unspecified | CPT/HCPCS: 93242 ==

== ENCOUNTER → 2024-05-06 10:30 | Outpatient (BNVA) | payer MEDICARE, OTHER, SELFPAY | PROVIDERS: PCP Family Medicine; Visit Provider Podiatrist Foot & Ankle Surgery | DX: S82.851A Displaced trimalleolar fracture of right lower leg, initial encounter for closed fracture (principal); Z79.01 Long term (current) use of anticoagulants; I48.19 Other persistent atrial fibrillation; M21.371 Foot drop, right foot; X58.XXXA Exposure to other specified factors, initial encounter | CPT/HCPCS: 99213 ==

== ENCOUNTER → 2024-07-02 13:03 | Outpatient (BNVA) | payer MEDICARE, OTHER, SELFPAY | PROVIDERS: PCP Family Medicine; Visit Provider Internal Medicine Cardiovascular Disease | DX: I48.91 Unspecified atrial fibrillation (principal); Z79.01 Long term (current) use of anticoagulants; I11.0 Hypertensive heart disease with heart failure; I50.33 Acute on chronic diastolic (congestive) heart failure | CPT/HCPCS: 99204 ==

== ENCOUNTER 2024-07-17 16:12 | Inpatient (IN) | payer MEDICARE, OTHER, SELFPAY ==
[2024-07-17 16:27] VITALS: BMI 31.6
[2024-07-17 16:57] VITALS: BP 173/129; PULSE 129; RESP 28; O2SAT 96
[2024-07-17 17:22] VITALS: TEMP 36.9
--- NOTE | 2024-07-17 18:17 | P.HP_ITS ---
Providers/Chief Complaint 2 Admitting Physician: Dre Tafoya MD Primary Care Provider: Liliana Ko DO Chief Complaint: A-fib with RVR History of Present Illness Jessie Kumar is a 89 year old female past medical history significant for chronic atrial fibrillation who was in sinus rhythm on sotalol for many years however for the past few months despite of optimization of medication and increasing dose of sotalol to 120 mg patient slipped back into A-fib and became symptomatic, Cardizem was also added to the regimen despite of that her heart rate was not slowing down, yesterday patient was noted to be in A-fib with RVR heart rate in the 140s to 150s it is the reason patient has been admitted to the hospital to switch her to amiodarone and for close monitoring on telemetry given her advanced age and heart rate. Currently denies chest pain but admits to worsening of shortness of breath palpitation dizziness and occasionally presyncope. Review of Systems 2 Eyes: Denies: photophobia ENMT: Denies: enlarged tonsils All/Imm: Denies: acute wheezing Medications/Allergies Home Medications Medication Instructions Recorded Confirmed Last Taken Type lorazepam 0.5 mg tablet 0.5 mg PO TID PRN Anxiety 03/05/21 07/17/24 01/10/24 History omeprazole 20 mg capsule,delayed 20 mg PO BID #60 caps 09/13/23 07/17/24 07/17/24 Rx release fluticasone propionate 50 2 spray intranasal DAILY PRN 11/02/23 07/17/24 01/09/24 History mcg/actuation nasal allergies spray,suspension warfarin 1 mg tablet See Rx Instructions .Route .COMPLEX 12/11/23 07/17/24 01/02/24 History zolpidem 10 mg tablet 10 mg PO BEDTIME PRN Sleep 12/11/23 07/17/24 07/16/24 History warfarin 6 mg tablet See Rx Instructions .Route .COMPLEX 01/03/24 07/17/24 07/16/24 History diltiazem HCl 240 mg 240 mg PO QAM #30 caps 01/12/24 07/17/24 07/17/24 Rx capsule,extended release 24 hr (Cardizem CD) CAM Boot #1 ea 01/24/24 07/18/24 Unknown Rx AFO brace right foot #1 ea 02/07/24 07/18/24 Unknown Rx lovastatin 20 mg tablet 20 mg PO DAILY 07/02/24 07/17/24 07/17/24 History tramadol 50 mg tablet 50 mg PO Q6H PRN pain 07/02/24 07/18/24 07/17/24 History valsartan 160 mg tablet 160 mg PO BID 07/02/24 07/17/24 07/17/24 History sotalol 120 mg tablet 120 mg PO BID 07/17/24 07/17/24 07/17/24 History Allergies Allergy/AdvReac Type Severity Reaction Status Date / Time amlodipine Allergy Unknown Verified 07/02/24 13:10 diazepam [From Valium] Allergy Unknown Verified 07/02/24 13:10 furosemide [From Lasix] Allergy ADR-Dizzine Verified 07/02/24 13:10 ss lisinopril Allergy Unknown Verified 07/02/24 13:10 olmesartan [From Benicar] Allergy Unknown Verified 07/02/24 13:10 penicillamine Allergy Unknown Verified 07/02/24 13:10 Penicillins Allergy Unknown Verified 07/02/24 13:10 ranitidine [From Zantac] Allergy ALGY-Rash Verified 07/02/24 13:10 Sulfa (Sulfonamide Allergy Unknown Verified 07/02/24 13:10 Antibiotics) PFSH Acute 2 PFSH: Medical History (Updated 07/02/24 @ 22:13 by Dre Tafoya MD) Essential hypertension CHF (congestive heart failure) GERD (gastroesophageal reflux disease) Hyperlipidemia HTN (hypertension) Diastolic heart failure Atrial fibrillation Surgical History History of cardiac radiofrequency ablation (RFA) S/P subtotal thyroidectomy S/P cataract extraction S/P cholecystectomy S/P knee surgery Family History Other CAD (coronary artery disease) Social History (Updated 07/02/24 @ 13:18 by Alesia Flores LPN) Smoking and tobacco/nicotine status: never used tobacco/nicotine Alcohol intake: never Substance/Drug Use: never Vitals/I&O/Wt Last Vital Signs Temp 98.5 F 07/17/24 17:22 Pulse 129 H 07/17/24 16:57 Resp 28 H 07/17/24 16:57 BP 173/129 07/17/24 16:57 Pulse Ox 96 07/17/24 16:57 O2 Del Method Room Air 07/17/24 16:27 Weight last 48 hrs Weight 190 lb 7 oz Physical Exam 2 Const: OTHER: GENERAL: Patient is alert, awake and oriented x3. HEART: Irregularly irregular S1 and S2. No murmur, rub or gallop. LUNGS: Clear to auscultate bilaterally. CENTRAL NERVOUS SYSTEM: Grossly nonfocal. EXTREMITIES: Lower extremities with out edema bilaterally. Data 07/17/24 19:35 07/17/24 19:35 A&P Assessment and plan (1) Atrial fibrillation with RVR: Patient remains in A-fib with RVR, will discontinue Cardizem and sotalol. She will be started on IV amiodarone with close monitoring, continue anticoagulation in the form of warfarin, check INR to keep level in between 2-3 (2) HTN (hypertension): Continue home medication valsartan Qualifiers: Hypertension type: essential hypertension Qualified Code(s): I10 - Essential (primary) hypertension (3) Diastolic heart failure: Appear to be compensated continue current home medication Qualifiers: Heart failure chronicity: chronic Qualified Code(s): I50.32 - Chronic diastolic (congestive) heart failure Attestations 2 Medical Necessity Statement*: Patient has been admitted directly for A-fib with rapid ventricular response unable to control outside the hospital and for close monitoring while infusing amiodarone to avoid life-threatening arrhythmias. I am expecting her stay to cross more than 2 midnights Coding Level of Care Code Acute Code for [facility] Fwd Diagnoses Atrial fibrillation with RVR I48.91 Essential hypertension I10 Hypertension type: essential hypertension Chronic diastolic heart failure I50.32 Heart failure chronicity: chronic
[2024-07-17] MEDS: amiodarone 150 MG/100 ML PREMIX 400 MG IV (19:11)
[2024-07-17 19:36] VITALS: BP 153/119; PULSE 108; RESP 24; TEMP 36.8; O2SAT 97
[2024-07-17 20:15] LABS: Basophils # 0.1 10^3/uL (0.0-0.1); Basophils % 0.9 %; Eosinophils # 0.1 10^3/uL (0.0-0.8); Eosinophils % 1.9 %; Hematocrit 41.3 % (36-47); Lymphocytes # 2.4 10^3/uL (0.8-4.8); Mean Corpuscular HGB Conc 31.5 g/dL (30-55); Mean Corpuscular Hemoglobin 27.4 pg (27-33); Mean Corpuscular Volume 87.1 fl (85-98); Mean Platelet Volume 10.2 fL (7.4-10.4); Monocytes # 0.4 10^3/uL (0.2-0.9); Monocytes % 7.7 %; Neutrophils % 43.3 %; Nucleated Red Blood Cells % 0 %; Platelet Count 216 10^3/cmm (157-399); Red Blood Count 4.74 10^6/uL (3.85-5.65); Red Cell Distribution Width 16.6 % (12.1-15.1); White Blood Count 5.31 10^3/uL (3.29-11.43)
[2024-07-17 20:33] LABS: INR 2.29 (0.8-1.2)
[2024-07-17 20:40] LABS: Alanine Aminotransferase 14 U/L (0-33); Albumin Level 3.7 g/dL (3.5-5.2); Alkaline Phosphatase 133 U/L (35-105); Anion Gap 14.4 (5-19); Aspartate Amino Transferase 15 U/L (0-32); Blood Urea Nitrogen 10 mg/dL (8-23); Calcium 8.2 mg/dL (8.5-10.5); Carbon Dioxide 25 mmol/L (22-29); Chloride 101 mmol/L (98-107); Creatinine Clr Calc Pharmacy 47.7978; Globulin 2.5 g/dL (1.3-4.6); Glucose 138 mg/dL (65-115); Osmolality Calculated 285 mOsm/kg (285-295); Potassium 3.4 mmol/L (3.5-5.1); Sodium 137 mmol/L (136-145); Total Bilirubin 0.3 mg/dL (0.15-1.2); Total Protein 6.2 g/dL (6.6-8.7)
[2024-07-17] MEDS: warfarin 6 mg Tablet PO (21:08)
[2024-07-17] MEDS: TRAMadol 50 mg Tablet PO (21:23)
[2024-07-17] MEDS: zolpidem 5 mg Tablet 10 MG PO (21:23)
[2024-07-18] VITALS (10 sets, daily range): BP systolic 112–140; BP diastolic 89–116; PULSE 98–126; RESP 12–24; TEMP 36.5–37; O2SAT 95–98
[2024-07-18] MEDS: atorvastatin 40 mg Tablet 20 MG PO (08:16)
[2024-07-18] MEDS: losartan 50 mg Tablet PO ×2 (08:17→17:06)
[2024-07-18] MEDS: pantoprazole DR 40 mg Tablet PO ×2 (08:17→17:06)
--- NOTE | 2024-07-18 09:43 | PC.CHAP ---
Pastoral Care Encounter/Spiritual Assessment Type of Contact [] Declined it support technician visit [] Patient/Family/Request visit [] Outpatient visit [] Follow-up visit [] Physician referral [] Code/Alert [x] Routine visit [] Staff referral [] Actively dying [] Patient sleeping [] Family support [] [] Out of room [] Palliative care [] [] Receiving care in room [] Pre-surgical visit [] Trauma [] Long length of stay [] ICU visit [] Other: Relational/Emotional Strength [x] Patient feels connected with others/family/visitors/staff [] Distress [] Loneliness/isolation [] Abandonment Spirituality of Patient [x] Person of [place] [] Attends Christian of their [place] [x] Believes in Prayer [] Reads Bible or Methodist materials [] There are Spiritual issues to be addressed Predatory Animal Trapper Interventions [x] Prayer [x] Active listening [] Non-anxious presence [x] Spiritual/emotional support [] Crisis/trauma care [] Spiritual counseling [] Bereavement support [] Provided bereavement packet [] Provided Bible/devotional materials [] Provided toy/stuffed animal, coloring book to patient or family member [] Provided Communion [] Anointing/[place] [] Salvation [x] Completed spiritual assessment [] Other: Impact on Illness or Injury [] Angry [] Fearful [] Anxious [] Often cries [] Exhaustion [] Unable to work [] Unable to attend islam [] Unable to walk/stand [] Unable to read [] Unable to drive [] Unable to eat/drink [] Unable to sleep [] Unable to be with family [] Patient intubated [] Other: Summary Time spent with patient 10 min
[2024-07-18] MEDS: TRAMadol 50 mg Tablet PO ×3 (11:46→20:42)
--- NOTE | 2024-07-18 14:29 | PM.PN ---
Documented by User: Trisha Varela NP 07/18/24 14:34 Subjective Subjective: This is a pleasant 89-year-old female who comes in for cardioversion of A-fib RVR. Patient has been symptomatic with shortness of breath and dizziness at times. This is lifestyle limiting. Currently on an amnio drip. She was taking sotalol and Cardizem at home but this was not enough to control her rates. At this time she is consistently 120s to 130s. No signs or symptoms of heart failure at this time. Medications: Reviewed: Yes Vitals/I&O/Wt Last Vital Signs Temp 98.1 F 07/18/24 11:00 Pulse 121 H 07/18/24 11:00 Resp 24 H 07/18/24 11:00 BP 139/109 07/18/24 11:00 Pulse Ox 95 07/18/24 11:00 O2 Del Method Room Air 07/18/24 11:00 O2 Flow Rate 2 07/18/24 07:19 07/17/24 07/18/24 07/18/24 22:59 06:59 14:59 Intake Total 520.556 / 520.556 599.444 / 1120.000 476 / 476 Balance 520.556 / 520.556 599.444 / 1120.000 476 / 476 Weight last 48 hrs Weight 188 lb 11.2 oz Weight 190 lb 7 oz Physical Exam Narrative: General: No apparent distress, healthy appearing, well nourished Neck: No carotid bruit bilaterally Muskuloskeletal: Full ROM Lymphatic: no lymphedema noted Respiratory: Normal respiratory effort, clear to auscultation bilaterally throughout all lung soto, no use of accessory muscles Cardio: No JVD, irregular rate irregular rhythm, S1 S2 normal, no murmurs, peripheral pulses 2+ throughout GI: Normal to inspection, nondistended Extremities: Full ROM, normal, normal capillary refill, no cyanosis or edema Neuro: Alert and oriented x4, no focal motor deficits Psych: Affect normal, denies suicidal ideation, mental status grossly normal Skin: No rashes or lesions noted, no wounds Data 07/17/24 19:35 07/17/24 19:35 A&P Assessment and plan (1) Atrial fibrillation: The plan is to continue amiodarone drip will add on Cardizem home dose. Will attempt to control rate with IV medication. If this is not successful patient may be need cardioversion in the future. Qualifiers: Atrial fibrillation type: persistent (not longstanding) Qualified Code(s): I48.19 - Other persistent atrial fibrillation (2) HTN (hypertension): Blood pressure elevated 139/109. We are adding back patient's home diltiazem dose at 240 mg. Qualifiers: Hypertension type: essential hypertension Qualified Code(s): I10 - Essential (primary) hypertension (3) Warfarin anticoagulation: INR therapeutic continue daily INR measurements. (4) Atrial fibrillation with RVR: Continue warfarin as previously directed, will continue amiodarone IV drip possibly convert patient to amiodarone 400 twice daily tomorrow. At this time we will add back patient's home Cardizem dose in hopes with a combination of IV medication that patient's rate will be controlled or she will convert Plan As stated above Attestations Medical Necessity Statement*: Patient stay expected to cross 2 midnights due to uncontrolled symptomatic A-fib RVR Coding Level of Care Code Acute Code for [facility] Fwd Diagnoses Persistent atrial fibrillation I48.19 Atrial fibrillation type: persistent (not longstanding) Essential hypertension I10 Hypertension type: essential hypertension Warfarin anticoagulation Z79.01 Atrial fibrillation with RVR I48.91 Documented by User: Dre Tafoya MD 07/19/24 00:18 Subjective Subjective: Patient was evaluated and cared for in conjunction with an advanced practice practitioner. I personally examined the patient and reviewed the chart and all pertinent data including imaging, telemetry, and laboratory results. I discussed the patient in detail with the advanced practice practitioner. Please see their note for complete H&P testing result and agreed upon plan of care for the patient. This is a pleasant 89-year-old female who comes in for cardioversion of A-fib RVR. Patient has been symptomatic with shortness of breath and dizziness at times. This is lifestyle limiting. Currently on an amnio drip. She was taking sotalol and Cardizem at home but this was not enough to control her rates. At this time she is consistently 120s to 130s. No signs or symptoms of heart failure at this time. Data 07/17/24 19:35 07/17/24 19:35 A&P Assessment and plan (1) Atrial fibrillation: Qualifiers: Atrial fibrillation type: persistent (not longstanding) Qualified Code(s): I48.19 - Other persistent atrial fibrillation (2) HTN (hypertension): Qualifiers: Hypertension type: essential hypertension Qualified Code(s): I10 - Essential (primary) hypertension (3) Warfarin anticoagulation: (4) Atrial fibrillation with RVR: Coding Level of Care Code Acute Code for [facility] Fwd Diagnoses Persistent atrial fibrillation I48.19 Atrial fibrillation type: persistent (not longstanding) Essential hypertension I10 Hypertension type: essential hypertension Warfarin anticoagulation Z79.01 Atrial fibrillation with RVR I48.91
[2024-07-18] MEDS: warfarin 2 mg Tablet PO (15:24)
[2024-07-18] MEDS: warfarin 5 mg Tablet PO (15:25)
[2024-07-18] MEDS: dilTIAZem ER (24HR) 240 mg Capsule PO (15:25)
[2024-07-18] MEDS: zolpidem 5 mg Tablet 10 MG PO (20:43)
[2024-07-19] VITALS (9 sets, daily range): BP systolic 99–140; BP diastolic 70–96; PULSE 86–113; RESP 16–25; TEMP 36.6–37.1; O2SAT 93–97
[2024-07-19 04:01] LABS: Basophils % 0.5 %; Eosinophils # 0.1 10^3/uL (0.0-0.8); Eosinophils % 1.9 %; Hematocrit 40.6 % (36-47); Lymphocytes # 2.4 10^3/uL (0.8-4.8); Mean Corpuscular Hemoglobin 27.1 pg (27-33); Mean Corpuscular Volume 87.3 fl (85-98); Mean Platelet Volume 10.2 fL (7.4-10.4); Monocytes # 0.5 10^3/uL (0.2-0.9); Neutrophils # 2.84 10^3/uL (1.8-7.7); Neutrophils % 48.4 %; Nucleated Red Blood Cells % 0 %; Platelet Count 195 10^3/cmm (157-399); Red Blood Count 4.65 10^6/uL (3.85-5.65); Red Cell Distribution Width 16.7 % (12.1-15.1); White Blood Count 5.86 10^3/uL (3.29-11.43)
[2024-07-19 04:24] LABS: INR 2.45 (0.8-1.2)
[2024-07-19 04:36] LABS: Anion Gap 13.1 (5-19); Blood Urea Nitrogen 10 mg/dL (8-23); Calcium 7.6 mg/dL (8.5-10.5); Carbon Dioxide 27 mmol/L (22-29); Chloride 102 mmol/L (98-107); Creatinine Clr Calc Pharmacy 47.4777; Glucose 108 mg/dL (65-115); Osmolality Calculated 288 mOsm/kg (285-295); Potassium 3.1 mmol/L (3.5-5.1); Sodium 139 mmol/L (136-145)
[2024-07-19] MEDS: dilTIAZem ER (24HR) 240 mg Capsule PO (05:46)
[2024-07-19] MEDS: TRAMadol 50 mg Tablet PO (09:08)
[2024-07-19] MEDS: losartan 50 mg Tablet PO (09:08)
[2024-07-19] MEDS: pantoprazole DR 40 mg Tablet PO (09:08)
[2024-07-19] MEDS: atorvastatin 40 mg Tablet 20 MG PO (09:08)
[2024-07-19] MEDS: potassium chloride ER 20 mEq Tablet 40 MEQ PO (10:23)
[2024-07-19] MEDS: amiodarone 200 mg Tablet PO (12:26)
--- NOTE | 2024-07-19 13:00 | PM.DCS ---
Discharge Providers Date of Admission: 07/17/24 16:12 Date of Discharge: July 19, 2024 Attending Provider at Admission: Dre Tafoya MD Attending Provider at Discharge: Dre Tafoya MD Consults: None Primary Care Provider: Liliana Ko DO Diagnoses at Discharge Discharge Diagnosis (1) Atrial fibrillation: Details from hospital stay: Patient is still in A-fib but rate is better controlled with addition of amiodarone. Will transition patient to oral amiodarone and include beta-david metoprolol discontinue sotalol. Also discontinue valsartan for history of hypertension. Will see patient in 1 to 2 weeks and set up for a cardioversion. Status: Acute Qualifiers: Atrial fibrillation type: persistent (not longstanding) Qualified Code(s): I48.19 - Other persistent atrial fibrillation (2) HTN (hypertension): Details from hospital stay: Well-controlled. Discontinue valsartan add on metoprolol 12.5 discontinue sotalol will add amiodarone 200 twice daily Status: Acute Qualifiers: Hypertension type: essential hypertension Qualified Code(s): I10 - Essential (primary) hypertension (3) Warfarin anticoagulation: Details from hospital stay: Patient will check this at home and report to us as previously ordered Status: Acute (4) Atrial fibrillation with RVR: Details from hospital stay: As stated above. Status: Acute Reason for Visit Reason for Visit: A-fib with RVR Hospital Course Hospital Course Jessie Kumar is a 89 year old female past medical history significant for chronic atrial fibrillation who was in sinus rhythm on sotalol for many years however for the past few months despite of optimization of medication and increasing dose of sotalol to 120 mg patient slipped back into A-fib and became symptomatic, Cardizem was also added to the regimen despite of that her heart rate was not slowing down, yesterday patient was noted to be in A-fib with RVR heart rate in the 140s to 150s it is the reason patient has been admitted to the hospital to switch her to amiodarone and for close monitoring on telemetry given her advanced age and heart rate. Currently denies chest pain or shortness of breath. She was taken off of sotalol, and given amiodarone bolus with drip. Cardizem was added. Beta-david was added. Patient's heart rate still elevated but now under better control. She staying in the 90s. Will discontinue valsartan and continue metoprolol. Patient's blood pressure can be soft at times. Physical Exam Narrative: General: No apparent distress, healthy appearing, well nourished HENMT: normoceophalic Eye: PERRL Neck: No carotid bruit bilaterally Muskuloskeletal: Full ROM Lymphatic: no lymphedema noted Respiratory: Normal respiratory effort, clear to auscultation bilaterally throughout all lung soto, no use of accessory muscles Cardio: No JVD, irregular rate irregular rhythm, S1 S2 normal, no murmurs, peripheral pulses 2+ throughout GI: Normal to inspection, nondistended Extremities: Full ROM, normal, normal capillary refill, no cyanosis or edema Neuro: Alert and oriented x4, no focal motor deficits Psych: Affect normal, denies suicidal ideation, mental status grossly normal Skin: No rashes or lesions noted, no wounds Discharge Data Studies Completed and Pending Laboratory Results WBC 5.86 10^3/uL (3.29-11.43) 07/19/24 03:17 RBC 4.65 10^6/uL (3.85-5.65) 07/19/24 03:17 Hgb 12.60 g/dL (11.27-16.99) 07/19/24 03:17 Hct 40.6 % (36-47) 07/19/24 03:17 MCV 87.3 fl (85-98) 07/19/24 03:17 MCH 27.1 pg (27-33) 07/19/24 03:17 MCHC 31.0 g/dL (30-55) 07/19/24 03:17 RDW 16.7 % (12.1-15.1) H 07/19/24 03:17 Plt Count 195 10^3/cmm (157-399) 07/19/24 03:17 MPV 10.2 fL (7.4-10.4) 07/19/24 03:17 Neut % (Auto) 48.4 % 07/19/24 03:17 Lymph % (Auto) 41.0 % 07/19/24 03:17 Carlton % (Auto) 8.0 % 07/19/24 03:17 Eos % (Auto) 1.9 % 07/19/24 03:17 Baso % (Auto) 0.5 % 07/19/24 03:17 Neut # (Auto) 2.84 10^3/uL (1.8-7.7) 07/19/24 03:17 Lymph # (Auto) 2.4 10^3/uL (0.8-4.8) 07/19/24 03:17 Carlton # (Auto) 0.5 10^3/uL (0.2-0.9) 07/19/24 03:17 Eos # (Auto) 0.1 10^3/uL (0.0-0.8) 07/19/24 03:17 Baso # (Auto) 0.0 10^3/uL (0.0-0.1) 07/19/24 03:17 Nucleated RBC % (auto) 0 % 07/19/24 03:17 Nucleated RBCs # 0.0 /100WBC 07/19/24 03:17 PT 27.50 SECONDS (12.1-14.9) H 07/19/24 03:17 INR 2.45 (0.8-1.2) H 07/19/24 03:17 Sodium 139 mmol/L (136-145) 07/19/24 03:17 Potassium 3.1 mmol/L (3.5-5.1) L 07/19/24 03:17 Chloride 102 mmol/L (98-107) 07/19/24 03:17 Carbon Dioxide 27 mmol/L (22-29) 07/19/24 03:17 Anion Gap 13.1 (5-19) 07/19/24 03:17 BUN 10 mg/dL (8-23) 07/19/24 03:17 Creatinine 0.9 mg/dL (0.5-0.9) 07/19/24 03:17 GFR Calculation Not Reportable 07/19/24 03:17 Glucose 108 mg/dL (65-115) 07/19/24 03:17 Calculated Osmolality 288 mOsm/kg (285-295) 07/19/24 03:17 Calcium 7.6 mg/dL (8.5-10.5) L 07/19/24 03:17 Total Bilirubin 0.3 mg/dL (0.15-1.2) 07/17/24 19:35 AST 15 U/L (0-32) 07/17/24 19:35 ALT 14 U/L (0-33) 07/17/24 19:35 Alkaline Phosphatase 133 U/L (35-105) H 07/17/24 19:35 Total Protein 6.2 g/dL (6.6-8.7) L 07/17/24 19:35 Albumin 3.7 g/dL (3.5-5.2) 07/17/24 19:35 Globulin 2.5 g/dL (1.3-4.6) 07/17/24 19:35 Procedures Performed Amiodarone bolus with drip Vitals Last Vital Signs Temp 97.8 F 07/19/24 11:50 Pulse 96 07/19/24 12:11 Resp 19 H 07/19/24 12:11 BP 131/70 07/19/24 12:11 Pulse Ox 94 07/19/24 12:11 O2 Del Method Room Air 07/19/24 12:11 O2 Flow Rate 2 07/18/24 23:00 Discharge Plan Discharge Patient Disposition: Home Condition: Stable Prescriptions: New amiodarone [Pacerone] 200 mg Tablet 200 mg PO BID 30 Days Qty: 60 0RF metoprolol succinate 25 mg tablet extended release 24 hr 12.5 mg PO DAILY 90 Days Qty: 90 0RF Continued lorazepam 0.5 mg tablet 0.5 mg PO TID PRN (Reason: Anxiety) (DME) CAM Boot See Rx Instructions .Route .MEDSUPPLY Qty: 1 0RF Rx Instructions: As directed (DME) AFO brace right foot See Rx Instructions .Route .MEDSUPPLY Qty: 1 0RF Rx Instructions: As directed to the melly hammlucía lovastatin 20 mg tablet 20 mg PO DAILY tramadol 50 mg tablet 50 mg PO Q6H MDD 1-2 tabs PRN (Reason: pain) omeprazole 20 mg capsule,delayed release(DR/EC) 20 mg PO BID Qty: 60 0RF fluticasone propionate 50 mcg/actuation spray,suspension 2 spray INTRANASAL DAILY PRN (Reason: allergies) warfarin 6 mg Tablet See Rx Instructions .ROUTE .COMPLEX Protocol: Dose Management Condition: Monday Dose/Route: 6 mg Instruction: 1 x 6 mg tablet Condition: Monday Dose/Route: 6 mg Instruction: 1 x 6 mg tablet Condition: Monday Dose/Route: 6 mg Instruction: 1 x 6 mg tablet Condition: Monday Dose/Route: 6 mg Instruction: 1 x 6 mg tablet Condition: Dose/Route: 6 mg Instruction: 1 x 6 mg tablet Condition: Monday Dose/Route: 6 mg Instruction: 1 x 6 mg tablet Condition: Monday Dose/Route: 6 mg Instruction: 1 x 6 mg tablet Protocol Text: Adjustment Start Date: Monday06/21/24 INR Value: 2.4 INR Date: 06/18/24 Recheck Date: 06/28/24 Rx Instructions: TAKE 6 MG BY MOUTH DAILY ON MONDAY,MONDAY, MONDAY, MONDAY, AND MONDAY warfarin 1 mg Tablet See Rx Instructions .ROUTE .COMPLEX Protocol: Dose Management Condition: Monday Dose/Route: 6 mg Instruction: 1 x 6 mg tablet Condition: Monday Dose/Route: 6 mg Instruction: 1 x 6 mg tablet Condition: Monday Dose/Route: 6 mg Instruction: 1 x 6 mg tablet Condition: Monday Dose/Route: 6 mg Instruction: 1 x 6 mg tablet Condition: Dose/Route: 6 mg Instruction: 1 x 6 mg tablet Condition: Monday Dose/Route: 6 mg Instruction: 1 x 6 mg tablet Condition: Monday Dose/Route: 6 mg Instruction: 1 x 6 mg tablet Protocol Text: Adjustment Start Date: Monday06/21/24 INR Value: 2.4 INR Date: 06/18/24 Recheck Date: 06/28/24 Rx Instructions: TAKE 7MG BY MOUTH ONCE A DAY TWO DAYS A WEEK (MONDAY AND MONDAY) AND TAKE 6MG PO ONCE A DAY ALL OTHER DAYS(MONDAY,MONDAY,MONDAY,MONDAY AND MONDAY) zolpidem 10 mg tablet 10 mg PO BEDTIME PRN (Reason: Sleep) diltiazem HCl [Cardizem CD] 240 mg capsule,extended release 24hr 240 mg PO QAM Qty: 30 0RF Discontinued valsartan 160 mg tablet 160 mg PO BID sotalol 120 mg Tablet 120 mg PO BID Discharge Orders: Discharge Order (Routine); Ordered 07/19/24 Ordered By: Trisha Varela Referrals: Gloria Knight FNP [Nurse Practitioner] - (We have notified your physician's clinic of the need for a follow-up appointment to be scheduled. If you have not heard from them within the next 2 business days, please call them directly. ) Discharge Diet: Advance as tolerated and Cardiac Patient Instructions: Amiodarone (By mouth), Opioid Safety Plan of Treatment: The plan of treatment for this very pleasant 89-year-old female is to have the patient discharged home on amiodarone 200 twice daily as well as metoprolol succinate 12.5 mg daily. Patient will watch blood pressure if it starts to increase to 140s she will restart her valsartan but at this time it will be discontinued due to hypotensive issues. Blood pressure stable at 131/70 at this time with heart rate being 96. Patient is asymptomatic. She does not want cardioversion at this time. She was educated to the ER immediately with signs or symptoms such as increased shortness of breath dizziness or syncopal episodes. She verbalized understanding. The plan of treatment is to see patient in office in about 1 week and set her up for a cardioversion. Will continue warfarin. Patient states she checks it from home and reports this to us. Will recheck this as previously ordered. INR within normal limits. Discharge Attestations Time Spent in Discharge Care*: greater than 30 min Status at Discharge: Cognitive status at discharge: cognitively intact, Behavioral status at discharge: cooperative, Quality Metrics Clinical Quality Measures [ No reported AMI, CVA or VTE this stay] Coding Level of Care Code Acute Code for Chg Fwd Diagnoses Persistent atrial fibrillation I48.19 Atrial fibrillation type: persistent (not longstanding) Essential hypertension I10 Hypertension type: essential hypertension Warfarin anticoagulation Z79.01 Atrial fibrillation with RVR I48.91
[2024-07-19] MEDS: metoprolol succinate ER (24 HR) 25 mg Tablet 12.5 MG PO (13:25)
--- NOTE | 2024-07-19 15:06 | PC.NURSE ---
discharge to home educated pt on new meds. instructed pt to check BP twice a day as well as her HR and keep a log of them. Pt give her old med bottles such as clonidine,amiodarone,irbesartan,torsemide,amiodarone, all these bottles are old and pt wants me to throw them away.
== END 2024-07-19 15:06 | disposition home or self-care (01) | DRG 309 ==
PROVIDERS: Nurse Practitioner Family; Admitting Provider Internal Medicine Cardiovascular Disease; PCP Family Medicine; Visit Provider Internal Medicine Cardiovascular Disease
DX: I48.19 Other persistent atrial fibrillation (principal); I50.32 Chronic diastolic (congestive) heart failure; I11.0 Hypertensive heart disease with heart failure; K21.9 Gastro-esophageal reflux disease without esophagitis; E78.5 Hyperlipidemia, unspecified; Z79.01 Long term (current) use of anticoagulants
CPT/HCPCS: 36415; 80048; 80053; 85025; 85610; A4222; J0283

== ENCOUNTER 2024-07-26 11:07 | Day surgery (SDC) | payer MEDICARE, OTHER, SELFPAY ==
[2024-07-26 11:20] VITALS: BP 172/125; PULSE 95; RESP 18; O2SAT 95
--- NOTE | 2024-07-26 11:22 | ANES.PREANE2 ---
Pre-Anesthetic Assessment Height/Weight: Height 5 ft 5 in Preop Diagnosis: A fib Operation Date: 07/26/24 12:00 Proposed Procedures p Cardioversion(Not Applicable) - Dre Tafoya MD Was Beta Aftab taken within 24 hours: N/A Was Clonidine taken within 24 hours: N/A Social No alcohol and No tobacco Exam alert, oriented x 3 and clear to auscultation bilaterally A fib Airway Submandibular: within normal limits Cervical ROM: within normal limits Mallampati: Class III Dentition: full Anesthetic Plan ASA status: 3 Anesthesia: MAC Other: No prior issues with anesthesia NPO since yesterday Currently in A-fib Patient previously had an ablation for A-fib Patient previously took sotalol and Cardizem. Patient has been placed on amiodarone with plans of cardioversion today. BB taken 2 days ago Previous echo 01/2024 showing EF 61% Plan for MAC anesthetic Medications/Allergies Home Medications Medication Instructions Recorded Confirmed Last Taken Type lorazepam 0.5 mg tablet 0.5 mg PO TID PRN Anxiety 03/05/21 07/26/24 07/25/24 History omeprazole 20 mg capsule,delayed 20 mg PO BID #60 caps 09/13/23 07/26/24 07/25/24 Rx release fluticasone propionate 50 2 spray intranasal DAILY PRN 11/02/23 07/26/24 07/20/24 History mcg/actuation nasal allergies spray,suspension warfarin 1 mg tablet See Rx Instructions .Route .COMPLEX 12/11/23 07/26/24 07/24/24 History zolpidem 10 mg tablet 10 mg PO BEDTIME PRN Sleep 12/11/23 07/26/24 07/25/24 History warfarin 6 mg tablet See Rx Instructions .Route .COMPLEX 01/03/24 07/26/24 07/25/24 History diltiazem HCl 240 mg 240 mg PO QAM #30 caps 01/12/24 07/26/24 07/25/24 Rx capsule,extended release 24 hr (Cardizem CD) CAM Boot #1 ea 01/24/24 07/26/24 Unknown Rx AFO brace right foot #1 ea 02/07/24 07/26/24 Unknown Rx lovastatin 20 mg tablet 20 mg PO DAILY 07/02/24 07/26/24 07/25/24 History tramadol 50 mg tablet 50 mg PO Q6H PRN pain 07/02/24 07/26/24 07/25/24 History metoprolol succinate 25 mg 12.5 mg (1/2 x 25 mg) PO DAILY 90 07/19/24 07/26/24 07/26/24 Rx tablet,extended release 24 hr days #90 tabs amiodarone 200 mg tablet 400 mg PO BID 07/24/24 07/26/24 07/26/24 History Allergies Allergy/AdvReac Type Severity Reaction Status Date / Time amlodipine Allergy Unknown Verified 07/26/24 11:24 diazepam [From Valium] Allergy Unknown Verified 07/26/24 11:24 furosemide [From Lasix] Allergy ADR-Dizzine Verified 07/26/24 11:24 ss lisinopril Allergy Unknown Verified 07/26/24 11:24 olmesartan [From Benicar] Allergy Unknown Verified 07/26/24 11:24 penicillamine Allergy Unknown Verified 07/26/24 11:24 Penicillins Allergy Unknown Verified 07/26/24 11:24 ranitidine [From Zantac] Allergy ALGY-Rash Verified 07/26/24 11:24 Sulfa (Sulfonamide Allergy Unknown Verified 07/26/24 11:24 Antibiotics) [facility] Anesthesia Medical History (Updated 07/20/24 @ 00:00 by MAGALIE Wasserman) Essential hypertension CHF (congestive heart failure) GERD (gastroesophageal reflux disease) Hyperlipidemia HTN (hypertension) Diastolic heart failure Atrial fibrillation Surgical History History of cardiac radiofrequency ablation (RFA) S/P subtotal thyroidectomy S/P cataract extraction S/P cholecystectomy S/P knee surgery Family History Other CAD (coronary artery disease) Social History (Updated 07/02/24 @ 13:18 by Alesia Flores LPN) Smoking and tobacco/nicotine status: never used tobacco/nicotine Alcohol intake: never Substance/Drug Use: never Data Anesthesia Cardiac Studies: Echocardiogram 01/10/24 Holter Monitor 04/12/24
--- NOTE | 2024-07-26 11:29 | ECG_ITS ---
[facility] Date: 2024-07-26 Pat Name: Jessie Kumar Department: Room: Gender: Female Client Relationship Consultant: : 1935 Requested By: Dre Tafoya Order Number: [id number] Leela MD: Lennox Gillette M.D. Measurements Intervals [place] Rate: 88 P: 0 MS: 0 QRS: 47 QRSD: 89 T: 29 QT: 388 QTc: 470 Interpretive Statements ATRIAL FIBRILLATION NONSPECIFIC T-WAVE ABNORMALITY ABNORMAL RHYTHM ECG Compared to ECG 04/04/2024 09:13:34 No significant changes Electronically Signed On 07-27-2024 16:06:23 FORMATION FRACTURING OPERATOR by Lennox Gillette M.D. [id number]
[2024-07-26 11:34] VITALS: BMI 31.6
[2024-07-26] MEDS: sodium chloride 0.9% 1,000 ML 30 ML IV (12:15)
--- NOTE | 2024-07-26 12:17 | W.PM.OPSUD ---
Surgery/Procedure H&P Update DATE OF PROCEDURE: July 26, 2024 DATE H&P PERFORMED: 07/19/24 H&P UPDATE INFORMATION: I have reviewed H&P completed within last 30 days PREOP DIAGNOSIS: Atrial fibrillation difficult to control/RVR PLANNED PROCEDURE: Operation Date: 07/26/24 12:00 Proposed Procedures p Cardioversion(Not Applicable) - Dre Tafoya MD OTHER PERTINENT EXAM FINDINGS: GENERAL: Patient is alert, awake and oriented x3. HEART: Irregularly S1 and S2. No murmur, rub or gallop. LUNGS: Clear to auscultate bilaterally. CENTRAL NERVOUS SYSTEM: Grossly nonfocal. EXTREMITIES: Lower extremities with out edema bilaterally. ADDITIONAL INFORMATION: Patient has been explained all risk-benefit and alternative for the procedure. She understand risk for significant bradycardia asystole respiratory depression temporary or permanent pacemaker intubation hypotension and worst-case scenario . She understands the risk for stroke TIA brain bleed. She would like to proceed with it. Patient potassium level is on the lower side we will recheck potassium since it was done a week ago before proceeding with cardioversion.
[2024-07-26 12:29] LABS: ABG PH Result 7.43 (7.35-7.45); Alveolar-Arterial Oxygen Gradi 3.3 mmHg (5-10); Base Excess ABG 1.7 mmol/L (-2.0-2.0); Blood Gas Allen Test Pos; Blood Gas Operator Identificat WALCI; Blood Gas Sample Site Radial, right; Blood Gas Sample Type Arterial; Carboxyhemoglobin 0.2 %THgb (0.4-20.1); HCO3 ABG 26.3 mmol/L (22-26); HGB O2 Sat 93.3 % (95-100); Ionized Calcium Level - ABG 1.1 mmol/L (1.1-1.4); Methemoglobin 0.9 % (0.4-1.5); Oxygen Device ROOM AIR; Oxygen Saturation ABG 94.3; PO2 ABG 74.7 mmHg (80.0-100.0); PO2 FiO2 Ratio Arterial Blood 355; Potassium Level - ABG 3.8 mmol/L (3.5-5.0); Total Hemoglobin 13.7 g/dL (12-16)
--- NOTE | 2024-07-26 12:38 | W.PM.OPSUD ---
Surgery/Procedure H&P Update DATE OF PROCEDURE: July 26, 2024 DATE H&P PERFORMED: 07/19/24 H&P UPDATE INFORMATION: I have reviewed H&P completed within last 30 days, I have examined patient prior to procedure and No changes to prior documentation CHANGES TO PREVIOUS DOCUMENTATION: A-fib with RVR Uncontrolled Symptomatic the PREOP DIAGNOSIS: A fib PRIMARY INDICATION FOR PROCEDURE: Plan DC cardioversion without transesophageal echocardiogram since patient is on long-term warfarin confirmed 3 consecutive INR in the therapeutic range for the past 3 to 4 weeks patient potassium came back 3.8. Advised proceeding with DC cardioversion. Patient has been explained all risk-benefit and alternative for the procedure she would like to proceed with it. She clearly understands risk for stroke bleeding asystole bradycardia requiring temporary permanent pacemaker respiratory failure intubation hypotension. She would like to proceed with it. Please see anesthesia note for sedation PLANNED PROCEDURE: Operation Date: 07/26/24 12:00 Proposed Procedures p Cardioversion(Not Applicable) - Dre Tafoya MD
--- NOTE | 2024-07-26 12:53 | W.PM.OPSUD ---
Surgery/Procedure H&P Update DATE OF PROCEDURE: July 26, 2024 DATE H&P PERFORMED: 07/19/24 H&P UPDATE INFORMATION: I have reviewed H&P completed within last 30 days, I have examined patient prior to procedure and No changes to prior documentation PREOP DIAGNOSIS: A fib with RVR PRIMARY INDICATION FOR PROCEDURE: Under anesthesia PLANNED PROCEDURE: Operation Date: 07/26/24 12:00 Proposed Procedures p Cardioversion(Not Applicable) - Dre Tafoya MD Patient has been explained all risk-benefit and alternative for the procedure she understand risk for stroke major bleed asystole temporary permanent pacemaker. She would like to proceed with OTHER PERTINENT EXAM FINDINGS: GENERAL: Patient is alert, awake and oriented x3. HEART: Irregularly irregular S1 and S2. No murmur, rub or gallop. LUNGS: Clear to auscultate bilaterally. CENTRAL NERVOUS SYSTEM: Grossly nonfocal. EXTREMITIES: Lower extremities with out edema bilaterally.
--- NOTE | 2024-07-26 12:56 | P.HPUD_ITS ---
<Statement entered by Dre Tafoya MD - 08/18/24 02:56> Patient was evaluated and cared for in conjunction with an advanced practice practitioner. I personally examined the patient and reviewed the chart and all pertinent data including imaging, telemetry, and laboratory results. I discussed the patient in detail with the advanced practice practitioner. Please see their note for complete H&P testing result and agreed upon plan of care for the patient. Surgery/Procedure H&P Update DATE OF PROCEDURE: July 26, 2024 DATE H&P PERFORMED: 07/19/24 H&P UPDATE INFORMATION: I have reviewed H&P completed within last 30 days, I have examined patient prior to procedure and No changes to prior documentation PREOP DIAGNOSIS: A fib with RVR PRIMARY INDICATION FOR PROCEDURE: GENERAL: Patient is alert, awake and oriented x3. HEART: Irregularly irregular S1 and S2. No murmur, rub or gallop. LUNGS: Clear to auscultate bilaterally. CENTRAL NERVOUS SYSTEM: Grossly nonfocal. EXTREMITIES: Lower extremities with out edema bilaterally. PLANNED PROCEDURE: Operation Date: 07/26/24 12:00 Proposed Procedures p Cardioversion(Not Applicable) - Dre Tafoya MD Please see anesthesia Patient has been explained all risk-benefit and alternative for the procedure patient understand risk for stroke major bleed Asystole bradycardia intubation, she would like to proceed with the
--- NOTE | 2024-07-26 13:00 | PC.NURSE ---
1301 Shock delivered at 150 joules.
[2024-07-26 13:03] VITALS: BP 147/94; PULSE 90; RESP 16; TEMP 36.1; O2SAT 99
--- NOTE | 2024-07-26 13:04 | PC.NURSE ---
1255 - Dr. Tafoya update done, visualized by signee and Betzy Serra TEACHER CCLC, not able to see in patient EMR. Discussed with EULALIO Cowart, states ok to proceed with procedure.
[2024-07-26 13:19] VITALS: BP 136/101; PULSE 79; RESP 18; O2SAT 96
--- NOTE | 2024-07-26 13:29 | ECG_ITS ---
[facility] Test Date: 2024-07-26 Pat Name: Jessie Kumar Department: Room: Gender: Female Closet Organizer: : 1935 Requested By: Dre Tafoya Order Number: [id number] Leela MD: Lennox Gillette M.D. Measurements Intervals [place] Rate: 77 P: 0 AL: 0 QRS: 24 QRSD: 76 T: 9 QT: 414 QTc: 469 Interpretive Statements multifocal atrial rhythm NONSPECIFIC T-WAVE ABNORMALITY ABNORMAL RHYTHM ECG Compared to ECG 07/26/2024 11:29:21 No significant changes Electronically Signed On 07-27-2024 16:06:57 SENIOR CONTROL SYSTEMS ENGINEER by Lennox Gillette M.D. [email or web address]
== END 2024-07-26 14:05 | disposition home or self-care (01) ==
PROVIDERS: PCP Family Medicine; Visit Provider Internal Medicine Cardiovascular Disease
PROC: 5A2204Z Restoration of Cardiac Rhythm, Single (ICD-10-PCS; principal; 2024-07-26 12:00)
DX: I48.91 Unspecified atrial fibrillation (principal); I11.0 Hypertensive heart disease with heart failure; I50.30 Unspecified diastolic (congestive) heart failure; K21.9 Gastro-esophageal reflux disease without esophagitis; E78.5 Hyperlipidemia, unspecified; Z82.49 Family history of ischemic heart disease and other diseases of the circulatory system
CPT/HCPCS: 80051; 82330; 82805; 92960; 93005; J2704; J7030

== ENCOUNTER → 2024-08-14 11:11 | Outpatient (BNVA) | payer MEDICARE, OTHER, SELFPAY | PROVIDERS: PCP Family Medicine; Visit Provider Podiatrist Foot & Ankle Surgery | DX: M25.571 Pain in right ankle and joints of right foot (principal); S82.851A Displaced trimalleolar fracture of right lower leg, initial encounter for closed fracture; W22.8XXA Striking against or struck by other objects, initial encounter; Z79.01 Long term (current) use of anticoagulants; I48.19 Other persistent atrial fibrillation; M21.371 Foot drop, right foot | CPT/HCPCS: 73610; 99213 ==

== ENCOUNTER → 2024-08-20 13:22 | Outpatient (BNVA) | payer MEDICARE, OTHER, SELFPAY | PROVIDERS: PCP Family Medicine; Visit Provider Internal Medicine Cardiovascular Disease | DX: I11.0 Hypertensive heart disease with heart failure (principal); I50.32 Chronic diastolic (congestive) heart failure; I48.20 Chronic atrial fibrillation, unspecified | CPT/HCPCS: 99213 ==

== ENCOUNTER → 2024-11-11 13:00 | Outpatient (BNVA) | payer MEDICARE, OTHER, SELFPAY | PROVIDERS: PCP Family Medicine; Visit Provider Podiatrist Foot & Ankle Surgery | DX: S82.851A Displaced trimalleolar fracture of right lower leg, initial encounter for closed fracture (principal); Z79.01 Long term (current) use of anticoagulants; I48.19 Other persistent atrial fibrillation; M21.371 Foot drop, right foot; X58.XXXA Exposure to other specified factors, initial encounter | CPT/HCPCS: 99213 ==

== ENCOUNTER → 2024-11-22 13:33 | Outpatient (BNVA) | payer MEDICARE, OTHER, SELFPAY | PROVIDERS: PCP Family Medicine; Visit Provider Internal Medicine Cardiovascular Disease | DX: I48.20 Chronic atrial fibrillation, unspecified (principal); I10 Essential (primary) hypertension; D64.9 Anemia, unspecified; Z79.01 Long term (current) use of anticoagulants | CPT/HCPCS: 80076; 85025; 85610 ==

== ENCOUNTER → 2024-12-20 10:09 | Outpatient (BNVA) | payer MEDICARE, OTHER, SELFPAY | PROVIDERS: PCP Family Medicine; Visit Provider Internal Medicine Cardiovascular Disease | DX: I48.20 Chronic atrial fibrillation, unspecified (principal); Z79.01 Long term (current) use of anticoagulants; I11.0 Hypertensive heart disease with heart failure; I50.30 Unspecified diastolic (congestive) heart failure; H54.7 Unspecified visual loss; G31.84 Mild cognitive impairment of uncertain or unknown etiology | CPT/HCPCS: 99214 ==

== ENCOUNTER 2025-01-22 12:50 | Emergency (ER) | payer MEDICARE, OTHER, SELFPAY ==
[2025-01-22] VITALS (11 sets, daily range): BP systolic 140–172; BP diastolic 75–108; PULSE 78–94; RESP 13–31; TEMP 36.8; O2SAT 91–95; BMI 33.3
--- NOTE | 2025-01-22 12:55 | ECG_ITS ---
[facility] Date: 2025-01-22 Pat Name: Jessie Kumar Department: Room: Gender: Female Batch Freezer Operator: : 1935 Requested By: Carol Alexis Order Number: [id number] Reading MD: PARTH CERON Measurements Intervals [place] Rate: 92 P: 89 MA: 178 QRS: 60 QRSD: 83 T: 63 QT: 350 QTc: 433 Interpretive Statements SINUS RHYTHM Compared to ECG 07/26/2024 13:29:49 T-wave abnormality no longer present Electronically Signed On 01-23-2025 23:31:54 CDT by PARTH CERON [id number] [id number]
--- NOTE | 2025-01-22 12:55 | XR_ITS ---
WS: [id number] Exam: XR chest 1V portable [id number] Date/Time of Exam: 01/22/2025 1:13 PM Reason For Exam: cp Comparison 04/04/2024. Lungs are fully expanded. No acute infiltrates. Mild plaque atelectasis in the RIGHT base. Cardiomediastinal silhouette is unremarkable for technique. Moderate degenerative change of both shoulders. XR/XR chest 1V portable [id number] IMPRESSION: 1. No acute cardiopulmonary finding.
--- NOTE | 2025-01-22 13:14 | W.ED.CHESTPA ---
HPI - Chest Pain General: Chief Complaint: Chest Pain Stated Complaint: CP SOB Time Seen by Provider: 01/22/25 13:03 Source: patient Mode of arrival: wheelchair Limitations: no limitations History of Present Illness: Patient is an 89-year-old female presenting to the emergency department with several days of substernal chest pain. She reports that she has episodes intermittently while at rest and are normally relieved by nitroglycerin. She has a history of A-fib with RVR, essential hypertension, diastolic heart failure, and warfarin use. She states that she took 3 nitroglycerin earlier today with moderate relief before coming to the ED. MD complaint: chest pain Onset (ago): month(s) Timing of current episode: episodic Onset: during rest Pain location: substernal Pain radiation: right arm Severity: mild Quality: heaviness Relieving factors: nitroglycerin Exacerbating factors: nothing Associated symptoms: Deny abdominal pain, dyspnea, fever(s), nausea, palpitations, syncope or vomiting Treatment prior to arrival: nitroglycerin Related Data Home Medications ?Medication ?Instructions ?Recorded ?Confirmed lorazepam 0.5 mg tablet 0.5 mg PO TID PRN Anxiety 03/05/21 01/22/25 fluticasone propionate 50 2 spray intranasal DAILY PRN 11/02/23 01/22/25 mcg/actuation nasal allergies spray,suspension warfarin 1 mg tablet See Rx Instructions .Route .COMPLEX 12/11/23 01/22/25 zolpidem 10 mg tablet 10 mg PO BEDTIME PRN Sleep 12/11/23 01/22/25 warfarin 6 mg tablet See Rx Instructions .Route .COMPLEX 01/03/24 01/22/25 lovastatin 20 mg tablet 20 mg PO DAILY 07/02/24 01/22/25 tramadol 50 mg tablet 50 mg PO Q6H PRN pain 07/02/24 01/22/25 amiodarone 200 mg tablet 100 mg PO DAILY 12/20/24 01/22/25 nitroglycerin 0.4 mg sublingual See Rx Instructions .Route .COMPLEX 01/22/25 01/22/25 tablet oxycodone-acetaminophen 10 mg-325 1 tab PO Q6H PRN Severe Pain 01/22/25 01/22/25 mg tablet (Scale Score 7-10) tramadol 100 mg tablet,extended 100 mg PO BEDTIME 01/22/25 01/22/25 release 24 hr warfarin 5 mg tablet 5 mg PO DAILY 01/22/25 01/22/25 Previous Rx's ?Medication ?Instructions ?Recorded omeprazole 20 mg capsule,delayed 20 mg PO BID #60 caps 09/13/23 release CAM Boot #1 ea 01/24/24 AFO brace right foot #1 ea 02/07/24 metoprolol succinate 25 mg 12.5 mg (1/2 x 25 mg) PO DAILY #90 01/06/25 tablet,extended release 24 hr tabs Allergies Allergy/AdvReac Type Severity Reaction Status Date / Time diazepam (From Valium) Allergy Unknown Verified 12/20/24 10:19 furosemide (From Lasix) Allergy ADR-Dizzine Verified 12/20/24 10:19 ss lisinopril Allergy Unknown Verified 12/20/24 10:19 olmesartan (From Benicar) Allergy Unknown Verified 12/20/24 10:19 penicillamine Allergy Unknown Verified 12/20/24 10:19 Penicillins Allergy Unknown Verified 12/20/24 10:19 ranitidine (From Zantac) Allergy ALGY-Rash Verified 12/20/24 10:19 Sulfa (Sulfonamide Allergy Unknown Verified 12/20/24 10:19 Antibiotics) Review of Systems Const: Denies: fever(s) or chills Eyes: Denies: change in vision Card: Reports: chest pain and swelling of feet/ankles; Denies: palpitations, irregular heart rhythm, lightheadedness or syncope Resp: Denies: dyspnea, productive cough or pain on inspiration GI: Denies: abdominal pain, nausea or vomiting Neuro: Reports: headache(s) PFS ED PFSH: Medical History Atrial fibrillation, chronic Essential hypertension CHF (congestive heart failure) GERD (gastroesophageal reflux disease) Hyperlipidemia HTN (hypertension) Diastolic heart failure Atrial fibrillation Surgical History History of cardiac radiofrequency ablation (RFA) S/P subtotal thyroidectomy S/P cataract extraction S/P cholecystectomy S/P knee surgery Family History Other CAD (coronary artery disease) Social History (Reviewed 11/22/24 @ 12:30 by JACOBO Meek Smoking and tobacco/nicotine status: never used tobacco/nicotine Alcohol intake: never Substance/Drug Use: never Physical Exam Const: COMMON NORMALS: no acute distress, patient oriented x3 and alert NUTRITIONAL APPEARANCE: obese centrally obese HENMT: COMMON NORMALS: normocephalic, atraumatic and hearing grossly normal bilaterally HEAD & SCALP: normocephalic and atraumatic Eye: COMMON NORMALS: Equal, round and reactive pupils present, EOMs intact bilaterally and conjunctivae normal CONJUNCTIVA: Yes conjunctivae normal PUPIL: Yes Equal, round and reactive pupils present Neck/C-Spine: COMMON NORMALS: full ROM, no lymphadenopathy and no JVD Chest: COMMONS NORMALS: normal inspection of the chest and normal palpation of entire chest wall Resp: COMMON NORMALS: normal respiratory effort, No retractions, No use of accessory muscles and clear to auscultation bilaterally AUSCULTATION: clear to auscultation bilaterally Cardio: COMMON NORMALS: no JVD, regular rate, regular rhythm, S1 normal heart sound present, S2 normal heart sound present, No gallops present (Cardio) and No murmurs present (Cardio) RATE: regular rate RHYTHM: regular rhythm HEART SOUNDS: S1 normal heart sound present and S2 normal heart sound present Neuro: COMMON NORMALS: patient oriented x3 SENSORIUM/ORIENTATION: Yes alert Course Vital Signs: Vital signs: Vital Signs Temperature 98.3 F 01/22/25 12:53 Pulse Rate 80 01/22/25 14:00 Respiratory Rate 16 01/22/25 14:00 Blood Pressure 159/96 01/22/25 14:00 Pulse Oximetry 93 01/22/25 14:00 Oxygen Delivery Me thod Room Air 01/22/25 13:18 MDM - Chest Pain Medical Decision Making Patient presents for chest pains atypical in nature been going on for quite some time troponins here are negative no signs of ACS no signs of dissection or pulmonary embolism patient stable for discharge follow-up PCP return if worsening. Medical Records I reviewed the patient's medical records. Lab Data I reviewed the patient's lab results. 01/22/25 13:18 01/22/25 14:08 Radiology Impressions Chest X-Ray 01/22/25 12:55 IMPRESSION: 1. No acute cardiopulmonary finding. Laboratory Results WBC 7.78 10^3/uL (3.29-11.43) 01/22/25 13:18 RBC 4.47 10^6/uL (3.85-5.65) 01/22/25 13:18 Hgb 13.00 g/dL (11.27-16.99) 01/22/25 13:18 Hct 40.7 % (36-47) 01/22/25 13:18 MCV 91.1 fl (85-98) 01/22/25 13:18 MCH 29.1 pg (27-33) 01/22/25 13:18 MCHC 31.9 g/dL (30-55) 01/22/25 13:18 RDW 15.6 % (12.1-15.1) H 01/22/25 13:18 Plt Count 260 10^3/cmm (157-399) 01/22/25 13:18 MPV 10.0 fL (7.4-10.4) 01/22/25 13:18 Neut % (Auto) 62.5 % 01/22/25 13:18 Lymph % (Auto) 28.7 % 01/22/25 13:18 Fountain % (Auto) 7.2 % 01/22/25 13:18 Eos % (Auto) 0.8 % 01/22/25 13:18 Baso % (Auto) 0.5 % 01/22/25 13:18 Neut # (Auto) 4.87 10^3/uL (1.8-7.7) 01/22/25 13:18 Lymph # (Auto) 2.2 10^3/uL (0.8-4.8) 01/22/25 13:18 Fountain # (Auto) 0.6 10^3/uL (0.2-0.9) 01/22/25 13:18 Eos # (Auto) 0.1 10^3/uL (0.0-0.8) 01/22/25 13:18 Baso # (Auto) 0.0 10^3/uL (0.0-0.1) 01/22/25 13:18 Nucleated RBC % (auto) 0 % 01/22/25 13:18 Nucleated RBCs # 0.0 /100WBC 01/22/25 13:18 PT 16.30 SECONDS (12.1-14.9) H 01/22/25 13:18 INR 1.23 (0.8-1.2) H 01/22/25 13:18 Sodium 137 mmol/L (136-145) 01/22/25 14:08 Potassium 4.2 mmol/L (3.5-5.1) 01/22/25 14:08 Chloride 102 mmol/L (98-107) 01/22/25 14:08 Carbon Dioxide 25 mmol/L (22-29) 01/22/25 14:08 Anion Gap 14.2 (5-19) 01/22/25 14:08 BUN 14 mg/dL (8-23) 01/22/25 14:08 Creatinine 1.0 mg/dL (0.5-0.9) H 01/22/25 14:08 GFR Calculation Not Reportable 01/22/25 14:08 Glucose 114 mg/dL (65-115) 01/22/25 14:08 Calculated Osmolality 285 mOsm/kg (285-295) 01/22/25 14:08 Calcium 8.2 mg/dL (8.5-10.5) L 01/22/25 14:08 Total Bilirubin 0.3 mg/dL (0.15-1.2) 01/22/25 14:08 AST 22 U/L (0-32) 01/22/25 14:08 ALT 22 U/L (0-33) 01/22/25 14:08 Alkaline Phosphatase 133 U/L (35-105) H 01/22/25 14:08 Troponin T Baseline 12 ng/L (0-10) H 01/22/25 13:18 Troponin T 120 Minute 11.62 ng/L (0-10) H 01/22/25 15:16 Delta Troponin T -0.38 ABS# (0-10) L 01/22/25 15:16 NT-Pro-B Natriuret Pep 162 pg/mL (0-450) 01/22/25 14:08 Total Protein 6.8 g/dL (6.6-8.7) 01/22/25 14:08 Albumin 3.6 g/dL (3.5-5.2) 01/22/25 14:08 Globulin 3.2 g/dL (1.3-4.6) 01/22/25 14:08 Lipase 28 U/L (13-60) 01/22/25 14:08 All radiology interpretation(s) finalized by discharge EKG Data EKG 1: I personally reviewed and interpreted this EKG as follows: EKG interpretation date: 01/22/25 EKG interpretation time: 12:55 Interpretation: nsr hr [address] or t wave abnormalities qrs 83 qtc 399 Discharge Plan Discharge Patient Disposition: Home Clinical Impression: Chest pain Condition: Stable Prescriptions: No Action lorazepam 0.5 mg tablet 0.5 mg PO TID PRN (Reason: Anxiety) (DME) CAM Boot See Rx Instructions .Route .MEDSUPPLY Qty: 1 0RF Rx Instructions: As directed amiodarone 200 mg tablet 100 mg PO DAILY (DME) AFO brace right foot See Rx Instructions .Route .MEDSUPPLY Qty: 1 0RF Rx Instructions: As directed to the [facility] lovastatin 20 mg tablet 20 mg PO DAILY tramadol 50 mg tablet 50 mg PO Q6H MDD 1-2 tabs PRN (Reason: pain) omeprazole 20 mg capsule,delayed release(DR/EC) 20 mg PO BID Qty: 60 0RF metoprolol succinate 25 mg tablet extended release 24 hr 12.5 mg PO DAILY Qty: 90 3RF fluticasone propionate 50 mcg/actuation spray,suspension 2 spray INTRANASAL DAILY PRN (Reason: allergies) warfarin 6 mg Tablet See Rx Instructions .ROUTE .COMPLEX Protocol: Dose Management Condition: Monday Dose/Route: 5 mg Instruction: 5 x 1 mg tablets Condition: Monday Dose/Route: 5 mg Instruction: 5 x 1 mg tablets Condition: Monday Dose/Route: 5 mg Instruction: 5 x 1 mg tablets Condition: Monday Dose/Route: 5 mg Instruction: 5 x 1 mg tablets Condition: Dose/Route: 5 mg Instruction: 5 x 1 mg tablets Condition: Monday Dose/Route: 5 mg Instruction: 5 x 1 mg tablets Condition: Monday Dose/Route: 5 mg Instruction: 5 x 1 mg tablets Protocol Text: Adjustment Start Date: Monday01/14/25 INR Value: 2.0 INR Date: 01/13/25 Recheck Date: 01/21/25 Rx Instructions: TAKE 6 MG BY MOUTH DAILY ON MONDAY,MONDAY, MONDAY, MONDAY, AND MONDAY warfarin 5 mg Tablet 5 mg PO DAILY oxycodone-acetaminophen 10-325 mg tablet 1 tab PO Q6H PRN (Reason: Severe Pain (Scale Score 7-10)) nitroglycerin 0.4 mg tablet, sublingual See Rx Instructions .ROUTE .COMPLEX Rx Instructions: DISSOLVE 1 TABLET UNDER THE TONGUE EVERY 5 MINUTES NEEDED FOR CHEST PAIN. DO NOT EXCEED A TOTAL OF 3 DOSES IN 15 MINUTES. tramadol 100 mg tablet extended release 24 hr 100 mg PO BEDTIME warfarin 1 mg Tablet See Rx Instructions .ROUTE .COMPLEX Protocol: Dose Management Condition: Monday Dose/Route: 5 mg Instruction: 5 x 1 mg tablets Condition: Monday Dose/Route: 5 mg Instruction: 5 x 1 mg tablets Condition: Monday Dose/Route: 5 mg Instruction: 5 x 1 mg tablets Condition: Monday Dose/Route: 5 mg Instruction: 5 x 1 mg tablets Condition: Dose/Route: 5 mg Instruction: 5 x 1 mg tablets Condition: Monday Dose/Route: 5 mg Instruction: 5 x 1 mg tablets Condition: Monday Dose/Route: 5 mg Instruction: 5 x 1 mg tablets Protocol Text: Adjustment Start Date: Monday01/14/25 INR Value: 2.0 INR Date: 01/13/25 Recheck Date: 01/21/25 Rx Instructions: TAKE 7MG BY MOUTH ONCE A DAY TWO DAYS A WEEK (MONDAY AND MONDAY) AND TAKE 6MG PO ONCE A DAY ALL OTHER DAYS(MONDAY,MONDAY,MONDAY,MONDAY AND MONDAY) zolpidem 10 mg tablet 10 mg PO BEDTIME PRN (Reason: Sleep) Discharge Orders: Discharge ED (Routine); Ordered 01/22/25 Ordered By: Carol Alexis Referrals: Liliana Ko DO [Primary Care Provider, Family Practice] Discharge Diet: Advance as tolerated Discharge Activity: Resume usual activity Patient Instructions: Chest Pain (ED) Print Language: Colombian Coding Level of Care Code ED Racebook Writer for Zuhair Nelson
[2025-01-22 14:14] LABS: Basophils % 0.5 %; Eosinophils # 0.1 10^3/uL (0.0-0.8); Eosinophils % 0.8 %; Hematocrit 40.7 % (36-47); Lymphocytes # 2.2 10^3/uL (0.8-4.8); Lymphocytes % 28.7 %; Mean Corpuscular HGB Conc 31.9 g/dL (30-55); Mean Corpuscular Hemoglobin 29.1 pg (27-33); Mean Corpuscular Volume 91.1 fl (85-98); Monocytes # 0.6 10^3/uL (0.2-0.9); Monocytes % 7.2 %; Neutrophils # 4.87 10^3/uL (1.8-7.7); Neutrophils % 62.5 %; Nucleated Red Blood Cells % 0 %; Platelet Count 260 10^3/cmm (157-399); Red Blood Count 4.47 10^6/uL (3.85-5.65); Red Cell Distribution Width 15.6 % (12.1-15.1); White Blood Count 7.78 10^3/uL (3.29-11.43)
[2025-01-22 14:23] LABS: INR 1.23 (0.8-1.2); Troponin(5th) Baseline 12 ng/L (0-10)
[2025-01-22 14:47] LABS: Alanine Aminotransferase 22 U/L (0-33); Albumin Level 3.6 g/dL (3.5-5.2); Alkaline Phosphatase 133 U/L (35-105); Aspartate Amino Transferase 22 U/L (0-32); Blood Urea Nitrogen 14 mg/dL (8-23); Calcium 8.2 mg/dL (8.5-10.5); Carbon Dioxide 25 mmol/L (22-29); Chloride 102 mmol/L (98-107); Creatinine Clr Calc Pharmacy 44.1034; Globulin 3.2 g/dL (1.3-4.6); Glucose 114 mg/dL (65-115); Lipase 28 U/L (13-60); NT Pro B Type Natriuretic Pept 162 pg/mL (0-450); Osmolality Calculated 285 mOsm/kg (285-295); Sodium 137 mmol/L (136-145); Total Bilirubin 0.3 mg/dL (0.15-1.2); Total Protein 6.8 g/dL (6.6-8.7)
[2025-01-22 14:49] LABS: Anion Gap 14.2 (5-19); Potassium 4.2 mmol/L (3.5-5.1)
--- NOTE | 2025-01-22 14:55 | ECG_ITS ---
[facility]: 2025[facility]22 Pat Name: Jessie Kumar Department: Room: Gender: Female Line Service Attendant: : 1935 Requested By: Carol Alexis Order Number: [id number] Reading MD: PARTH CERON Measurements Intervals [place] Rate: 79 P: 99 NE: 180 QRS: 51 QRSD: 86 T: 50 QT: 389 QTc: 447 Interpretive Statements SINUS RHYTHM NONSPECIFIC T-WAVE ABNORMALITY Compared to ECG 01/22/2025 12:55:59 T-wave abnormality now present Electronically Signed On 01-23-2025 23:39:39 CDT by PARTH CERON [email or web address]
[2025-01-22 16:30] LABS: Troponin 5 2HR 11.62 ng/L (0-10)
[2025-01-22 16:33] LABS: Troponin 5 2HR Delta -0.38 ABS# (0-10)
== END 2025-01-22 16:50 | disposition home or self-care (01) ==
PROVIDERS: Emergency Provider Emergency Medicine; PCP Family Medicine
DX: R07.9 Chest pain, unspecified (principal); Z79.01 Long term (current) use of anticoagulants; I11.0 Hypertensive heart disease with heart failure; I50.30 Unspecified diastolic (congestive) heart failure; E78.5 Hyperlipidemia, unspecified
CPT/HCPCS: 36415; 71045; 80053; 83690; 83880; 84484; 85025; 85610; 93005; 99285

== ENCOUNTER 2025-04-10 12:41 | Emergency (ER) | payer MEDICARE, OTHER, SELFPAY ==
[2025-04-10 12:43] VITALS: BP 124/85; PULSE 101; RESP 16; TEMP 36.8; O2SAT 92; BMI 33.3
--- NOTE | 2025-04-10 12:49 | ECG_ITS ---
[facility] Date: 2025-04-10 Pat Name: Jessie Kumar Department: Room: Gender: Female Program Management Analyst: : 1935 Requested By: Augusto Mcneil Order Number: [id number] Swenson MD: PARTH CERON Measurements Intervals [place] Rate: 95 P: 0 VA: 0 QRS: 44 QRSD: 95 T: 47 QT: 376 QTc: 475 Interpretive Statements ATRIAL FIBRILLATION NONSPECIFIC T-WAVE ABNORMALITY ABNORMAL RHYTHM ECG Compared to ECG 01/22/2025 14:37:45 Sinus rhythm no longer present T-wave abnormality still present Electronically Signed On 04-10-2025 22:22:05 CDT by PARTH CERON [email or web address]
[2025-04-10 13:05] VITALS: BP 158/108; PULSE 94; RESP 16; O2SAT 93
--- NOTE | 2025-04-10 13:08 | XR_ITS ---
WS: [id number] Portable AP upright chest, 04/10/2025 Clinical Data: sob Comparison: Portable chest, 01/22/2025 Findings: No nodules, masses or effusions are seen. The heart is enlarged. The pulmonary vascularity is not increased. No pneumonia or pneumothorax is seen. There is an eventration of the right diaphragm. The aortic arch and descending thoracic aorta show tortuosity. Monitor leads are on the chest wall. XR/XR chest 1V portable [id number] Impression: Cardiomegaly and atherosclerosis.
--- NOTE | 2025-04-10 13:26 | ECG_ITS ---
[facility] Date: 2025-04-10 Pat Name: Jessie Kumar Department: Room: Gender: Female Marketing Administrative Assistant: : 1935 Requested By: Augusto Mcneil Order Number: [id number] Reading MD: PARTH CERON Measurements Intervals [place] Rate: 88 P: 0 OR: 0 QRS: 48 QRSD: 93 T: 55 QT: 389 QTc: 472 Interpretive Statements ATRIAL FIBRILLATION ABNORMAL RHYTHM ECG Compared to ECG 01/22/2025 14:37:45 Sinus rhythm no longer present T-wave abnormality no longer present Electronically Signed On 04-10-2025 22:17:59 CDT by PARTH CERON [email or web address]
[2025-04-10 13:45] LABS: Hematocrit 33.8 % (36-47); Hemoglobin 9.80 g/dL (11.27-16.99); Mean Corpuscular HGB Conc 29.0 g/dL (30-55); Mean Corpuscular Hemoglobin 26.8 pg (27-33); Mean Corpuscular Volume 92.6 fl (85-98); Nucleated Red Blood Cells % 0 %; Platelet Count 258 10^3/cmm (157-399); Red Blood Count 3.65 10^6/uL (3.85-5.65); White Blood Count 5.75 10^3/uL (3.29-11.43)
[2025-04-10 14:10] LABS: Lactic Sepsis W/Reflex 1.2 mmol/L (0.5-2.2)
[2025-04-10 14:13] LABS: Troponin(5th) Baseline 11 ng/L (0-10)
[2025-04-10 14:14] LABS: INR 2.51 (0.8-1.2); Prothrombin Time 28.50 SECONDS (12.1-14.9)
[2025-04-10 14:22] LABS: Alanine Aminotransferase 15 U/L (0-33); Albumin Level 3.8 g/dL (3.5-5.2); Alkaline Phosphatase 164 U/L (35-105); Anion Gap 15.4 (5-19); Aspartate Amino Transferase 20 U/L (0-32); Blood Urea Nitrogen 11 mg/dL (8-23); Calcium 7.3 mg/dL (8.5-10.5); Carbon Dioxide 25 mmol/L (22-29); Chloride 104 mmol/L (98-107); Creatinine Clr Calc Pharmacy 48.0792; Globulin 2.5 g/dL (1.3-4.6); Glucose 96 mg/dL (65-115); NT Pro B Type Natriuretic Pept 1488 pg/mL (0-450); Osmolality Calculated 289 mOsm/kg (285-295); Potassium 4.4 mmol/L (3.5-5.1); Sodium 140 mmol/L (136-145); Total Protein 6.3 g/dL (6.6-8.7)
[2025-04-10] MEDS: FUROsemide 10 mg/mL SDV 4mL 40 MG IVP (14:47)
[2025-04-10 15:21] VITALS: BP 196/153; PULSE 123; RESP 16; O2SAT 90
[2025-04-10 15:43] LABS: Troponin 5 2HR 10.63 ng/L (0-10)
[2025-04-10 15:46] LABS: Troponin 5 2HR Delta -0.37 ABS# (0-10)
[2025-04-10 15:50] VITALS: BP 195/118; PULSE 102; RESP 16; O2SAT 92
--- NOTE | 2025-04-10 15:58 | W.ED.SOB ---
HPI - SOB/Dyspnea General: Chief Complaint: Shortness of Breath/Dyspnea Stated Complaint: wheezing,sob,full of water Time Seen by Provider: 04/10/25 13:00 History of Present Illness: HPI Narrative: Patient is an 89-year-old female who presents with shortness of breath, wheezing, and cough that began approximately 3 days ago. She reports feeling like she is filled with fluid and states she has significant bilateral lower extremity swelling that has been worsening. Patient was seen at [facility] walk-in clinic yesterday where she was told she had fluid on her lungs and was given a quad pill (Lasix 20mg) and potassium. She denies coughing up any sputum, blood, or colored secretions. She denies chest pain, fever, or chills. Patient reports that her legs have been increasingly swollen, and she feels short of breath with exertion. Patient has a history of atrial fibrillation, diastolic heart failure, and hypertension. She normally requires 2L of oxygen at home but is not requiring supplemental oxygen during this visit. Related Data Home Medications ?Medication ?Instructions ?Recorded ?Confirmed lorazepam 0.5 mg tablet 0.5 mg PO TID PRN Anxiety 03/05/21 04/10/25 fluticasone propionate 50 2 spray intranasal DAILY PRN 11/02/23 04/10/25 mcg/actuation nasal allergies spray,suspension warfarin 1 mg tablet See Rx Instructions .Route .COMPLEX 12/11/23 04/10/25 zolpidem 10 mg tablet 10 mg PO BEDTIME PRN Sleep 12/11/23 04/10/25 warfarin 6 mg tablet See Rx Instructions .Route .COMPLEX 01/03/24 04/10/25 lovastatin 20 mg tablet 20 mg PO QPM 07/02/24 04/10/25 tramadol 50 mg tablet 50 mg PO Q6H PRN pain 07/02/24 04/10/25 nitroglycerin 0.4 mg sublingual See Rx Instructions .Route .COMPLEX 01/22/25 04/10/25 tablet oxycodone-acetaminophen 10 mg-325 1 tab PO Q6H PRN Severe Pain 01/22/25 04/10/25 mg tablet (Scale Score 7-10) tramadol 100 mg tablet,extended 100 mg PO BEDTIME 01/22/25 04/10/25 release 24 hr warfarin 5 mg tablet 5 mg PO DAILY 01/22/25 04/10/25 amiodarone 100 mg tablet 200 mg PO QPM 04/10/25 04/10/25 diltiazem HCl 240 mg 240 mg PO QAM 04/10/25 04/10/25 capsule,extended release 24 hr linaclotide 72 mcg capsule 72 mcg PO DAILY 04/10/25 04/10/25 (Linzess) metoprolol succinate 25 mg 12.5 mg PO QAM 04/10/25 04/10/25 tablet,extended release 24 hr Previous Rx's ?Medication ?Instructions ?Recorded omeprazole 20 mg capsule,delayed 20 mg PO BID #60 caps 09/13/23 release CAM Boot #1 ea 01/24/24 AFO brace right foot #1 ea 02/07/24 furosemide 40 mg tablet (Lasix) 40 mg PO DAILY #5 tabs 04/10/25 Allergies Allergy/AdvReac Type Severity Reaction Status Date / Time diazepam (From Valium) Allergy Unknown Verified 12/20/24 10:19 furosemide (From Lasix) Allergy ADR-Dizzine Verified 12/20/24 10:19 ss lisinopril Allergy Unknown Verified 12/20/24 10:19 olmesartan (From Benicar) Allergy Unknown Verified 12/20/24 10:19 penicillamine Allergy Unknown Verified 12/20/24 10:19 Penicillins Allergy Unknown Verified 12/20/24 10:19 ranitidine (From Zantac) Allergy ALGY-Rash Verified 12/20/24 10:19 Sulfa (Sulfonamide Allergy Unknown Verified 12/20/24 10:19 Antibiotics) [facility] ED PFSH: Medical History (Updated 04/10/25 @ 16:06 by Augusto Mcneil MD) Atrial fibrillation, chronic Essential hypertension CHF (congestive heart failure) GERD (gastroesophageal reflux disease) Hyperlipidemia HTN (hypertension) Diastolic heart failure Atrial fibrillation Surgical History History of cardiac radiofrequency ablation (RFA) S/P subtotal thyroidectomy S/P cataract extraction S/P cholecystectomy S/P knee surgery Family History Other CAD (coronary artery disease) Social History Smoking and tobacco/nicotine status: never used tobacco/nicotine Alcohol intake: never Substance/Drug Use: never Physical Exam Const: COMMON NORMALS: no acute distress, average body habitus, alert and well nourished GENERAL APPEARANCE: cooperative ORIENTATION/CONSCIOUSNESS: Yes awake OTHER: obese 89yo female, in no distress HENMT: COMMON NORMALS: normocephalic and atraumatic HEAD & SCALP: normocephalic and atraumatic Eye: COMMON NORMALS: conjunctivae normal CONJUNCTIVA: Yes conjunctivae normal Neck/C-Spine: GENERAL: Yes normal visual inspection Resp: COMMON NORMALS: normal respiratory effort, No retractions and No use of accessory muscles Cardio: COMMON NORMALS: regular rhythm and Peripheral pulses 2+ throughout RHYTHM: regular rhythm PERIPHERAL PULSES: Peripheral pulses 2+ throughout GI: COMMON NORMALS: Soft to palpation and non-tender PALPATION: Yes Soft to palpation Extremity: COMMON NORMALS: full ROM NARRATIVE EXTREMITY EXAM: 3+ bilateral pedal edema Neuro: COMMON NORMALS: no focal motor deficits SENSORIUM/ORIENTATION: Yes alert Skin: COMMON NORMALS: no rashes or lesions noted GENERAL SKIN EXAM: no rashes or lesions noted Course Vital Signs: Vital signs: Vital Signs Temperature 98.3 F 04/10/25 12:43 Pulse Rate 102 H 04/10/25 15:50 Respiratory Rate 16 04/10/25 15:50 Blood Pressure 195/118 04/10/25 15:50 Pulse Oximetry 92 04/10/25 15:50 Oxygen Delivery Me thod Room Air 04/10/25 13:05 MDM - SOB/Dyspnea Medical Decision Making ROS: Constitutional: Denies fever or chills. Respiratory: Positive for shortness of breath, wheezing, and cough for 3 days. Denies productive cough, hemoptysis, or colored sputum. Cardiovascular: Denies chest pain. Positive for lower extremity edema. Gastrointestinal: Not documented. Genitourinary: Not documented. Musculoskeletal: History of vertebral fractures and ankle fracture. Neurological: History of drop foot. Skin: Positive for bilateral lower extremity edema. All other systems: Not documented or negative. MEDICATIONS AND ALLERGIES: Meds: Warfarin, Amiodarone, Metoprolol, Lasix 20mg (recently started yesterday) Allergies: None documented PAST HISTORICAL DATA: PMH: Atrial fibrillation with RVR, diastolic heart failure, hypertension, home oxygen requirement (2L) PSH: Vertebral fractures (1.5 years ago), ankle fracture (1 year ago) Social: Not documented INITIAL IMPRESSION AND PLAN: Given the history and presentation, the primary working diagnosis is acute on chronic heart failure exacerbation with volume overload. Additional considerations include pneumonia, pulmonary edema, and medication side effects. Based on this initial impression I will order: 1. CBC, BMP, troponin, BNP 2. Chest X-ray 3. EKG 4. IV Lasix for diuresis 5. Cardiology consultation TEST INTERPRETATIONS: CBC: WBC 5.7, Hct 33.8, Platelets 258 - Within normal limits INR: 2.5 - Therapeutic for atrial fibrillation Chemistry: Normal Troponin: Initial 11, repeat 10.6 - No significant change, essentially normal BNP: 1,488 - Significantly elevated, consistent with heart failure Chest X-ray: Cardiomegaly and atherosclerosis. No significant nodules, masses, or effusions. Pulmonary vascularity not increased. EKG: Atrial fibrillation, rate controlled at 88 beats per minute. No acute changes. Echocardiogram (01/10/2024): Normal left ventricular size and systolic function with EF of 61%. Moderate increased left atrial size and mildly dilated right atrium. Thickened mitral valve with mild annular calcification and mild mitral valve regurgitation. CONSIDERED BUT NOT PERFORMED: Pulmonary embolism workup CONSIDERED but NOT DONE due to therapeutic INR of 2.5 and low clinical suspicion. Admission to hospital CONSIDERED but NOT DONE as patient has good response to IV diuresis, normal oxygenation without supplemental oxygen, and clear lungs on examination and imaging. FINAL IMPRESSION: Based on all the above, my clinical impression is most compatible with acute on chronic heart failure exacerbation with volume overload manifesting as bilateral lower extremity edema and shortness of breath. The clinical picture is not currently suggestive of pneumonia, pulmonary embolism, or acute coronary syndrome. Although other conditions were also considered, they were deemed unlikely based on the clinical information available. CLINICAL DISPOSITION: The patient's current condition is stable in my estimation and the most appropriate and indicated disposition at this time is discharge home with medication adjustment and close follow-up. Patient is safe for discharge as she has responded well to IV diuresis with 40mg Lasix, has clear lungs on examination, does not require supplemental oxygen despite normally using it at home, has no evidence of pneumonia on chest X-ray, and has stable cardiac markers. Her symptoms are consistent with volume overload from heart failure which can be managed as an outpatient with increased oral diuretics and close cardiology follow-up. CASE SUMMARY: 89-year-old female with history of atrial fibrillation on warfarin, diastolic heart failure, and hypertension presented with 3 days of shortness of breath, wheezing, and bilateral lower extremity edema. She was seen at an outside clinic yesterday and started on 20mg Lasix. Physical exam revealed 3+ bilateral pitting edema with clear lung sounds. Workup showed therapeutic INR of 2.5, elevated BNP of 1,488, and stable cardiac enzymes. Chest X-ray demonstrated cardiomegaly without pulmonary edema or infiltrates. EKG showed rate-controlled atrial fibrillation. Patient was diagnosed with acute on chronic heart failure exacerbation with volume overload. She received 40mg IV Lasix in the ED with good response. After consultation with cardiology, patient was discharged home with increased Lasix dosing (40mg daily for 5 days), instructions for leg elevation and compression stockings, and a dose of clonidine 0.1mg for blood pressure control. She was instructed to follow up with her saw handle assembler, Dr. Tafoya, within one week. Lab Data I reviewed the patient's lab results. 04/10/25 13:37 04/10/25 13:34 Labs/Radiology: Radiology Impressions Chest X-Ray 04/10/25 13:08 Impression: Cardiomegaly and atherosclerosis. Laboratory Results WBC 5.75 10^3/uL (3.29-11.43) 04/10/25 13:37 RBC 3.65 10^6/uL (3.85-5.65) L 04/10/25 13:37 Hgb 9.80 g/dL (11.27-16.99) L 04/10/25 13:37 Hct 33.8 % (36-47) L 04/10/25 13:37 MCV 92.6 fl (85-98) 04/10/25 13:37 MCH 26.8 pg (27-33) L 04/10/25 13:37 MCHC 29.0 g/dL (30-55) L 04/10/25 13:37 RDW 15.9 % (12.1-15.1) H 04/10/25 13:37 Plt Count 258 10^3/cmm (157-399) 04/10/25 13:37 MPV 9.7 fL (7.4-10.4) 04/10/25 13:37 Neut % (Auto) 63.3 % 04/10/25 13:37 Lymph % (Auto) 24.0 % 04/10/25 13:37 [place] % (Auto) 8.9 % 04/10/25 13:37 Eos % (Auto) 2.6 % 04/10/25 13:37 Baso % (Auto) 0.9 % 04/10/25 13:37 Neut # (Auto) 3.64 10^3/uL (1.8-7.7) 04/10/25 13:37 Lymph # (Auto) 1.4 10^3/uL (0.8-4.8) 04/10/25 13:37 [place] # (Auto) 0.5 10^3/uL (0.2-0.9) 04/10/25 13:37 Eos # (Auto) 0.2 10^3/uL (0.0-0.8) 04/10/25 13:37 Baso # (Auto) 0.1 10^3/uL (0.0-0.1) 04/10/25 13:37 Nucleated RBC % (auto) 0 % 04/10/25 13:37 Nucleated RBCs # 0.0 /100WBC 04/10/25 13:37 PT 28.50 SECONDS (12.1-14.9) H 04/10/25 13:34 INR 2.51 (0.8-1.2) H 04/10/25 13:34 Sodium 140 mmol/L (136-145) 04/10/25 13:34 Potassium 4.4 mmol/L (3.5-5.1) 04/10/25 13:34 Chloride 104 mmol/L (98-107) 04/10/25 13:34 Carbon Dioxide 25 mmol/L (22-29) 04/10/25 13:34 Anion Gap 15.4 (5-19) 04/10/25 13:34 BUN 11 mg/dL (8-23) 04/10/25 13:34 Creatinine 0.9 mg/dL (0.5-0.9) 04/10/25 13:34 GFR Calculation Not Reportable 04/10/25 13:34 Glucose 96 mg/dL (65-115) 04/10/25 13:34 Calculated Osmolality 289 mOsm/kg (285-295) 04/10/25 13:34 Lactic Acid 1.2 mmol/L (0.5-2.2) 04/10/25 13:37 Calcium 7.3 mg/dL (8.5-10.5) L 04/10/25 13:34 Total Bilirubin 0.2 mg/dL (0.15-1.2) 04/10/25 13:34 AST 20 U/L (0-32) 04/10/25 13:34 ALT 15 U/L (0-33) 04/10/25 13:34 Alkaline Phosphatase 164 U/L (35-105) H 04/10/25 13:34 Troponin T Baseline 11 ng/L (0-10) H 04/10/25 13:37 Troponin T 120 Minute 10.63 ng/L (0-10) H 04/10/25 14:37 Delta Troponin T -0.37 ABS# (0-10) L 04/10/25 14:37 NT-Pro-B Natriuret Pep 1488 pg/mL (0-450) H 04/10/25 13:34 Total Protein 6.3 g/dL (6.6-8.7) L 04/10/25 13:34 Albumin 3.8 g/dL (3.5-5.2) 04/10/25 13:34 Globulin 2.5 g/dL (1.3-4.6) 04/10/25 13:34 All radiology interpretation(s) finalized by discharge Discharge Plan Discharge Patient Disposition: Home Clinical Impression: Pedal edema Condition: Stable Prescriptions: New furosemide [Lasix] 40 mg tablet 40 mg PO DAILY Qty: 5 0RF No Action lorazepam 0.5 mg tablet 0.5 mg PO TID PRN (Reason: Anxiety) (DME) CAM Boot See Rx Instructions .Route .MEDSUPPLY Qty: 1 0RF Rx Instructions: As directed (DME) AFO brace right foot See Rx Instructions .Route .MEDSUPPLY Qty: 1 0RF Rx Instructions: As directed to the shoe guys lovastatin 20 mg tablet 20 mg PO QPM tramadol 50 mg tablet 50 mg PO Q6H MDD 1-2 tabs daily PRN (Reason: pain) omeprazole 20 mg capsule,delayed release(DR/EC) 20 mg PO BID Qty: 60 0RF fluticasone propionate 50 mcg/actuation spray,suspension 2 spray INTRANASAL DAILY PRN (Reason: allergies) warfarin 6 mg Tablet See Rx Instructions .ROUTE .COMPLEX Protocol: Dose Management Condition: Monday Dose/Route: 5 mg Instruction: 1 x 5 mg tablet Condition: Monday Dose/Route: 5 mg Instruction: 1 x 5 mg tablet Condition: Monday Dose/Route: 5 mg Instruction: 1 x 5 mg tablet Condition: Monday Dose/Route: 5 mg Instruction: 1 x 5 mg tablet Condition: Dose/Route: 5 mg Instruction: 1 x 5 mg tablet Condition: Monday Dose/Route: 5 mg Instruction: 1 x 5 mg tablet Condition: Monday Dose/Route: 6 mg Instruction: 1 x 6 mg tablet Protocol Text: Adjustment Start Date: 04/03/25 INR Value: 2.1 INR Date: 03/31/25 Recheck Date: 04/10/25 Rx Instructions: TAKE 5 MG BY MOUTH DAILY ON MONDAY THROUGH MONDAY AND 6MG ON MONDAY. warfarin 5 mg Tablet 5 mg PO DAILY Protocol: Dose Management Condition: Monday Dose/Route: 5 mg Instruction: 1 x 5 mg tablet Condition: Monday Dose/Route: 5 mg Instruction: 1 x 5 mg tablet Condition: Monday Dose/Route: 5 mg Instruction: 1 x 5 mg tablet Condition: Monday Dose/Route: 5 mg Instruction: 1 x 5 mg tablet Condition: Dose/Route: 5 mg Instruction: 1 x 5 mg tablet Condition: Monday Dose/Route: 5 mg Instruction: 1 x 5 mg tablet Condition: Monday Dose/Route: 6 mg Instruction: 1 x 6 mg tablet Protocol Text: Adjustment Start Date: 04/03/25 INR Value: 2.1 INR Date: 03/31/25 Recheck Date: 04/10/25 Rx Instructions: EXCEPT 6MG ON MONDAY. oxycodone-acetaminophen 10-325 mg tablet 1 tab PO Q6H PRN (Reason: Severe Pain (Scale Score 7-10)) nitroglycerin 0.4 mg tablet, sublingual See Rx Instructions .ROUTE .COMPLEX Rx Instructions: DISSOLVE 1 TABLET UNDER THE TONGUE EVERY 5 MINUTES NEEDED FOR CHEST PAIN. DO NOT EXCEED A TOTAL OF 3 DOSES IN 15 MINUTES. tramadol 100 mg tablet extended release 24 hr 100 mg PO BEDTIME amiodarone 100 mg tablet 200 mg PO QPM diltiazem HCl 240 mg capsule,extended release 24hr 240 mg PO QAM Linzess 72 mcg capsule 72 mcg PO DAILY metoprolol succinate 25 mg tablet extended release 24 hr 12.5 mg PO QAM warfarin 1 mg Tablet See Rx Instructions .ROUTE .COMPLEX Protocol: Dose Management Condition: Monday Dose/Route: 5 mg Instruction: 1 x 5 mg tablet Condition: Monday Dose/Route: 5 mg Instruction: 1 x 5 mg tablet Condition: Monday Dose/Route: 5 mg Instruction: 1 x 5 mg tablet Condition: Monday Dose/Route: 5 mg Instruction: 1 x 5 mg tablet Condition: Dose/Route: 5 mg Instruction: 1 x 5 mg tablet Condition: Monday Dose/Route: 5 mg Instruction: 1 x 5 mg tablet Condition: Monday Dose/Route: 6 mg Instruction: 1 x 6 mg tablet Protocol Text: Adjustment Start Date: 04/03/25 INR Value: 2.1 INR Date: 03/31/25 Recheck Date: 04/10/25 Rx Instructions: TAKE 7MG BY MOUTH ONCE A DAY TWO DAYS A WEEK (MONDAY AND MONDAY) AND TAKE 6MG PO ONCE A DAY ALL OTHER DAYS(MONDAY,MONDAY,MONDAY,MONDAY AND MONDAY) zolpidem 10 mg tablet 10 mg PO BEDTIME PRN (Reason: Sleep) Discharge Orders: Discharge ED (Routine); Ordered 04/10/25 Ordered By: Augusto Mcneil Referrals: Liliana Ko DO [Primary Care Provider, Family Practice] Patient Instructions: Dependent Edema, Opioid Safety, Pain Management, Patient Portal & Isiah Instructions Activity Restrictions/Additional Instructions: MEDICATIONS: 1. Lasix (furosemide) 40mg by mouth once daily for 5 days 2. Continue all other home medications including warfarin, amiodarone, and metoprolol FOLLOW-UP: 1. Call Dr. Tafoya's office tomorrow to schedule follow-up appointment within one week 2. If unable to see Dr. Tafoya within one week, follow up with your primary care physician HOME CARE: 1. Elevate your legs above the level of your heart when sitting or lying down 2. Wear compression stockings during the day 3. Weigh yourself daily and record your weight 4. Limit salt intake 5. Limit fluid intake to 2 liters per day RETURN TO THE EMERGENCY DEPARTMENT IF: 1. Worsening shortness of breath 2. Chest pain 3. Inability to lie flat due to breathing difficulties 4. Coughing up pink, frothy sputum 5. Swelling that continues to worsen despite taking Lasix 6. Dizziness, confusion, or extreme fatigue 7. Any other concerning symptoms Print Language: Irish Coding Level of Care Code ED Beater Out Leveling Machine for Zuhair Nelson
[2025-04-10 16:08] VITALS: BP 184/125
[2025-04-10 16:26] VITALS: BP 169/110; PULSE 102; RESP 16; O2SAT 94
--- OUTSIDE RECORDS SUMMARY | 2025-04-11 05:41 | XMS_ITS | Encounter Summary ---
Author Organization [facility] Address [address] [place] [address] Care Team Providers Care Transit Operations Supervisor Name Role Phone Liliana Ko DO Primary Care Provider Encounter Details Date Type Department Care Team (Latest Contact Info) Description 11/05/2001 Outpatient Historical [facility] Gen Spec [place]urg [place] 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
--- OUTSIDE RECORDS SUMMARY | 2025-04-11 05:41 | XMS_ITS | Encounter Summary ---
Author Organization [facility] Address [address] 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
--- OUTSIDE RECORDS SUMMARY | 2025-04-11 05:41 | XMS_ITS | Encounter Summary ---
Author Organization [facility] Address [address] [place] [address] Care Team Providers Care Retort Kiln Burner Name Role Phone Liliana Ko DO Primary Care Provider Encounter Details Date Type Department Care Team (Latest Contact Info) Description 02/25/[address] [facility] Gastroenterology- [place] [address] [phone] Herman Thorpe MD [address] [address] GASTRITIS NEC W/O HEMORRH (Primary Dx); ABDOMINAL PAIN EPIGASTRIC Social History Tobacco Use Types Packs/Day Years Used Date Smoking Tobacco: Never Assessed Comments Unknown Sex and Gender Information Value Date Recorded Sex Assigned at Not on file Legal Sex Female 5:44 AM STUDENT LIFE DEAN Gender Identity Not on file Sexual Orientation Not on file documented as of this encounter Plan of Treatment Not on file documented as of this encounter Visit Diagnoses Diagnosis Other specified gastritis without mention of hemorrhage- Primary Abdominal pain, epigastric documented in this encounter Care Teams Retort Kiln Burner Relationship Specialty Start Date End Date Liliana Ko DO [address] [place] [phone] PCP - General Family Practice 09/08/15 documented as of this encounter
--- OUTSIDE RECORDS SUMMARY | 2025-04-11 05:41 | XMS_ITS | Encounter Summary ---
Author Organization [facility] Address [address] [place] [address] Care Team Providers Care Admissions Counselor Name Role Phone Liliana Ko DO Primary Care Provider Encounter Details Date Type Department Care Team (Latest Contact Info) Description 07/12/2001 Outpatient Historical [facility] General Surgery [address] [address] [address] [place] [phone] [place] [address] [facility] [address] [place] [id number] Pancreat cyst/pseudocyst (Primary Dx) Social History Tobacco Use Types Packs/Day Years Used Date Smoking Tobacco: Never Assessed Comments Unknown Sex and Gender Information Value Date Recorded Sex Assigned at Not on file 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
--- OUTSIDE RECORDS SUMMARY | 2025-04-11 05:41 | XMS_ITS | Encounter Summary ---
Author Organization [facility] Address [address] [place] [address] Care Team Providers Care Soaking Pit Operator Name Role Phone Liliana Ko DO Primary Care Provider Encounter Details Date Type Department Care Team (Latest Contact Info) Description 02/25/2004 Outpatient Historical [facility] Endoscopy [place] [address] [place] [phone] Herman Thorpe MD [address] [facility] [address] [place] [phone] ACUTE GASTRITIS W/O HEMORRHAGE (Primary Dx) Social History Tobacco Use Types Packs/Day Years Used Date Smoking Tobacco: Never Assessed Comments Unknown Sex and Gender Information Value Date Recorded Sex Assigned at Not on file 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
--- OUTSIDE RECORDS SUMMARY | 2025-04-11 05:41 | XMS_ITS | Encounter Summary ---
Author Organization [facility] Address [address] [place] [address] Care Team Providers Care Traveling Engineer Name Role Phone Liliana Ko DO Primary Care Provider Encounter Details Date Type Department Care Team (Latest Contact Info) Description 10/26/2006 Outpatient Historical [facility] [place] [address] [place] [phone] Farshad Espinosa MD NO ADDRESS ON FILE Pain in Limb (Primary Dx) Social History Tobacco Use Types Packs/Day Years Used Date Smoking Tobacco: Never Assessed Comments Unknown Sex and Gender Information Value Date Recorded Sex Assigned at Not on file 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
--- OUTSIDE RECORDS SUMMARY | 2025-04-11 05:41 | XMS_ITS | Encounter Summary ---
Author Organization [facility] Address [address] [place] [address] Care Team Providers Care Steam Pan Sponger Name Role Phone Liliana Ko DO Primary Care Provider Encounter Details Date Type Department Care Team (Latest Contact Info) Description 10/30/2006 Outpatient Historical [facility] Plastic Surgery [address] [place] 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
--- OUTSIDE RECORDS SUMMARY | 2025-04-11 05:41 | XMS_ITS | Encounter Summary ---
Author Organization [facility] Address [address] [place] [address] Care Team Providers Care Front End Drupal Developer Name Role Phone Liliana Ko DO Primary Care Provider Encounter Details Date Type Department Care Team (Latest Contact Info) Description 07/27/2001 Outpatient Historical [facility] Gen Spec Surg [place] 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
--- OUTSIDE RECORDS SUMMARY | 2025-04-11 05:41 | XMS_ITS | Encounter Summary ---
Author Organization [facility] Address [address] [place] [address] Care Team Providers Care Women'S Apparel Salesperson Name Role Phone Liliana Ko DO Primary Care Provider Encounter Details Date Type Department Care Team (Latest Contact Info) Description 11/20/2006 Outpatient Historical [facility] Plastic Surgery [address] [place] [address] [place] [address] [place] [phone] Mark Guthrie MD [address] [place] [address], [place] [phone] Contracted Palmar Fascia (Primary Dx) Social History Tobacco Use Types Packs/Day Years Used Date Smoking Tobacco: Never Assessed Comments Unknown Sex and Gender Information Value Date Recorded Sex Assigned at Not on file Legal Sex Female 5:44 AM PAYABLE REPRESENTATIVE Gender Identity Not on file Sexual Orientation Not on file documented as of this encounter Plan of Treatment Not on file documented as of this encounter Visit Diagnoses Diagnosis 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
--- OUTSIDE RECORDS SUMMARY | 2025-04-11 05:41 | XMS_ITS | Encounter Summary ---
Author Organization [facility] Address [address] [place] [address] Care Team Providers Care Gambling Floor Supervisor Name Role Phone Liliana Ko DO Primary Care Provider Encounter Details Date Type Department Care Team (Latest Contact Info) Description 12/13/2006 Outpatient Historical [facility] [address] [place] [address] [facility] [address] [place] [address] Mark Guthrie MD [address] [place] [phone] Other Fibromatoses of Muscle, Ligament, and Fascia (Primary Dx) Social History Tobacco Use Types Packs/Day Years Used Date Smoking Tobacco: Never Assessed Comments Unknown Sex and Gender Information Value Date Recorded Sex Assigned at Not on file 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
--- OUTSIDE RECORDS SUMMARY | 2025-04-11 05:42 | XMS_ITS | Encounter Summary ---
Author Organization [facility] Address [address] [place] [address] Care Team Providers Care Cadd Instructor Name Role Phone Liliana Ko DO Primary Care Provider Encounter Details Date Type Department Care Team (Latest Contact Info) Description 10/03/2001 Outpatient Historical [facility] Gen Spec Surg [place] 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
--- OUTSIDE RECORDS SUMMARY | 2025-04-11 05:42 | XMS_ITS | Encounter Summary ---
Author Organization [facility] Address [address] [place] [address] Care Team Providers Care Wet Washer Machine Name Role Phone Liliana Ko DO Primary Care Provider Encounter Details Date Type Department Care Team (Late st Contact Info) Description 06/21/2007 Outpatient Historical [facility] Hand Therapy [address] [place] [address] [place] [address] Mark Guthrie MD [address] [place] [address], [place] [address] Social History Tobacco Use Types Packs/Day Years Used Date Smoking Tobacco: Never Assessed Comments Unknown Sex and Gender Information Value Date Recorded Sex Assigned at Not on file 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
--- OUTSIDE RECORDS SUMMARY | 2025-04-11 05:42 | XMS_ITS | Encounter Summary ---
Author Organization [facility] Address [address] [place] [address] Care Team Providers Care Smoke Tester Name Role Phone Liliana Ko DO Primary Care Provider Encounter Details Date Type Department Care Team (Latest Contact Info) Description 06/18/2007 Outpatient Historical [facility] Plastic Surgery [address] [place] [address] 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
--- OUTSIDE RECORDS SUMMARY | 2025-04-11 05:42 | XMS_ITS | Encounter Summary ---
Author Organization [facility] Address [address] [place] [address] Care Team Providers Care Loom Changer Name Role Phone Liliana Ko DO Primary Care Provider [phone] Encounter Details Date Type Department Care Team (Latest Contact Info) Description 08/13/2001 Outpatient Historical [facility] Gen Spec Surg [place] [facility] 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
--- OUTSIDE RECORDS SUMMARY | 2025-04-11 05:42 | XMS_ITS | Encounter Summary ---
Author Organization [facility] Address [address] [place] [address] Care Team Providers Care Loss Prevention Operations Manager Name Role Phone Liliana Ko DO Primary Care Provider Encounter Details Date Type Department Care Team (Latest Contact Info) Description 12/31/1999 Outpatient Historical [facility] Aleks Gonzales MD NO ADDRESS ON FILE Other specified aftercare following surgery (Primary Dx) Social History Tobacco Use Types Packs/Day Years Used Date Smoking Tobacco: Never Assessed Comments Unknown Sex and Gender Information Value Date Recorded Sex Assigned at Not on file Legal Sex Female 5:44 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
--- OUTSIDE RECORDS SUMMARY | 2025-04-11 05:42 | XMS_ITS | Encounter Summary ---
Author Organization [facility] Address 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
--- OUTSIDE RECORDS SUMMARY | 2025-04-11 05:42 | XMS_ITS | Encounter Summary ---
Author Organization [facility] Address [address] [place] [address] Care Team Providers Care Thermal Technician Name Role Phone Liliana Ko DO Primary Care Provider Encounter Details Date Type Department Care Team (Latest Contact Info) Description 11/19/2007 Outpatient Historical [facility] Central Processing [address] [place] [address] [place] [phone] Mark Guthrie MD [address] [place] [phone] Other Postoperative Infection Social History Tobacco Use Types Packs/Day Years Used Date Smoking Tobacco: Never Assessed Comments Unknown Sex and Gender Information Value Date Recorded Sex Assigned at Not on file Legal Sex Female 5:44 AM CONSULTING PSYCHOLOGIST Gender Identity Not on file Sexual Orientation Not on file documented as of this encounter Plan of Treatment Not on file documented as of this encounter Procedures Procedure Name Priority Date/Time Associated Diagnosis Comments WOUND CULTURE WITH GRAM STAIN Routine 11/19/2007 3:52 PM CDT documented in this encounter Results * WOUND CULTURE WITH GRAM STAIN (11/19/2007 3:52 PM CDT) FINAL REPORT No growth INTERFA CE SYSTEM GRAM STAIN No organisms observed Occasional (0-1/oil hpf) PMN WBC's observed INTERFACE SYSTEM Specimen from wound (specimen) 11/19/2007 3:52 PM CDT 11/19/2007 4:37 PM CDT us Mark Guthrie MD MICROBIOLOGY - GENERAL ORDERABL ES Final Result Performing Organization Address City/State/[facility] Co de Phone Number INTERFACE SYSTEM Refer to clinic/hospital department documented in this encounter Visit Diagnoses Diagnosis Other postoperative infection documented in this encounter Care Teams Thermal Technician Relationship Specialty Start Date End Date Liliana Ko DO [address] [place] [address] PCP - General Family Practice 09/08/15 documented as of this encounter
--- OUTSIDE RECORDS SUMMARY | 2025-04-11 05:42 | XMS_ITS | Encounter Summary ---
Author Organization [facility] Address [address] [place] [address] Care Team Providers Care Membership Manager Name Role Phone Liliana Ko DO Primary Care Provider Encounter Details Date Type Department Care Team (Late st Contact Info) Description 12/31/1999 Outpatient Historical [facility] Social History Tobacco Use Types Packs/Day Years Used Date Smoking Tobacco: Never Assessed Comments Unknown Sex and Gender Information Value Date Recorded Sex Assigned at Not on file Legal Sex Female 5:44 AM PROPERTY CLAIMS MANAGER Gender Identity Not on file Sexual Orientation Not on file documented as of this encounter Plan of Treatment Not on file documented as of this encounter Visit Diagnoses Not on filedocumented in this encounter Care Teams Membership Manager Relationship Specialty Start Date End Date Liliana Ko DO [address] [place] [phone] PCP - General Family Practice 09/08/15 documented as of this encounter
--- OUTSIDE RECORDS SUMMARY | 2025-04-11 05:42 | XMS_ITS | Encounter Summary ---
Author Organization [facility] Address [address] [place] [address] Care Team Providers Care Metal Roofer Name Role Phone Liliana Ko DO Primary Care Provider Encounter Details Date Type Department Care Team (Latest Contact Info) Description 05/21/2007 Outpatient Historical [facility] Plastic Surgery [address] [place] [address] 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
--- OUTSIDE RECORDS SUMMARY | 2025-04-11 05:42 | XMS_ITS | Encounter Summary ---
Author Organization [facility] Address [address] [place] [address] Care Team Providers Care Welding Machine Operator Electro Gas Name Role Phone Lliiana Ko DO Primary Care Provider Encounter Details Date Type Department Care Team (Latest Contact Info) Description 05/21/2007 Outpatient Historical [facility] Hand Therapy [address] [place] [address] [place] [address] Mark Guthrie MD [address] [place] [address], [place] [phone] Encounter for Occupational Therapy (Primary Dx) Social History Tobacco Use Types Packs/Day Years Used Date Smoking Tobacco: Never Assessed Comments Unknown Sex and Gender Information Value Date Recorded Sex Assigned at Not on file 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
--- OUTSIDE RECORDS SUMMARY | 2025-04-11 05:42 | XMS_ITS | Encounter Summary ---
Author Organization [facility] Address [address] [place]: [place] [address] Care Team Providers Care Stone Layout Marker Name Role Phone Liliana Ko DO Primary Care Provider Encounter Details Date Type Department Care Team (Late st Contact Info) Description 11/09/1999 Inpatient Historical Aleks Gonzales MD NO ADDRESS ON FILE Social History Tobacco Use Types Packs/Day Years Used Date Smoking Tobacco: Never Assessed Comments Unknown Sex and Gender Information Value Date Recorded Sex Assigned at Not on file Legal Sex Female 5:44 AM EXTRUDER Gender Identity Not on file Sexual Orientation Not on file documented as of this encounter Plan of Treatment Not on file documented as of this encounter Visit Diagnoses Not on filedocumented in this encounter Care Teams Stone Layout Marker Relationship Specialty Start Date End Date Liliana Ko DO [address] [facility] [place] [address] PCP - General Family Practice 09/08/15 documented as of this encounter
--- OUTSIDE RECORDS SUMMARY | 2025-04-11 05:42 | XMS_ITS | Encounter Summary ---
Author Organization [facility] Address [address] [place] [address] Care Team Providers Care Escalator Operator Name Role Phone Liliana Ko DO Primary Care Provider Encounter Details Date Type Department Care Team (Latest Contact Info) Description 05/16/2007 Outpatient Historical [facility] [address] [place] [address] [facility] [address] [place] [address] Mark Guthrie MD [address] [place] [address], [place] [phone] Contracture of Palmar Fascia (Primary Dx) Social History Tobacco Use Types Packs/Day Years Used Date Smoking Tobacco: Never Assessed Comments Unknown Sex and Gender Information Value Date Recorded Sex Assigned at Not on file Legal Sex Female 5:44 AM ROBOTYPE OPERATOR Gender Identity Not on file Sexual Orientation Not on file documented as of this encounter Plan of Treatment Not on file documented as of this encounter Visit Diagnoses Diagnosis Contracture of palmar fascia- Primary documented in this encounter Care Teams Escalator Operator Relationship Specialty Start Date End Date Liliana Ko DO [address] [place] [phone] PCP - General Family Practice 09/08/15 documented as of this encounter
--- OUTSIDE RECORDS SUMMARY | 2025-04-11 05:42 | XMS_ITS | Encounter Summary ---
Author Organization [facility] Address [address] [place] [address] Care Team Providers Care Roller Inspector Name Role Phone Liliana Ko DO Primary Care Provider Encounter Details Date Type Department Care Team (Latest Contact Info) Description 12/18/2006 Outpatient Historical [facility] Plastic Surgery [address] [place] [address] 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
--- OUTSIDE RECORDS SUMMARY | 2025-04-11 05:42 | XMS_ITS | Encounter Summary ---
Author Organization [facility] Address [address] [place] [address] Care Team Providers Care Family Dentist Name Role Phone Liliana Ko DO Primary Care Provider Encounter Details Date Type Department Care Team (Latest Contact Info) Description 08/22/2001 Outpatient Historical [facility] Gen Spec Surg [place] [address] [place] [address] Aleks Gonzales MD NO ADDRESS ON FILE ASCITES (Primary Dx) Social History Tobacco Use Types Packs/Day Years Used Date Smoking Tobacco: Never Assessed Comments Unknown Sex and Gender Information Value Date Recorded Sex Assigned at Not on file Legal Sex Female 5:44 AM WHARF TENDER HEAD Gender Identity Not on file Sexual Orientation Not on file documented as of this encounter Plan of Treatment Not on file documented as of this encounter Visit Diagnoses Diagnosis Ascites- Primary documented in this encounter Care Teams Family Dentist Relationship Specialty Start Date End Date Liliana Ko DO [address] [place] [phone] PCP - General Family Practice 09/08/15 documented as of this encounter
--- OUTSIDE RECORDS SUMMARY | 2025-04-11 05:42 | XMS_ITS | Encounter Summary ---
Author Organization [facility] Address [address] [place] [address] Care Team Providers Care Vp Scientific Name Role Phone Liliana Ko DO Primary Care Provider Encounter Details Date Type Department Care Team (Latest Contact Info) Description 11/19/1999 Outpatient Historical [facility] Aleks Gonzales MD NO ADDRESS ON FILE Hyperparathyroidism (Primary Dx) Social History Tobacco Use Types Packs/Day Years Used Date Smoking Tobacco: Never Assessed Comments Unknown Sex and Gender Information Value Date Recorded Sex Assigned at Not on file Legal Sex Female 5:44 AM REFERRAL AND INFORMATION AIDE Gender Identity Not on file Sexual Orientation Not on file documented as of this encounter Plan of Treatment Not on file documented as of this encounter Visit Diagnoses Diagnosis Hyperparathyroidism- Primary documented in this encounter Care Teams Vp Scientific Relationship Specialty Start Date End Date Liliana Ko DO [address] [place] [address] PCP - General Family Practice 09/08/15 documented as of this encounter
--- OUTSIDE RECORDS SUMMARY | 2025-04-11 05:42 | XMS_ITS | Encounter Summary ---
Author Organization [facility] Address [address] [place] [address] Care Team Providers Care Inspector Set Up And Lay Out Name Role Phone Liliana Ko DO Primary Care Provider Encounter Details Date Type Department Care Team (Latest Contact Info) Description 05/30/2007 Outpatient Historical [facility] Plastic Surgery [address] [place] [address] [place] [phone] Mark Guthrie MD [address] [place] [address], [place] [phone] Unspecified Disorder of Skin and Subcutaneous Tissue (Primary Dx) Social History Tobacco Use Types Packs/Day Years Used Date Smoking Tobacco: Never Assessed Comments Unknown Sex and Gender Information Value Date Recorded Sex Assigned at Not on file Legal Sex Female 5:44 AM STEVEDORE HOLD Gender Identity Not on file Sexual Orientation Not on file documented as of this encounter Plan of Treatment Not on file documented as of this encounter Visit Diagnoses Diagnosis Unspecified disorder of skin and subcutaneous tissue- Primary documented in this encounter Care Teams Inspector Set Up And Lay Out Relationship Specialty Start Date End Date Liliana Ko DO [address] [place] [address] PCP - General Family Practice 09/08/15 documented as of this encounter
--- OUTSIDE RECORDS SUMMARY | 2025-04-11 05:42 | XMS_ITS | Encounter Summary ---
Author Organization [facility] Address [address] [place] [address] Care Team Providers Care Rig Manager Name Role Phone Liliana Ko DO Primary Care Provider Encounter Details Date Type Department Care Team (Late st Contact Info) Description 05/21/2007 Outpatient Historical [facility] Social History Tobacco Use Types Packs/Day Years Used Date Smoking Tobacco: Never Assessed Comments Unknown Sex and Gender Information Value Date Recorded Sex Assigned at Not on file Legal Sex Female 5:44 AM TICKET SPECULATOR Gender Identity Not on file Sexual Orientation Not on file documented as of this encounter Plan of Treatment Not on file documented as of this encounter Visit Diagnoses Not on filedocumented in this encounter Care Teams Rig Manager Relationship Specialty Start Date End Date Liliana Ko DO [address] [place] [address] PCP - General Family Practice 09/08/15 documented as of this encounter
--- OUTSIDE RECORDS SUMMARY | 2025-04-11 05:42 | XMS_ITS | Encounter Summary ---
Author Organization [facility] Address [address] [place] [address] Care Team Providers Care Workplace Rehabilitation Officer Name Role Phone Liliana Ko DO Primary Care Provider Encounter Details Date Type Department Care Team (Latest Contact Info) Description 09/12/2001 Outpatient Historical [facility] Gen Spec Surg [place] [address] [place] [address] Aleks Gonzales MD NO ADDRESS ON FILE ASCITES (Primary Dx) Social History Tobacco Use Types Packs/Day Years Used Date Smoking Tobacco: Never Assessed Comments Unknown Sex and Gender Information Value Date Recorded Sex Assigned at Not on file Legal Sex Female 5:44 AM INSIGHTS ANALYST Gender Identity Not on file Sexual Orientation Not on file documented as of this encounter Plan of Treatment Not on file documented as of this encounter Visit Diagnoses Diagnosis Ascites- Primary documented in this encounter Care Teams Workplace Rehabilitation Officer Relationship Specialty Start Date End Date Liliana Ko DO [address] [place] [phone] PCP - General Family Practice 09/08/15 documented as of this encounter
--- OUTSIDE RECORDS SUMMARY | 2025-04-11 05:42 | XMS_ITS | Encounter Summary ---
Author Organization [facility] Address [address] [place] [address] Care Team Providers Care Film Mounter Name Role Phone Liliana Ko DO Primary Care Provider Encounter Details Date Type Department Care Team (Latest Contact Info) Description 08/29/2001 Outpatient Historical [facility] Gen Spec Surg [place] [address] [place] [address] Aleks Gonzales MD NO ADDRESS ON FILE ASCITES (Primary Dx) Social History Tobacco Use Types Packs/Day Years Used Date Smoking Tobacco: Never Assessed Comments Unknown Sex and Gender Information Value Date Recorded Sex Assigned at Not on file Legal Sex Female 5:44 AM LIQUOR BRIDGE OPERATOR Gender Identity Not on file Sexual Orientation Not on file documented as of this encounter Plan of Treatment Not on file documented as of this encounter Visit Diagnoses Diagnosis Ascites- Primary documented in this encounter Care Teams Film Mounter Relationship Specialty Start Date End Date Liliana Ko DO [address] [place] [phone] PCP - General Family Practice 09/08/15 documented as of this encounter
--- OUTSIDE RECORDS SUMMARY | 2025-04-11 05:42 | XMS_ITS | Encounter Summary ---
Author Organization [facility] Address [address] [place] [address] Care Team Providers Care Asphalt Paving Foreman Name Role Phone Liliana Ko DO Primary Care Provider Encounter Details Date Type Department Care Team (Latest Contact Info) Description 05/16/2007 Outpatient Historical [facility] Plastic Surgery [address] [place] [address] [place] [address] [place] [phone] Mark Guthrie MD [address] [place] [address], [place] [phone] Contracted Palmar Fascia (Primary Dx) Social History Tobacco Use Types Packs/Day Years Used Date Smoking Tobacco: Never Assessed Comments Unknown Sex and Gender Information Value Date Recorded Sex Assigned at Not on file Legal Sex Female 5:44 AM MICRO LAB ANALYST Gender Identity Not on file Sexual Orientation Not on file documented as of this encounter Plan of Treatment Not on file documented as of this encounter Visit Diagnoses Diagnosis Contracted palmar fascia- Primary Contracture of palmar fascia documented in this encounter Care Teams Asphalt Paving Foreman Relationship Specialty Start Date End Date Liliana Ko DO [address] [place] [address] PCP - General Family Practice 09/08/15 documented as of this encounter
--- OUTSIDE RECORDS SUMMARY | 2025-04-11 05:42 | XMS_ITS | Encounter Summary ---
Author Organization [facility] Address [address] [place] [address] Care Team Providers Care Block Cableman Name Role Phone Liliana Ko DO Primary Care Provider [phone] Encounter Details Date Type Department Care Team (Latest Contact Info) Description 01/02/2007 Outpatient Historical [facility]- [place] [address] [place] [phone] Farshad Espinosa MD NO ADDRESS ON FILE Unspecified Complication of Procedure, not Elsewhere Classified (Primary Dx) Social History Tobacco Use Types Packs/Day Years Used Date Smoking Tobacco: Never Assessed Comments Unknown Sex and Gender Information Value Date Recorded Sex Assigned at Not on file Legal Sex Female 5:44 AM STRAWHAT INSPECTOR AND PACKER Gender Identity Not on file Sexual Orientation Not on file documented as of this encounter Plan of Treatment Not on file documented as of this encounter Visit Diagnoses Diagnosis Unspecified complication of procedure, not elsewhere classified- Primary documented in this encounter Care Teams Block Cableman Relationship Specialty Start Date End Date Liliana Ko DO [address] [place] [address] PCP - General Family Practice 09/08/15 documented as of this encounter
--- OUTSIDE RECORDS SUMMARY | 2025-04-11 05:42 | XMS_ITS | Encounter Summary ---
Author Organization [facility] Address [address] [place] [address] Care Team Providers Care Employee Development Manager Name Role Phone Liliana Ko DO Primary Care Provider Encounter Details Date Type Department Care Team (Latest Contact Info) Description 01/08/2007 Outpatient Historical [facility] Plastic Surgery [address] [place] [phone] Mark Guthrie MD [address] [place] [address], [place] [phone] Follow-Up Examination, Following Unspecified Surgery (Primary Dx) Social History Tobacco Use Types Packs/Day Years Used Date Smoking Tobacco: Never Assessed Comments Unknown Sex and Gender Information Value Date Recorded Sex Assigned at Not on file Legal Sex Female 5:44 AM JUSTOWRITER OPERATOR Gender Identity Not on file Sexual Orientation Not on file documented as of this encounter Plan of Treatment Not on file documented as of this encounter Visit Diagnoses Diagnosis Follow-up examination, following unspecified surgery- Primary documented in this encounter Care Teams Employee Development Manager Relationship Specialty Start Date End Date Liliana Ko DO [address] [place] [phone] PCP - General Family Practice 09/08/15 documented as of this encounter
--- OUTSIDE RECORDS SUMMARY | 2025-04-11 05:42 | XMS_ITS | Encounter Summary ---
Author Organization [facility] Address [address] [place] [address] Care Team Providers Care Proctologist Name Role Phone Liliana Ko DO Primary Care Provider Encounter Details Date Type Department Care Team (Latest Contact Info) Description 05/30/2007 Outpatient Historical [facility] Central [place] [address] [place] [address] [place] [address] Mark Guthrie MD [address] [place] [phone] Actinic Keratosis (Primary Dx) Social History Tobacco Use Types Packs/Day Years Used Date Smoking Tobacco: Never Assessed Comments Unknown Sex and Gender Information Value Date Recorded Sex Assigned at Not on file Legal Sex Female 5:44 AM MARKING CLERK Gender Identity Not on file Sexual Orientation Not on file documented as of this encounter Plan of Treatment Not on file documented as of this encounter Visit Diagnoses Diagnosis Actinic keratosis- Primary documented in this encounter Care Teams Proctologist Relationship Specialty Start Date End Date Liliana Ko DO [address] [place] [phone] PCP - General Family Practice 09/08/15 documented as of this encounter
--- OUTSIDE RECORDS SUMMARY | 2025-04-11 05:42 | XMS_ITS | Encounter Summary ---
Author Organization [facility] Address [address] [place] [address] Care Team Providers Care Nursing Resident Name Role Phone Liliana Ko DO Primary Care Provider Encounter Details Date Type Department Care Team (Latest Contact Info) Description 12/25/2006 Outpatient Historical [facility] Plastic Surgery [address] [place] [address] [place] [address] [place] [phone] Mark Guthrie MD [address] [place] [address], [place] [phone] Follow-Up Examination, Following Unspecified Surgery (Primary Dx) Social History Tobacco Use Types Packs/Day Years Used Date Smoking Tobacco: Never Assessed Comments Unknown Sex and Gender Information Value Date Recorded Sex Assigned at Not on file Legal Sex Female 5:44 AM REPAIR WEAVER Gender Identity Not on file Sexual Orientation Not on file documented as of this encounter Plan of Treatment Not on file documented as of this encounter Visit Diagnoses Diagnosis Follow-up examination, following unspecified surgery- Primary documented in this encounter Care Teams Nursing Resident Relationship Specialty Start Date End Date Liliana Ko DO [address] [place] [phone] PCP - General Family Practice 09/08/15 documented as of this encounter
--- OUTSIDE RECORDS SUMMARY | 2025-04-11 05:42 | XMS_ITS | Clinical Summary ---
Author Organization [facility] Address [address] Attn: Epic Prelude ADT LASHANDA ELDER [address] Care Team Providers Care Litharge Mill Operator Name Role Phone Liliana Ko Primary Care Provider Allergies Active Allergy Reactions Criticality Noted Date Comments Adhesive Tape-Silicones Itching Low 11/04/2010 Amlodipine Swelling Low 08/22/2016 Diazepam Hives High 11/03/2010 Furosemide Dizziness Low 12/25/2023 Hydrocodone Nausea and Vomiting,Headache Medium 05/08/2023 Latex Itching Low 11/04/2010 Levofloxacin Other (See Comments) 05/15/2018 Caused hallucinations Lisinopril Rash Low 12/22/2022 Losartan Unknown 05/09/2018 Meperidine Hallucination Low 11/03/2010 Penicillins Unknown 12/04/2017 Ranitidine Rash Low 12/25/2023 Scopolamine Nausea and Vomiting Medium 06/20/2023 Sulfamethoxazole-Tri methoprim Unknown 12/04/2017 Trazodone Other (See Comments) 10/14/2016 Did not tolerate medication, wants to continue with ambien. Unclassified Drug Hives High 11/03/2010 Medications CPAP / BIPAP suppliesIndicatio ns:Obstructive sleep apnea Length of need: 99 monthsMask Type: full face with headgear every 6 months, mask only every 3 months, 2 cushions per month. Tubing: non heated 1 every 3 months, water chamber 1 every 6 months, chin strap 1 every 6 months, filters disposable 2 per month, filters reusable 1 per 6 months.. 1 Each 0 018 Active warfarin (COUMADIN) 1 mg tablet Take 1 Tablet (1 mg) by mouth daily. 30 Tablet 3 016 Active warfarin (COUMADIN) 5 mg tablet Take 1 Tablet (5 mg) by mouth daily. 90 Tablet 4 023 Active oxygen home deliveryIndicatio ns:Chronic respiratory failure with hypoxia and hypercapnia (CMS/HCC) Home Oxygen Concentrator yes at 2 L/M Rest, 2 L/M Activity, 2 L/M Sleep, Delivery Device: Nasal Cannula Portability: yes, 2 L/M Rest, 2 L/M Activity, May provide device best for patient needs(E system,home fill, conserving device) Length of Need: 99 months 1 Each 024 Active lovastatin (MEVACOR) 20 mg tablet TAKE 1 TABLET EVERY DAY (SUBSTITUTED FOR MEVACOR) 100 Tablet 3 024 Active triamcinolone acetonide (KENALOG) 0.1 % Ointment Apply to affected area 2 times daily. Apply thin layer to affected area two times daily 30 Gram 2 024 Active warfarin (COUMADIN) 6 mg tabletIndications :Paroxysmal atrial fibrillation (CMS/HCC) TAKE 1 TABLET EVERY DAY 90 Tablet 3 025 Active nitroglycerin (NITROSTAT) 0.4 mg Tablet, Sublingual Place 1 Tablet (0.4 mg) under tongue every 5 minutes as needed for Chest Pain. 30 Tablet 025 Active cephALEXin (KEFLEX) 500 mg capsule Take 1 Capsule (500 mg) by mouth 2 times daily. 60 Capsule 025 Active metoprolol succinate (TOPROL XL) 25 mg Extended Release 24 hour tablet Take 0.5 Tablets (12.5 mg) by mouth daily. 90 Tablet 4 025 Active omeprazole (PriLOSEC) 20 mg Capsule, Delayed Release(E.C.)Shante cations:Gastroeso phageal reflux disease without esophagitis TAKE 1 CAPSULE TWICE DAILY 180 Capsule 3 025 Active dilTIAZem (DILACOR XR) 240 mg Extended Release capsule Take 1 Capsule (240 mg) by mouth daily. 90 Capsule 4 025 Active LORazepam (ATIVAN) 0.5 mg tabletIndications :Generalized anxiety disorder Take one tablet three times daily prn anxiety 90 Tablet 2 025 Active zolpidem (AMBIEN) 10 mg tabletIndications :Primary insomnia TAKE ONE TABLET BY MOUTH EVERY EVENING NEEDED FOR INSOMNIA 30 Tablet 2 025 Active zolpidem (Ambien) 10 mg tabletIndications :Primary insomnia Take 1 Tablet (10 mg) by mouth nightly as needed for Insomnia. 15 Tablet 025 Active nitroglycerin (NITRO-TIME) 2.5 mg Extended Release capsule Take 1 Capsule (2.5 mg) by mouth 2 times daily. 180 Capsule 4 025 Active linaCLOtide (LINZESS) 72 mcg Capsule capsule Take 1 Capsule (72 mcg) by mouth daily before breakfast. 90 Capsule 4 025 Active nitroglycerin (NITRO-TIME) 2.5 mg Extended Release capsule Take 1 Capsule (2.5 mg) by mouth 2 times daily. 60 Capsule 025 2024 Active fluticasone propionate (FLONASE) 50 mcg/spray Collyer, Suspension nasal inhalerIndication s:Allergic sinusitis SHAKE LIQUID AND USE 2 SPRAYS IN EACH NOSTRIL EVERY DAY 48 Gram 3 025 Active amiodarone (CORDARONE) 100 mg Tablet Take 1 Tablet (100 mg) by mouth 2 times daily. 180 Tablet 3 025 Active oxyCODONE-acetami nophen (PERCOCET) 10-325 mg TabletIndications :History of ankle fracture Take 1 Tablet by mouth every 6 hours as needed for Pain, Severe. Max Daily Amount: 4 Tablets 120 Tablet 025 Active traMADol (ULTRAM) 50 mg tabletIndications :Primary osteoarthritis involving multiple joints TAKE one TO two TABLETS BY MOUTH EVERY SIX hours NEEDED FOR pain. 180 Tablet 2 025 Active traMADol (ULTRAM ER) 100 mg Extended Release 24 hour tabletIndications :History of ankle fracture,Primary osteoarthritis involving multiple joints Take 1 Tablet (100 mg) by mouth daily at bedtime. 30 Tablet 2 025 Active fluticasone propionate (FLONASE) 50 mcg/spray Collyer, Suspension nasal inhalerIndication s:Allergic sinusitis shake liquid and use 2 sprays in each nostril every day 48 Gram 3 024 2024 Discontinued traMADoL (ULTRAM ER) 100 mg Extended Release 24 hour tabletIndications :Primary osteoarthritis involving multiple joints,History of ankle fracture Take 1 Tablet (100 mg) by mouth daily at bedtime. 30 Tablet 2 025 2024 Discontinued(R eorder) traMADoL (ULTRAM) 50 mg tabletIndications :Primary osteoarthritis involving multiple joints TAKE one TO two TABLETS BY MOUTH EVERY SIX hours NEEDED FOR pain. 180 Tablet 2 025 2024 Discontinued(R eorder) amiodarone (CORDARONE) 100 mg Tablet Take 1 Tablet (100 mg) by mouth 2 times daily. 60 Tablet 025 2024 Discontinued(R eorder) nitroglycerin (NITRO-TIME) 2.5 mg Extended Release capsule Take 1 Capsule (2.5 mg) by mouth 2 times daily. 180 Capsule 4 025 2024 Discontinued(R eorder) oxyCODONE-acetami nophen (PERCOCET) 10-325 mg TabletIndications :History of ankle fracture Take 1 Tablet by mouth every 6 hours as needed for Pain, Severe. Max Daily Amount: 4 Tablets 120 Tablet 025 2024 Discontinued(R eorder) Active Problems Problem Noted Date Diagnosed Date History of ankle fracture 02/26/2025 Open trimalleolar fracture of ankle, right, sequ masoud 2024 Frail elderly 2024 Impaired strength of upper extremity 2024 Chronic midline low back pain with bilateral sci atica 10/10/2023 Generalized muscle weakness 04/15/2023 At high risk for injury related to fall 04/15/20 23 Obesity (BMI 30.0-34.9) 02/21/2022 Bilateral primary osteoarthritis of knee 022 Bilateral chronic knee pain 12/09/2020 Paroxysmal atrial fibrillation 10/08/2019 Essential hypertension 10/08/2019 Generalized anxiety disorder 10/08/2019 Primary osteoarthritis involving multiple joints 10/08/2019 Obstructive sleep apnea 02/13/2017 Stage 3a chronic kidney disease 10/30/2016 Primary insomnia 09/01/2016 Chronic fatigue 09/21/2015 Mixed hyperlipidemia 09/14/2015 Gastroesophageal reflux disease without esophagi tis 09/14/2015 Dupuytren contracture 11/03/2010 Resolved Problems Problem Noted Date Diagnosed Date Resolved Date Chronic respiratory failure with hypoxia and hypercapnia 08/12/2024 10/28/2024 Severe obesity (BMI 35.0-39. 9) with comorbidity 10/08/2019 10/10/2023 Chronic atrial fibrillation 08/24/2015 02/13/2017 Encounters Date Type Department Care Team Description 04/01/2025 External Device Data STL ABSTRACTION Provider, Abstract 03/31/2025 Telephone [facility] [address] [place] [address] Liliana Ko, Patient Communication 03/26/2025 Refill [facility] [address] [place] [address] Liliana Ko, Generalized anxiety disorder; History of ankle fracture; Primary osteoarthritis involving multiple joints 03/19/2025 Refill [facility] [address] [place] [address] Liliana Ko, Allergic sinusitis 03/13/2025 Refill [facility] [address] [place] [address] Liliana Ko, 03/13/2025 Telephone [facility] [address] [place] [address] Liliana Ko, Question; Patient Communication 03/05/2025 Telephone [facility] [address] [place] [address] Liliana Ko, Medication Refill; Patient Communication 02/26/2025 Refill [facility] [address] [place] [address] Liliana Ko, Primary insomnia 02/26/2025 External Device Data STL ABSTRACTION Provider, Abstract 02/18/2025 External Device Data STL ABSTRACTION Provider, Abstract 02/12/2025 11:40 AM CDT Office Visit [facility] [address] [place] [address] Liliana Ko DO Paroxysmal atrial fibrillation (Primary Dx); Generalized anxiety disorder; History of ankle fracture; Stage 3a chronic kidney disease; Essential hypertension; Mixed hyperlipidemia; Frail elderly; Generalized muscle weakness; Gastroesophageal reflux disease without esophagitis; Primary osteoarthritis involving multiple joints; Impaired strength of upper extremity; Obstructive sleep apnea; Obesity (BMI 30.0-34.9); Primary insomnia 02/09/2025 Refill [facility] [address] [place] [address] Liliana Ko DO Gastroesophageal reflux disease without esophagitis 01/29/2025 External Device Data STL ABSTRACTION Provider, Abstract 01/27/2025 Refill [facility] [address] [place] [address] Liliana Ko DO Generalized anxiety disorder 01/23/2025 Orders Only [facility] [address] [place] [address] Provider, Abstract 01/23/2025 Abstract [facility] [address] [place] [address] Liliana Ko DO 01/19/2025 Telephone [facility] [address] [place] [address] Liliana Ko DO Erroneous encounter-disregard 01/14/2025 External Device Data STL ABSTRACTION Provider, Abstract 01/14/2025 External Device Data STL ABSTRACTION Provider, Abstract 01/13/2025 Orders Only [facility] [address] [place] [address] Liliana Ko DO from Last 3 Months Immunizations Immunization Administration Dates Next Due (PFIZER)(12 YR UP) COVID-19 VACCINE - EMERGENCY USE AUTHORIZATION, MRNA, [id number](PF) 30 MCG/0.3 ML IM SUSP 12/15/2020,11/23/2020 (TDVAX)(7 YRS UP) TETANUS AN D DIPHTHERIA TOXOIDS, ADSORBED (2 LF OF TETANUS TOXOID AND 2 LF OF DIPHTHERIA TOXOID), 0.5ML (PF), IM 04/26/2000 Hepatitis A Vaccine 04/26/2000 Hepatitis B Vaccine 04/26/2000 INFLUENZA VACCINE HIGH DOSE QUADRIVALENT 65 YR UP PF IM 06/16/2020 INFLUENZA VACCINE HIGH DOSE TRIVALENT SPLIT VIRUS, (65 YR UP), 0.5ML (PF), IM 07/04/2024 INFLUENZA VACCINE QUADRIVALE NT ADJ 65 YR UP PF IM 06/24/2022,08/16/2021 IPV/OPV 04/26/2000 Influenza Seasonal Unspecifi ed Formulation IM 06/16/2020,07/12/2015,07/11/2008 Influenza Vaccine High Dose 65+ Yrs IM 07/26/2021,06/16/2020,06/18/2019,2017,07/05/2017 Pneumococcal conjugate, unsp ecified formulation 06/11/2016 Typhoid Vaccine IM 04/26/2000 Social History Tobacco Use Types Packs/Day Years Used Date Smoking Tobacco: Never Smokeless Tobacco: Never Tobacco Cessation:Counseling Given: Not Answered Alcohol Use Standard Drinks/Week Comments No 0 (1 standard drink = 0.6 oz pur e alcohol) Comments No Sex and Gender Information Value Date Recorded Sex Assigned at Not on file Legal Sex Female 1:02 PM LAW TUTOR Gender Identity Not on file Sexual Orientation Not on file Last Filed Vital Signs Vital Sign Reading Time Taken Comments Blood Pressure 122/78 02/12/2025 11:55 AM CDT Pulse 75 02/12/2025 11:55 AM CDT Temperature 36.6 C (97.8 F) 02/12/2025 11:55 AM CDT Respiratory Rate 18 02/12/2025 11:55 AM CDT Oxygen Saturation 93% 02/12/2025 11:55 AM CDT Inhaled Oxygen Concentration - - Weight 90.7 kg (200 lb) 02/12/2025 11:55 AM CDT Height 165.1 cm (5' 5 ) 02/12/2025 11:55 AM CDT Body Mass Index 33.28 02/12/2025 11:55 AM CDT Plan of Treatment Upcoming Encounters Date Type Department Care Team (Late st Contact Info) Description 04/23/2025 10:40 AM CDT Office Visit [facility] [address] [place] [facility] [id number] Liliana Ko, DO [address] [place] [address] 07/23/2025 11:00 AM LAW TUTOR Office Visit [facility] [address] [place] [facility] [place] [address] Liliana Ko, DO [address] [facility] [place] [phone] Health Maintenance Due Date Last Done Comments PNEUMOCOCCAL VACCINE 50+ YEA RS (1 of 2 - PCV) 1954 06/11/2016, 04/26/2000 ZOSTER VACCINE (1 of 2) 1987 DTAP/TDAP/TD VACCINES (1 - Tdap) 04/27/2000 04/26/20 00 OSTEOPOROSIS SCREENING 2002 RSV VACCINE (60+ or ) (1 - 1-dose 75+ series) 2012 COVID-19 Vaccine (5 - 2023-2 5 season) 2024 06/24/2022, 08/28/2021, 12/15/2020, Additional history exists INFLUENZA VACCINE (#1) 2025 , 06/24/2022, 08/16/2021, Additional history exists Traditional Medicare (ACO) A nnual Wellness Visit 07/05/2025 07/04/2024, 05/08/2023, 01/10/2022 Procedures Procedure Name Priority Date/Time Associated Diagnosis Comments COMPREHENSIVE METABOLIC PANEL Routine 01/22/2025 1:06 PM CDT PROTIME-INR Routine 01/22/2025 from Last 3 Months Results * COMPREHENSIVE METABOLIC PANEL (01/22/2025 1:06 PM CDT) Blood us Abstract Provider CHEMISTRY ORDERABLES Final Res ult * PROTIME-INR (01/22/2025) ABSTRACTED PROTIME 16.3 ABSTRACTED INR 1.23 Blood 01/22/2025 us Abstract Provider HEMATOLOGY ORDERABLES Final Re sult from Last [address] [place] [address] MEDICARE PART A AND B [place] [employer] [place] [employer] [employer] [id number] Care Teams Litharge Mill Operator Relationship Specialty Start Date End Date Liliana Ko DO [address] [facility] [place] [address] PCP - General Family Practice 09/08/15
--- OUTSIDE RECORDS SUMMARY | 2025-04-11 05:42 | XMS_ITS | Encounter Summary ---
Author Organization [facility] Address [address] 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
--- OUTSIDE RECORDS SUMMARY | 2025-04-11 05:42 | XMS_ITS | Encounter Summary ---
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
--- OUTSIDE RECORDS SUMMARY | 2025-04-11 05:42 | XMS_ITS | Encounter Summary ---
Author Organization [facility] Address [address] [place] [address] Care Team Providers Care Marketing Content Specialist Name Role Phone Liliana Ko DO Primary Care Provider Encounter Details Date Type Department Care Team (Latest Contact Info) Description 07/31/2001 Outpatient Historical [facility] Gen Spec Surg 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
--- OUTSIDE RECORDS SUMMARY | 2025-04-11 05:42 | XMS_ITS | Encounter Summary ---
Author Organization [facility] Address [address] 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
--- OUTSIDE RECORDS SUMMARY | 2025-04-11 05:42 | XMS_ITS | Encounter Summary ---
Author Organization [facility] Address [address] [place] [address] Care Team Providers Care Dip Tube Assembler Machine Name Role Phone Liliana Ko DO Primary Care Provider [phone] Encounter Details Date Type Department Care Team (Latest Contact Info) Description 11/19/1999 Outpatient Historical [facility] Aleks Gonzales MD NO ADDRESS ON FILE Other specified aftercare following surgery (Primary Dx) Social History Tobacco Use Types Packs/Day Years Used Date Smoking Tobacco: Never Assessed Comments Unknown Sex and Gender Information Value Date Recorded Sex Assigned at Not on file Legal Sex Female 5:44 AM SOFTWARE QA MANAGER Gender Identity Not on file Sexual Orientation Not on file documented as of this encounter Plan of Treatment Not on file documented as of this encounter Visit Diagnoses Diagnosis Other specified aftercare following surgery- Primary documented in this encounter Care Teams Dip Tube Assembler Machine Relationship Specialty Start Date End Date Liliana Ko DO [address] [place] [address] PCP - General Family Practice 09/08/15 documented as of this encounter
--- OUTSIDE RECORDS SUMMARY | 2025-04-11 05:42 | XMS_ITS | Encounter Summary ---
Author Organization [facility] Address [address] [place] [address] Care Team Providers Care Business Office Representative Name Role Phone Liliana Ko DO Primary Care Provider [phone] Encounter Details Date Type Department Care Team (Latest Contact Info) Description 06/29/2001 Outpatient Historical [facility] General Surgery [address] [address] [address] [place] [address] [place] [address] [facility] [address] [place] [address] Other postprocedural status(V45.89) (Primary Dx) Social History Tobacco Use Types Packs/Day Years Used Date Smoking Tobacco: Never Assessed Comments Unknown Sex and Gender Information Value Date Recorded Sex Assigned at Not on file 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
--- OUTSIDE RECORDS SUMMARY | 2025-04-11 05:42 | XMS_ITS | Encounter Summary ---
Author Organization [facility] Address [address] [place] [address] Care Team Providers Care Fiberline Supervisor Name Role Phone Liliana Ko DO Primary Care Provider [phone] Encounter Details Date Type Department Care Team (Latest Contact Info) Description 04/02/2007 Outpatient Historical [facility] Plastic Surgery [address] [place] 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
--- OUTSIDE RECORDS SUMMARY | 2025-04-11 05:42 | XMS_ITS | Encounter Summary ---
Author Organization [facility] Address [address] 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
--- OUTSIDE RECORDS SUMMARY | 2025-04-11 05:42 | XMS_ITS | Clinical Summary ---
Author Organization [facility] tone Address [address] [place] [address] Care Team Providers Care Director Paid Media Name Role Phone Liliana Ko Primary Care Provider Allergies Active Allergy Reactions Criticality Noted Date Comments Adhesive Tape-Silicones Itching Low 11/04/2010 Amlodipine Swelling Low 08/22/2016 Diazepam Hives High 11/03/2010 Latex Itching Low 11/04/2010 Levofloxacin Other (See Comments) 05/15/2018 Caused hallucinations Losartan Unknown 05/09/2018 Meperidine Hallucination Low 11/03/2010 Penicillins Unknown 12/04/2017 Sulfamethoxazole-Tri methoprim Unknown 12/04/2017 Trazodone Other (See Comments) 10/14/2016 Did not tolerate medication, wants to continue with ambien. Unclassified Drug Hives High 11/03/2010 Medications lovastatin (MEVACOR) 20 mg Oral tablet Take 20 mg by mouth daily with supper. Active warfarin (COUMADIN) 1 mg tablet Take 1 Tablet (1 mg) by mouth daily. 30 Tablet 3 6 Active warfarin (COUMADIN) 4 mg tablet Take 1 Tablet (4 mg) by mouth daily. 30 Tablet 3 6 Active warfarin (COUMADIN) 5 mg tablet Take 1.5 Tablet (7.5 mg) by mouth daily. 45 Tablet 3 6 Active warfarin (COUMADIN) 6 mg tablet Take 1 Tablet (6 mg) by mouth daily. 30 Tablet 3 6 Active omeprazole (PRILOSEC) 20 mg Capsule, Delayed Release(E.C.) Take 1 Capsule (20 mg) by mouth 2 times daily. 60 Capsule 11 6 Active diltiaZEM (CARDIZEM CD) 360 mg Controlled Delivery 24 hour capsule Take 360 mg by mouth daily. Active CPAP / BIPAP suppliesIndication s:Obstructive sleep apnea Length of need: 99 months Mask Type: full face with headgear every 6 months, mask only every 3 months, 2 cushions per month. Tubing: non heated 1 every 3 months, water chamber 1 every 6 months, chin strap 1 every 6 months, filters disposable 2 per month, filters reusable 1 per 6 months.. 1 Each 8 Active pseudoephedrine (SUDAFED) 30 mg tabletIndications: Allergic sinusitis Take 1 Tablet (30 mg) by mouth every 6 hours as needed for Congestion. 15 Tablet 9 Active hydrOXYzine pamoate (VISTARIL) 25 mg capsule TAKE 1 CAPSULE BY MOUTH EVERY 6 HOURS NEEDED FOR ANXIETY. 30 Capsule 2 9 Active valsartan (DIOVAN) 320 mg tabletIndications: Essential hypertension 9 Active fluticasone propionate (FLONASE) 50 mcg/spray [place], Suspension nasal inhalerIndications :Allergic sinusitis SHAKE LIQUID AND USE 2 SPRAYS IN EACH NOSTRIL DAILY 48 Gram 1 Active LORazepam (ATIVAN) 0.5 mg tabletIndications: Generalized anxiety disorder TAKE 1 TABLET BY MOUTH EVERY 6 HOURS NEEDED FOR ANXIETY 30 Tablet 2 1 Active zolpidem (AMBIEN) 10 mg tabletIndications: Primary insomnia Take 1 Tablet (10 mg) by mouth nightly as needed for Insomnia. 30 Tablet 2 1 Active sotaloL (BETAPACE) 120 mg TabletIndications: Essential hypertension TAKE 1 TABLET(120 MG) BY MOUTH TWICE DAILY 60 Tablet 2 1 Active mirtazapine (REMERON) 15 mg tabletIndications: Primary insomnia TAKE 1 TABLET BY MOUTH AT BEDTIME 30 Tablet 2 1 Active traMADoL (ULTRAM) 50 mg tabletIndications: Primary osteoarthritis involving multiple joints TAKE 1 TO 2 TABLETS BY MOUTH EVERY 6 HOURS NEEDED FOR PAIN 180 Tablet 2 1 Active Active Problems Problem Noted Date Diagnosed Date Bilateral chronic knee pain 12/09/2020 Paroxysmal atrial fibrillation 10/08/2019 Generalized anxiety disorder 10/08/2019 Primary osteoarthritis involving multiple joints 10/08/2019 Essential hypertension 10/08/2019 Severe obesity (BMI 35.0-39.9) with comorbidity 10/08/2019 Obstructive sleep apnea 02/13/2017 Stage 3a chronic kidney disease 10/30/2016 Primary insomnia 09/01/2016 Chronic fatigue 09/21/2015 Mixed hyperlipidemia 09/14/2015 Gastroesophageal reflux disease without esophagi tis 09/14/2015 Dupuytren contracture 11/03/2010 Resolved Problems Problem Noted Date Diagnosed Date Resolved Date Chronic atrial fibrillation 08/24/2015 02/13/2017 Immunizations Immunization Administration Dates Next Due (PFIZER)(12 YR UP) COVID-19 VACCINE - EMERGENCY USE AUTHORIZATION, MRNA, [id number](PF) 30 MCG/0.3 ML IM SUSP 12/15/2020,11/23/2020 (TDVAX)(7 YRS UP) TETANUS AN D DIPHTHERIA TOXOIDS, ADSORBED (2 LF OF TETANUS TOXOID AND 2 LF OF DIPHTHERIA TOXOID), 0.5ML (PF), IM 04/26/2000 Hepatitis A Vaccine 04/26/2000 Hepatitis B Vaccine 04/26/2000 INFLUENZA VACCINE HIGH DOSE QUADRIVALENT 65 YR UP PF IM 06/16/2020 IPV/OPV 04/26/2000 Influenza Seasonal Unspecifi ed Formulation IM 06/16/2020,07/12/2015,07/11/2008 Influenza Vaccine High Dose 65+ Yrs IM 06/16/2020,06/18/2019,06/28/2018,2016 Pneumococcal conjugate, unsp ecified formulation 06/11/2016 Typhoid Vaccine IM 04/26/2000 Social History Tobacco Use Types Packs/Day Years Used Date Smoking Tobacco: Never Smokeless Tobacco: Never Alcohol Use Standard Drinks/Week Comments No 0 (1 standard drink = 0.6 oz pur e alcohol) Comments No Sex and Gender Information Value Date Recorded Sex Assigned at Not on file Legal Sex Female 5:44 AM MANGLE FEEDER Gender Identity Not on file Sexual Orientation Not on file Last Filed Vital Signs Vital Sign Reading Time Taken Comments Blood Pressure 122/70 12/03/2020 12:11 PM CDT Pulse 77 12/03/2020 12:11 PM CDT Temperature 36.2 C (97.2 F) 12/03/2020 12:11 PM CDT Respiratory Rate 18 12/03/2020 12:11 PM CDT Oxygen Saturation 92% 12/03/2020 12:11 PM CDT Inhaled Oxygen Concentration - - Weight 102.1 kg (225 lb) 12/03/2020 12:11 PM CDT Height 165.1 cm (5' 5 ) 12/03/2020 12:11 PM CDT Body Mass Index 37.44 12/03/2020 12:11 PM CDT Plan of Treatment Health Maintenance Due Date Last Done Comments PNEUMOCOCCAL VACCINE 50+ YEA RS (1 of 2 - PCV) 1956 06/11/2016 ZOSTER VACCINE (1 of 2) 1987 DTAP/TDAP/TD VACCINES (1 - Tdap) 04/27/2000 04/26/20 00 OSTEOPOROSIS SCREENING 2002 RSV VACCINE (60+ or ) (1 - 1-dose 75+ series) 2012 Traditional Medicare (ACO) A nnual Wellness Visit 12/04/2021 12/03/2020, 10/08/2019, 07/20/2018, Additional history exists COVID-19 Vaccine (2023-2 5 season) 2024 12/15/2020, 11/23/2020 INFLUENZA VACCINE (#1) 2025 , 06/16/2020, 06/16/2020, Additional history exists Insurance [address] [place] [address] MEDICARE PART A AND B [place] [id number] Advance Directives For more information, please contact: [phone] * Full Code (Latest Code Status on File) Date Activated Date Inactivated Comments 11/18/2010 11:19 AM 11/19/2010 2:32 AM * Full Code Date Activated Date Inactivated Comments 11/18/2010 11:01 AM 11/18/2010 11:19 AM Care Teams Director Paid Media Relationship Specialty Start Date End Date Liliana Ko DO [address] [place] [phone] PCP - General Family Practice 09/08/15
== END 2025-04-10 16:27 | disposition home or self-care (01) ==
PROVIDERS: Emergency Provider Student in an Organized Health Care Education/Training Program; PCP Family Medicine
DX: R60.9 Edema, unspecified (principal); Z79.01 Long term (current) use of anticoagulants; E78.5 Hyperlipidemia, unspecified; I11.0 Hypertensive heart disease with heart failure; I50.30 Unspecified diastolic (congestive) heart failure
CPT/HCPCS: 36415; 71045; 80053; 83605; 83880; 84484; 85025; 85610; 93005; 96374; 99285; J1938; J9999

== ENCOUNTER 2025-05-24 13:28 | Emergency (ER) | payer MEDICARE, OTHER, SELFPAY ==
--- OUTSIDE RECORDS SUMMARY | 2025-05-24 13:33 | XMS_ITS | Encounter Summary ---
Author Organization [facility] Address [address] [place] [address] Care Team Providers Care Alarm Service Technician Name Role Phone Liliana Ko DO Primary Care Provider Encounter Details Date Type Department Care Team (Latest Contact Info) Description 10/26/2006 Outpatient Historical [facility] Medicine- [place] [address] [place] [phone] Farshad Espinosa MD NO ADDRESS ON FILE Pain in Limb (Primary Dx) Social History Tobacco Use Types Packs/Day Years Used Date Smoking Tobacco: Never Assessed Comments Unknown Sex and Gender Information Value Date Recorded Sex Assigned at Not on file 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
--- OUTSIDE RECORDS SUMMARY | 2025-05-24 13:33 | XMS_ITS | Encounter Summary ---
Author Organization [facility] Address [address] [place] [address] Care Team Providers Care Roofing Technician Name Role Phone Liliana Ko DO Primary Care Provider Encounter Details Date Type Department Care Team (Latest Contact Info) Description 02/25/2004 Outpatient Historical [facility] Endoscopy [place] [address] [place] [phone] Herman Thorpe MD [address] [facility] [address] [place] [phone] ACUTE GASTRITIS W/O HEMORRHAGE (Primary Dx) Social History Tobacco Use Types Packs/Day Years Used Date Smoking Tobacco: Never Assessed Comments Unknown Sex and Gender Information Value Date Recorded Sex Assigned at Not on file 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
--- OUTSIDE RECORDS SUMMARY | 2025-05-24 13:33 | XMS_ITS | Encounter Summary ---
Author Organization [facility] Address [address] [place] [address] Care Team Providers Care Semiconductor Wafers Etch Operator Name Role Phone Liliana Ko DO Primary Care Provider [phone] Encounter Details Date Type Department Care Team (Latest Contact Info) Description 12/13/2006 Outpatient Historical [facility] [address] [place] [address] [facility] [address] [place] [address] Mark Guthrie MD [address] [place] [phone] Other Fibromatoses of Muscle, Ligament, and Fascia (Primary Dx) Social History Tobacco Use Types Packs/Day Years Used Date Smoking Tobacco: Never Assessed Comments Unknown Sex and Gender Information Value Date Recorded Sex Assigned at Not on file Legal Sex Female 5:44 AM SURVEILLANCE MONITOR Gender Identity Not on file Sexual Orientation Not on file documented as of this encounter Plan of Treatment Not on file documented as of this encounter Visit Diagnoses Diagnosis Other fibromatoses of muscle, ligament, and fascia(728.79)- Primary Other fibromatoses of muscle, ligament, and fascia documented in this encounter Care Teams Semiconductor Wafers Etch Operator Relationship Specialty Start Date End Date Liliana Ko DO [address] [place] [phone] PCP - General Family Practice 12/29/15 documented as of this encounter
--- OUTSIDE RECORDS SUMMARY | 2025-05-24 13:33 | XMS_ITS | Encounter Summary ---
Author Organization [facility] Address [address] [place] [address] Care Team Providers Care Integrated Logistics Support Manager Name Role Phone Liliana Ko DO Primary Care Provider Encounter Details Date Type Department Care Team (Latest Contact Info) Description 10/30/2006 Outpatient Historical [facility] Plastic Surgery [address] [place] [address] [place] [phone] Mark Guthrie MD [address] [place] [address], [place] [phone] Contracted Palmar Fascia (Primary Dx) Social History Tobacco Use Types Packs/Day Years Used Date Smoking Tobacco: Never Assessed Comments Unknown Sex and Gender Information Value Date Recorded Sex Assigned at Not on file Legal Sex Female 5:44 AM EDUCATIONAL SPECIALIST Gender Identity Not on file Sexual Orientation Not on file documented as of this encounter Plan of Treatment Not on file documented as of this encounter Visit Diagnoses Diagnosis 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
--- OUTSIDE RECORDS SUMMARY | 2025-05-24 13:33 | XMS_ITS | Encounter Summary ---
Author Organization [facility] Address [address] [place] [address] Care Team Providers Care Waste Disposal Attendant Name Role Phone Liliana Ko DO Primary Care Provider Encounter Details Date Type Department Care Team (Latest Contact Info) Description 02/25/2004 Outpatient Historical [facility] Gastroenterology- [place] [address] [phone] Herman Thorpe MD [address] [address] GASTRITIS NEC W/O HEMORRH (Primary Dx); ABDOMINAL PAIN EPIGASTRIC Social History Tobacco Use Types Packs/Day Years Used Date Smoking Tobacco: Never Assessed Comments Unknown Sex and Gender Information Value Date Recorded Sex Assigned at Not on file Legal Sex Female 5:44 AM BRIAR SHOP SUPERVISOR Gender Identity Not on file Sexual Orientation Not on file documented as of this encounter Plan of Treatment Not on file documented as of this encounter Visit Diagnoses Diagnosis Other specified gastritis without mention of hemorrhage- Primary Abdominal pain, epigastric documented in this encounter Care Teams Waste Disposal Attendant Relationship Specialty Start Date End Date Liliana Ko DO [address] [place] [phone] PCP - General Family Practice 09/08/15 documented as of this encounter
--- OUTSIDE RECORDS SUMMARY | 2025-05-24 13:33 | XMS_ITS | Encounter Summary ---
Author Organization [facility] Address [address] [place] [address] Care Team Providers Care Smoking Pipe Coater Name Role Phone Liliana Ko DO Primary Care Provider [phone] Encounter Details Date Type Department Care Team (Latest Contact Info) Description 11/05/2001 Outpatient Historical [facility] Gen Spec Surg [place] 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
--- OUTSIDE RECORDS SUMMARY | 2025-05-24 13:34 | XMS_ITS | Encounter Summary ---
Author Organization [facility] Address [address] [place] [address] Care Team Providers Care Supervisor Phosphatic Fertilizer Name Role Phone Liliana Ko DO Primary Care Provider Encounter Details Date Type Department Care Team (Latest Contact Info) Description 08/22/2001 Outpatient Historical [facility] Gen Spec Surg [place] [address] [place] [address] [place] [address] Aleks Gonzales MD NO ADDRESS ON FILE ASCITES (Primary Dx) Social History Tobacco Use Types Packs/Day Years Used Date Smoking Tobacco: Never Assessed Comments Unknown Sex and Gender Information Value Date Recorded Sex Assigned at Not on file Legal Sex Female 5:44 AM PHOSPHORUS PROCESSING SUPERVISOR Gender Identity Not on file Sexual Orientation Not on file documented as of this encounter Plan of Treatment Not on file documented as of this encounter Visit Diagnoses Diagnosis Ascites- Primary documented in this encounter Care Teams Supervisor Phosphatic Fertilizer Relationship Specialty Start Date End Date Liliana Ko DO [address] [place] [phone] PCP - General Family Practice 09/08/15 documented as of this encounter
--- OUTSIDE RECORDS SUMMARY | 2025-05-24 13:34 | XMS_ITS | Encounter Summary ---
Author Organization [facility] Address [address] [place] [address] Care Team Providers Care Fiberglass Boat Parts Finisher Name Role Phone Liliana Ko DO Primary Care Provider Encounter Details Date Type Department Care Team (Latest Contact Info) Description 11/19/2007 Outpatient Historical [facility] Central Processing [address] [place] [address] [place] [phone] Mark Guthrie MD [address] [place] [phone] Other Postoperative Infection Social History Tobacco Use Types Packs/Day Years Used Date Smoking Tobacco: Never Assessed Comments Unknown Sex and Gender Information Value Date Recorded Sex Assigned at Not on file Legal Sex Female 5:44 AM DENTAL SERVICE CHIEF Gender Identity Not on file Sexual [...] ORDERABL ES Final Result Performing Organization Address City/State/[facility] Co de Phone Number INTERFACE SYSTEM Refer to clinic/hospital department documented in this encounter Visit Diagnoses Diagnosis Other postoperative infection documented in this encounter Care Teams Fiberglass Boat Parts Finisher Relationship Specialty Start Date End Date Liliana Ko DO [address] [place] [address] PCP - General Family Practice 09/08/15 documented as of this encounter
--- OUTSIDE RECORDS SUMMARY | 2025-05-24 13:34 | XMS_ITS | Encounter Summary ---
Author Organization [facility] Address [address] [place] [address] Care Team Providers Care Rubber Extrusion Machine Operator Name Role Phone Liliana Ko DO Primary Care Provider Encounter Details Date Type Department Care Team (Late st Contact Info) Description 06/21/2007 Outpatient Historical [facility] Hand Therapy [address] [place] [address] [place] [address] Mark Guthrie MD [address] [place] [address], [place] [address] Social History Tobacco Use Types Packs/Day Years Used Date Smoking Tobacco: Never Assessed Comments Unknown Sex and Gender Information Value Date Recorded Sex Assigned at Not on file Legal Sex Female 5:44 AM CARDIAC TECH Gender Identity Not on file Sexual Orientation Not on file documented as of this encounter Plan of Treatment Not on file documented as of this encounter Visit Diagnoses Not on filedocumented in this encounter Care Teams Rubber Extrusion Machine Operator Relationship Specialty Start Date End Date Liliana Ko DO [address] [place] [address] PCP - General Family Practice 09/08/15 documented as of this encounter
--- OUTSIDE RECORDS SUMMARY | 2025-05-24 13:34 | XMS_ITS | Encounter Summary ---
Author Organization [facility] Address [address] [place]: [place] [address] Care Team Providers Care Bilingual Sales Assistant Name Role Phone Liliana Ko DO Primary [...] file Legal Sex Female 5:44 AM WATER TAXI OPERATOR Gender Identity Not on file Sexual Orientation Not on file documented as of this encounter Plan of Treatment Not on file documented as of this encounter Visit Diagnoses Not on filedocumented in this encounter Care Teams Bilingual Sales Assistant Relationship Specialty Start Date End Date Liliana Ko DO [address] [facility] [place] [phone] PCP - General Family Practice 09/08/15 documented as of this encounter
--- OUTSIDE RECORDS SUMMARY | 2025-05-24 13:34 | XMS_ITS | Encounter Summary ---
Author Organization [facility] Address [address] [place] [address] Care Team Providers Care Port Crane Operator Name Role Phone Liliana Ko DO Primary Care Provider Encounter Details Date Type Department Care Team (Latest Contact Info) Description 08/13/2001 Outpatient Historical [facility] [place] Gen Spec Surg [place] [facility] [address] [place] [address] [place] [address] Aleks Gonzales MD NO ADDRESS ON FILE ASCITES (Primary Dx); SURGERY FOLLOWUP, UNSPEC Social History Tobacco Use Types Packs/Day Years Used Date Smoking Tobacco: Never Assessed Comments Unknown Sex and Gender Information Value Date Recorded Sex Assigned at Not on file Legal Sex Female 5:44 AM BUILDINGS AND GROUNDS SUPERINTENDENT Gender Identity Not on file Sexual Orientation Not on file documented as of this encounter Plan of Treatment Not on file documented as of this encounter Visit Diagnoses Diagnosis Ascites- Primary Follow-up examination, following unspecified surgery documented in this encounter Care Teams Port Crane Operator Relationship Specialty Start Date End Date Liliana Ko DO [address] [place] [phone] PCP - General Family Practice 09/08/15 documented as of this encounter
--- OUTSIDE RECORDS SUMMARY | 2025-05-24 13:34 | XMS_ITS | Encounter Summary ---
Author Organization [facility] Address [address] [place] [address] Care Team Providers Care Ordnance Truck Installation Supervisor Name Role Phone Liliana Ko DO Primary Care Provider Encounter Details Date Type Department Care Team (Late st Contact Info) Description 12/31/1999 Outpatient Historical [facility] Social History Tobacco Use Types Packs/Day Years Used Date Smoking Tobacco: Never Assessed Comments Unknown Sex and Gender Information Value Date Recorded Sex Assigned at Not on file Legal Sex Female 5:44 AM CIO Gender Identity Not on file Sexual Orientation Not on file documented as of this encounter Plan of Treatment Not on file documented as of this encounter Visit Diagnoses Not on filedocumented in this encounter Care Teams Ordnance Truck Installation Supervisor Relationship Specialty Start Date End Date Liliana Ko DO [address] [place] [phone] PCP - General Family Practice 09/08/15 documented as of this encounter
--- OUTSIDE RECORDS SUMMARY | 2025-05-24 13:34 | XMS_ITS | Encounter Summary ---
Author Organization [facility] Address [address] [place] [address] Care Team Providers Care Surgical Coordinator Name Role Phone Liliana Ko DO Primary Care Provider Encounter Details Date Type Department Care Team (Latest Contact Info) Description 05/16/2007 Outpatient Historical [facility] [address] [place] [address] [facility] [address] [place] [address] Mark Guthrie MD [address] [place] [address], [place] [phone] Contracture of Palmar Fascia (Primary Dx) Social History Tobacco Use Types Packs/Day Years Used Date Smoking Tobacco: Never Assessed Comments Unknown Sex and Gender Information Value Date Recorded Sex Assigned at Not on file Legal Sex Female 5:44 AM JAVASCRIPT ENGINEER Gender Identity Not on file Sexual Orientation Not on file documented as of this encounter Plan of Treatment Not on file documented as of this encounter Visit Diagnoses Diagnosis Contracture of palmar fascia- Primary documented in this encounter Care Teams Surgical Coordinator Relationship Specialty Start Date End Date Liliana Ko DO [address] [place] [phone] PCP - General Family Practice 09/08/15 documented as of this encounter
--- OUTSIDE RECORDS SUMMARY | 2025-05-24 13:34 | XMS_ITS | Encounter Summary ---
Author Organization [facility] Address [address] [place]: [place] [address] Care Team Providers Care Public Relations Representative Name Role Phone Liliana Ko DO [...] on file Legal Sex Female 5:44 AM POCKET CLOSER Gender Identity Not on file Sexual Orientation Not on file documented as of this encounter Plan of Treatment Not on file documented as of this encounter Visit Diagnoses Not on filedocumented in this encounter Care Teams Public Relations Representative Relationship Specialty Start Date End Date Liliana Ko DO [address] [place] [facility] [place] [address] PCP - General Family Practice 09/08/15 documented as of this encounter
--- OUTSIDE RECORDS SUMMARY | 2025-05-24 13:34 | XMS_ITS | Clinical Summary ---
Author Organization [facility] tone Address [address] [place] [address] Care Team Providers Care Binding Cementer French Cord Name Role Phone Liliana Ko Primary Care [...] 9 Active fluticasone propionate (FLONASE) 50 mcg/spray [place], Suspension nasal inhalerIndications :Allergic sinusitis SHAKE LIQUID [...] COVID-19 VACCINE - EMERGENCY USE AUTHORIZATION, MRNA, [id number](PF) 30 MCG/0.3 ML IM SUSP 12/15/2020,11/23/2020 (TDVAX)(7 [...] on file Legal Sex Female 5:44 AM LICENSING ANALYST Gender Identity Not on file Sexual [...] 12/04/2021 12/03/2020, 10/08/2019, 07/20/2018, Additional history exists INFLUENZA VACCINE (#1) 2025 , 06/16/2020, 06/16/2020, Additional history exists COVID-19 Vaccine (3 - 2024-2 6 season) 2025 12/15/2020, 11/23/[address] [place] [address] MEDICARE PART A AND B [place] [id number] Advance Directives For more information, please contact: [phone] * Full Code (Latest Code Status on File) Date Activated Date Inactivated Comments 11/18/2010 11:19 AM 11/19/2010 2:32 AM * Full Code Date Activated Date Inactivated Comments 11/18/2010 11:01 AM 11/18/2010 11:19 AM Care Teams Binding Cementer French Cord Relationship Specialty Start Date End Date Liliana Ko DO [address] [place] [phone] PCP - General Family Practice 09/08/15
--- OUTSIDE RECORDS SUMMARY | 2025-05-24 13:34 | XMS_ITS | Encounter Summary ---
Author Organization [facility] Address [address] [place] [address] Care Team Providers Care Certified Scrub Tech Name Role Phone Liliana Ko DO Primary Care Provider Encounter Details Date Type Department Care Team (Latest Contact Info) Description 12/31/1999 Outpatient Historical [facility] GENERAL SURGERY Aleks Gonzales MD NO ADDRESS ON FILE Other specified aftercare following surgery (Primary Dx) Social History Tobacco Use Types Packs/Day Years Used Date Smoking Tobacco: Never Assessed Comments Unknown Sex and Gender Information Value Date Recorded Sex Assigned at Not on file Legal Sex Female 5:44 AM DONOR TECHNICIAN Gender Identity Not on file Sexual Orientation Not on file documented as of this encounter Plan of Treatment Not on file documented as of this encounter Visit Diagnoses Diagnosis Other specified aftercare following surgery- Primary documented in this encounter Care Teams Certified Scrub Tech Relationship Specialty Start Date End Date Liliana Ko DO [address] [place] [address] PCP - General Family Practice 09/08/15 documented as of this encounter
--- OUTSIDE RECORDS SUMMARY | 2025-05-24 13:34 | XMS_ITS | Encounter Summary ---
Author Organization [facility] Address [address] [place] [address] Care Team Providers Care Hide And Skin Fleshing Machine Operator Name Role Phone Liliana Ko DO Primary Care Provider Encounter Details Date Type Department Care Team (Latest Contact Info) Description 07/31/2001 Outpatient Historical [facility] Gen Spec Surg [place] [address] [place] [address] Aleks Gonzales MD NO ADDRESS ON FILE ASCITES (Primary Dx); ABDOMINAL PAIN UNSPEC SITE; NAUSEA WITH VOMITING; SURGERY FOLLOWUP, UNSPEC Social History Tobacco Use Types Packs/Day Years Used Date Smoking Tobacco: Never Assessed Comments Unknown Sex and Gender Information Value Date Recorded Sex Assigned at Not on file Legal Sex Female 5:44 AM PLAYGROUND EQUIPMENT ERECTOR Gender Identity Not on file Sexual Orientation Not on file documented as of this encounter Plan of Treatment Not on file documented as of this encounter Visit Diagnoses Diagnosis Ascites- Primary Abdominal pain, unspecified site Nausea with vomiting Follow-up examination, following unspecified surgery documented in this encounter Care Teams Hide And Skin Fleshing Machine Operator Relationship Specialty Start Date End Date Liliana Ko DO [address] [place] [address] PCP - General Family Practice 09/08/15 documented as of this encounter
--- OUTSIDE RECORDS SUMMARY | 2025-05-24 13:34 | XMS_ITS | Encounter Summary ---
Author Organization [facility] Address [address] [place] [address] Care Team Providers Care Psychology Tech Name Role Phone Liliana Ko DO Primary Care Provider Encounter Details Date Type Department Care Team (Latest Contact Info) Description 07/27/2001 Outpatient Historical [facility] Gen Spec Surg [place] [address] [place] [address] Aleks Gonzales MD NO ADDRESS ON FILE ASCITES (Primary Dx); OTHR SPEC COMPLIC OF PROCEDURE NEC Social History Tobacco Use Types Packs/Day Years Used Date Smoking Tobacco: Never Assessed Comments Unknown Sex and Gender Information Value Date Recorded Sex Assigned at Not on file Legal Sex Female 5:44 AM TRUST OPERATIONS ASSISTANT Gender Identity Not on file Sexual Orientation Not on file documented as of this encounter Plan of Treatment Not on file documented as of this encounter Visit Diagnoses Diagnosis Ascites- Primary Other specified complications documented in this encounter Care Teams Psychology Tech Relationship Specialty Start Date End Date Liliana Ko DO [address] [place] [address] PCP - General Family Practice 09/08/15 documented as of this encounter
--- OUTSIDE RECORDS SUMMARY | 2025-05-24 13:34 | XMS_ITS | Encounter Summary ---
Author Organization [facility] Address [address] [place] [address] Care Team Providers Care Cord Cutter Name Role Phone Liliana Ko DO Primary Care Provider Encounter Details Date Type Department Care Team (Latest Contact Info) Description 12/18/2006 Outpatient Historical [facility] Plastic Surgery [address] [place] [address] [place] [address] Mark Guthrie MD [address] [place] [address], [place] [phone] Follow-Up Examination, Following Unspecified Surgery (Primary Dx) Social History Tobacco Use Types Packs/Day Years Used Date Smoking Tobacco: Never Assessed Comments Unknown Sex and Gender Information Value Date Recorded Sex Assigned at Not on file Legal Sex Female 5:44 AM COIN ROLLING MACHINE OPERATOR Gender Identity Not on file Sexual Orientation Not on file documented as of this encounter Plan of Treatment Not on file documented as of this encounter Visit Diagnoses Diagnosis Follow-up examination, following unspecified surgery- Primary documented in this encounter Care Teams Cord Cutter Relationship Specialty Start Date End Date Liliana Ko DO [address] [place] [phone] PCP - General Family Practice 09/08/15 documented as of this encounter
--- OUTSIDE RECORDS SUMMARY | 2025-05-24 13:34 | XMS_ITS | Encounter Summary ---
Author Organization [facility] Address [address] [place] [address] Care Team Providers Care Vault Worker Name Role Phone Liliana Ko DO Primary Care Provider Encounter Details Date Type Department Care Team (Late st Contact Info) Description 05/21/2007 Outpatient Historical [facility] Social History Tobacco Use Types Packs/Day Years Used Date Smoking Tobacco: Never Assessed Comments Unknown Sex and Gender Information Value Date Recorded Sex Assigned at Not on file Legal Sex Female 5:44 AM SYSTEMS MANAGER Gender Identity Not on file Sexual Orientation Not on file documented as of this encounter Plan of Treatment Not on file documented as of this encounter Visit Diagnoses Not on filedocumented in this encounter Care Teams Vault Worker Relationship Specialty Start Date End Date Liliana Ko DO [address] [place] [address] PCP - General Family Practice 09/08/15 documented as of this encounter
--- OUTSIDE RECORDS SUMMARY | 2025-05-24 13:34 | XMS_ITS | Encounter Summary ---
Author Organization [facility] Address [address] [place] [address] Care Team Providers Care Radar Air Traffic Controller Name Role Phone Liliana Ko DO Primary Care Provider Encounter Details Date Type Department Care Team (Latest Contact Info) Description 05/30/2007 Outpatient Historical [facility] Central Processing [address] [place] [address] Mark Guthrie MD [address] [place] [phone] Actinic Keratosis (Primary Dx) Social History Tobacco Use Types Packs/Day Years Used Date Smoking Tobacco: Never Assessed Comments Unknown Sex and Gender Information Value Date Recorded Sex Assigned at Not on file Legal Sex Female 5:44 AM PAYROLL DIRECTOR Gender Identity Not on file Sexual Orientation Not on file documented as of this encounter Plan of Treatment Not on file documented as of this encounter Visit Diagnoses Diagnosis Actinic keratosis- Primary documented in this encounter Care Teams Radar Air Traffic Controller Relationship Specialty Start Date End Date Liliana Ko DO [address] [place] [address] PCP - General Family Practice 09/08/15 documented as of this encounter
--- OUTSIDE RECORDS SUMMARY | 2025-05-24 13:34 | XMS_ITS | Encounter Summary ---
Author Organization [facility] Address [address] [place] [address] Care Team Providers Care Green Meat Packer Name Role Phone Liliana Ko DO Primary [...] on file Legal Sex Female 5:44 AM SENIOR ENGINEERING MANAGER Gender Identity Not on file Sexual Orientation Not on file documented as of this encounter Plan of Treatment Not on file documented as of this encounter Visit Diagnoses Diagnosis Hyperparathyroidism- Primary documented in this encounter Care Teams Green Meat Packer Relationship Specialty Start Date End Date Liliana Ko DO [address] [place] [address] PCP - General Family Practice 09/08/15 documented as of this encounter
--- OUTSIDE RECORDS SUMMARY | 2025-05-24 13:34 | XMS_ITS | Encounter Summary ---
Author Organization [facility] Address [address] [place]: [place] [address] Care Team Providers Care Valet Cashier Name Role Phone Liliana Ko DO Primary Care Provider [phone] Encounter Details Date Type Department Care Team (Late st Contact Info) Description 07/15/2001 Inpatient Historical Aleks Gonzales MD NO ADDRESS ON FILE Social History Tobacco Use Types Packs/Day Years Used Date Smoking Tobacco: Never Assessed Comments Unknown Sex and Gender Information Value Date Recorded Sex Assigned at Not on file Legal Sex Female 5:44 AM AUTO FORMER MACHINE OPERATOR Gender Identity Not on file Sexual Orientation Not on file documented as of this encounter Plan of Treatment Not on file documented as of this encounter Visit Diagnoses Not on filedocumented in this encounter Care Teams Valet Cashier Relationship Specialty Start Date End Date Liliana Ko DO [address] [facility] [place] [address] PCP - General Family Practice 09/08/15 documented as of this encounter
--- OUTSIDE RECORDS SUMMARY | 2025-05-24 13:34 | XMS_ITS | Encounter Summary ---
Author Organization [facility] Address [address] [place] [address] Care Team Providers Care Cell Tower Climber Name Role Phone Liliana Ko DO Primary Care Provider Encounter Details Date Type Department Care Team (Latest Contact Info) Description 05/30/2007 Outpatient Historical [facility] Plastic Surgery [address] [place] [phone] Mark Guthrie MD [address] [place] [address], [place] [phone] Unspecified Disorder of Skin and Subcutaneous Tissue (Primary Dx) Social History Tobacco Use Types Packs/Day Years Used Date Smoking Tobacco: Never Assessed Comments Unknown Sex and Gender Information Value Date Recorded Sex Assigned at Not on file Legal Sex Female 5:44 AM REPAIRING CALIBRATOR Gender Identity Not on file Sexual Orientation Not on file documented as of this encounter Plan of Treatment Not on file documented as of this encounter Visit Diagnoses Diagnosis Unspecified disorder of skin and subcutaneous tissue- Primary documented in this encounter Care Teams Cell Tower Climber Relationship Specialty Start Date End Date Liliana Ko DO [address] [place] [address] PCP - General Family Practice 09/08/15 documented as of this encounter
--- OUTSIDE RECORDS SUMMARY | 2025-05-24 13:34 | XMS_ITS | Encounter Summary ---
Author Organization [facility] Address [address] [place] [address] Care Team Providers Care Board Certified Music Therapist Name Role Phone Liliana Ko DO Primary Care Provider [phone] Reason for Visit * Reason Comments Remote Monitoring Encounter Details Date Type Department Care Team (Late st Contact Info) Description 05/21/2025 Telephone [facility] Medicine [place] [address] [place] [address] Liliana Ko, [address] [place] [address] Remote Monitoring Social History Tobacco Use Types Packs/Day Years Used Date Smoking Tobacco: Never Smokeless Tobacco: Never Alcohol Use Standard Drinks/Week Comments No 0 (1 standard drink = 0.6 oz pur e alcohol) Financial Resource Strain Answer Date R ecorded How hard is it for you to pa y for the very basics like food, housing, medical care, and heating? Patient declined 05/08/2023 Food Insecurity Answer Date Recorded In the past 12 months, have you worried that your food would run out before you had money to buy more? Patient declined 2022 In the past 12 months, did y ou run out of food and didn't have money to buy more? Patient declined 05/08/2023 Transportation Needs Answer Date Record ed In the past 12 months, has l ack of transportation kept you from medical appointments or from getting medications? No 05/08/2023 Lack of Transportation (Non-Medical) Not on file 05/08/2023 Comments No Sex and Gender Information Value Date Recorded Sex Assigned at Not on file Legal Sex Female 1:02 PM SUPERVISOR SOUND TECHNICIAN Gender Identity Not on file Sexual Orientation Not on file documented as of this encounter Miscellaneous Notes * Telephone Encounter - Brittney Rodriguez LPN - 05/21/2025 1:57 PM CDT 05/21/2025 1:57 PM I returned pt's call for more information, no answer, LVM for call back. If pt returns call, pleaseput her through to PCN line. Brittney DAVID * Telephone Encounter - Karolina Hunter - 05/21/2025 1:45 PM CDT Copied from [facility] #[id number]. Topic: Patient Reported Outcome Metrics >> May 21, 2025 1:43 PM Karolina Reyez wrote: Caller Name: Jessie Kumar Callback Number: Telephone Information: Call Notes: Caller is reporting Follow up information from an appointment Patient needs to report mouth issues says her cephalexin has run out and she needs another antibiotic sent in please call documented in this encounter Plan of Treatment Upcoming Encounters Date Type Department Care Team (Late st Contact Info) Description 06/04/2025 11:40 AM CDT Office Visit [facility] [address] [place] [address] Liliana Ko, DO [address] [place] [address] 07/23/2025 11:00 AM SUPERVISOR SOUND TECHNICIAN Office Visit [facility] [address] [place] [address] Liliana Ko, DO [address] [place] [address] 10/22/2025 9:20 AM SUPERVISOR SOUND TECHNICIAN Office Visit [facility] [address] [place] [address] Liliana Ko DO [address] [place] [address] documented as of this encounter Visit Diagnoses Not on filedocumented in this encounter Care Teams Board Certified Music Therapist Relationship Specialty Start Date End Date Liliana Ko DO [address] [place] [address] PCP - General Family Practice 09/08/15 documented as of this encounter
--- OUTSIDE RECORDS SUMMARY | 2025-05-24 13:34 | XMS_ITS | Encounter Summary ---
Author Organization [facility] Address [address] [place] [address] Care Team Providers Care Channel Rougher Name Role Phone Liliana Ko DO Primary Care Provider [phone] Encounter Details Date Type Department Care Team (Latest Contact Info) Description 11/19/1999 Outpatient Historical [facility] GENERAL SURGERY Aleks Gonzales MD NO ADDRESS ON FILE Other specified aftercare following surgery (Primary Dx) Social History Tobacco Use Types Packs/Day Years Used Date Smoking Tobacco: Never Assessed Comments Unknown Sex and Gender Information Value Date Recorded Sex Assigned at Not on file 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
--- OUTSIDE RECORDS SUMMARY | 2025-05-24 13:34 | XMS_ITS | Encounter Summary ---
Author Organization [facility] Address [address] [place] [address] Care Team Providers Care Assistant Engineer Name Role Phone Liliana Ko DO Primary Care Provider [phone] Encounter Details Date Type Department Care Team (Latest Contact Info) Description 05/21/2007 Outpatient Historical [facility] Hand Therapy [address] [place] [address] Mark Guthrie MD [address] [place] [address], [place] [phone] Encounter for Occupational Therapy (Primary Dx) Social History Tobacco Use Types Packs/Day Years Used Date Smoking Tobacco: Never Assessed Comments Unknown Sex and Gender Information Value Date Recorded Sex Assigned at Not on file 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
--- OUTSIDE RECORDS SUMMARY | 2025-05-24 13:34 | XMS_ITS | Encounter Summary ---
Author Organization [facility] Address [address] [place] [address] Care Team Providers Care Brick Carrier Name Role Phone Liliana Ko DO Primary Care Provider Encounter Details Date Type Department Care Team (Latest Contact Info) Description 05/21/2007 Outpatient Historical [facility] Plastic Surgery 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
--- OUTSIDE RECORDS SUMMARY | 2025-05-24 13:34 | XMS_ITS | Encounter Summary ---
Author Organization [facility] Address [address] 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
--- OUTSIDE RECORDS SUMMARY | 2025-05-24 13:34 | XMS_ITS | Encounter Summary ---
Author Organization [facility] Address [address] [place] [address] Care Team Providers Care Bullet Lubricating Machine Operator Name Role Phone Liliana Ko DO Primary Care Provider Encounter Details Date Type Department Care Team (Latest Contact Info) Description 11/20/2006 Outpatient Historical [facility] Plastic Surgery 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
--- OUTSIDE RECORDS SUMMARY | 2025-05-24 13:34 | XMS_ITS | Encounter Summary ---
Author Organization [facility] Address [address] [place] [address] Care Team Providers Care Regional Commercial Sales Manager Name Role Phone Liliana Ko DO Primary Care Provider Encounter Details Date Type Department Care Team (Latest Contact Info) Description 06/29/2001 Outpatient Historical [facility] General Surgery [place] [address] [address] [place] [phone] [place] [address] 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
--- OUTSIDE RECORDS SUMMARY | 2025-05-24 13:34 | XMS_ITS | Encounter Summary ---
Author Organization [facility] Address [address] [place] [address] Care Team Providers Care Executive Associate Name Role Phone Liliana Ko DO Primary Care Provider Encounter Details Date Type Department Care Team (Latest Contact Info) Description 08/29/2001 Outpatient Historical [facility] Gen Spec Surg [address] 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
--- OUTSIDE RECORDS SUMMARY | 2025-05-24 13:34 | XMS_ITS | Encounter Summary ---
Author Organization [facility] Address [address] [place] [address] Care Team Providers Care Line Runner Name Role Phone Liliana Ko DO Primary Care Provider Encounter Details Date Type Department Care Team (Latest Contact Info) Description 09/12/2001 Outpatient Historical [facility] Gen Spec Surg 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
--- OUTSIDE RECORDS SUMMARY | 2025-05-24 13:34 | XMS_ITS | Encounter Summary ---
Author Organization [facility] Address [address] [place] [address] Care Team Providers Care It Software Developer Name Role Phone Liliana Ko DO Primary Care Provider Encounter Details Date Type Department Care Team (Latest Contact Info) Description 04/02/2007 Outpatient Historical [facility] Plastic Surgery [address] 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
--- OUTSIDE RECORDS SUMMARY | 2025-05-24 13:34 | XMS_ITS | Encounter Summary ---
Author Organization [facility] Address [address] [place] [address] Care Team Providers Care Base Filler Operator Name Role Phone Liliana Ko DO Primary Care Provider [phone] Encounter Details Date Type Department Care Team (Latest Contact Info) Description 05/16/2007 Outpatient Historical [facility] Plastic Surgery [address] [place] 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
--- OUTSIDE RECORDS SUMMARY | 2025-05-24 13:34 | XMS_ITS | Encounter Summary ---
Author Organization [facility] Address [address] [place] [address] Care Team Providers Care Youth Probation Officer Name Role Phone Liliana Ko DO Primary Care Provider Encounter Details Date Type Department Care Team (Latest Contact Info) Description 07/12/2001 Outpatient Historical [facility] General Surgery [address] [address] [address] [place] [phone] [place] [address] [facility] [address] [place] [address] Pancreat cyst/pseudocyst (Primary Dx) Social History Tobacco Use Types Packs/Day Years Used Date Smoking Tobacco: Never Assessed Comments Unknown Sex and Gender Information Value Date Recorded Sex Assigned at Not on file 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
--- OUTSIDE RECORDS SUMMARY | 2025-05-24 13:34 | XMS_ITS | Encounter Summary ---
Author Organization [facility] Address [address] [place] [address] Care Team Providers Care Jigger Machine Operator Name Role Phone Liliana Ko DO Primary Care Provider Encounter Details Date Type Department Care Team (Latest Contact Info) Description 01/08/[address] [facility] Plastic Surgery [address] [place] 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
--- OUTSIDE RECORDS SUMMARY | 2025-05-24 13:34 | XMS_ITS | Clinical Summary ---
Author Organization [facility] Address [address] Attn: Epic Prelude ADT LASHANDA ELDER [address] Care Team Providers Care Computer Operations Supervisor Name Role Phone Liliana Ko Primary Care [...] Hives High 11/03/2010 Medications CPAP / BIPAP suppliesIndication s:Obstructive sleep apnea Length of need: 99 monthsMask Type: full face with headgear every 6 months, mask only every 3 months, 2 cushions per month. Tubing: non heated 1 every 3 months, water chamber 1 every 6 months, chin strap 1 every 6 months, filters disposable 2 per month, filters reusable 1 per 6 months.. 1 Each 0 018 Active oxygen home deliveryIndication s:Chronic respiratory failure with hypoxia and hypercapnia (CMS/HCC) Home Oxygen Concentrator yes at 2 L/M Rest, 2 L/M Activity, 2 L/M Sleep, Delivery Device: Nasal Cannula Portability: yes, 2 L/M Rest, 2 L/M Activity, May provide device best for patient needs(E system,home fill, conserving device) Length of Need: 99 months 1 Each 024 Active triamcinolone acetonide (KENALOG) 0.1 % Ointment Apply to affected area 2 times daily. Apply thin layer to affected area two times daily 30 Gram 2 024 Active nitroglycerin (NITROSTAT) 0.4 mg Tablet, Sublingual Place 1 Tablet (0.4 mg) under tongue every 5 minutes as needed for Chest Pain. 30 Tablet 025 Active metoprolol succinate (TOPROL XL) 25 mg Extended Release 24 hour tablet Take 0.5 Tablets (12.5 mg) by mouth daily. 90 Tablet 4 025 Active omeprazole (PriLOSEC) 20 mg Capsule, Delayed Release(E.C.)Indic ations:Gastroesoph ageal reflux disease without esophagitis TAKE 1 CAPSULE TWICE DAILY 180 Capsule 3 025 Active dilTIAZem (DILACOR XR) 240 mg Extended Release capsule Take 1 Capsule (240 mg) by mouth daily. 90 Capsule 4 025 Active nitroglycerin (NITRO-TIME) 2.5 mg Extended Release capsule Take 1 Capsule (2.5 mg) by mouth 2 times daily. 180 Capsule 4 025 Active linaCLOtide (LINZESS) 72 mcg Capsule capsule Take 1 Capsule (72 mcg) by mouth daily before breakfast. 90 Capsule 4 025 Active fluticasone propionate (FLONASE) 50 mcg/spray [place], Suspension nasal inhalerIndications :Allergic sinusitis SHAKE LIQUID AND USE 2 SPRAYS IN EACH NOSTRIL EVERY DAY 48 Gram 3 025 Active amiodarone (CORDARONE) 100 mg Tablet Take 1 Tablet (100 mg) by mouth 2 times daily. 180 Tablet 3 025 Active traMADol (ULTRAM) 50 mg tabletIndications: Primary osteoarthritis involving multiple joints TAKE one TO two TABLETS BY MOUTH EVERY SIX hours NEEDED FOR pain. 180 Tablet 2 025 Active traMADol (ULTRAM ER) 100 mg Extended Release 24 hour tabletIndications: History of ankle fracture,Primary osteoarthritis involving multiple joints Take 1 Tablet (100 mg) by mouth daily at bedtime. 30 Tablet 2 Active furosemide (LASIX) 20 mg tablet Take 20 mg by mouth daily. Active potassium CHLORIDE (KLOR-CON) 8 mEq Extended Release tablet Take 8 mEq by mouth daily. Active potassium CHLORIDE (KLOR-CON) 8 mEq Extended Release tablet Take 1 Tablet (8 mEq) by mouth daily. 90 Tablet 4 025 Active power wheelchairIndicati ons:Generalized muscle weakness,Frail elderly,Paroxysmal atrial fibrillation (CMS/HCC),Stage 3a chronic kidney disease (CMS/HCC),Essentia l hypertension,Mixed hyperlipidemia,At high risk for injury related to fall,Gastroesophag eal reflux disease without esophagitis,Primar y osteoarthritis involving multiple joints,Chronic midline low back pain with bilateral sciatica,History of ankle fracture,Impaired strength of upper extremity,Obstruct narciso sleep apnea,Obesity (BMI 30.0-34.9),Primary insomnia Face to Face completed within 6 months: yes Length of Need: 99 months 1 Each Active LORazepam (ATIVAN) 0.5 mg tabletIndications: Generalized anxiety disorder Take one tablet three times daily prn anxiety 90 Tablet 2 Active zolpidem (AMBIEN) 10 mg tabletIndications: Primary insomnia TAKE ONE TABLET BY MOUTH EVERY EVENING as needed for insomnia 30 Tablet 2 025 Active warfarin (COUMADIN) 6 mg tabletIndications: Paroxysmal atrial fibrillation (CMS/HCC) Take 1 Tablet (6 mg) by mouth daily. 90 Tablet 3 025 Active warfarin (COUMADIN) 5 mg tablet Take 1 Tablet (5 mg) by mouth daily. 90 Tablet 4 025 Active warfarin (COUMADIN) 1 mg tablet Take 1 Tablet (1 mg) by mouth daily. 30 Tablet 3 025 Active oxyCODONE-acetamin ophen (PERCOCET) 10-325 mg TabletIndications: History of ankle fracture Take 1 Tablet by mouth every 6 hours as needed for Pain, Severe. Max Daily Amount: 4 Tablets 120 Tablet Active warfarin (COUMADIN) 1 mg tablet Take 1 Tablet (1 mg) by mouth daily. 30 Tablet 3 016 2024 Discontinued warfarin (COUMADIN) 5 mg tablet Take 1 Tablet (5 mg) by mouth daily. 90 Tablet 4 023 2024 Discontinued warfarin (COUMADIN) 6 mg tabletIndications: Paroxysmal atrial fibrillation (CMS/HCC) TAKE 1 TABLET EVERY DAY 90 Tablet 3 025 2024 Discontinued cephALEXin (KEFLEX) 500 mg capsule Take 1 Capsule (500 mg) by mouth 2 times daily. 60 Capsule 025 2024 Discontinued LORazepam (ATIVAN) 0.5 mg tabletIndications: Generalized anxiety disorder Take one tablet three times daily prn anxiety 90 Tablet 2 025 2024 Discontinued(R eorder) zolpidem (AMBIEN) 10 mg tabletIndications: Primary insomnia TAKE ONE TABLET BY MOUTH EVERY EVENING NEEDED FOR INSOMNIA 30 Tablet 2 025 2024 Discontinued(R eorder) oxyCODONE-acetamin ophen (PERCOCET) 10-325 mg TabletIndications: History of ankle fracture Take 1 Tablet by mouth every 6 hours as needed for Pain, Severe. Max Daily Amount: 4 Tablets 120 Tablet 025 2024 Discontinued(R eorder) lovastatin (MEVACOR) 20 mg tabletIndications: Mixed hyperlipidemia TAKE 1 TABLET EVERY DAY (SUBSTITUTED FOR MEVACOR) 100 Tablet 1 025 2024 Discontinued Active Problems Problem Noted Date Diagnosed Date Stage 3b chronic kidney disease 04/27/2025 History of ankle fracture 02/26/2025 Open trimalleolar [...] Encounters Date Type Department Care Team Description 05/21/2025 Telephone [facility] [address] [place] [facility] [address] Liliana Ko, Remote Monitoring 05/13/2025 11:40 AM CDT Office Visit [facility] [address] [place] [address] Liliana Ko, DO Generalized muscle weakness (Primary Dx); Frail elderly; Generalized anxiety disorder; Paroxysmal atrial fibrillation; Stage 3a chronic kidney disease; Essential hypertension; Mixed hyperlipidemia; At high risk for injury related to fall; Gastroesophageal reflux disease without esophagitis; Primary osteoarthritis involving multiple joints; Chronic midline low back pain with bilateral sciatica; History of ankle fracture; Impaired strength of upper extremity; Obstructive sleep apnea; Obesity (BMI 30.0-34.9); Primary insomnia 05/13/2025 External Device Data ST[facility] ABSTRACTION Provider, Abstract 04/30/2025 External Device Data [facility] ABSTRACTION Provider, Abstract 04/29/2025 External Device Data [facility] ABSTRACTION Provider, Abstract 04/27/2025 Results Follow-Up [facility] [address] [place] [facility] [address] Liliana Ko DO CBC WITH DIFFERENTIAL, COMPREHENSIVE METABOLIC PANEL, TSH, PROTIME-INR 04/25/2025 Telephone [facility] [address] [place] [facility] [address] Liliana Ko, Patient Communication 04/24/2025 Refill [facility] [address] [place] [address] Liliana Ko, Mixed hyperlipidemia (Primary Dx) 04/23/2025 10:40 AM CDT Office Visit [facility] [address] [place] [address] Liliana Ko, Essential hypertension (Primary Dx); Mixed hyperlipidemia; Generalized muscle weakness; Paroxysmal atrial fibrillation ([facility]/HCC); Generalized anxiety disorder; Frail elderly; Gastroesophageal reflux disease without esophagitis; Chronic midline low back pain with bilateral sciatica; History of ankle fracture; Obstructive sleep apnea; Primary insomnia; Stage 3b chronic kidney disease ([facility]/HCC) 04/23/2025 Telephone [facility] [address] [place] [address] Liliana Ko, Provider Call 04/11/2025 Abstract [facility] [address] [place] [address] Liliana Ko DO 04/11/2025 Orders Only [facility] [address] [place] [address] Provider, Abstract 04/01/2025 External Device Data ST[facility] ABSTRACTION Provider, Abstract 03/31/2025 Telephone [facility] [address] [place] [address] Liliana Ko DO Patient Communication 03/26/2025 Refill [facility] [address] [place] [address] Liliana Ko, Generalized anxiety disorder; History of ankle fracture; Primary osteoarthritis involving multiple joints 03/19/2025 Refill [facility] [address] [place] [address] Liliana Ko, DO Allergic sinusitis 03/13/2025 Refill [facility] [address] [place] [address] Liliana Ko, DO 03/13/2025 Telephone [facility] [address] [place] [address] Liliana Ko, DO Question; Patient Communication 03/05/2025 Telephone [facility] [address] [place] [address] Liliana Ko, DO Medication Refill; Patient Communication 02/26/2025 Refill [facility] [address] [place] [address] Liliana Ko, Primary insomnia 02/26/2025 External Device Data STL ABSTRACTION Provider, Abstract from Last 3 Months Immunizations Immunization Administration Dates Next Due (PFIZER)(12 YR UP) COVID-19 VACCINE - EMERGENCY USE AUTHORIZATION, MRNA, [id number](PF) 30 MCG/0.3 ML IM SUSP 12/15/2020,11/23/2020 (TDVAX)(7 [...] on file 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 Gender Identity Not on file Sexual Orientation Not on file Last Filed Vital Signs Vital Sign Reading Time Taken Comments Blood Pressure 126/70 05/13/2025 12:02 PM CDT Pulse 106 05/13/2025 12:02 PM CDT Temperature 36.9 C (98.4 F) 05/13/2025 12:02 PM CDT Respiratory Rate 18 02/12/2025 11:55 AM CDT Oxygen Saturation 94% 05/13/2025 12:02 PM CDT Inhaled Oxygen Concentration - - Weight 90.7 kg (200 lb) 05/13/2025 12:02 PM CDT stated Height 165.1 cm (5' 5 ) 05/13/2025 12:02 PM CDT stated Body Mass Index 33.28 05/13/2025 12:02 PM CDT Plan of Treatment Upcoming Encounters Date Type Department Care Team (Late st Contact Info) Description 06/04/2025 11:40 AM CDT Office Visit [facility] [address] [place] [facility] [address] Liliana Ko, DO [address] [place] [facility] [place] [phone] 07/23/2025 11:00 AM DYNAMOMETER TESTER Office Visit [facility] [address] [place] [facility] [address] StefaniLiliana vo, DO [address] [place] [facility] [place] [address] 10/22/2025 9:20 AM DYNAMOMETER TESTER Office Visit [facility] [address] [place] [facility] [address] Liliana Ko, DO [address] [place] [facility] [place] [phone] Health Maintenance Due Date Last Done Comments PNEUMOCOCCAL VACCINE 50+ YEA RS (1 of 2 - PCV) 1956 06/11/2016, 04/26/2000 ZOSTER VACCINE (1 of 2) 1987 DTAP/TDAP/TD VACCINES (1 - Tdap) 04/27/2000 04/26/20 00 OSTEOPOROSIS SCREENING 2002 RSV VACCINE (60+ or ) (1 - 1-dose 75+ series) 2012 INFLUENZA VACCINE (#1) 2025 , 06/24/2022, 08/16/2021, Additional history exists COVID-19 Vaccine (5 - 2024-2 6 season) 2025 06/24/2022, 08/28/2021, 12/15/2020, Additional history exists Traditional Medicare (ACO) A nnual Wellness Visit 07/05/2025 07/04/2024, 05/08/2023, 01/10/2022 Procedures Procedure Name Priority Date/Time Associated Diagnosis Comments PROTIME-INR Routine 04/23/2025 11:40 AM CDT Paroxysmal atrial fibrillation (CMS/HCC) TSH Routine 04/23/2025 11:40 AM CDT Essential hypertension Mixed hyperlipidemia Generalized muscle weakness COMPREHENSIVE METABOLIC PANEL Routine 04/23/2025 11:40 AM CDT Essential hypertension Mixed hyperlipidemia Generalized muscle weakness CBC WITH DIFFERENTIAL Routine 04/23/2025 11:40 AM CDT Essential hypertension Mixed hyperlipidemia Generalized muscle weakness COMPREHENSIVE METABOLIC PANEL Routine 04/10/2025 2:15 PM CDT PROTIME-INR Routine 04/10/2025 from Last 3 Months Results * (ABNORMAL) CBC WITH DIFFERENTIAL (04/23/2025 11:40 AM CDT) Pathologist [facility] WBC 6.8 3.8 - 10.8 Thousand/u L [facility] RBC 4.37 3.80 - 5.10 Million/uL [facility] HEMOGLOBIN 11.7 11.7 - 15.5 g/dL [facility] HEMATOCRIT 39.8 35.0 - 45.0 % [facility] MCV 91.1 80.0 - 100.0 fL [facility] MCH 26.8(L) 27.0 - 33.0 pg [facility] MCHC 29.4(L) 32.0 - 36.0 g/dL [facility] Comment: For adults, a slight decrease in the calculated MCHC value (in the range of 30 to 32 g/dL) is most likely not clinically significant; however, it should be interpreted with caution in correlation with other red cell parameters and the patient's clinical condition. RDW 14.7 11.0 - 15.0 % [facility] PLATELETS 292 140 - 400 Thousand/u L [facility] MPV 9.8 7.5 - 12.5 fL [facility] NEUTROPHIL ABSOLUTE 4,366 1,500 - 7,800 cells/uL [facility] LYMPHOCYTE ABSOLUTE 1,748 850 - 3,900 cells/uL [facility] MONOCYTE ABSOLUTE 496 200 - 950 cells/uL [facility] EOSINOPHIL ABSOLUTE 143 15 - 500 cells/uL [facility] BASOPHILS ABSOLUTE 48 0 - 200 cells/uL [facility] NEUTROPHIL 64.2 % [facility] LYMPHOCYTES 25.7 % [facility] MONOCYTE 7.3 % [facility] EOSINOPHILS 2.1 % [facility] BASOPHILS 0.7 % [facility] Comment: FASTING:UNKNOWN FASTING: UNKNOWN Test Performed at: [facility] [place] [address] Татьяна Blankenship MD Blood 04/23/2025 11:4 0 AM CDT 04/23/2025 11:40 AM CDT Liliana Ko DO HEMATOLOGY ORDERABLES Final Result [facility] [phone] [facility] [address] [address] * (ABNORMAL) PROTIME-INR (04/23/2025 11:40 AM CDT) Only the most recent of2 resultswithin the time period is included. INR 3.6(H) [facility] Comment: Reference Range 0.9-1.1 Moderate-intensity Warfarin Therapy 2.0-3.0 Higher-intensity Warfarin Therapy 3.0-4.0 PROTIME 35.7(H) 9.0 - 11.5 sec [facility] Comment: For additional information, please refer to http://education.Loco2/faq/YET209 (This link is being provided for informational/ educational purposes only.) FASTING:UNKNOWN FASTING: UNKNOWN Test Performed at: [facility] [address] [facility] [place] [address] Татьяна Blankenship MD Blood 04/23/2025 11:4 0 AM CDT 04/23/2025 11:40 AM CDT Liliana Rocio MckeeStefani DO HEMATOLOGY ORDERABLES Final Result Performing Organization Address [facility] Co de Phone Number [facility] [phone] [facility] [address] * TSH (04/23/2025 11:40 AM CDT) Pathologist [facility] TSH 2.54 0.40 - 4.50 mIU/L [facility] Comment: FASTING:UNKNOWN FASTING: UNKNOWN Test Performed at: [facility] [address] Татьяна Blankenship MD Blood 04/23/2025 11:4 0 AM CDT 04/23/2025 11:40 AM CDT Liliana L Stefani DO CHEMISTRY ORDERABLES Final Result Performing Organization Address [facility] de Phone Number [facility] [phone] [facility] [address] [address] * (ABNORMAL) COMPREHENSIVE METABOLIC PANEL (04/23/2025 11:40 AM CDT) Only the most recent of2 resultswithin the time period is included. Pathologist [facility] GLUCOSE 92 65 - 99 mg/dL [facility] Comment: Fasting reference interval BUN 22 7 - 25 mg/dL [facility] CREATININE 1.33(H) 0.60 - 0.95 mg/dL [facility] GFR 38(L) > OR = 60 mL/min/1.7 3m2 [facility] BUN/CREAT RATIO 17 6 - 22 (calc) [facility] SODIUM 137 135 - 146 mmol/L [facility] POTASSIUM 4.7 3.5 - 5.3 mmol/L [facility] CHLORIDE 98 98 - 110 mmol/L [facility] CO2 27 20 - 32 mmol/L [facility] CALCIUM 8.1(L) 8.6 - 10.4 mg/dL [facility] TOTAL PROTEIN 7.0 6.1 - 8.1 g/dL [facility] ALBUMIN 4.1 3.6 - 5.1 g/dL [facility] GLOBULIN 2.9 1.9 - 3.7 g/dL (calc) [facility] ALBUMIN/GLOBULIN RATIO 1.4 1.0 - 2.5 (calc) [facility] BILIRUBIN TOTAL 0.5 0.2 - 1.2 mg/dL [facility] ALKALINE PHOSPHATASE 160(H) 37 - 153 U/L [facility] AST 25 10 - 35 U/L [facility] ALT 19 6 - 29 U/L [facility] Comment: FASTING:UNKNOWN FASTING: UNKNOWN Test Performed at: [facility] [address] [facility] [place] [address] Татьяна Blankenship MD Blood 04/23/2025 11:4 0 AM CDT 04/23/2025 11:40 AM CDT us Liliana Ko DO CHEMISTRY ORDERABLES Final Result [facility] [phone] [facility] [address] [facility] [place] [address] from Last 3 Months Insurance MEDICARE PART A AND B [place] [employer] [id number] Care Teams Computer Operations Supervisor Relationship Specialty Start Date End Date Liliana Ko DO [address] [place] [address] PCP - General Family Practice 09/08/15
--- OUTSIDE RECORDS SUMMARY | 2025-05-24 13:34 | XMS_ITS | Encounter Summary ---
Author Organization [facility] Address [address] [place] [address] Care Team Providers Care Search Engine Optimizer Name Role Phone Liliana Ko DO Primary Care Provider [phone] Encounter Details Date Type Department Care Team (Latest Contact Info) Description 10/03/2001 Outpatient Historical [facility] Gen Spec [place] [address] 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
--- OUTSIDE RECORDS SUMMARY | 2025-05-24 13:34 | XMS_ITS | Encounter Summary ---
Author Organization [facility] Address [address] [place] [address] Care Team Providers Care Engine Boss Name Role Phone Liliana Ko DO Primary Care Provider Encounter Details Date Type Department Care Team (Latest Contact Info) Description 01/02/2007 Outpatient Historical [facility] Family Medicine- [place] [address] [place] [phone] Farshad Espinosa MD NO ADDRESS ON FILE Unspecified Complication of Procedure, not Elsewhere Classified (Primary Dx) Social History Tobacco Use Types Packs/Day Years Used Date Smoking Tobacco: Never Assessed Comments Unknown Sex and Gender Information Value Date Recorded Sex Assigned at Not on file 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
--- OUTSIDE RECORDS SUMMARY | 2025-05-24 13:34 | XMS_ITS | Encounter Summary ---
Author Organization [facility] Address [address] [place] [address] Care Team Providers Care Cutter In Name Role Phone Liliana Ko DO Primary Care Provider Encounter Details Date Type Department Care Team (Latest Contact Info) Description 06/18/2007 Outpatient Historical [facility] Plastic Surgery 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
--- OUTSIDE RECORDS SUMMARY | 2025-05-24 13:34 | XMS_ITS | Encounter Summary ---
Author Organization [facility] Address [address] [place] [address] Care Team Providers Care Patient Safety Officer Name Role Phone Liliana Ko DO Primary Care Provider Encounter Details Date Type Department Care Team (Latest Contact Info) Description 12/25/2006 Outpatient Historical [facility] Plastic Surgery 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
--- OUTSIDE RECORDS SUMMARY | 2025-05-24 13:34 | XMS_ITS | Encounter Summary ---
Author Organization [facility] Address [address] 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
--- OUTSIDE RECORDS SUMMARY | 2025-05-24 13:34 | XMS_ITS | Encounter Summary ---
Author Organization [facility] Address [address] 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
--- OUTSIDE RECORDS SUMMARY | 2025-05-24 13:34 | XMS_ITS | Encounter Summary ---
Author Organization [facility] Address [address] [place] [address] Care Team Providers Care Fire Pilot Name Role Phone Liliana Ko DO Primary Care Provider [phone] Reason for Visit * Reason Onset Date Comments Results 04/27/2025 Patient Communication Encounter Details Date Type Department Care Team (Latest Contact Info) Description 04/27/2025 Results Follow-Up [facility] [place] [address] [place] [address] Liliana Ko, DO [address] [place] [address] CBC WITH DIFFERENTIAL, COMPREHENSIVE METABOLIC PANEL, TSH, PROTIME-INR Social History Tobacco Use Types Packs/Day Years [...] on file 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 * Telephone Encounter - Sonia Espinal - 05/01/2025 12:51 PM CDT Copied from [facility] #[id number]. Topic: CPA Information Request >> May 01, 2025 12:49 PM Sonia Mcgrath wrote: Caller is returning phone call from clinic. Caller Name: Jessie Kumar Patient/Caregiver Callback Number: [phone] (mobile) Clinic Left Note In Chart Is there a note from the clinic requesting the caller be transferred when they call back? No Are the credentials of the caregiver who called the patient nursing educator? Yes Call Notes: Communicated information that is documented in the note. Caller does not want a call back from clinic. * Telephone Encounter - Brittney Rodriguez LPN - 05/01/2025 8:37 AM CDT Attempted to reach pt multiple times, no answer and no call back. Letter printed to be mailed and My [employer]errals[facility] message sent. Brittney Rodriguez LPN, 05/01/2025 8:37 AM * Telephone Encounter - Brittney Rodriguez LPN - 05/01/2025 8:31 AM CDT 05/01/2025 8:31 AM No answer tried calling pt and I also tried calling niece on PHI. Left voice mail/message that patient/caregiver can return our call. If patient/caregiver calls back, contact center please transfer caller to N line. Brittney DAVID * Telephone Encounter - Brittney Rodriguez LPN - 04/30/2025 11:53 AM CDT 04/30/2025 11:53 AM No answer. Left voice mail/message that patient/caregiver can return our call. If patient/caregivercalls back, contact center please transfer caller to N line. Brittney DAVID * Telephone Encounter - Brittney Rodriguez LPN - 04/29/2025 11:10 AM CDT 04/29/2025 11:10 AM No answer. Left voice mail/message that patient/caregiver can return our call. If patient/caregivercalls back, contact center please transfer caller to N line. Brittney DAVID * Telephone Encounter - Brittney Rodriguez LPN - 04/28/2025 11:04 AM CDT 04/28/2025 11:04 AM No answer. Left voice mail/message that patient/caregiver can return our call. If patient/caregivercalls back, contact center please inform caller to expect a return call from the clinic. Brittney DAVID * Telephone Encounter - Brittney Rodriguez LPN - 04/28/2025 11:03 AM CDT ----- Message from Dr. Liliana Ko sent at 04/27/2025 4:46 PM CDT ----- Call jessie and let her know that her labs were all really good. Her coumadin level was only 3.6 so she can restart her coumadin now. Her other labs like blood sugars, potassium, thyroid, etc were all good. The only abnormal thing was her kidney function was too low so she is dehydrated. I want her to stop the water pill and potassium pill and only use it if she starts to swell again. 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 Office Visit [facility] [address] [facility] [place] [address] Liliana Ko, DO [address] [facility] [place] [address] 10/22/2025 9:20 AM INSTALLMENT ACCOUNT CHECKER Office Visit [facility] [address] [facility] [place] [address] Liliana Ko, DO [address] [facility] [place] [address] documented as of this encounter Visit Diagnoses Not on filedocumented in this encounter Care Teams Fire Pilot Relationship Specialty Start Date End Date Liliana Ko DO [address] [facility] [place] [address] PCP - General Family Practice 09/08/15 documented as of this encounter
--- OUTSIDE RECORDS SUMMARY | 2025-05-24 13:34 | XMS_ITS | Encounter Summary ---
Author Organization [facility] Address [address] [place] [address] Care Team Providers Care Podiatry Assistant Name Role Phone Liliana Ko DO Primary Care Provider Encounter Details Date Type Department Care Team (Latest Contact Info) Description 10/25/1999 Outpatient Historical [facility] Aleks Gonzales MD NO ADDRESS ON FILE Hyperparathyroidism (Primary Dx) Social History Tobacco Use Types Packs/Day Years Used Date Smoking Tobacco: Never Assessed Comments Unknown Sex and Gender Information Value Date Recorded Sex Assigned at Not on file 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
[2025-05-24 14:04] VITALS: BP 94/64; PULSE 83; RESP 18; TEMP 36.6; O2SAT 94; BMI 33.3
--- NOTE | 2025-05-24 16:20 | W.ED.WEAKNES ---
Documented by User: Lucho Cardoso DO 05/26/25 16:18 HPI - Weakness General: Chief complaint: Weakness Stated complaint: Lethargy Time Seen by Provider: 05/24/25 16:15 History of Present Illness: 89-year-old female presents to the emergency room complaining of just generally not feeling well. States that problems with UTI for the last couple months she has burning with urination. She finished her last antibiotics couple weeks ago, she had been taking cephalexin from her previous prescription. Patient has just generally felt weak. Associated symptoms: Denies chest pain, chills, dysuria or fever(s) Related Data Home Medications ?Medication ?Instructions ?Recorded ?Confirmed lorazepam 0.5 mg tablet 0.5 mg PO TID PRN Anxiety 03/05/21 04/10/25 fluticasone propionate 50 2 spray intranasal DAILY PRN 11/02/23 04/10/25 mcg/actuation nasal allergies spray,suspension warfarin 1 mg tablet See Rx Instructions .Route .COMPLEX 12/11/23 04/10/25 zolpidem 10 mg tablet 10 mg PO BEDTIME PRN Sleep 12/11/23 04/10/25 warfarin 6 mg tablet See Rx Instructions .Route .COMPLEX 01/03/24 04/10/25 lovastatin 20 mg tablet 20 mg PO QPM 07/02/24 04/10/25 tramadol 50 mg tablet 50 mg PO Q6H PRN pain 07/02/24 04/10/25 nitroglycerin 0.4 mg sublingual See Rx Instructions .Route .COMPLEX 01/22/25 04/10/25 tablet oxycodone-acetaminophen 10 mg-325 1 tab PO Q6H PRN Severe Pain 01/22/25 04/10/25 mg tablet (Scale Score 7-10) tramadol 100 mg tablet,extended 100 mg PO BEDTIME 01/22/25 04/10/25 release 24 hr warfarin 5 mg tablet 5 mg PO DAILY 01/22/25 04/10/25 amiodarone 100 mg tablet 200 mg PO QPM 04/10/25 04/10/25 diltiazem HCl 240 mg 240 mg PO QAM 04/10/25 04/10/25 capsule,extended release 24 hr linaclotide 72 mcg capsule 72 mcg PO DAILY 04/10/25 04/10/25 (Linzess) metoprolol succinate 25 mg 12.5 mg PO QAM 04/10/25 04/10/25 tablet,extended release 24 hr Previous Rx's ?Medication ?Instructions ?Recorded omeprazole 20 mg capsule,delayed 20 mg PO BID #60 caps 09/13/23 release CAM Boot #1 ea 01/24/24 AFO brace right foot #1 ea 02/07/24 furosemide 40 mg tablet (Lasix) 40 mg PO DAILY #5 tabs 04/10/25 Allergies Allergy/AdvReac Type Severity Reaction Status Date / Time diazepam (From Valium) Allergy Unknown Verified 05/24/25 14:08 furosemide (From Lasix) Allergy ADR-Dizzine Verified 05/24/25 14:08 ss lisinopril Allergy Unknown Verified 05/24/25 14:08 olmesartan (From Benicar) Allergy Unknown Verified 05/24/25 14:08 penicillamine Allergy Unknown Verified 05/24/25 14:08 Penicillins Allergy Unknown Verified 05/24/25 14:08 ranitidine (From Zantac) Allergy ALGY-Rash Verified 05/24/25 14:08 Sulfa (Sulfonamide Allergy Unknown Verified 05/24/25 14:08 Antibiotics) Review of Systems Const: Denies: fever(s) or chills Card: Denies: chest pain Resp: Denies: dyspnea GI: Denies: abdominal pain : Denies: dysuria, urinary frequency or urinary urgency Musc: Denies: neck pain or back pain Skin/Breast: Denies: rash PFSH ED PFSH: Medical History Atrial fibrillation, chronic Essential hypertension CHF (congestive heart failure) GERD (gastroesophageal reflux disease) Hyperlipidemia HTN (hypertension) Diastolic heart failure Atrial fibrillation Surgical History History of cardiac radiofrequency ablation (RFA) S/P subtotal thyroidectomy S/P cataract extraction S/P cholecystectomy S/P knee surgery Family History Other CAD (coronary artery disease) Social History Smoking and tobacco/nicotine status: never used tobacco/nicotine Alcohol intake: never Substance/Drug Use: never Physical Exam Const: COMMON NORMALS: no acute distress GENERAL APPEARANCE: cooperative and comfortable ORIENTATION/CONSCIOUSNESS: Yes awake, Yes oriented to person, Yes oriented to place and Yes oriented to time HENMT: COMMON NORMALS: normocephalic, atraumatic and hearing grossly normal bilaterally HEAD & SCALP: normocephalic and atraumatic Resp: COMMON NORMALS: normal respiratory effort, No retractions, No use of accessory muscles and clear to auscultation bilaterally AUSCULTATION: clear to auscultation bilaterally Cardio: COMMON NORMALS: regular rate, regular rhythm and No murmurs present (Cardio) RATE: regular rate RHYTHM: regular rhythm GI: COMMON NORMALS: Soft to palpation and No hepatosplenomegaly present AUSCULTATION: Yes normoactive bowel sounds PALPATION: Yes Soft to palpation, No Tenderness to palpation present (GI), No Guarding due to palpation present (GI) and Yes No hepatosplenomegaly present Extremity: COMMON NORMALS: normal to inspection, capillary refill normal, no clubbing, cyanosis or edema, no calf tenderness and no pedal edema Neuro: SENSORIUM/ORIENTATION: Yes oriented to person, Yes oriented to place and Yes oriented to time Skin: COMMON NORMALS: no rashes or lesions noted GENERAL SKIN EXAM: no rashes or lesions noted Course Vital Signs: Vital signs: Vital Signs Temperature 97.9 F 05/24/25 14:04 Pulse Rate 96 05/24/25 18:30 Respiratory Rate 21 H 05/24/25 17:05 Blood Pressure 147/87 05/24/25 18:30 Pulse Oximetry 93 05/24/25 18:30 Oxygen Delivery Ca thod Room Air 05/24/25 17:05 MDM - Weakness Medical Decision Making Care signed out to Dr. Garcia at change of shift. See final notes for diagnosis and disposition. 89-year-old female checked out to vt it shift change by the previous physician. Generally weak. She is feeling improved after fluid bolus. Her vitals were stable here. She is afebrile. BUN is 24, creatinine 1.2. 132. Otherwise BMP and CBC are normal. Chest x-ray is non-acute. Urinalysis is negative. With improvement in her symptoms, she wishes to go home. She does have atrial fibrillation, but is not in a rapid ventricular response. She will be discharged. Non-specific further treatment necessary. She knows to return for any worsening or new symptoms. Medical Records I reviewed the patient's medical records. Lab Data I reviewed the patient's lab results. 05/24/25 16:31 05/24/25 16: Radiology Impressions Chest X-Ray 05/24/25 19:00 IMPRESSION: As above. Laboratory Results WBC 9.17 10^3/uL (3.29-11.43) 05/24/25 16: RBC 4.60 10^6/uL (3.85-5.65) 05/24/25 16: Hgb 11.80 g/dL (11.27-16.99) 05/24/25 16: Hct 38.8 % (36-47) 05/24/25 16: MCV 84.3 fl (85-98) L 05/24/25 16: MCH 25.7 pg (27-33) L 05/24/25 16: MCHC 30.4 g/dL (30-55) 05/24/25 16: RDW 18.5 % (12.1-15.1) H 05/24/25 16: Plt Count 337 10^3/cmm (157-399) 05/24/25 16: MPV 9.3 fL (7.4-10.4) 05/24/25 16: Neut % (Auto) 64.1 % 05/24/25 16: Lymph % (Auto) 27.3 % 05/24/25 16: Nicholas % (Auto) 6.7 % 05/24/25 16: Eos % (Auto) 1.0 % 05/24/25 16: Baso % (Auto) 0.4 % 05/24/25 16: Neut # (Auto) 5.88 10^3/uL (1.8-7.7) 05/24/25 16: Lymph # (Auto) 2.5 10^3/uL (0.8-4.8) 05/24/25 16: Nicholas # (Auto) 0.6 10^3/uL (0.2-0.9) 05/24/25 16: Eos # (Auto) 0.1 10^3/uL (0.0-0.8) 09/13/25 16:31 Baso # (Auto) 0.0 10^3/uL (0.0-0.1) 05/24/25 16:31 Nucleated RBC % (auto) 0 % 05/24/25 16: Nucleated RBCs # 0.0 /100WBC 05/24/25 16: PT 13.50 SECONDS (12.1-14.9) 05/24/25 16: INR 0.96 (0.8-1.2) 05/24/25 16:31 Sodium 132 mmol/L (136-145) L 05/24/25 16:31 Potassium 4.8 mmol/L (3.5-5.1) 05/24/25 16: Chloride 97 mmol/L (98-107) L 05/24/25 16:31 Carbon Dioxide 25 mmol/L (22-29) 05/24/25 16:31 Anion Gap 14.8 (5-19) 05/24/25 16:31 BUN 24 mg/dL (8-23) H 05/24/25 16:31 Creatinine 1.2 mg/dL (0.5-0.9) H 05/24/25 16:31 GFR Calculation Not Reportable 05/24/25 16: Glucose 104 mg/dL (65-115) 05/24/25 16:31 Calculated Osmolality 278 mOsm/kg (285-295) L 05/24/25 16:31 Calcium 8.8 mg/dL (8.5-10.5) 05/24/25 16:31 Total Bilirubin 0.4 mg/dL (0.15-1.2) 05/24/25 16:31 AST 22 U/L (0-32) 05/24/25 16:31 ALT 23 U/L (0-33) 05/24/25 16:31 Alkaline Phosphatase 139 U/L (35-105) H 05/24/25 16:31 Total Protein 7.4 g/dL (6.6-8.7) 05/24/25 16:31 Albumin 4.1 g/dL (3.5-5.2) 05/24/25 16: Globulin 3.3 g/dL (1.3-4.6) 05/24/25 16:31 Urine Color Yellow (Yellow) 05/24/25 18:33 Urine Appearance Clear (CLEAR) 05/24/25 18:33 Urine pH 5.5 (5-7) 05/24/25 18:33 Ur Specific Ripley 1.016 (1.005-1.030) 05/24/25 18:33 Urine Protein Negative (Negative) 05/24/25 18:33 Urine Glucose (UA) Negative (Normal) 05/24/25 18:33 Urine Ketones Negative (Negative) 05/24/25 18:33 Urine Blood Negative (Negative) 05/24/25 18:33 Urine Nitrate Negative (Negative) 05/24/25 18: Urine Bilirubin Negative (Negative) 05/24/25 18:33 Urine Urobilinogen 0.2 mg/dL (Negative) 05/24/25 18: Ur Leukocyte Esterase Negative (Negative) 05/24/25 18:33 Urine RBC 0-2 /hpf (0-2) 05/24/25 18:33 Urine WBC 0-5 /hpf (0-5) 05/24/25 18:33 Ur Squamous Epith Cells 0-5 /hpf (0-5) 05/24/25 18:33 Amorphous Sediment Not Reportable 05/24/25 18:33 Urine Bacteria 4+ /hpf (NONE) H 05/24/25 18:33 Hyaline Casts 1.65 /lpf 05/24/25 18:33 Discharge Plan Discharge Patient Disposition: Home Clinical Impression: Dehydration Atrial fibrillation Qualifiers: Atrial fibrillation type: persistent (not longstanding) Qualified Code(s): I48.19 - Other persistent atrial fibrillation Condition: Stable Prescriptions: No Action lorazepam 0.5 mg tablet 0.5 mg PO TID PRN (Reason: Anxiety) (DME) CAM Boot See Rx Instructions .Route .MEDSUPPLY Qty: 1 0RF Rx Instructions: As directed (DME) AFO brace right foot See Rx Instructions .Route .MEDSUPPLY Qty: 1 0RF Rx Instructions: As directed to the shoe paulie lovastatin 20 mg tablet 20 mg PO QPM tramadol 50 mg tablet 50 mg PO Q6H MDD 1-2 tabs daily PRN (Reason: pain) omeprazole 20 mg capsule,delayed release(DR/EC) 20 mg PO BID Qty: 60 0RF fluticasone propionate 50 mcg/actuation spray,suspension 2 spray INTRANASAL DAILY PRN (Reason: allergies) warfarin 6 mg Tablet See Rx Instructions .ROUTE .COMPLEX Protocol: Dose Management Condition: Monday Dose/Route: 3 mg Instruction: 3 x 1 mg tablets Condition: Monday Dose/Route: 3 mg Instruction: 3 x 1 mg tablets Condition: Monday Dose/Route: 2 mg Instruction: 2 x 1 mg tablets Condition: Monday Dose/Route: 3 mg Instruction: 3 x 1 mg tablets Condition: Dose/Route: 2 mg Instruction: 2 x 1 mg tablets Condition: Monday Dose/Route: 3 mg Instruction: 3 x 1 mg tablets Condition: Monday Dose/Route: 3 mg Instruction: 3 x 1 mg tablets Protocol Text: Adjustment Start Date: Monday05/13/25 INR Value: 3.1 INR Date: 05/12/25 Recheck Date: 05/20/25 Rx Instructions: TAKE 5 MG BY MOUTH DAILY ON MONDAY THROUGH MONDAY AND 6MG ON MONDAY. warfarin 5 mg Tablet 5 mg PO DAILY Protocol: Dose Management Condition: Monday Dose/Route: 3 mg Instruction: 3 x 1 mg tablets Condition: Monday Dose/Route: 3 mg Instruction: 3 x 1 mg tablets Condition: Monday Dose/Route: 2 mg Instruction: 2 x 1 mg tablets Condition: Monday Dose/Route: 3 mg Instruction: 3 x 1 mg tablets Condition: Dose/Route: 2 mg Instruction: 2 x 1 mg tablets Condition: Monday Dose/Route: 3 mg Instruction: 3 x 1 mg tablets Condition: Monday Dose/Route: 3 mg Instruction: 3 x 1 mg tablets Protocol Text: Adjustment Start Date: Monday05/13/25 INR Value: 3.1 INR Date: 05/12/25 Recheck Date: 05/20/25 Rx Instructions: EXCEPT 6MG ON MONDAY. oxycodone-acetaminophen 10-325 mg tablet 1 tab PO Q6H PRN (Reason: Severe Pain (Scale Score 7-10)) nitroglycerin 0.4 mg tablet, sublingual See Rx Instructions .ROUTE .COMPLEX Rx Instructions: DISSOLVE 1 TABLET UNDER THE TONGUE EVERY 5 MINUTES NEEDED FOR CHEST PAIN. DO NOT EXCEED A TOTAL OF 3 DOSES IN 15 MINUTES. tramadol 100 mg tablet extended release 24 hr 100 mg PO BEDTIME amiodarone 100 mg tablet 200 mg PO QPM diltiazem HCl 240 mg capsule,extended release 24hr 240 mg PO QAM Linzess 72 mcg capsule 72 mcg PO DAILY metoprolol succinate 25 mg tablet extended release 24 hr 12.5 mg PO QAM furosemide [Lasix] 40 mg tablet 40 mg PO DAILY Qty: 5 0RF warfarin 1 mg Tablet See Rx Instructions .ROUTE .COMPLEX Protocol: Dose Management Condition: Monday Dose/Route: 3 mg Instruction: 3 x 1 mg tablets Condition: Monday Dose/Route: 3 mg Instruction: 3 x 1 mg tablets Condition: Monday Dose/Route: 2 mg Instruction: 2 x 1 mg tablets Condition: Monday Dose/Route: 3 mg Instruction: 3 x 1 mg tablets Condition: Dose/Route: 2 mg Instruction: 2 x 1 mg tablets Condition: Monday Dose/Route: 3 mg Instruction: 3 x 1 mg tablets Condition: Monday Dose/Route: 3 mg Instruction: 3 x 1 mg tablets Protocol Text: Adjustment Start Date: Monday05/13/25 INR Value: 3.1 INR Date: 05/12/25 Recheck Date: 05/20/25 Rx Instructions: TAKE 7MG BY MOUTH ONCE A DAY TWO DAYS A WEEK (MONDAY AND MONDAY) AND TAKE 6MG PO ONCE A DAY ALL OTHER DAYS(MONDAY,MONDAY,MONDAY,MONDAY AND MONDAY) zolpidem 10 mg tablet 10 mg PO BEDTIME PRN (Reason: Sleep) Discharge Orders: Discharge ED (Routine); Ordered 05/24/25 Ordered By: George Garcia Referrals: Liliana Ko DO [Primary Care Provider, [facility]] - 1-3 days Patient Instructions: A-fib (Atrial Fibrillation) (ED), Dehydration (ED), Opioid Safety, Pain Management, Patient Portal & Isiah Instructions Activity Restrictions/Additional Instructions: Return for fever, worsening shortness of breath, worsening mental status despite hydration, other concerning symptoms. Call your doctor Monday for a follow-up appointment. Further outpatient testing may be needed. Print Language: Ecuadorean Coding Level of Care Code ED Manager Massage Department for [facility] F[facility] Documented by User: George Jerome Jose, DO 05/25/25 15:21 HPI - Weakness General: Chief complaint: Weakness Stated complaint: Lethargy Time Seen by Provider: 05/24/25 16:15 Related Data Home Medications ?Medication ?Instructions ?Recorded ?Confirmed lorazepam 0.5 mg tablet 0.5 mg PO TID PRN Anxiety 03/05/21 04/10/25 fluticasone propionate 50 2 spray intranasal DAILY PRN 11/02/23 04/10/25 mcg/actuation nasal allergies spray,suspension warfarin 1 mg tablet See Rx Instructions .Route .COMPLEX 12/11/23 04/10/25 zolpidem 10 mg tablet 10 mg PO BEDTIME PRN Sleep 12/11/23 04/10/25 warfarin 6 mg tablet See Rx Instructions .Route .COMPLEX 01/03/24 04/10/25 lovastatin 20 mg tablet 20 mg PO QPM 07/02/24 04/10/25 tramadol 50 mg tablet 50 mg PO Q6H PRN pain 07/02/24 04/10/25 nitroglycerin 0.4 mg sublingual See Rx Instructions .Route .COMPLEX 01/22/25 04/10/25 tablet oxycodone-acetaminophen 10 mg-325 1 tab PO Q6H PRN Severe Pain 01/22/25 04/10/25 mg tablet (Scale Score 7-10) tramadol 100 mg tablet,extended 100 mg PO BEDTIME 01/22/25 04/10/25 release 24 hr warfarin 5 mg tablet 5 mg PO DAILY 01/22/25 04/10/25 amiodarone 100 mg tablet 200 mg PO QPM 04/10/25 04/10/25 diltiazem HCl 240 mg 240 mg PO QAM 04/10/25 04/10/25 capsule,extended release 24 hr linaclotide 72 mcg capsule 72 mcg PO DAILY 04/10/25 04/10/25 (Linzess) metoprolol succinate 25 mg 12.5 mg PO QAM 04/10/25 04/10/25 tablet,extended release 24 hr Previous Rx's ?Medication ?Instructions ?Recorded omeprazole 20 mg capsule,delayed 20 mg PO BID #60 caps 09/13/23 release CAM Boot #1 ea 01/24/24 AFO brace right foot #1 ea 02/07/24 furosemide 40 mg tablet (Lasix) 40 mg PO DAILY #5 tabs 04/10/25 Allergies Allergy/AdvReac Type Severity Reaction Status Date / Time diazepam (From Valium) Allergy Unknown Verified 05/24/25 14:08 furosemide (From Lasix) Allergy ADR-Dizzine Verified 05/24/25 14:08 ss lisinopril Allergy Unknown Verified 05/24/25 14:08 olmesartan (From Benicar) Allergy Unknown Verified 05/24/25 14:08 penicillamine Allergy Unknown Verified 05/24/25 14:08 Penicillins Allergy Unknown Verified 05/24/25 14:08 ranitidine (From Zantac) Allergy ALGY-Rash Verified 05/24/25 14:08 Sulfa (Sulfonamide Allergy Unknown Verified 05/24/25 14:08 Antibiotics) PFS ED PFSH: Medical History Atrial fibrillation, chronic Essential hypertension CHF (congestive heart failure) GERD (gastroesophageal reflux disease) Hyperlipidemia HTN (hypertension) Diastolic heart failure Atrial fibrillation Surgical History History of cardiac radiofrequency ablation (RFA) S/P subtotal thyroidectomy S/P cataract extraction S/P cholecystectomy S/P knee surgery Family History Other CAD (coronary artery disease) Social History Smoking and tobacco/nicotine status: never used tobacco/nicotine Alcohol intake: never Substance/Drug Use: never Course Vital Signs: Vital signs: Vital Signs Temperature 97.9 F 05/24/25 14:04 Pulse Rate 96 05/24/25 18:30 Respiratory Rate 21 H 05/24/25 17:05 Blood Pressure 147/87 05/24/25 18:30 Pulse Oximetry 93 05/24/25 18:30 Oxygen Delivery Me thod Room Air 05/24/25 17:05 MDM - Weakness Medical Decision Making 89-year-old female checked out to me it shift change by the previous physician. Generally weak. She is feeling improved after fluid bolus. Her vitals were stable here. She is afebrile. BUN is 24, creatinine 1.2. 132. Otherwise BMP and CBC are normal. Chest x-ray is non-acute. Urinalysis is negative. With improvement in her symptoms, she wishes to go home. She does have atrial fibrillation, but is not in a rapid ventricular response. She will be discharged. Non-specific further treatment necessary. She knows to return for any worsening or new symptoms. Lab Data 05/24/25 16:31 05/24/25 16:31 Radiology Impressions Chest X-Ray 05/24/25 19:00 IMPRESSION: As above. Laboratory Results WBC 9.17 10^3/uL (3.29-11.43) 05/24/25 16: RBC 4.60 10^6/uL (3.85-5.65) 05/24/25 16: Hgb 11.80 g/dL (11.27-16.99) 05/24/25 16: Hct 38.8 % (36-47) 05/24/25 16: MCV 84.3 fl (85-98) L 05/24/25 16: MCH 25.7 pg (27-33) L 05/24/25 16: MCHC 30.4 g/dL (30-55) 05/24/25 16:31 RDW 18.5 % (12.1-15.1) H 05/24/25 16:31 Plt Count 337 10^3/cmm (157-399) 05/24/25 16: MPV 9.3 fL (7.4-10.4) 05/24/25 16: Neut % (Auto) 64.1 % 05/24/25 16:31 Lymph % (Auto) 27.3 % 05/24/25 16:31 Nicholas % (Auto) 6.7 % 05/24/25 16: Eos % (Auto) 1.0 % 05/24/25 16: Baso % (Auto) 0.4 % 05/24/25 16: Neut # (Auto) 5.88 10^3/uL (1.8-7.7) 05/24/25 16:31 Lymph # (Auto) 2.5 10^3/uL (0.8-4.8) 05/24/25 16:31 Nicholas # (Auto) 0.6 10^3/uL (0.2-0.9) 05/24/25 16:31 Eos # (Auto) 0.1 10^3/uL (0.0-0.8) 05/24/25 16:31 Baso # (Auto) 0.0 10^3/uL (0.0-0.1) 05/24/25 16:31 Nucleated RBC % (auto) 0 % 05/24/25 16:31 Nucleated RBCs # 0.0 /100WBC 05/24/25 16:31 PT 13.50 SECONDS (12.1-14.9) 05/24/25 16: INR 0.96 (0.8-1.2) 05/24/25 16:31 Sodium 132 mmol/L (136-145) L 05/24/25 16:31 Potassium 4.8 mmol/L (3.5-5.1) 05/24/25 16:31 Chloride 97 mmol/L (98-107) L 05/24/25 16:31 Carbon Dioxide 25 mmol/L (22-29) 05/24/25 16:31 Anion Gap 14.8 (5-19) 05/24/25 16:31 BUN 24 mg/dL (8-23) H 05/24/25 16:31 Creatinine 1.2 mg/dL (0.5-0.9) H 05/24/25 16:31 GFR Calculation Not Reportable 05/24/25 16:31 Glucose 104 mg/dL (65-115) 05/24/25 16:31 Calculated Osmolality 278 mOsm/kg (285-295) L 05/24/25 16:31 Calcium 8.8 mg/dL (8.5-10.5) 05/24/25 16:31 Total Bilirubin 0.4 mg/dL (0.15-1.2) 05/24/25 16:31 AST 22 U/L (0-32) 05/24/25 16:31 ALT 23 U/L (0-33) 05/24/25 16:31 Alkaline Phosphatase 139 U/L (35-105) H 05/24/25 16:31 Total Protein 7.4 g/dL (6.6-8.7) 05/24/25 16:31 Albumin 4.1 g/dL (3.5-5.2) 05/24/25 16:31 Globulin 3.3 g/dL (1.3-4.6) 05/24/25 16:31 Urine Color Yellow (Yellow) 05/24/25 18:33 Urine Appearance Clear (CLEAR) 05/24/25 18:33 Urine pH 5.5 (5-7) 05/24/25 18:33 Ur Specific R[place] 1.016 (1.005-1.030) 05/24/25 18:33 Urine Protein Negative (Negative) 05/24/25 18:33 Urine Glucose (UA) Negative (Normal) 05/24/25 18:33 Urine Ketones Negative (Negative) 05/24/25 18: Urine Blood Negative (Negative) 05/24/25 18: Urine Nitrate Negative (Negative) 05/24/25 18: Urine Bilirubin Negative (Negative) 05/24/25 18:33 Urine Urobilinogen 0.2 mg/dL (Negative) 05/24/25 18:33 Ur Leukocyte Esterase Negative (Negative) 05/24/25 18:33 Urine RBC 0-2 /hpf (0-2) 05/24/25 18:33 Urine WBC 0-5 /hpf (0-5) 05/24/25 18:33 Ur Squamous Epith Cells 0-5 /hpf (0-5) 05/24/25 18:33 Amorphous Sediment Not Reportable 05/24/25 18:33 Urine Bacteria 4+ /hpf (NONE) H 05/24/25 18:33 Hyaline Casts 1.65 /lpf 05/24/25 18:33 All radiology interpretation(s) finalized by discharge Discharge Plan Discharge Patient Disposition: Home Clinical Impression: Dehydration Atrial fibrillation Qualifiers: Atrial fibrillation type: persistent (not longstanding) Qualified Code(s): I48.19 - Other persistent atrial fibrillation Condition: Stable Prescriptions: No Action lorazepam 0.5 mg tablet 0.5 mg PO TID PRN (Reason: Anxiety) (DME) CAM Boot See Rx Instructions .Route .MEDSUPPLY Qty: 1 0RF Rx Instructions: As directed (DME) AFO brace right foot See Rx Instructions .Route .MEDSUPPLY Qty: 1 0RF Rx Instructions: As directed to the shoe paulie lovastatin 20 mg tablet 20 mg PO QPM tramadol 50 mg tablet 50 mg PO Q6H MDD 1-2 tabs daily PRN (Reason: pain) omeprazole 20 mg capsule,delayed release(DR/EC) 20 mg PO BID Qty: 60 0RF fluticasone propionate 50 mcg/actuation spray,suspension 2 spray INTRANASAL DAILY PRN (Reason: allergies) warfarin 6 mg Tablet See Rx Instructions .ROUTE .COMPLEX Protocol: Dose Management Condition: Monday Dose/Route: 3 mg Instruction: 3 x 1 mg tablets Condition: Monday Dose/Route: 3 mg Instruction: 3 x 1 mg tablets Condition: Monday Dose/Route: 2 mg Instruction: 2 x 1 mg tablets Condition: Monday Dose/Route: 3 mg Instruction: 3 x 1 mg tablets Condition: Dose/Route: 2 mg Instruction: 2 x 1 mg tablets Condition: Monday Dose/Route: 3 mg Instruction: 3 x 1 mg tablets Condition: Monday Dose/Route: 3 mg Instruction: 3 x 1 mg tablets Protocol Text: Adjustment Start Date: Monday05/13/25 INR Value: 3.1 INR Date: 05/12/25 Recheck Date: 05/20/25 Rx Instructions: TAKE 5 MG BY MOUTH DAILY ON MONDAY THROUGH MONDAY AND 6MG ON MONDAY. warfarin 5 mg Tablet 5 mg PO DAILY Protocol: Dose Management Condition: Monday Dose/Route: 3 mg Instruction: 3 x 1 mg tablets Condition: Monday Dose/Route: 3 mg Instruction: 3 x 1 mg tablets Condition: Monday Dose/Route: 2 mg Instruction: 2 x 1 mg tablets Condition: Monday Dose/Route: 3 mg Instruction: 3 x 1 mg tablets Condition: Dose/Route: 2 mg Instruction: 2 x 1 mg tablets Condition: Monday Dose/Route: 3 mg Instruction: 3 x 1 mg tablets Condition: Monday Dose/Route: 3 mg Instruction: 3 x 1 mg tablets Protocol Text: Adjustment Start Date: Monday05/13/25 INR Value: 3.1 INR Date: 05/12/25 Recheck Date: 05/20/25 Rx Instructions: EXCEPT 6MG ON MONDAY. oxycodone-acetaminophen 10-325 mg tablet 1 tab PO Q6H PRN (Reason: Severe Pain (Scale Score 7-10)) nitroglycerin 0.4 mg tablet, sublingual See Rx Instructions .ROUTE .COMPLEX Rx Instructions: DISSOLVE 1 TABLET UNDER THE TONGUE EVERY 5 MINUTES NEEDED FOR CHEST PAIN. DO NOT EXCEED A TOTAL OF 3 DOSES IN 15 MINUTES. tramadol 100 mg tablet extended release 24 hr 100 mg PO BEDTIME amiodarone 100 mg tablet 200 mg PO QPM diltiazem HCl 240 mg capsule,extended release 24hr 240 mg PO QAM Linzess 72 mcg capsule 72 mcg PO DAILY metoprolol succinate 25 mg tablet extended release 24 hr 12.5 mg PO QAM furosemide [Lasix] 40 mg tablet 40 mg PO DAILY Qty: 5 0RF warfarin 1 mg Tablet See Rx Instructions .ROUTE .COMPLEX Protocol: Dose Management Condition: Monday Dose/Route: 3 mg Instruction: 3 x 1 mg tablets Condition: Monday Dose/Route: 3 mg Instruction: 3 x 1 mg tablets Condition: Monday Dose/Route: 2 mg Instruction: 2 x 1 mg tablets Condition: Monday Dose/Route: 3 mg Instruction: 3 x 1 mg tablets Condition: Dose/Route: 2 mg Instruction: 2 x 1 mg tablets Condition: Monday Dose/Route: 3 mg Instruction: 3 x 1 mg tablets Condition: Monday Dose/Route: 3 mg Instruction: 3 x 1 mg tablets Protocol Text: Adjustment Start Date: Monday05/13/25 INR Value: 3.1 INR Date: 05/12/25 Recheck Date: 05/20/25 Rx Instructions: TAKE 7MG BY MOUTH ONCE A DAY TWO DAYS A WEEK (MONDAY AND MONDAY) AND TAKE 6MG PO ONCE A DAY ALL OTHER DAYS(MONDAY,MONDAY,MONDAY,MONDAY AND MONDAY) zolpidem 10 mg tablet 10 mg PO BEDTIME PRN (Reason: Sleep) Discharge Orders: Discharge ED (Routine); Ordered 05/24/25 Ordered By: George Garcia Referrals: Liliana Ko DO [Primary Care Provider, Family [facility]] - 1-3 days Patient Instructions: A-fib (Atrial Fibrillation) (ED), Dehydration (ED), Opioid Safety, Pain Management, Patient Portal & [facility] Instructions Activity Restrictions/Additional Instructions: Return for fever, worsening shortness of breath, worsening mental status despite hydration, other concerning symptoms. Call your doctor Monday for a follow-up appointment. Further outpatient testing may be needed. Print Language: Ecuadorean Coding Level of Care Code ED Manager Massage Department for Zuhair Nelson
[2025-05-24 16:37] LABS: Hematocrit 38.8 % (36-47); Hemoglobin 11.80 g/dL (11.27-16.99); Mean Corpuscular HGB Conc 30.4 g/dL (30-55); Mean Corpuscular Hemoglobin 25.7 pg (27-33); Mean Corpuscular Volume 84.3 fl (85-98); Nucleated Red Blood Cells % 0 %; Platelet Count 337 10^3/cmm (157-399); Red Blood Count 4.60 10^6/uL (3.85-5.65); White Blood Count 9.17 10^3/uL (3.29-11.43)
[2025-05-24 16:40] VITALS: BP 138/102; PULSE 96; O2SAT 92
[2025-05-24 16:50] LABS: INR 0.96 (0.8-1.2); Prothrombin Time 13.50 SECONDS (12.1-14.9)
[2025-05-24 17:02] LABS: Alanine Aminotransferase 23 U/L (0-33); Albumin Level 4.1 g/dL (3.5-5.2); Alkaline Phosphatase 139 U/L (35-105); Aspartate Amino Transferase 22 U/L (0-32); Blood Urea Nitrogen 24 mg/dL (8-23); Calcium 8.8 mg/dL (8.5-10.5); Carbon Dioxide 25 mmol/L (22-29); Chloride 97 mmol/L (98-107); Creatinine Clr Calc Pharmacy 36.0594; Globulin 3.3 g/dL (1.3-4.6); Glucose 104 mg/dL (65-115); Osmolality Calculated 278 mOsm/kg (285-295); Sodium 132 mmol/L (136-145); Total Protein 7.4 g/dL (6.6-8.7)
[2025-05-24 17:03] LABS: Anion Gap 14.8 (5-19); Potassium 4.8 mmol/L (3.5-5.1)
[2025-05-24 17:05] VITALS: BP 149/106; PULSE 107; RESP 21; O2SAT 84
[2025-05-24 17:35] VITALS: BP 133/106; PULSE 98; O2SAT 95
[2025-05-24 18:00] VITALS: BP 133/106; PULSE 95; O2SAT 89
[2025-05-24 18:30] VITALS: BP 147/87; PULSE 96; O2SAT 93
[2025-05-24 18:40] LABS: Glucose Urine UA Negative (Normal); Nitrate Urine Negative (Negative); Specific Gravity, Urine 1.016 (1.005-1.030)
[2025-05-24 18:43] LABS: Add Urine Microscopic? YES
--- NOTE | 2025-05-24 19:00 | XRR_ITS ---
PROCEDURE INFORMATION: Exam: XR Chest Exam date and time: 05/24/2025 7:00 PM Age: 89 years old Clinical indication: Other: Weakness, lethargy; Prior surgery; Surgery date: 6+ months; Surgery type: Cardiac ablation, thyroidectomy, gallbladder TECHNIQUE: Imaging protocol: Radiologic exam of the chest. Views: 1 view. COMPARISON: CR XR chest 1V portable [id number] 04/10/2025 1:13 PM FINDINGS: Lungs: Eventration of the right hemidiaphragm with compressive atelectasis of the right lung base. No consolidation. Pleural spaces: Unremarkable. No pleural effusion. No pneumothorax. Heart/Mediastinum: Unremarkable. No cardiomegaly. Bones/joints: Unremarkable. XR/XR chest 1V portable [id number] IMPRESSION: As above.
[2025-05-24 19:22] LABS: UA Slide Review UA Slide Review Perf
== END 2025-05-24 19:48 | disposition home or self-care (01) ==
PROVIDERS: Family Medicine; Emergency Provider Emergency Medicine; PCP Family Medicine
DX: E86.0 Dehydration (principal); I48.19 Other persistent atrial fibrillation; Z79.01 Long term (current) use of anticoagulants; E78.5 Hyperlipidemia, unspecified; I11.0 Hypertensive heart disease with heart failure; I50.30 Unspecified diastolic (congestive) heart failure
CPT/HCPCS: 36415; 71045; 80053; 81001; 85025; 85610; 99284; J7030

== ENCOUNTER → 2025-06-25 17:06 | Outpatient (BNVA) | payer MEDICARE, OTHER, SELFPAY | PROVIDERS: PCP Family Medicine; Visit Provider Internal Medicine Cardiovascular Disease | DX: I48.91 Unspecified atrial fibrillation (principal); R94.31 Abnormal electrocardiogram [ECG] [EKG]; R07.9 Chest pain, unspecified | CPT/HCPCS: 93005 ==